=== PATIENT | female | born 1935 | race Caucasian/White ===

== ENCOUNTER 2016-10-28 15:46 | Inpatient (IN) ==
[2016-10-28 16:51] LABS: Hemoglobin 6.4 g/dL (11.5-15.4); Red Cell Distribution Width 20.7 % (11.5-14.5)
[2016-10-28 16:53] LABS: Hematocrit 23.6 % (35.3-44.9); Mean Corpuscular HGB Conc 27.1 g/dL (31.6-35.5); Mean Corpuscular Hemoglobin 17.1 pg (28.0-33.3); Mean Corpuscular Volume 63.1 fL (83.0-100.0); Mean Platelet Volume 10.3 fL (9.4-12.4); Platelet Count 339 K/mcL (140-400); Red Blood Count 3.74 M/mcL (3.82-4.97)
[2016-10-28 16:58] LABS: Prothrombin Time 22.5 Seconds (9.4-12.1)
[2016-10-28 17:00] LABS: Activated Partial Thrombo Time 33.3 Seconds (26.0-36.0)
[2016-10-28 17:03] LABS: Calcium 9.1 mg/dL (8.6-10.8); Potassium 3.9 mEq/L (3.5-4.5)
[2016-10-28 17:05] LABS: Albumin 3.3 g/dL (3.5-5.0); Albumin/Globulin Ratio 0.9 (1.1-2.2); Bilirubin,Direct 0.1 mg/dL (0.0-0.5); Bilirubin,Indirect 0.2 mg/dL (0.0-1.2); Bilirubin,Total 0.3 mg/dL (0.2-1.2); Globulin 3.7 g/dL (2.4-3.5)
[2016-10-28 17:12] LABS: Hypochromasia Present (Not Present)
[2016-10-28 17:13] LABS: Anisocytosis 2+ (Not Present)
[2016-10-28 17:16] LABS: Basophils # 0.2 K/mcL (0.0-0.2); Eosinophils # 0.2 K/mcL (0.0-0.6); Monocytes # 0.4 K/mcL (0.0-1.3); Neutrophils # 4.4 K/mcL (1.6-8.9); Platelet Estimate Normal (Normal); Reactive Lymphocytes Present (Not Present)
[2016-10-28 17:17] LABS: Large Platelets Present (Not Present)
--- NOTE | 2016-10-28 17:50 | Emergency Department Note ---
Disposition Clinical Impression: Gastrointestinal bleeding Disposition: Home, Self-Care Condition: Good Referrals: Rizwan Palma MD [Primary Care Provider] - Forms: ED Satisfaction Letter Recheck wound or abnormal lab - General Chief Complaint: ED Recheck/Abnormal Lab/Rx Stated Complaint: abnormal labs sent by pcp Time Seen by Provider: 10/28/16 16:21 Source: patient Limitations: no limitations Nursing Notes Reviewed: Yes Vital Signs Reviewed: Yes - History of Present Illness HPI Narrative: Patient comes in with complaint of several months of weakness. Patient also had some shortness of breath associated with this. There is a reported cough no fevers and chills. No report of dark tarry stools or gross blood in the stools. Blood work was performed by her primary care provider and she was found to have a hemoglobin 6.5. Patient's baseline appears to be around 10 but this was in 2014. Patient is on Xarelto for a history of pulmonary embolus. Patient denies any new medications denies vomiting. - Related Data Home Medications Medication Instructions Recorded Confirmed Donepezil [Aricept] 10 mg PO HS 10/28/16 10/28/16 Hydrochlorothiazide 12.5 mg PO DAILY 10/28/16 10/28/16 Insulin Glargine,Hum.rec.anlog 18 unit SQ QPM 10/28/16 10/28/16 [Lantus Solostar] Levothyroxine [Synthroid] 25 mcg PO Q72H MDD SEE COMMENTS! 10/28/16 10/28/16 Lisinopril [Zestril] 20 mg PO DAILY 10/28/16 10/28/16 Memantine HCl [Namenda Xr] 28 mg PO DAILY 10/28/16 10/28/16 Multivitamin [Multi-Day Vitamins] 1 each PO DAILY 10/28/16 10/28/16 Repaglinide [Prandin] 4 mg PO DAILY 10/28/16 10/28/16 Rivaroxaban [Xarelto] 20 mg PO QPM 10/28/16 10/28/16 Simvastatin [Zocor] 40 mg PO HS 10/28/16 10/28/16 SitaGLIPtin [Januvia] 100 mg PO DAILY 10/28/16 10/28/16 Allergies Allergy/AdvReac Type Severity Reaction Status Date / Time Penicillins Allergy See Verified 10/28/16 16:04 Comments All systems ED: reviewed and negative except as stated. 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 - Social History Smoking Status: Never smoker Smokeless Tobacco Status: No Alcohol use: Reports: none Drug use: Reports: none Physical Exam - General Limitations: no limitations General appearance: alert, in no apparent distress - Head Head exam: atraumatic, normocephalic, normal inspection - Eye Eye exam: Present: normal appearance, PERRL, EOMI - ENT ENT exam: normal exam, normal oropharynx, mucous membranes moist - Neck Neck exam: Present: normal inspection, full ROM, trachea midline - Chest Chest inspection: Present: normal inspection, symmetric chest wall rise - Respiratory Respiratory exam: Present: normal lung sounds bilaterally - Cardiovascular Cardiovascular exam: Present: regular rate, normal rhythm, normal heart sounds - Abdominal Exam Abdominal exam: Present: soft, Non-Tender. Absent: tenderness, distention, guarding, rebound, rigidity - Rectal Exam Cast Associate present during exam: Yes Rectal exam: Present: normal inspection, normal rectal tone, hemorrhoids - Extremities Exam Extremities exam: Present: normal inspection, full ROM. Absent: tenderness, pedal edema - Back Exam Back exam: Present: normal inspection, full ROM. Absent: tenderness - Neurological Exam Neurological exam: Present: alert, oriented X3 - Psychiatric Psychiatric exam: Present: normal affect, normal mood - Skin Skin exam: Present: warm, dry, intact, normal color Course Vital Signs Temperature 98.1 F 10/28/16 15:58 Pulse Rate 81 10/28/16 15:58 Respiratory Rate 16 10/28/16 15:58 Blood Pressure 141/61 10/28/16 15:58 O2 Sat by Pulse Oximetry 99 10/28/16 15:58 Temperature 98.1 F 10/28/16 15:58 Pulse Rate 65 10/28/16 18:25 Respiratory Rate 18 10/28/16 18:25 Blood Pressure 149/84 10/28/16 18:25 O2 Sat by Pulse Oximetry 98 10/28/16 18:25 Oxygen Delivery Oxygen Delivery Room Air Recheck wound or abnormal lab - Medical Records Medical records reviewed: Yes I reviewed the patient's medical records. - Lab Data Lab results reviewed: Yes I reviewed the patient's lab results. Result diagrams: 10/28/16 16:40 10/28/16 16:40 Lab Results 10/28/16 10/28/16 10/28/16 Range/Units 16:40 16:40 16:40 WBC 7.3 (4.3-11.1) K/mcL RBC 3.74 L (3.82-4.97) M/mcL Hgb 6.4 L (11.5-15.4) g/dL Hct 23.6 L (35.3-44.9) % MCV 63.1 L (83.0-100.0) fL MCH 17.1 L (28.0-33.3) pg MCHC 27.1 L (31.6-35.5) g/dL RDW 20.7 H (11.5-14.5) % Plt Count 339 (140-400) K/mcL MPV 10.3 (9.4-12.4) fL Seg Neutrophils % 58.0 % Band Neutrophils % 2.0 (0-4) % Lymphocytes % 28.0 % Monocytes % 6.0 % Eosinophils % 2.0 % Basophils % 2.0 % Myelocytes % 2.0 H (0) % Neutrophils # 4.4 (1.6-8.9) K/mcL Lymphocytes # 2.0 (0.6-4.6) K/mcL Monocytes # 0.4 (0.0-1.3) K/mcL Eosinophils # 0.2 (0.0-0.6) K/mcL Basophils # 0.2 (0.0-0.2) K/mcL Reactive Lymphocytes Present A (Not Present) Platelet Estimate Normal (Normal) Large Platelets Present A (Not Present) Hypochromasia Present A (Not Present) Anisocytosis 2+ A (Not Present) PT (9.4-12.1) Seconds INR APTT (26.0-36.0) Seconds Sodium 138 (136-145) mEq/L Potassium 3.9 (3.5-4.5) mEq/L Chloride 103 (98-109) mEq/L Carbon Dioxide 24 (19-29) mEq/L BUN 17 (7-20) mg/dL Creatinine 1.21 H (0.57-1.11) mg/dL Est GFR ( Amer) 52 L (> 60) Est GFR (Non-Af Amer) 43 L (> 60) BUN/Creatinine Ratio 14 (6-26) Glucose 159 H (70-99) mg/dL Calculated Osmolality 291 (280-300) Calcium 9.1 (8.6-10.8) mg/dL Total Bilirubin (0.2-1.2) mg/dL Direct Bilirubin (0.0-0.5) mg/dL Indirect Bilirubin (0.0-1.2) mg/dL AST (5-34) Units/L ALT (0-55) Units/L Alkaline Phosphatase (38-126) Units/L Serum Total Protein (6.0-8.3) g/dL Albumin (3.5-5.0) g/dL Globulin (2.4-3.5) g/dL Albumin/Globulin Ratio (1.1-2.2) Stool Occult Blood (Negative) Blood Type A POSITIVE Antibody Screen NEGATIVE Crossmatch See Detail 10/28/16 10/28/16 10/28/16 Range/Units 16:40 16:40 17:40 WBC (4.3-11.1) K/mcL RBC (3.82-4.97) M/mcL Hgb (11.5-15.4) g/dL Hct (35.3-44.9) % MCV (83.0-100.0) fL MCH (28.0-33.3) pg MCHC (31.6-35.5) g/dL RDW (11.5-14.5) % Plt Count (140-400) K/mcL MPV (9.4-12.4) fL Seg Neutrophils % % Band Neutrophils % (0-4) % Lymphocytes % % Monocytes % % Eosinophils % % Basophils % % Myelocytes % (0) % Neutrophils # (1.6-8.9) K/mcL Lymphocytes # (0.6-4.6) K/mcL Monocytes # (0.0-1.3) K/mcL Eosinophils # (0.0-0.6) K/mcL Basophils # (0.0-0.2) K/mcL Reactive Lymphocytes (Not Present) Platelet Estimate (Normal) Large Platelets (Not Present) Hypochromasia (Not Present) Anisocytosis (Not Present) PT 22.5 H (9.4-12.1) Seconds INR 2.0 APTT 33.3 (26.0-36.0) Seconds Sodium (136-145) mEq/L Potassium (3.5-4.5) mEq/L Chloride (98-109) mEq/L Carbon Dioxide (19-29) mEq/L BUN (7-20) mg/dL Creatinine (0.57-1.11) mg/dL Est GFR ( Amer) (> 60) Est GFR (Non-Af Amer) (> 60) BUN/Creatinine Ratio (6-26) Glucose (70-99) mg/dL Calculated Osmolality (280-300) Calcium (8.6-10.8) mg/dL Total Bilirubin 0.3 (0.2-1.2) mg/dL Direct Bilirubin 0.1 (0.0-0.5) mg/dL Indirect Bilirubin 0.2 (0.0-1.2) mg/dL AST 14 (5-34) Units/L ALT 9 (0-55) Units/L Alkaline Phosphatase 57 (38-126) Units/L Serum Total Protein 7.0 (6.0-8.3) g/dL Albumin 3.3 L (3.5-5.0) g/dL Globulin 3.7 H (2.4-3.5) g/dL Albumin/Globulin Ratio 0.9 L (1.1-2.2) Stool Occult Blood Positive A (Negative) Blood Type Antibody Screen Crossmatch - EKG Data EKG attestation: Yes I reviewed and interpreted this EKG. EKG shows normal: sinus rhythm Rate: normal Rhythm: NSR Critical Care Time Total Critical Care Time: 45 Attestation: Critical care performed: Time is exclusive of separately billable procedures. Time includes: direct patient care, patient reassessment, coordination of patient care, interpretation of data (laboratory data, radiology data, and respiratory data), review of patient's medical records, medical consultation and documentation of patient care. Procedures included in critical care time: Procedures excluded from critical care time:
[2016-10-28] MEDS ORDERED: 0.9 % Sodium Chloride 250 ML ONE ×2 (19:18→23:38)
--- NOTE | 2016-10-28 21:34 | Internal Med History&Physical ---
Date of Encounter: 10/28/16 Time of Encounter: 20:45 Internal Medicine - H&P: HPI Chief complaint: Low hemoglobin on routine laboratory testing Admitted From: Emergency Dept Plans for Post Hospital Care: Home History of present illness: Ms. 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 her baseline appears to be 10 g/dl as of 09/2015. She denies any changes in baseline status, she appears to agree to easy fatiguability over months associated with SOB. Se denies gross bleeding from any orifices ( hemoptysis, hematemesis, hematuria, melena). No other associated symptoms. Signifiicantly, no constitutional symptoms. The patient is a very poor historian due to Alzhemier's, her had left for hoe, and was not reachable by the phone number on her Facesheet. I am unable to confirm her code status. Source: Records Medical history: Reports: DVT, dementia, diabetes, hyperlipidemia, hypertension , pulmonary embolus Psychiatric history: Reports: no psych history ETHNOARCHAEOLOGY PROFESSOR history: Reports: no ETHNOARCHAEOLOGY PROFESSOR history Smoking Status: Never smoker Smokeless Tobacco Status: No Alcohol use: Reports: none Drug use: Reports: none Family history: Unable to provide ROS: A 10-point ROS was performed, positives and relevant negatve are detailed, system-symptoms not mentioned assumed negative unless otherwise stated. Vital Signs Temperature 98.1 F 10/28/16 15:58 Pulse Rate 81 10/28/16 15:58 Respiratory Rate 16 10/28/16 15:58 Blood Pressure 141/61 10/28/16 15:58 O2 Sat by Pulse Oximetry 99 10/28/16 15:58 Temperature 98.1 F 10/28/16 15:58 Pulse Rate 65 10/28/16 18:25 Respiratory Rate 18 10/28/16 18:25 Blood Pressure 149/84 10/28/16 18:25 O2 Sat by Pulse Oximetry 98 10/28/16 18:25 O/E: not in distress, elderly female. HEENT: Pale+++, anicteric, afebrile, acyanotic, no JVD Chest: CTAB Heart/CVS: RRR, HS1/2, loud pansystolic murmur grade III/ Abdomen: soft, non-tender, no masses. WEBMASTER: AAO x 3, no gross focal neurological deficits, very poor short-term and long-term memory (consistent wih history of Alzhemier' dementia). Skin: Pale, no active skin lesion. Extremities: no normal pedal pulses, no calf tenderness. Lab Results 10/28/16 10/28/16 10/28/16 Range/Units 16:40 16:40 16:40 WBC 7.3 (4.3-11.1) K/mcL RBC 3.74 L (3.82-4.97) M/mcL Hgb 6.4 L (11.5-15.4) g/dL Hct 23.6 L (35.3-44.9) % MCV 63.1 L (83.0-100.0) fL MCH 17.1 L (28.0-33.3) pg MCHC 27.1 L (31.6-35.5) g/dL RDW 20.7 H (11.5-14.5) % Plt Count 339 (140-400) K/mcL MPV 10.3 (9.4-12.4) fL Seg Neutrophils % 58.0 % Band Neutrophils % 2.0 (0-4) % Lymphocytes % 28.0 % Monocytes % 6.0 % Eosinophils % 2.0 % Basophils % 2.0 % Myelocytes % 2.0 H (0) % Neutrophils # 4.4 (1.6-8.9) K/mcL Lymphocytes # 2.0 (0.6-4.6) K/mcL Monocytes # 0.4 (0.0-1.3) K/mcL Eosinophils # 0.2 (0.0-0.6) K/mcL Basophils # 0.2 (0.0-0.2) K/mcL Reactive Lymphocytes Present A (Not Present) Platelet Estimate Normal (Normal) Large Platelets Present A (Not Present) Hypochromasia Present A (Not Present) Anisocytosis 2+ A (Not Present) PT (9.4-12.1) Seconds INR APTT (26.0-36.0) Seconds Sodium 138 (136-145) mEq/L Potassium 3.9 (3.5-4.5) mEq/L Chloride 103 (98-109) mEq/L Carbon Dioxide 24 (19-29) mEq/L BUN 17 (7-20) mg/dL Creatinine 1.21 H (0.57-1.11) mg/dL Est GFR ( Amer) 52 L (> 60) Est GFR (Non-Af Amer) 43 L (> 60) BUN/Creatinine Ratio 14 (6-26) Glucose 159 H (70-99) mg/dL Calculated Osmolality 291 (280-300) Calcium 9.1 (8.6-10.8) mg/dL Total Bilirubin (0.2-1.2) mg/dL Direct Bilirubin (0.0-0.5) mg/dL Indirect Bilirubin (0.0-1.2) mg/dL AST (5-34) Units/L ALT (0-55) Units/L Alkaline Phosphatase (38-126) Units/L Serum Total Protein (6.0-8.3) g/dL Albumin (3.5-5.0) g/dL Globulin (2.4-3.5) g/dL Albumin/Globulin Ratio (1.1-2.2) Stool Occult Blood (Negative) Blood Type A POSITIVE Antibody Screen NEGATIVE Crossmatch See Detail 10/28/16 10/28/16 10/28/16 Range/Units 16:40 16:40 17:40 WBC (4.3-11.1) K/mcL RBC (3.82-4.97) M/mcL Hgb (11.5-15.4) g/dL Hct (35.3-44.9) % MCV (83.0-100.0) fL MCH (28.0-33.3) pg MCHC (31.6-35.5) g/dL RDW (11.5-14.5) % Plt Count (140-400) K/mcL MPV (9.4-12.4) fL Seg Neutrophils % % Band Neutrophils % (0-4) % Lymphocytes % % Monocytes % % Eosinophils % % Basophils % % Myelocytes % (0) % Neutrophils # (1.6-8.9) K/mcL Lymphocytes # (0.6-4.6) K/mcL Monocytes # (0.0-1.3) K/mcL Eosinophils # (0.0-0.6) K/mcL Basophils # (0.0-0.2) K/mcL Reactive Lymphocytes (Not Present) Platelet Estimate (Normal) Large Platelets (Not Present) Hypochromasia (Not Present) Anisocytosis (Not Present) PT 22.5 H (9.4-12.1) Seconds INR 2.0 APTT 33.3 (26.0-36.0) Seconds Sodium (136-145) mEq/L Potassium (3.5-4.5) mEq/L Chloride (98-109) mEq/L Carbon Dioxide (19-29) mEq/L BUN (7-20) mg/dL Creatinine (0.57-1.11) mg/dL Est GFR ( Amer) (> 60) Est GFR (Non-Af Amer) (> 60) BUN/Creatinine Ratio (6-26) Glucose (70-99) mg/dL Calculated Osmolality (280-300) Calcium (8.6-10.8) mg/dL Total Bilirubin 0.3 (0.2-1.2) mg/dL Direct Bilirubin 0.1 (0.0-0.5) mg/dL Indirect Bilirubin 0.2 (0.0-1.2) mg/dL AST 14 (5-34) Units/L ALT 9 (0-55) Units/L Alkaline Phosphatase 57 (38-126) Units/L Serum Total Protein 7.0 (6.0-8.3) g/dL Albumin 3.3 L (3.5-5.0) g/dL Globulin 3.7 H (2.4-3.5) g/dL Albumin/Globulin Ratio 0.9 L (1.1-2.2) Stool Occult Blood Positive A (Negative) Blood Type Antibody Screen Crossmatch IMP Severe anemia due to blood loss, anemia appears chronic considering she is tolerating it quite well, and occult blood is reported as negative in the ED Iron deficiency due blood loss 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 Iron profile, including Ferritin 2D ECHO. Diabetic diet, Continue essential medications of chronic morbidities. I discussed my assessment with the patient, she verbalized understanding and is agreeable to admission. She is high risk due to severe anemia, and being on Xarelto. Past Med Surg Social Fam HX - Past Medical History Medical history: DVT, dementia, diabetes, hyperlipidemia, hypertension, pulmonary embolus Psychiatric history: no psych history - Social History Smoking Status: Never smoker Smokeless Tobacco Status: No Alcohol use: none Drug use: none Internal Medicine - H&P: Meds Donepezil [Aricept] 10 mg PO HS 10/28/16 [History] Hydrochlorothiazide 12.5 mg PO DAILY 10/28/16 [History] Insulin Glargine,Hum.rec.anlog [Lantus Solostar] 18 unit SQ QPM 10/28/16 [ History] Levothyroxine [Synthroid] 25 mcg PO Q72H MDD SEE COMMENTS! 10/28/16 [History] Lisinopril [Zestril] 20 mg PO DAILY 10/28/16 [History] Memantine HCl [Namenda Xr] 28 mg PO DAILY 10/28/16 [History] Multivitamin [Multi-Day Vitamins] 1 each PO DAILY 10/28/16 [History] Repaglinide [Prandin] 4 mg PO DAILY 10/28/16 [History] Rivaroxaban [Xarelto] 20 mg PO QPM 10/28/16 [History] Simvastatin [Zocor] 40 mg PO HS 10/28/16 [History] SitaGLIPtin [Januvia] 100 mg PO DAILY 10/28/16 [History] Allergies Penicillins Allergy (Verified 10/28/16 16:04) See Comments unsure All Systems PM: A 10-system review of systems was performed and is negative for pertinent findings except as documented above in the HPI. - Constitutional Vitals: Temp Pulse Resp BP Pulse Ox 97.9 F 75 17 142/61 97 10/28/16 21:13 10/28/16 21:13 10/28/16 21:13 10/28/16 21:13 10/28/16 21:13 Internal Med - H&P Results - Labs CBC & Chem 7: 10/28/16 16:40 10/28/16 16:40
[2016-10-28] MEDS ORDERED: Dextrose Gel 15 GM PO PRN ×2 (21:45)
[2016-10-28] MEDS ORDERED: *HR* Dextrose 50 % in Water (Syg) 50 ML SYRINGE IVP PRN (21:45)
[2016-10-28] MEDS ORDERED: D5% in Water 1,000 ML IV PRN (21:45)
[2016-10-28 22:38] LABS: % Iron Saturation 2 % (15-50); Iron 10 mcg/dL (50-170); Transferrin 349 mg/dL (180-382)
[2016-10-28 22:58] LABS: Ferritin 5 ng/ml (5-204)
[2016-10-29] MEDS ORDERED: Insulin LISPRO 300 UNITS/3 ML VIAL SQ SCH
[2016-10-29 06:08] LABS: Hematocrit 30.2 % (35.3-44.9); Hemoglobin 8.6 g/dL (11.5-15.4)
[2016-10-29] MEDS ORDERED: Levothyroxine 25 MCG TABLET PO SCH (06:30)
[2016-10-29] MEDS: Insulin LISPRO 300 UNITS/3 ML VIAL SQ SCH ×4 (07:40→21:56)
[2016-10-29] MEDS: Multivit/Ca/Min/Fe/FA 1 TAB TABLET PO SCH (07:41)
[2016-10-29] MEDS: Lisinopril 20 MG TABLET PO SCH (07:41)
[2016-10-29] MEDS: hydroCHLOROthiazide 25 MG TABLET PO SCH (07:41)
[2016-10-29] MEDS ORDERED: *HR* SitaGLIPtin 100 MG TABLET PO SCH (09:00)
--- NOTE | 2016-10-29 10:30 | Internal Med Progress Note ---
Date of Encounter: 10/29/16 Time of Encounter: 10:26 - Assessment and plan (1) Gastrointestinal bleeding Current Visit: Yes Status: Acute Assessment and plan: Patient with severe symptomatic anemia, occult blood was positive in stools. Initially hemoglobin was 6.4, she received 2 units of PRBC overnight. Hemoglobin has improved to 8.6. The patient is on chronic anticoagulation due to history of thrombo embolic events. At this point anticoagulation has been stopped, we will continue monitoring her hemoglobin. A consultation with our endoscopic team has been requested. I discussed the case with the surgeon superintendent transmission for further recommendations. Patient has a loud systolic murmur, a transthoracic echo has been requested. We will follow. Qualifiers: GI bleed type/associated pathology: unspecified gastrointestinal hemorrhage type Qualified Code(s): K92.2 - Gastrointestinal hemorrhage, unspecified (2) Acute post-hemorrhagic anemia Current Visit: Yes Status: Acute - Time Spent With Patient 25 - 35 minutes - Subjective Interval history: This is my first encounter with the patient. The patient was seen and examined in grounds. Her hospital was present during this encounter. She denies chest pain, abdominal pain, diarrhea, melena, hematemesis. The patient has been complaining of progressive fatigue in the last couple of weeks. - Constitutional Vitals: Temp Pulse Resp BP Pulse Ox 97.7 F 63 14 147/68 94 L 10/29/16 07:20 10/29/16 07:20 10/29/16 07:20 10/29/16 07:20 10/29/16 07:20 - Head Head exam: Present: atraumatic, normocephalic - Eye Eye exam: Present: PERRL, conjuntiva pink, sclera anicteric Pupils: Present: PERRL - Neck Neck exam general surgery: Present: supple, trachea midline. Absent: lymphadenopathy - Respiratory Respiratory exam: Present: CTAB. Absent: accessory muscle use, rales, rhonchi, wheezes - Cardiovascular Cardiovascular exam: Present: RRR, +S1, +S2, systolic murmur. Absent: diastolic murmur, gallop, rubs - GI/Abdominal GI/Abdominal exam: Present: normal bowel sounds, soft, no peritoneal signs. Absent: distended, tenderness - Extremities Exam Extremities exam: Present: warm, radial pulses palpable and symetrical. Absent : calf tenderness, cyanotic, pedal edema - Neurological Exam Neurological exam: Present: CN II-XII intact, oriented X3, no focal deficits. Absent: pronater drift, facial droop, speech deficit - Skin Skin exam: Present: dry, intact Internal Medicine: Result - Labs CBC & Chem 7: 10/29/16 05:22 10/28/16 16:40 Labs: Short CBC 10/29/16 Range/Units 05:22 Hgb 8.6 L D (11.5-15.4) g/dL Hct 30.2 L (35.3-44.9) % - ABG Interpretation ABG results: PT/INR, D-dimer PT 22.5 Seconds (9.4-12.1) H 10/28/16 16:40 Consult Discharge Plan - Plan Referrals: Rizwan Palma MD [Primary Care Provider] -
[2016-10-29] MEDS ORDERED: Polyethylene Glycol 3350 255 GM POWDER PO ONE (10:48)
--- NOTE | 2016-10-29 12:13 | General Surgery Consult Note ---
<Khalif Moon - Last Filed: 10/29/16 16:20> Date of Encounter: 10/29/16 Time of Encounter: 12:30 Assessment and Plan (1) Gastrointestinal bleeding Current Visit: Yes Status: Acute Plan for colonoscopy tomorrow. Miralax Bowel prep Clear liquid diet Monitor H/H, tranfuse as needed. Qualifiers: GI bleed type/associated pathology: unspecified gastrointestinal hemorrhage type Qualified Code(s): K92.2 - Gastrointestinal hemorrhage, unspecified (2) HTN (hypertension) Current Visit: Yes Status: Acute Managed by medicine service. Qualifiers: Hypertension type: essential hypertension Qualified Code(s): I10 - Essential (primary) hypertension (3) Diabetes mellitus Current Visit: Yes Status: Acute Managed by medicine service. Qualifiers: Diabetes mellitus type: type 2 Diabetes mellitus complication status: without complication Diabetes mellitus lobsterman insulin use: with lobsterman use Qualified Code(s): E11.9 - Type 2 diabetes mellitus without complications ; Z79.4 - penitentiary (current) use of insulin (4) History of pulmonary embolism Current Visit: Yes Status: Acute (5) Dementia Current Visit: Yes Status: Acute Qualifiers: Dementia type: Alzheimer's disease Alzheimer's disease onset: unspecified onset Dementia behavioral disturbance: without behavioral disturbance Qualified Code(s): G30.9 - Alzheimer's disease, unspecified; F02.80 - Dementia in other diseases classified elsewhere without behavioral disturbance (6) DVT prophylaxis Current Visit: Yes Status: Acute History of DVT, anticoagulation held for acute GI bleed. History of Present Illness Consult date: 10/29/16 Reason for consult: other (abnormal labs/anemia) Requesting physician: Jake Wilson History of present illness: Ms. Huerta is an 80 year old female with history of Alzheimer's disease that presented to the ED today for abnormal labs after seeing PCP. notes 6 months of increased fatigue and weakness. Patient was found to have Hgb of 6.4, was transfused 2 units pRBCs and states she is feeling better this AM. Hgb improved to 8.6>8.9 today. She denies any nausea, vomiting, chest pain, abdominal pain, diarrhea, or constipation. She does note increased shortness of breath with exertion. 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 Past Med Surg Social Fam HX - Past Medical History Source: obtained from family Medical history: DVT, dementia, diabetes, hyperlipidemia, hypertension, pulmonary embolus Psychiatric history: no psych history - Social History Smoking Status: Never smoker Smokeless Tobacco Status: No Alcohol use: none Drug use: none - Family History Mother Hx Family Endocrine Disorder: Yes (DM) Medications and Allergies Donepezil [Aricept] 10 mg PO HS 10/28/16 [History] Hydrochlorothiazide 12.5 mg PO DAILY 10/28/16 [History] Insulin Glargine,Hum.rec.anlog [Lantus Solostar] 18 unit SQ QPM 10/28/16 [ History] Levothyroxine [Synthroid] 25 mcg PO Q72H MDD SEE COMMENTS! 10/28/16 [History] Lisinopril [Zestril] 20 mg PO DAILY 10/28/16 [History] Memantine HCl [Namenda Xr] 28 mg PO DAILY 10/28/16 [History] Multivitamin [Multi-Day Vitamins] 1 each PO DAILY 10/28/16 [History] Repaglinide [Prandin] 4 mg PO DAILY 10/28/16 [History] Rivaroxaban [Xarelto] 20 mg PO QPM 10/28/16 [History] Simvastatin [Zocor] 40 mg PO HS 10/28/16 [History] SitaGLIPtin [Januvia] 100 mg PO DAILY 10/28/16 [History] Allergies Penicillins Allergy (Verified 10/28/16 16:04) See Comments unsure Review of Systems ROS unobtainable: due to mental status (ROS obtained from patient and ) All systems PM: A 10-system review of systems was performed and is negative for pertinent findings except as documented above in the HPI. - Constitutional fatigue, no chills, no fever(s) - EENT Nose, mouth and throat: no dizziness, no dysphagia - Cardiovascular dyspnea on exertion, no chest pain, no palpitations, no syncope - Respiratory dyspnea, dyspnea on exertion - Gastrointestinal no abdominal pain, no constipation, no diarrhea, no nausea, no vomiting - Genitourinary Genitourinary: no dysuria, no hematuria - Musculoskeletal no back pain - Integumentary no change in pigmentation, no changing lesions - Neurological confusion, memory loss - Endocrine fatigue - Hematologic/Lymphatic easy bruising (just noted bruising today) General Surgery Exam Initial Vital Signs Temp Pulse Resp BP Pulse Ox 98.1 F 81 16 141/61 99 10/28/16 15:58 10/28/16 15:58 10/28/16 15:58 10/28/16 15:58 10/28/16 15:58 - General physical appearance well developed, well nourished, no distress - Eyes normal ocular movement - ENT normal mucosa, atraumatic, normocephalic - Neck trachea midline - Respiratory normal respiratory effort, clear to auscultation - Cardiovascular Cardiovascular exam: Present: RRR, murmurs (systolic) - Abdomen Abdomen general surgery: Present: bowel sounds present, soft, non tender - Integumentary Integumentary general surgery: Present: warm and dry, no abnormal pigmentation - Neurologic Present: CN 2-12 grossly intact - Psychiatric Psychiatric general surgery: Present: appropriate, oriented to person, oriented to place, speech is normal Exam Initial Vital Signs Temp Pulse Resp BP Pulse Ox 98.1 F 81 16 141/61 99 10/28/16 15:58 10/28/16 15:58 10/28/16 15:58 10/28/16 15:58 10/28/16 15:58 Results - Labs 10/29/16 14:02 10/28/16 16:40 Abnormal lab results RBC 3.74 M/mcL (3.82-4.97) L 10/28/16 16:40 Hgb 8.6 g/dL (11.5-15.4) L D 10/29/16 05:22 Hct 30.2 % (35.3-44.9) L 10/29/16 05:22 MCV 63.1 fL (83.0-100.0) L 10/28/16 16:40 MCH 17.1 pg (28.0-33.3) L 10/28/16 16:40 MCHC 27.1 g/dL (31.6-35.5) L 10/28/16 16:40 RDW 20.7 % (11.5-14.5) H 10/28/16 16:40 Myelocytes % 2.0 % (0) H 10/28/16 16:40 Reactive Lymphocytes Present (Not Present) A 10/28/16 16:40 Large Platelets Present (Not Present) A 10/28/16 16:40 Hypochromasia Present (Not Present) A 10/28/16 16:40 Anisocytosis 2+ (Not Present) A 10/28/16 16:40 PT 22.5 Seconds (9.4-12.1) H 10/28/16 16:40 Creatinine 1.21 mg/dL (0.57-1.11) H 10/28/16 16:40 Est GFR ( Amer) 52 (> 60) L 10/28/16 16:40 Est GFR (Non-Af Amer) 43 (> 60) L 10/28/16 16:40 Glucose 159 mg/dL (70-99) H 10/28/16 16:40 POC Glucose 199 (58-89) H 10/29/16 07:19 Iron 10 mcg/dL (50-170) L 10/28/16 16:40 % Saturation 2 % (15-50) L 10/28/16 16:40 Albumin 3.3 g/dL (3.5-5.0) L 10/28/16 16:40 Globulin 3.7 g/dL (2.4-3.5) H 10/28/16 16:40 Albumin/Globulin Ratio 0.9 (1.1-2.2) L 10/28/16 16:40 Stool Occult Blood Positive (Negative) A 10/28/16 17:40 All other labs normal. Consult Discharge Plan - Plan Referrals: Rizwan Palma MD [Primary Care Provider] - <Ria Guy - Last Filed: 10/30/16 18:35> Assessment and Plan (1) Anemia Current Visit: Yes Status: Acute Patient is anemic with a hemoglobin of 6. Discussed with patient and her performing a colonoscopy with IV medication, risks and benefits discussed and they wish to proceed. She will be on clear liquids today and do a bowel prep and we will do her colonoscopy tomorrow. Qualifiers: Anemia type: other cause Other causes of anemia: other cause, not classified Qualified Code(s): D64.89 - Other specified anemias (2) Dementia Current Visit: Yes Status: Acute Qualifiers: Dementia type: Alzheimer's disease Alzheimer's disease onset: unspecified onset Dementia behavioral disturbance: without behavioral disturbance Qualified Code(s): G30.9 - Alzheimer's disease, unspecified; F02.80 - Dementia in other diseases classified elsewhere without behavioral disturbance (3) Diabetes mellitus Current Visit: Yes Status: Acute Qualifiers: Diabetes mellitus type: type 2 Diabetes mellitus complication status: without complication Diabetes mellitus assisted insulin use: with lobsterman use Qualified Code(s): E11.9 - Type 2 diabetes mellitus without complications ; Z79.4 - penitentiary (current) use of insulin History of Present Illness History of present illness: Patient is an 80-year-old female whose last colonoscopy was in 2004 and showed 2 hyperplastic polyps. Patient has Alzheimer's and most information is obtained from her . She states that approximately 6 months ago she is having increased fatigue. Labs were done by the PCP which showed a hemoglobin of 6.4. She was admitted to the hospital and transfused 2 units of blood. Since then hemoglobin has been stable. She denies any abdominal pain, nausea, or vomiting. She denies any melanoma or hematochezia as does the patient. Patient has a PE as it and is on xarelto Review of Systems All systems PM: reviewed and no additional remarkable complaints except as stated All systems PM: A 10-system review of systems was performed and is negative for pertinent findings except as documented above in the HPI. General Surgery Exam Initial Vital Signs Temp Pulse Resp BP Pulse Ox 98.1 F 81 16 141/61 99 10/28/16 15:58 10/28/16 15:58 10/28/16 15:58 10/28/16 15:58 10/28/16 15:58 - General physical appearance well nourished, no distress, other (pale) - Eyes PERRL, normal ocular movement - ENT normal mucosa, atraumatic, normocephalic - Respiratory normal respiratory effort, clear to auscultation - Cardiovascular Cardiovascular exam: Present: RRR - Abdomen Abdomen general surgery: Present: bowel sounds present, soft, non tender - Integumentary Integumentary general surgery: Present: warm and dry - Neurologic Present: CN 2-12 grossly intact - Musculoskeletal Present: normal gait, normal posture - Psychiatric Psychiatric general surgery: Present: oriented to person, speech is normal Exam Initial Vital Signs Temp Pulse Resp BP Pulse Ox 98.1 F 81 16 141/61 99 10/28/16 15:58 10/28/16 15:58 10/28/16 15:58 10/28/16 15:58 10/28/16 15:58 Results - Labs 10/30/16 04:14 10/30/16 04:14 Abnormal lab results Hgb 8.5 g/dL (11.5-15.4) L 10/30/16 04:14 Hct 29.1 % (35.3-44.9) L 10/30/16 04:14 MCV 66.7 fL (83.0-100.0) L 10/30/16 04:14 MCH 19.5 pg (28.0-33.3) L 10/30/16 04:14 MCHC 29.2 g/dL (31.6-35.5) L 10/30/16 04:14 RDW 23.9 % (11.5-14.5) H 10/30/16 04:14 Myelocytes % 2.0 % (0) H 10/28/16 16:40 Reactive Lymphocytes Present (Not Present) A 10/28/16 16:40 Large Platelets Present (Not Present) A 10/28/16 16:40 Immature Plt Fraction 8.2 % (1.1-6.1) H 10/30/16 04:14 Hypochromasia Present (Not Present) A 10/30/16 04:14 Anisocytosis 2+ (Not Present) A 10/30/16 04:14 Microcytosis Present (Not Present) A 10/30/16 04:14 PT 22.5 Seconds (9.4-12.1) H 10/28/16 16:40 Est GFR ( Amer) 59 (> 60) L 10/30/16 04:14 Est GFR (Non-Af Amer) 49 (> 60) L 10/30/16 04:14 Glucose 130 mg/dL (70-99) H 10/30/16 04:14 POC Glucose 135 (58-89) H 10/30/16 17:43 Iron 10 mcg/dL (50-170) L 10/28/16 16:40 % Saturation 2 % (15-50) L 10/28/16 16:40 Albumin 3.3 g/dL (3.5-5.0) L 10/28/16 16:40 Globulin 3.7 g/dL (2.4-3.5) H 10/28/16 16:40 Albumin/Globulin Ratio 0.9 (1.1-2.2) L 10/28/16 16:40 Stool Occult Blood Positive (Negative) A 10/28/16 17:40 Diabetes panel 10/30/16 Range/Units 04:14 Sodium 139 (136-145) mEq/L Potassium 3.8 (3.5-4.5) mEq/L Chloride 104 (98-109) mEq/L Carbon Dioxide 25 (19-29) mEq/L BUN 10 (7-20) mg/dL Creatinine 1.08 (0.57-1.11) mg/dL Glucose 130 H (70-99) mg/dL Calcium 9.2 (8.6-10.8) mg/dL Calcium panel 10/30/16 Range/Units 04:14 Calcium 9.2 (8.6-10.8) mg/dL Pituitary panel 10/30/16 Range/Units 04:14 Sodium 139 (136-145) mEq/L Potassium 3.8 (3.5-4.5) mEq/L Chloride 104 (98-109) mEq/L Carbon Dioxide 25 (19-29) mEq/L BUN 10 (7-20) mg/dL Creatinine 1.08 (0.57-1.11) mg/dL Glucose 130 H (70-99) mg/dL Calcium 9.2 (8.6-10.8) mg/dL Adrenal panel 10/30/16 Range/Units 04:14 Sodium 139 (136-145) mEq/L Potassium 3.8 (3.5-4.5) mEq/L Chloride 104 (98-109) mEq/L Carbon Dioxide 25 (19-29) mEq/L BUN 10 (7-20) mg/dL Creatinine 1.08 (0.57-1.11) mg/dL Glucose 130 H (70-99) mg/dL Calcium 9.2 (8.6-10.8) mg/dL All other labs normal. - Attending Attestation I examined this patient and my medical decision-making was reviewed with the [employer] ATTENDANT/PA/Advanced Practice Nurse/Resident Physician. I agree with the documented findings, disposition and treatment plan as described except to the extent set forth below.
[2016-10-29 14:28] LABS: Hematocrit 31.7 % (35.3-44.9); Hemoglobin 8.9 g/dL (11.5-15.4)
[2016-10-29] MEDS: Insulin DETEMIR 100 UNIT/ML X5UNITS SQ SCH (21:56)
[2016-10-29] MEDS ORDERED: *HR* LORazepam 2 MG/ML VIAL IVP ONE (23:24)
[2016-10-30 05:03] LABS: Calcium 9.2 mg/dL (8.6-10.8); Potassium 3.8 mEq/L (3.5-4.5)
[2016-10-30 05:34] LABS: Basophils % 0.3 %; Immature Platelets 8.2 % (1.1-6.1); Monocytes % 7.4 %
[2016-10-30 05:37] LABS: Eosinophils # 0.3 K/mcL (0.0-0.6); Eosinophils % 3.1 %; Hematocrit 29.1 % (35.3-44.9); Hemoglobin 8.5 g/dL (11.5-15.4); Immature Granulocytes % 0.4 % (0-4); Lymphocytes % 31.2 %; Mean Corpuscular HGB Conc 29.2 g/dL (31.6-35.5); Mean Corpuscular Hemoglobin 19.5 pg (28.0-33.3); Mean Corpuscular Volume 66.7 fL (83.0-100.0); Mean Platelet Volume 10.7 fL (9.4-12.4); Monocytes # 0.7 K/mcL (0.0-1.3); Platelet Count 318 K/mcL (140-400); Red Blood Count 4.36 M/mcL (3.82-4.97); Red Cell Distribution Width 23.9 % (11.5-14.5); Segmented Neutrophils % 57.6 %
[2016-10-30 05:53] LABS: Neutrophils # 5.5 K/mcL (1.6-8.9)
[2016-10-30 05:59] LABS: Anisocytosis 2+ (Not Present); Hypochromasia Present (Not Present); Microcytosis Present (Not Present); Platelet Estimate Normal (Normal)
[2016-10-30] MEDS: Insulin LISPRO 300 UNITS/3 ML VIAL SQ SCH ×4 (07:22→21:10)
[2016-10-30] MEDS: *HR* SitaGLIPtin 25 MG TABLET PO SCH (07:57)
[2016-10-30] MEDS ORDERED: D5% in 0.45% NACL 1,000 ML IVC SCH (11:30)
[2016-10-30] MEDS: hydroCHLOROthiazide 25 MG TABLET PO SCH (12:00)
[2016-10-30] MEDS: Lisinopril 20 MG TABLET PO SCH (12:01)
[2016-10-30] MEDS: Multivit/Ca/Min/Fe/FA 1 TAB TABLET PO SCH (12:01)
--- NOTE | 2016-10-30 13:04 | ECHO - Doppler Report ---
Echocardiogram Name: María Elena Huerta Date of Study: 10/30/2016 Date: 1935 Ht: 61.0 in Medical Record#: [id number] Age: 80 Wt: 218.0 lb Gender: Female BSA: 1.96 Order #: [id number] Location: [facility] Room #: 3A52 Reading Physician: Ortega Rodgers MD, [facility] [place] Set Up: Gladys Rodriguez RVT Ordering Physician: Thor Lagos MD Primary Physician: Rizwan Palma MD Indications: loud pansystolic murmur Impressions: Normal left ventricular size and systolic function, LVEF 60-65%. Mild concentric left ventricular hypertrophy. Mild left ventricular diastolic dysfunction. Normal right ventricular size and function. Mildly dilated left atrium. Trileaflet aortic valve. Leaflets are moderately thickened/calcified with reduced systolic excursion. Moderate-severe aortic stenosis. Peak velocity 3.77 m/sec, mean gradient 32 mmHg, aortic valve area 0.93 cm2. No evidence of pulmonary hypertension. Left Ventricular Wall Motion: Rest Echo Findings All wall segments showed normal motion. Findings: Study Quality * Suboptimal echo windows. ECG Findings * Normal sinus rhythm. Left Ventricle * Normal left ventricular size and systolic function, LVEF 60-65%. * Mild concentric left ventricular hypertrophy. * Mild left ventricular diastolic dysfunction. Right Ventricle * Normal right ventricular size and function. Left Atrium * Mildly dilated left atrium. Right Atrium * Normal right atrial size. Aorta * Normally sized aortic root. Pericardium * There is no pericardial effusion present. IVC * Normal IVC dimensions and inspiratory collapse. Aortic Valve * Trileaflet aortic valve. Leaflets are moderately thickened/calcified with reduced systolic excursion. * Moderate-severe aortic stenosis. Peak velocity 3.77 m/sec, mean gradient 32 mmHg, aortic valve area 0.93 cm2. * No aortic regurgitation. Mitral Valve * Mild mitral annular calcification * No mitral stenosis. * Trace mitral regurgitation. Tricuspid Valve * Tricuspid valve not well visualized. * No tricuspid stenosis. * Trace tricuspid regurgitation. * No evidence of pulmonary hypertension. Pulmonic Valve * Pulmonic valve not well visualized. * No pulmonic stenosis. * Mild pulmonic regurgitation. History Diabetes Measurements: BP: 144/ 66 2D Normal Values RVIDd: 3.40 cm IVSd: 1.20 cm 0.6 - 1.0 cm LVIDd: 5.10 cm 3.7 - 5.6 cm LVPWd: 1.20 cm 0.6 - 1.1 cm LVIDs: 3.20 cm 1.5 - 3.6 cm AO: 3.00 cm < 4.0 cm LVOT Diam: 2.00 cm LA volume: 66.3 Mitral Valve Peak E:.81 m/sec Peak A:.98 m/sec E/A Ratio:0.8 Aortic Valve Peak Michele:3.77 m/sec Peak Grad:57.00 mmHg Mean Grad:32.00 mmHg Valve Area:.93 cm2 Tricuspid Valve TV Regurg Peak Grad: 16.00mmHg TV Regurg Peak Michele: 2.00m/sec Updated by Ortega Rodgers MD, [facility] on 10/30/2016 12:56:40 PM electronically signed on 10/30/2016 12:57:36 PM with status of Final Wall Motion Sarmiento: 1=Normal, 2=Hypokinesis, 3=Akinesis, 4=Dyskinesis, 5=Aneurysmal, 6=Hyperkinetic, X=Not Visualized (Blank)=Missing
[2016-10-30] MEDS ORDERED: *HR* FentaNYL (PF) 100 MCG/2 ML VIAL ONE (15:16)
[2016-10-30] MEDS ORDERED: *HR* Midazolam HCl 5 MG/5 ML VIAL IVP ONE (15:16)
[2016-10-30] MEDS ORDERED: *HR* Promethazine 25 MG/ML VIAL ONE (15:17)
[2016-10-30] MEDS: *HR* FentaNYL (PF) 100 MCG/2 ML VIAL IVP PRN ×3 (15:44→16:36)
[2016-10-30] MEDS: *HR* Midazolam HCl 5 MG/5 ML VIAL IVP PRN ×3 (15:44→16:26)
[2016-10-30] MEDS ORDERED: Simethicone 40 MG/0.6 ML MLS IR ONE (15:47)
[2016-10-30] MEDS ORDERED: 0.9 % Sodium Chloride 1,000 ML IVC SCH (16:00)
--- NOTE | 2016-10-30 16:40 | Internal Med Progress Note ---
Date of Encounter: 10/30/16 Time of Encounter: 16:37 - Assessment and plan (1) Gastrointestinal bleeding Current Visit: Yes Status: Acute Assessment and plan: Patient with severe symptomatic anemia, occult blood was positive in stools. Initially hemoglobin was 6.4, she received 2 units of PRBC overnight. Hemoglobin has improved to 8.6. 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 At this point anticoagulation has been stopped, we will continue monitoring her hemoglobin. A consultation with our endoscopic team has been requested. She will go for endoscopic procedure today, was on colon prep overnight. Follow colonoscopy. Patient has a loud systolic murmur, a transthoracic echo has been requested, found to have mod-sev aortic stenosis. Qualifiers: GI bleed type/associated pathology: unspecified gastrointestinal hemorrhage type Qualified Code(s): K92.2 - Gastrointestinal hemorrhage, unspecified (2) Acute post-hemorrhagic anemia Current Visit: Yes Status: Acute - Time Spent With Patient 25 - 35 minutes - Subjective Interval history: The patient was seen and examined in grounds. Her was present during this encounter. The patient has been complaining of progressive fatigue in the last couple of weeks. - Constitutional Vitals: Temp Pulse Resp BP Pulse Ox 97.5 F L 68 16 180/74 96 10/30/16 15:31 10/30/16 16:33 10/30/16 16:33 10/30/16 16:33 10/30/16 16:33 - Head Head exam: Present: atraumatic, normocephalic - Eye Eye exam: Present: PERRL, conjuntiva pink, sclera anicteric Pupils: Present: PERRL - Neck Neck exam general surgery: Present: supple, trachea midline. Absent: lymphadenopathy - Respiratory Respiratory exam: Present: CTAB. Absent: accessory muscle use, rales, rhonchi, wheezes - Cardiovascular Cardiovascular exam: Present: RRR, +S1, +S2. Absent: diastolic murmur, gallop, rubs, systolic murmur - GI/Abdominal GI/Abdominal exam: Present: normal bowel sounds, soft, no peritoneal signs. Absent: distended, tenderness - Extremities Exam Extremities exam: Present: warm, radial pulses palpable and symetrical. Absent : calf tenderness, cyanotic, pedal edema - Neurological Exam Neurological exam: Present: CN II-XII intact, oriented X3, no focal deficits. Absent: pronater drift, facial droop, speech deficit - Skin Skin exam: Present: dry, intact Internal Medicine: Result - Labs CBC & Chem 7: 10/30/16 04:14 10/30/16 04:14 Labs: Short CBC 10/30/16 Range/Units 04:14 WBC 9.5 (4.3-11.1) K/mcL Hgb 8.5 L (11.5-15.4) g/dL Hct 29.1 L (35.3-44.9) % Plt Count 318 (140-400) K/mcL Neutrophils # 5.5 (1.6-8.9) K/mcL BMP 10/30/16 04:14 Sodium 139 Potassium 3.8 Chloride 104 Carbon Dioxide 25 BUN 10 Creatinine 1.08 Glucose 130 H Calcium 9.2 - ABG Interpretation ABG results: PT/INR, D-dimer PT 22.5 Seconds (9.4-12.1) H 10/28/16 16:40 - VTE Documentation of Mechanical Device: Graduated compression elastic hosiery Consult Discharge Plan - Plan Referrals: Rizwan Palma MD [Primary Care Provider] -
--- NOTE | 2016-10-30 18:42 | Event Note ---
Date of Encounter: 10/30/16 Time of Encounter: 16:30 patient has a large polyp/mass at likely the ascending colon/hepatic flexure, multiple other smaller polyps removed, diverticulosis of the colon ok for diet, hold xarelto for 48 hrs then can resume pt should follow up with me in the office in 1 week
[2016-10-30] MEDS: Insulin DETEMIR 100 UNIT/ML X5UNITS SQ SCH (21:10)
--- NOTE | 2016-10-30 22:39 | Electrocardiograph Report ---
[facility] Test Date: 2016-10-28 Pat Name: María Elena Huerta Department: 104 Room: 3A52 Gender: F Electronic Prep[employer] System Operator: [facility] : 1935 Requested By: Tomy Winston Order Number: [id number] Reading MD: Ortega Rodgers MD Measurements Intervals Seltzer Rate: 70 P: 42 WA: 143 QRS: 48 QRSD: 92 T: 52 QT: 407 QTc: 427 Interpretive Statements SINUS RHYTHM ARTIFACT PRESENT IN LEADS V3 AND V6 Electronically Signed On 10-30-16 22:38:15 EST by Ortega Rodgers MD
[2016-10-31 04:43] LABS: Hemoglobin 8.3 g/dL (11.5-15.4)
[2016-10-31 04:45] LABS: Basophils % 0.3 %; Eosinophils # 0.2 K/mcL (0.0-0.6); Eosinophils % 1.1 %; Immature Granulocytes % 0.9 % (0-4); Lymphocytes # 2.9 K/mcL (0.6-4.6); Lymphocytes % 18.4 %; Mean Corpuscular HGB Conc 28.6 g/dL (31.6-35.5); Mean Corpuscular Hemoglobin 19.4 pg (28.0-33.3); Mean Corpuscular Volume 67.9 fL (83.0-100.0); Mean Platelet Volume 10.7 fL (9.4-12.4); Monocytes # 0.8 K/mcL (0.0-1.3); Neutrophils # 11.8 K/mcL (1.6-8.9); Platelet Count 301 K/mcL (140-400); Red Blood Count 4.27 M/mcL (3.82-4.97); Red Cell Distribution Width 24.8 % (11.5-14.5); Segmented Neutrophils % 74.3 %
[2016-10-31 04:59] LABS: BUN/Creatinine Ratio 12 (6-26); Blood Urea Nitrogen 13 mg/dL (7-20); Calcium 8.8 mg/dL (8.6-10.8); Carbon Dioxide 22 mEq/L (19-29); Chloride 106 mEq/L (98-109); Glucose 205 mg/dL (70-99); Osmolality,Calculated 294 (280-300); Potassium 4.1 mEq/L (3.5-4.5); Sodium 139 mEq/L (136-145); eGFR For African Americans > 60 (> 60); eGFR For Non-African Americans 50 (> 60)
[2016-10-31 05:21] LABS: Basophils # 0.1 K/mcL (0.0-0.2)
[2016-10-31 05:23] LABS: Anisocytosis 2+ (Not Present); Hypochromasia Present (Not Present); Microcytosis Present (Not Present); Platelet Estimate Normal (Normal)
[2016-10-31] MEDS: Multivit/Ca/Min/Fe/FA 1 TAB TABLET PO SCH (09:22)
[2016-10-31] MEDS: Lisinopril 20 MG TABLET PO SCH (09:26)
[2016-10-31] MEDS: hydroCHLOROthiazide 25 MG TABLET PO SCH (09:26)
[2016-10-31] MEDS: *HR* SitaGLIPtin 25 MG TABLET PO SCH (09:26)
[2016-10-31] MEDS: Insulin LISPRO 300 UNITS/3 ML VIAL SQ SCH ×2 (09:27→12:34)
[2016-10-31 10:07] VITALS: BP 144/71
--- NOTE | 2016-10-31 14:09 | Discharge Summary ---
<Jose Peter - Last Filed: 10/31/16 14:04> Date of Encounter: 10/31/16 Time of Encounter: 14:05 - Discharge Diagnosis (1) Anemia Priority: Primary Status: Acute Qualifiers: Anemia type: other cause Other causes of anemia: other cause, not classified Qualified Code(s): D64.89 - Other specified anemias (2) Gastrointestinal bleeding Priority: Primary Status: Acute Qualifiers: GI bleed type/associated pathology: unspecified gastrointestinal hemorrhage type Qualified Code(s): K92.2 - Gastrointestinal hemorrhage, unspecified - Discharge Medications Prescriptions: Omeprazole [PriLOSEC] 40 mg PO DAILY #30 cap Home Medications: Donepezil [Aricept] 10 mg PO HS 10/28/16 [History] Hydrochlorothiazide 12.5 mg PO DAILY 10/28/16 [History] Insulin Glargine,Hum.rec.anlog [Lantus Solostar] 18 unit SQ QPM 10/28/16 [ History] Levothyroxine [Synthroid] 25 mcg PO Q72H MDD SEE COMMENTS! 10/28/16 [History] Lisinopril [Zestril] 20 mg PO DAILY 10/28/16 [History] Memantine HCl [Namenda Xr] 28 mg PO DAILY 10/28/16 [History] Multivitamin [Multi-Day Vitamins] 1 each PO DAILY 10/28/16 [History] Repaglinide [Prandin] 4 mg PO DAILY 10/28/16 [History] Rivaroxaban [Xarelto] 20 mg PO QPM 10/28/16 [History] Simvastatin [Zocor] 40 mg PO HS 10/28/16 [History] SitaGLIPtin [Januvia] 100 mg PO DAILY 10/28/16 [History] Omeprazole [PriLOSEC] 40 mg PO DAILY #30 cap 10/31/16 [Rx] Allergies/Adverse Reactions: Allergies Penicillins Allergy (Verified 10/28/16 16:04) See Comments unsure Procedures/tests Complete & Pending: Procedures Performed prior 72 hours Category Date Time Status EV echocardiogram Routine Y 10/30/16 22:05 Completed Date of admission: 10/28/16 19:56 Primary care physician: Rizwan Palma MD Consults: 10/29/16 09:09 Consult to Surgery [CONS] Routine Consulting Provider: [facility] Reason for Consult: gi bleeding on xarelto Call Completed: Yes Discharging clinician: Jose Peter Anticipated date of discharge: 10/31/16 - Patient Status Disposition: Home, Self-Care Condition: Good Functional capacity at discharge: independent ambulation Overall status at discharge: patient is back to baseline - Discharge Instructions Instructions: Omeprazole (By mouth), Anemia (GEN) Follow Up With: Rizwan Palma MD [Primary Care Provider] - 11/02/16 1:00 pm Additional Instructions: I recommend he follow up with her primary care physician the next 3-5 days. I recommend he follow up with Dr. Guy's office in the next 1 week as recommended. Do not take Xarelto until 11/01/2016. Take all other medications as prescribed. If you have reoccurrence of gastrointestinal bleeding or any other concerning medical concerns return to the emergency department for reevaluation. - Diet and Activity Activity: resume usual activities as tolerated Diet: advance to your usual diet Interval History: GI Bleed Hospital course: Ms. Huerta is a 80 year old female with a past medical history DVT, dementia, diabetes, hyperlipidemia, hypertension, pulmonary embolism was admitted on 10/28 with gastrointestinal bleeding. Her original hemoglobin was 6.4 with previous review of records demonstrating an average of 10. Original O Miles was positive for blood in stool. She received 2 units of PRBCs overnight, the resulted in improvement in her hemoglobin to 8.6. General surgery was consulted and the patient's plan for colonoscopy for evaluation, she underwent a MiraLAX bowel prep and clear liquid diet. During admission her anticoagulation had been stopped. Patient underwent endoscopy on 10/21/2016 with multiple polyps removed and sent to pathology. Mrs. Huerta remained stable overnight, recheck of her hemoglobin demonstrates 8.3. On 10/31/2016 Ms. Huerta has been seen and evaluated patient bedside and deemed stable for discharge home with close follow-up. It was advised that she holds her Xarelto for a total of 48 hours since her procedure on 10/30/2016. She was also advised to follow up on a aortic murmur was appreciated on examination and an echocardiogram was performed during inpatient stay. She and her were advised to contact [facility] for an outpatient follow-up. She and her agree with the plan. Mrs. Huerta was evaluated on 10/31/2016 and deemed stable for discharge home. - Time Spent with Patient Total time spent providing and/or coordinating discharge services: - Constitutional Vitals: Temp Pulse Resp BP Pulse Ox 97.6 F 86 14 144/71 95 10/31/16 10:06 10/31/16 10:06 10/31/16 10:06 10/31/16 10:06 10/31/16 10:06 General appearance: Present: cooperative, pleasant, no acute distress - Head Head exam: Present: atraumatic, normocephalic - Eye Eye exam: Present: PERRL, conjuntiva pink, sclera anicteric Pupils: Present: PERRL - Neck Neck exam general surgery: Present: supple, trachea midline. Absent: lymphadenopathy - Respiratory Respiratory exam: Present: CTAB. Absent: accessory muscle use, rales, rhonchi, wheezes - Cardiovascular Cardiovascular exam: Present: RRR, systolic murmur Additional comments: Loud aortic ejection murmur grade 3/6. - GI/Abdominal GI/Abdominal exam: Present: normal bowel sounds, soft, no peritoneal signs. Absent: distended, tenderness - Extremities Exam Extremities exam: Present: warm, radial pulses palpable and symetrical. Absent : calf tenderness, cyanotic, pedal edema - Neurological Exam Neurological exam: Present: alert, oriented X3, no focal deficits. Absent: pronater drift, facial droop, speech deficit - Psychiatric Psychiatric exam: Present: normal affect, normal mood - Skin Skin exam: Present: dry, intact - VTE Documentation of Mechanical Device: Graduated compression elastic hosiery <Jake Wilson - Last Filed: 10/31/16 16:46> - Discharge Diagnosis (1) Gastrointestinal bleeding Status: Acute Qualifiers: GI bleed type/associated pathology: unspecified gastrointestinal hemorrhage type Qualified Code(s): K92.2 - Gastrointestinal hemorrhage, unspecified (2) Acute post-hemorrhagic anemia Status: Acute Procedures/tests Complete & Pending: Procedures Performed prior 72 hours Category Date Time Status EV echocardiogram Routine Y 10/30/16 22:05 Completed Date of admission: 10/28/16 19:56 Primary care physician: Rizwan Palma MD Consults: 10/29/16 09:09 Consult to Surgery [CONS] Routine Consulting Provider: [facility] Reason for Consult: gi bleeding on xarelto Call Completed: Yes Hospital course: Ms. Huerta is a 80 year old female - Time Spent with Patient Total time spent providing and/or coordinating discharge services: - Constitutional Vitals: Temp Pulse Resp BP Pulse Ox 97.6 F 86 14 144/71 95 10/31/16 10:06 10/31/16 10:06 10/31/16 10:06 10/31/16 10:06 10/31/16 10:06 - Attending Attestation I agree with the physical examination findings, assessment and plan documented by the resident Dr. Lewis. I examined the patient independently. Hemoglobin is stable, moderate to severe aortic stenosis with echocardiogram. Will discharge patient home, patient will follow up with Dr. Guy for her biopsy results. A polyp was removed during colonoscopy done yesterday. Patient and her were explained about the plan, they expressed understanding. A follow-up with cardiology was strongly recommended in regards to her moderate to severe aortic stenosis.
== END 2016-10-31 16:16 | disposition home or self-care (01) | DRG 378 ==
LOC: EMEROO 15:46 → 3ANU 19:56
PROVIDERS: ADMIT Nurse Practitioner Family; ATTEND Internal Medicine

== ENCOUNTER 2017-04-13 16:20 | Inpatient (IN) ==
--- NOTE | 2017-04-13 17:02 | Emergency Department Note ---
Disposition Clinical Impression: NSTEMI (non-ST elevated myocardial infarction), Hypoxemia Disposition: Admitted As Inpatient Condition: Fair SOB HPI - General Chief Complaint: ED Shortness of Breath/Dyspnea Stated Complaint: FERCHO Time Seen by Provider: 04/13/17 16:27 Source: EMS Nursing Notes Reviewed: Yes Vital Signs Reviewed: Yes - History of Present Illness Presents with shortness of breath which she has had intermittently since October however about 3 hours ago she developed severe shortness of breath and has never had anything close to this. Her said she looked pale. The states she was clutching the chest the patient does have dementia and is not able to tell me if she has discomfort in the chest. Patient does have aortic stenosis and is in the process of being scheduled for surgery at [facility]. Did have GI bleeding in October but is not currently taking anticoagulation. Does have a history of pulmonary embolism but the anticoagulation was stopped when she had her GI bleed. No fever or blurred vision. Does have chronic rhinorrhea, no cough or sneezing. No blood in the urine or stool. No pain or numbness of the extremities. No skin rash or bruising of the skin. Social history: Stopped smoking 15 years ago, no alcohol, is here with her - Related Data Home Medications Medication Instructions Recorded Confirmed Donepezil [Aricept] 10 mg PO HS 10/28/16 04/13/17 Insulin Glargine,Hum.rec.anlog 20 unit SQ QPM 10/28/16 04/13/17 [Lantus Solostar] Levothyroxine [Synthroid] 25 mcg PO Q72H MDD SEE COMMENTS! 10/28/16 04/13/17 Lisinopril [Zestril] 20 mg PO DAILY 10/28/16 04/13/17 Memantine HCl [Namenda Xr] 28 mg PO DAILY 10/28/16 04/13/17 Multivitamin [Multi-Day Vitamins] 1 each PO DAILY 10/28/16 04/13/17 Repaglinide [Prandin] 4 mg PO BID 10/28/16 04/13/17 Simvastatin [Zocor] 40 mg PO HS 10/28/16 04/13/17 Furosemide [Lasix] 40 mg PO Q48H 04/13/17 04/13/17 Previous Rx's Medication Instructions Recorded Omeprazole [PriLOSEC] 40 mg PO DAILY #30 cap 10/31/16 Allergies Allergy/AdvReac Type Severity Reaction Status Date / Time Iodinated Contrast- Oral and Allergy See Verified 04/13/17 21:50 IV Dye Comments Penicillins Allergy See Verified 11/09/16 12:24 Comments Review of Systems: No fever or blurred vision. Does have chronic rhinorrhea, no cough or sneezing. No blood in the urine or stool. No pain or numbness of the extremities. No skin rash or bruising of the skin. 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 EYES: PERRL, no scleral icterus. NOSE: The nose is normal in appearance without rhinorrhea RESP: Normal chest excursion with respiration; breath sounds clear and equal bilaterally; no wheezes, rhonchi, or rales CARD: Regular rhythm, with a blowing 4/6 systolic murmur heard best at the left upper sternal border, no rub or gallop ABD: Non-distended; non-tender, soft,without rigidity, rebound or guarding SKIN: Normal for age and race; warm and dry; no apparent lesions EXTREMITIES: Pulses are 2 plus and equal times 4 extremities, muscle pain, mild lower extremity bilateral symmetric peripheral edema, no erythema or signs of infection. - General General appearance: alert, in no apparent distress Course Vital Signs Temperature 98.7 F 04/13/17 16:22 Pulse Rate 100 04/13/17 16:22 Respiratory Rate 18 04/13/17 16:22 Blood Pressure 140/81 04/13/17 16:22 O2 Sat by Pulse Oximetry 96 04/13/17 16:22 Temperature 98.7 F 04/13/17 16:22 Pulse Rate 99 04/13/17 22:36 Respiratory Rate 14 04/13/17 22:36 Blood Pressure 135/70 04/13/17 22:36 O2 Sat by Pulse Oximetry 95 04/13/17 22:36 Oxygen Delivery Oxygen Delivery Nasal Cannula Shortness of Breath/Dyspnea - [facility] Narrative Medical decision making narrative: Labs are pending including troponin and d-dimer, chest x-ray. I did review the EKG showing normal sinus rhythm with a rate of [address] change. 1702 Patient does have elevated troponin. D-dimer is elevated also at his CT is ordered. The patient does have dementia and is not able to answer question as to contrast allergy but the does not find any evidence of contrast allergy. He said she was at [facility] last month and had a contrast CT as well as a cardiac catheterization without problem. Radiology does have evidence of contrast allergy on the records and recommended Benadryl primary treatment and I do think this is reasonable and this has been done. The patient will have her CT scan done shortly. She does have some hypoxemia with a sat of 91% but is not in respiratory distress at this time. 2025 Patient did receive aspirin 325 mg by mouth, she has no chest discomfort at this time, CT scan is pending 2026 I did speak with the radiologist and the CT scan does show bilateral pulmonary emboli. Does have some evidence of RV strain. The patient is not hemodynamically unstable. Does have some mild hypoxemia which is improved with nasal cannula oxygen. Patient is started on IV heparin with the drip and a bolus. Will be admitted to the hospitalist. 2029 We did speak with the hospitalist who did come to the emergency department to see the patient and the patient will be admitted to the intensive care unit. No critical care time was spent with this patient [id number] - Medical Records Medical records reviewed: Yes I reviewed the patient's medical records. - Lab Data Lab results reviewed: Yes I reviewed the patient's lab results. Result diagrams: 04/13/17 17:16 04/13/17 17:16 Lab Results 04/13/17 04/13/17 04/13/17 Range/Units 17:16 17:16 17:16 WBC 6.3 (4.3-11.1) K/mcL RBC 4.51 (3.82-4.97) M/mcL Hgb 13.1 (11.5-15.4) g/dL Hct 40.0 (35.3-44.9) % MCV 88.7 (83.0-100.0) fL MCH 29.0 (28.0-33.3) pg MCHC 32.8 (31.6-35.5) g/dL RDW 16.0 H (11.5-14.5) % Plt Count 252 (140-400) K/mcL MPV 10.9 (9.4-12.4) fL Immature Gran % 0.5 (0-4) % Seg Neutrophils % 64.2 % Lymphocytes % 26.6 % Monocytes % 6.4 % Eosinophils % 1.8 % Basophils % 0.5 % Neutrophils # 4.0 (1.6-8.9) K/mcL Lymphocytes # 1.7 (0.6-4.6) K/mcL Monocytes # 0.4 (0.0-1.3) K/mcL Eosinophils # 0.1 (0.0-0.6) K/mcL Basophils # 0.0 (0.0-0.2) K/mcL PT (9.4-12.1) Seconds INR APTT (26.0-36.0) Seconds D-Dimer (0-500) ng/mLFEU Sodium 138 (136-145) mEq/L Potassium 4.2 (3.5-4.5) mEq/L Chloride 103 (98-109) mEq/L Carbon Dioxide 26 (19-29) mEq/L BUN 10 (7-20) mg/dL Creatinine 1.12 H (0.57-1.11) mg/dL Est GFR ( Amer) 56 L (> 60) Est GFR (Non-Af Amer) 47 L (> 60) BUN/Creatinine Ratio 9 (6-26) Glucose 203 H (70-99) mg/dL Calculated Osmolality 291 (280-300) Calcium 9.5 (8.6-10.8) mg/dL Troponin I 0.29 H* (0-0.03) ng/mL B-Natriuretic Peptide (0-100) pg/mL 04/13/17 04/13/17 04/13/17 Range/Units 17:16 17:16 21:54 WBC (4.3-11.1) K/mcL RBC (3.82-4.97) M/mcL Hgb (11.5-15.4) g/dL Hct (35.3-44.9) % MCV (83.0-100.0) fL MCH (28.0-33.3) pg MCHC (31.6-35.5) g/dL RDW (11.5-14.5) % Plt Count (140-400) K/mcL MPV (9.4-12.4) fL Immature Gran % (0-4) % Seg Neutrophils % % Lymphocytes % % Monocytes % % Eosinophils % % Basophils % % Neutrophils # (1.6-8.9) K/mcL Lymphocytes # (0.6-4.6) K/mcL Monocytes # (0.0-1.3) K/mcL Eosinophils # (0.0-0.6) K/mcL Basophils # (0.0-0.2) K/mcL PT 11.5 (9.4-12.1) Seconds INR 1.1 APTT 28.5 (26.0-36.0) Seconds D-Dimer 10899 H (0-500) ng/mLFEU Sodium (136-145) mEq/L Potassium (3.5-4.5) mEq/L Chloride (98-109) mEq/L Carbon Dioxide (19-29) mEq/L BUN (7-20) mg/dL Creatinine (0.57-1.11) mg/dL Est GFR ( Amer) (> 60) Est GFR (Non-Af Amer) (> 60) BUN/Creatinine Ratio (6-26) Glucose (70-99) mg/dL Calculated Osmolality (280-300) Calcium (8.6-10.8) mg/dL Troponin I (0-0.03) ng/mL B-Natriuretic Peptide 138 H (0-100) pg/mL - Radiology Data Radiology results reviewed: Yes I reviewed the patient's radiology results. Critical Care Time Critical Care Time: No
[2017-04-13 17:38] LABS: Basophils % 0.5 %; Eosinophils # 0.1 K/mcL (0.0-0.6); Eosinophils % 1.8 %; Hemoglobin 13.1 g/dL (11.5-15.4); Immature Granulocytes % 0.5 % (0-4); Lymphocytes # 1.7 K/mcL (0.6-4.6); Lymphocytes % 26.6 %; Mean Corpuscular HGB Conc 32.8 g/dL (31.6-35.5); Mean Corpuscular Volume 88.7 fL (83.0-100.0); Mean Platelet Volume 10.9 fL (9.4-12.4); Monocytes # 0.4 K/mcL (0.0-1.3); Monocytes % 6.4 %; Platelet Count 252 K/mcL (140-400); Red Blood Count 4.51 M/mcL (3.82-4.97); Segmented Neutrophils % 64.2 %
[2017-04-13 17:49] LABS: Calcium 9.5 mg/dL (8.6-10.8); Potassium 4.2 mEq/L (3.5-4.5)
[2017-04-13] MEDS ORDERED: Aspirin 81 MG TAB.CHEW PO STA (18:46)
[2017-04-13] MEDS ORDERED: 0.9 % Sodium Chloride 500 ML IVC ONE (18:50)
[2017-04-13] MEDS ORDERED: *HR* Heparin 5,000 UNIT/ML VIAL IVP PRN ×2 (21:37)
[2017-04-13] MEDS ORDERED: *HR* Heparin 5,000 UNIT/ML VIAL IVP ONE (21:37)
[2017-04-13] MEDS ORDERED: Heparin 25,000 UNIT/500 ML D5W 25,000 UNIT/500 ML MLS IVC SCH (21:45)
[2017-04-13 22:15] LABS: INR 1.1; Prothrombin Time 11.5 Seconds (9.4-12.1)
[2017-04-13 22:18] LABS: Activated Partial Thrombo Time 28.5 Seconds (26.0-36.0)
[2017-04-13] MEDS ORDERED: Naloxone 0.4 MG/ML INJ IVP PRN (23:24)
[2017-04-14] MEDS ORDERED: *HR* Dextrose 50 % in Water (Syg) 50 ML SYRINGE IVP PRN ×2 (00:03→17:53)
[2017-04-14] MEDS ORDERED: Dextrose Gel 15 GM PO PRN ×4 (00:03→17:53)
[2017-04-14] MEDS ORDERED: D5% in Water 1,000 ML IVC PRN ×2 (00:03→17:53)
--- NOTE | 2017-04-14 00:07 | Internal Med History&Physical ---
<AntoniaOrtega dia - Last Filed: 04/14/17 02:34> Date of Encounter: 04/14/17 Time of Encounter: 00:05 Assessment and Plan (1) Pulmonary embolism Current visit: Yes Status: Acute Submassive with hemodynamic stability and evidence of RV strain on CT scan. We will obtain echo for further evaluation of the right ventricle. No indications for thrombolysis at this time. Heparin drip has been initiated. Qualifiers: Pulmonary embolism type: other Chronicity: unspecified Acute cor pulmonale presence: without acute cor pulmonale Qualified Code(s): I26.99 - Other pulmonary embolism without acute cor pulmonale (2) History of GI bleed Current visit: Yes Status: Acute Patient had GI bleed on anticoagulation in October and has not been on anticoagulation since. No evidence of GI bleed at this time, hemoglobin stable. We will monitor closely as the patient is currently on a heparin drip. (3) Diabetes mellitus Current visit: No Status: Acute Patient takes Levemir at home. We will hold this as the patient is nothing by mouth and institute sliding scale insulin coverage. 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 Continue home medications. Qualifiers: Dementia type: Alzheimer's disease Alzheimer's disease onset: unspecified onset Dementia behavioral disturbance: without behavioral disturbance Qualified Code(s): G30.9 - Alzheimer's disease, unspecified; F02.80 - Dementia in other diseases classified elsewhere without behavioral disturbance (5) DVT prophylaxis Current visit: No Status: Acute Patient is on therapeutic heparin drip. Internal Medicine - H&P: HPI Chief complaint: Dyspnea Admitted From: Emergency Dept Plans for Post Hospital Care: Home History of present illness: Ms. Huerta is a 81 year old female with history of dementia, DVT/PE, GI bleed, aortic stenosis presents with shortness of breath. History is somewhat limited as the patient has advanced dementia and the patient's is no longer at the bedside. In discussion with the ER provider apparently the patient had sudden onset shortness of breath that came on today while she was walking to the kitchen. Per ER records the patient has had intermittent shortness of breath since October but nothing has been this severe. Patient also apparently had chest pain as well. Patient does have a history of DVT/PE and was on chronic anticoagulation but this was stopped in October due to acute GI bleed. When iron. The patient she is pleasantly confused and has no complaints at this time. Past Med Surg Social Fam HX - Past Medical History Medical history: dementia, diabetes, hypertension, pulmonary embolus, thyroid disease, valvular heart disease Psychiatric history: no psych history - Past Surgical History Surgical History: non-contributory (Patient is unable to describe her surgical history) - Social History Smoking Status: Former smoker Smokeless Tobacco Status: No Alcohol use: none Drug use: none - Family History Mother Hx Family Endocrine Disorder: Yes (DM) Internal Medicine - H&P: Meds Donepezil [Aricept] 10 mg PO HS 10/28/16 [History] Insulin Glargine,Hum.rec.anlog [Lantus Solostar] 20 unit SQ QPM 10/28/16 [ History] Levothyroxine [Synthroid] 25 mcg PO Q72H MDD SEE COMMENTS! 10/28/16 [History] Lisinopril [Zestril] 20 mg PO DAILY 10/28/16 [History] Memantine HCl [Namenda Xr] 28 mg PO DAILY 10/28/16 [History] Multivitamin [Multi-Day Vitamins] 1 each PO DAILY 10/28/16 [History] Repaglinide [Prandin] 4 mg PO BID 10/28/16 [History] Simvastatin [Zocor] 40 mg PO HS 10/28/16 [History] Omeprazole [PriLOSEC] 40 mg PO DAILY #30 cap 10/31/16 [Rx] Furosemide [Lasix] 40 mg PO Q48H 04/13/17 [History] Allergies Iodinated Contrast- Oral and IV Dye Allergy (Verified 04/13/17 21:50) See Comments PATIENT IS DEMENTED BUT HAS AN IVP DYE ALLERGY OF UNKNOWN SEVERITY. HAS HAD CONTRAST MULTIPLE TIMES WITH PRE-MED SINCE. Penicillins Allergy (Verified 11/09/16 12:24) See Comments unsure ROS unobtainable: due to mental status (Patient has advanced dementia and is unable to participate review of systems.) All Systems PM: A 10-system review of systems was performed and is negative for pertinent findings except as documented above in the HPI. - Constitutional Vitals: Temp Pulse Resp BP Pulse Ox 97.9 F 86 20 109/65 96 04/13/17 23:33 04/14/17 00:00 04/14/17 00:00 04/14/17 00:00 04/14/17 00:00 General appearance: Present: A&O X 1 (Person only), pleasant - Head Head exam: Present: atraumatic, normal inspection, normocephalic - Eye Eye exam: Present: EOMI, PERRL - ENT ENT exam: Present: mucous membranes moist - Respiratory Respiratory exam: Present: CTAB. Absent: rales, rhonchi, wheezes - Cardiovascular Cardiovascular exam: Present: RRR. Absent: gallop, rubs, systolic murmur - GI/Abdominal GI/Abdominal exam: Present: normal bowel sounds, soft. Absent: distended, tenderness - Extremities Exam Extremities exam: Present: warm. Absent: pedal edema, tenderness - Neurological Exam Neurological exam: Present: alert, altered, CN II-XII intact, no focal deficits - Psychiatric Psychiatric exam: Absent: agitated Internal Med - H&P Results - Labs CBC & Chem 7: 04/14/17 01:09 04/14/17 01:09 <Manuel Ibarra - Last Filed: 04/14/17 03:18> Date of Encounter: 04/14/17 Internal Medicine - H&P: HPI History of present illness: Past Med Surg Social Fam HX - Past Medical History Source: old records reviewed, nursing notes reviewed - Social History Current living situation: Home, With Family ROS unobtainable: due to mental status (patient confused and disoriented) - Constitutional Vitals: Temp Pulse Resp BP Pulse Ox 97.9 F 90 20 109/65 96 04/13/17 23:33 04/14/17 00:03 04/14/17 00:00 04/14/17 00:00 04/14/17 00:00 General appearance: Present: A&O X 1 Exam: confused - Head Head exam: Present: atraumatic, normal inspection - Eye Eye exam: Present: PERRL. Absent: scleral icterus Pupils: Present: normal accommodation - ENT ENT exam: Present: mucous membranes moist, normal exam - Neck Neck exam general surgery: Present: full ROM, supple. Absent: lymphadenopathy, tenderness - Respiratory Respiratory exam: Present: CTAB. Absent: chest wall tenderness, rales, wheezes - Cardiovascular Cardiovascular exam: Present: RRR, +S1, +S2. Absent: diastolic murmur, JVD, systolic murmur - GI/Abdominal GI/Abdominal exam: Present: soft. Absent: hepatomegaly, splenomegaly - Extremities Exam Extremities exam: Present: warm. Absent: calf tenderness, joint swelling - Back Exam Back exam: Absent: CVA tenderness (L), CVA tenderness (R) - Neurological Exam Neurological exam: Present: alert, altered, no focal deficits. Absent: oriented X3 - Psychiatric Psychiatric exam: Present: normal affect, normal mood - Skin Skin exam: Present: dry, warm. Absent: rash Internal Med - H&P Results - Labs CBC & Chem 7: 04/14/17 01:09 04/14/17 01:09 Labs: Short CBC 04/14/17 Range/Units 01:09 WBC 8.5 (4.3-11.1) K/mcL Hgb 12.4 (11.5-15.4) g/dL Hct 38.9 (35.3-44.9) % Plt Count 231 (140-400) K/mcL Neutrophils # 6.1 (1.6-8.9) K/mcL BMP 04/14/17 01:09 Sodium 140 Potassium 4.1 Chloride 107 Carbon Dioxide 25 BUN 12 Creatinine 1.05 Glucose 232 H Calcium 9.1 - EKG Data -: EKG Interpreted by Myself - EKG Data Prior EKG available for review: no EKG comments: 04/14/17 03:09 Sinus rhythm; no findings of RV strain on EKG - Diagnostic Studies Chest x-ray Status: image reviewed by me (negative) - Attending Attestation I discussed the patient [place], PMH, ROS, lab data, and exam findings with Dr. Macdonald. I then saw and examined patiently independently as well. Patient is unable to provide any history whatsoever due to her dementia. No family present. Information obtained from old records, ER notes, and my conversations with ER staff. Patient has history of DVT/PE in past, but her anticoagulation was stopped in October this year due to significant GI bleed. She now has a significant PE with clot burden causing RV strain (on CT scan). Additionally, she has troponin elevation. We will cycle her troponins, EKG's, and obtain an ECHO to further evaluate her RV strain. She will be kept in ICU for now for close monitoring hemodynamically and to closely monitor for acute blood loss. Other than my comments noted above and exam findings, I agree with Dr. Macdonald' s assessment and plan.
[2017-04-14] MEDS ORDERED: Insulin LISPRO 300 UNITS/3 ML VIAL SQ ONE (00:27)
[2017-04-14] MEDS: Insulin LISPRO 300 UNITS/3 ML VIAL SQ SCH ×4 (00:29→21:32)
[2017-04-14 01:23] LABS: Basophils % 0.2 %; Eosinophils # 0.1 K/mcL (0.0-0.6); Eosinophils % 0.9 %; Hematocrit 38.9 % (35.3-44.9); Hemoglobin 12.4 g/dL (11.5-15.4); Immature Granulocytes % 0.5 % (0-4); Lymphocytes # 1.8 K/mcL (0.6-4.6); Lymphocytes % 21.5 %; Mean Corpuscular HGB Conc 31.9 g/dL (31.6-35.5); Mean Corpuscular Hemoglobin 29.2 pg (28.0-33.3); Mean Corpuscular Volume 91.5 fL (83.0-100.0); Mean Platelet Volume 10.4 fL (9.4-12.4); Monocytes # 0.5 K/mcL (0.0-1.3); Monocytes % 5.3 %; Neutrophils # 6.1 K/mcL (1.6-8.9); Platelet Count 231 K/mcL (140-400); Red Blood Count 4.25 M/mcL (3.82-4.97); Red Cell Distribution Width 15.9 % (11.5-14.5); Segmented Neutrophils % 71.6 %
[2017-04-14 01:29] LABS: INR 1.2
[2017-04-14 01:40] LABS: BUN/Creatinine Ratio 11 (6-26); Blood Urea Nitrogen 12 mg/dL (7-20); Calcium 9.1 mg/dL (8.6-10.8); Carbon Dioxide 25 mEq/L (19-29); Chloride 107 mEq/L (98-109); Glucose 232 mg/dL (70-99); Magnesium 1.9 mg/dL (1.6-2.6); Osmolality,Calculated 297 (280-300); Potassium 4.1 mEq/L (3.5-4.5); Sodium 140 mEq/L (136-145); eGFR For African Americans > 60 (> 60); eGFR For Non-African Americans 50 (> 60)
[2017-04-14 05:37] LABS: Activated Partial Thrombo Time > 360.0 Seconds (26.0-36.0)
[2017-04-14 05:52] LABS: Heparin anti-factor XA UFH 1.54 IU/mL (0.30-0.70)
[2017-04-14] MEDS ORDERED: Pantoprazole 40 MG VIAL IVPB SCH (06:30)
[2017-04-14] MEDS ORDERED: Levothyroxine 25 MCG TABLET PO SCH (06:30)
--- NOTE | 2017-04-14 13:08 | Pulmonology Consult Note ---
<CherelleyuliDarling del cid M - Last Filed: 04/14/17 16:33> Date of Encounter: 04/14/17 Medications and Allergies Donepezil [Aricept] 10 mg PO HS 10/28/16 [History] Insulin Glargine,Hum.rec.anlog [Lantus Solostar] 20 unit SQ QPM 10/28/16 [ History] Levothyroxine [Synthroid] 25 mcg PO Q72H MDD SEE COMMENTS! 10/28/16 [History] Lisinopril [Zestril] 20 mg PO DAILY 10/28/16 [History] Memantine HCl [Namenda Xr] 28 mg PO DAILY 10/28/16 [History] Multivitamin [Multi-Day Vitamins] 1 each PO DAILY 10/28/16 [History] Repaglinide [Prandin] 4 mg PO BID 10/28/16 [History] Simvastatin [Zocor] 40 mg PO HS 10/28/16 [History] Omeprazole [PriLOSEC] 40 mg PO DAILY #30 cap 10/31/16 [Rx] Furosemide [Lasix] 40 mg PO Q48H 04/13/17 [History] Allergies Iodinated Contrast- Oral and IV Dye Allergy (Verified 04/13/17 21:50) See Comments PATIENT IS DEMENTED BUT HAS AN IVP DYE ALLERGY OF UNKNOWN SEVERITY. HAS HAD CONTRAST MULTIPLE TIMES WITH PRE-MED SINCE. Penicillins Allergy (Verified 11/09/16 12:24) See Comments unsure All Systems: A 10-system review of systems was performed and is negative for pertinent findings except as documented above in the HPI. Physical Examination Vital Signs: Vital Signs, Last 4 Hours Pulse Resp BP Pulse Ox 04/14/17 14:30 72 20 127/59 93 04/14/17 13:22 68 18 142/51 100 04/14/17 12:24 68 16 145/118 98 Results - Laboratory Findings CBC and BMP: 04/14/17 16:07 04/14/17 01:09 PT/INR, D-dimer PT 13.0 Seconds (9.4-12.1) H 04/14/17 01:09 D-Dimer 04277 ng/mLFEU (0-500) H 04/13/17 17:16 Abnormal lab findings: Abnormal lab results RDW 15.9 % (11.5-14.5) H 04/14/17 01:09 PT 13.0 Seconds (9.4-12.1) H 04/14/17 01:09 APTT 131.6 Seconds (26.0-36.0) H* D 04/14/17 12:54 D-Dimer 53800 ng/mLFEU (0-500) H 04/13/17 17:16 Heparin Anti-Xa, Unfract 0.94 IU/mL (0.30-0.70) H 04/14/17 12:54 Est GFR (Non-Af Amer) 50 (> 60) L 04/14/17 01:09 Glucose 232 mg/dL (70-99) H 04/14/17 01:09 POC Glucose 212 (58-89) H 04/13/17 23:38 Troponin I 1.49 ng/mL (0-0.03) H* 04/14/17 07:39 B-Natriuretic Peptide 138 pg/mL (0-100) H 04/13/17 17:16 - Clinical Findings Intake & Output: Intake & Output 04/14/17 04/14/17 04/14/17 07:59 15:59 23:59 Intake Total 150 / 150 Output Total 375 / 375 160 / 160 Balance -225 / -225 -160 / -160 Consult Discharge Plan - Plan Referrals: Rizwan Palma MD [Primary Care Provider] - - Attending Attestation I examined this patient and my medical decision-making was reviewed with the COMMUNITY SERVICE REPRESENTATIVE/PA/Advanced Practice Nurse/Resident Physician. I agree with the documented findings, disposition and treatment plan as described except to the extent set forth below. Patient seen and examined. Labs, radiology, chart personally reviewed. 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 Patient with submassive pulmonary embolism and there is evidence of cardiac enzymes leak and abnormalities and the echocardiogram. 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 I feel warfarin will not be a good choice for this patient mainly due to her mental status as well as difficult to dose. Continue anticoagulation. If remains stable then patient will be transferred out of ICU. GI: Nutrition per dietary and GI prophylaxis per routine Heme: DVT prophylaxis per routine. She is on anticoagulation and workup for hypercoagulable state, it is not clear to me why she has recurrent thromboembolic disease. Renal; urine out put and renal funtion reviewed Endorcine: blood glucose is monitored Lines: all lines checked and no evidence of infections Skin: skin care to prevent pressure ulcers per nursing routine care <Katina Licona - Last Filed: 04/14/17 17:15> Date of Encounter: 04/14/17 Time of Encounter: 13:08 Assessment and Plan (1) Pulmonary embolism Current Visit: Yes Status: Acute Submassive. Bilateral central, segmental, and subsegmental PEs. Patient does have a history of these. She has stopped anticoagulation in October due to a GI bleed. She has no signs of TB or bleeding at this time. Her hemoglobin has been stable. An echo today showed some mild pulmonary hypertension. Patient was placed on heparin drip initially and given a bolus. We have stopped this and transition the patient to our request. We chose Eliquis over Xaralto due to her increased creatinine. Echo today showed mild pulmonary hypertension. Plan: Advance diet as tolerated. Transition from IV heparin to [place] today. Closely monitor H&H and clinically for GI bleeding. GI prophylaxis with by mouth Protonix. Coagulation studies ordered. Transfer patient to [facility] today. Qualifiers: Pulmonary embolism type: other Chronicity: acute Acute cor pulmonale presence: without acute cor pulmonale Qualified Code(s): I26.99 - Other pulmonary embolism without acute cor pulmonale (2) History of GI bleed Current Visit: No Status: Inactive Was on anticoagulation previously however this was stopped in October due to GI bleed. We are monitoring the patient closely for decrease in her hemoglobin or any other signs suggestive of a GI bleed. Currently the risks of the PE outweigh the risks of a GI bleed. If we do notice that there is a bleeding we will stop anticoagulation. (3) Dementia Current Visit: Yes Status: Chronic Chronic. Qualifiers: Dementia type: Alzheimer's disease Alzheimer's disease onset: unspecified onset Dementia behavioral disturbance: without behavioral disturbance Qualified Code(s): G30.9 - Alzheimer's disease, unspecified; F02.80 - Dementia in other diseases classified elsewhere without behavioral disturbance (4) Diabetes mellitus Current Visit: Yes Status: Chronic Chronic. Managing on sliding scale insulin. She does take insulin at home. 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 We have stopped this and are transitioning to Eliquis. History of Present Illness Consult date: 04/14/17 Requesting physician: Ortega Macdonald Reason for consult: pulmonary embolism History of present illness: Patient respirations emersed department last night complaining of shortness of breath. She was found to have central segmental and subsegmental pulmonary embolisms. She has had a history of pulmonary embolisms however her anticoagulation was stopped in October due to a GI bleed. Patient is pleasantly demented and unable to give a decent history. This morning she has no complaints. She is not appear to be in any distress. Her lung sounds are clear and she is aware that she is in the hospital however is unaware of which hospital. Patient was initially placed on a heparin drip and given a bolus. We will transition the patient to request today. We will also order coagulation studies. Patient CTA showed an increased ratio of her ventricle the left ventricle. There concern for right ventricular strain so an echo was ordered. Patient's echo showed mild pulmonary hypertension. Patient has been acting appropriately throughout the day and has not been in any distress. We will transfer the patient to a telemetry bed. 16:11 Dr. Lenz accepted patient. She is aware of the transition to Eliquis and the patient's history of GI bleeding. I also made her aware of the troponin that is increased. Past Med Surg Social Fam HX - Past Medical History Medical history: dementia, diabetes, hypertension, pulmonary embolus, thyroid disease, valvular heart disease Psychiatric history: no psych history - Past Surgical History Surgical History: non-contributory (Patient is unable to describe her surgical history) - Social History Smoking Status: Former smoker Smokeless Tobacco Status: No Alcohol use: none Drug use: none - Family History Mother Hx Family Endocrine Disorder: Yes (DM) ROS unobtainable: due to mental status (Patient pleasantly demented. She is able to answer some questions such as she is not having any shortness of breath or chest pain at this time. However she states sometimes she does have shortness of breath. She denies any knowledge of any GI bleeding whether this is hematemesis hematochezia melena.) All Systems: A 10-system review of systems was performed and is negative for pertinent findings except as documented above in the HPI. Physical Examination Vital Signs: Vital Signs, Last 4 Hours Temp Pulse Resp BP Pulse Ox 04/14/17 12:24 68 16 145/118 98 04/14/17 11:38 97.6 F 04/14/17 11:21 84 16 122/60 99 04/14/17 10:30 68 22 80/48 100 04/14/17 09:23 84 20 119/52 97 General appearance: no acute distress Eyes: nonicteric ENT: oropharynx moist Effort: normal Inspection: normal Auscultation: bilateral: clear Cardiovascular: regular rate and rhythm, other (Systolic ejection murmur grade 4 consistent with aortic stenosis.) Gastrointestinal: normoactive bowel sounds, soft, non-tender, non-distended Integumentary: normal Extremities: no cyanosis, no edema, no clubbing, pink and warm, pulses normal Musculoskeletal: no deformities Gait: normal posture non-focal exam, other (Pleasantly demented.) mood appropriate, affect normal Results - Laboratory Findings CBC and BMP: 04/14/17 16:07 04/14/17 01:09 PT/INR, D-dimer PT 13.0 Seconds (9.4-12.1) H 04/14/17 01:09 D-Dimer 27583 ng/mLFEU (0-500) H 04/13/17 17:16 Abnormal lab findings: Abnormal lab results RDW 15.9 % (11.5-14.5) H 04/14/17 01:09 PT 13.0 Seconds (9.4-12.1) H 04/14/17 01:09 APTT > 360.0 Seconds (26.0-36.0) H* D 04/14/17 04:47 D-Dimer 95441 ng/mLFEU (0-500) H 04/13/17 17:16 Heparin Anti-Xa, Unfract 1.54 IU/mL (0.30-0.70) H* 04/14/17 04:47 Est GFR (Non-Af Amer) 50 (> 60) L 04/14/17 01:09 Glucose 232 mg/dL (70-99) H 04/14/17 01:09 POC Glucose 212 (58-89) H 04/13/17 23:38 Troponin I 1.49 ng/mL (0-0.03) H* 04/14/17 07:39 B-Natriuretic Peptide 138 pg/mL (0-100) H 04/13/17 17:16 - Diagnostic Findings Additional studies: Chest X-Ray 04/13/17 18:02 IMPRESSION: No acute process. D/ / Leno Lubin MD / Leno Lubin MD Interpreting Provider: Leno Lubin MD Chest CTA 04/13/17 18:34 IMPRESSION: Bilateral central, segmental, and subsegmental pulmonary emboli. Increased RV/LV ratio, 1.7 cm. This finding could related to right ventricular strain. Critical results were called by Dr. Radha Sr Cha, MD to Ortega Leroy on 04/13/2017 at 21:41. D/ / Radha Sr Cha, MD / Radha Sr Cha, MD Interpreting Provider: Radha Sr Cha, MD - Clinical Findings Intake & Output: Intake & Output 04/13/17 04/14/17 04/14/17 23:59 07:59 15:59 Intake Total 500 / 500 150 / 150 Output Total 375 / 375 160 / 160 Balance 500 / 500 -225 / -225 -160 / -160 Weight 90 kg
[2017-04-14 14:12] LABS: Activated Partial Thrombo Time 131.6 Seconds (26.0-36.0)
[2017-04-14 14:28] LABS: Heparin anti-factor XA UFH 0.94 IU/mL (0.30-0.70)
[2017-04-14 16:15] LABS: Hematocrit 39.6 % (35.3-44.9); Hemoglobin 12.4 g/dL (11.5-15.4)
--- NOTE | 2017-04-14 17:18 | Electrocardiograph Report ---
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
[2017-04-14] MEDS ORDERED: Naloxone 0.4 MG/ML INJ IVP PRN (17:53)
[2017-04-14] MEDS ORDERED: Insulin LISPRO 300 UNITS/3 ML VIAL SQ SCH (18:00)
[2017-04-14] MEDS: APIXABAN 5 MG TABLET PO SCH (20:51)
[2017-04-14] MEDS ORDERED: APIXABAN 5 MG TABLET PO SCH (21:00)
[2017-04-15 03:45] LABS: Hemoglobin 12.2 g/dL (11.5-15.4)
[2017-04-15] MEDS: Insulin LISPRO 300 UNITS/3 ML VIAL SQ SCH ×4 (08:18→21:15)
[2017-04-15] MEDS: APIXABAN 5 MG TABLET PO SCH ×2 (08:19→21:14)
--- NOTE | 2017-04-15 10:10 | Internal Med Progress Note ---
Date of Encounter: 04/15/17 Time of Encounter: 09:00 - Assessment and plan (1) Pulmonary embolism Current Visit: Yes Status: Acute Assessment and plan: Patient has been started on eliquis in the ICU yesterday. Risks, benefits and alternative options discussed with and the patient. They are agreeable to continuing eliquis. If the patient has another bleed on this medication, she may need plastic surgery referral for intravenous filter placement. We will evaluate her for continued hypoxia to determine if she requires supplemental oxygen at home. Patient is moderate risk due to new onset pulmonary embolism and being started on anticoagulant and history of GI bleed. She is also at risk of falls and needs physical therapy evaluation for possible placement short-term. Qualifiers: Pulmonary embolism type: other Chronicity: acute Acute cor pulmonale presence: without acute cor pulmonale Qualified Code(s): I26.99 - Other pulmonary embolism without acute cor pulmonale (2) Respiratory failure Current Visit: Yes Status: Acute Assessment and plan: Related to acute pulmonary embolism. We will evaluate her for persistent hypoxia which would require supplementation with home oxygen. Qualifiers: Chronicity: acute Respiratory failure complication: hypoxia Qualified Code(s): J96.01 - Acute respiratory failure with hypoxia (3) Dementia Current Visit: Yes Status: Chronic Assessment and plan: Chronic stable Qualifiers: Dementia type: Alzheimer's disease Alzheimer's disease onset: unspecified onset Dementia behavioral disturbance: without behavioral disturbance Qualified Code(s): G30.9 - Alzheimer's disease, unspecified; F02.80 - Dementia in other diseases classified elsewhere without behavioral disturbance (4) Diabetes mellitus Current Visit: Yes Status: Chronic Assessment and plan: Resume home dose of basal insulin. Continue sliding scale insulin. Hold metformin due to receiving intravenous contrast dye. Qualifiers: Diabetes mellitus type: type 2 Diabetes mellitus complication status: with kidney complications Diabetes mellitus complication detail: with chronic kidney disease Diabetes mellitus longterm insulin use: with long term care administrator use Chronic kidney disease stage: stage 3 (moderate) Qualified Code(s): E11.22 - Type 2 diabetes mellitus with diabetic chronic kidney disease; N18.3 - Chronic kidney disease, stage 3 (moderate); Z79.4 - termite control representative (current) use of insulin (5) HTN (hypertension) Current Visit: Yes Status: Chronic Assessment and plan: Stable and controlled. Continue current medications. Hold lisinopril due to receiving intravenous contrast dye. Qualifiers: Hypertension type: essential hypertension Qualified Code(s): I10 - Essential (primary) hypertension - Subjective Interval history: Patient is currently accompanied by her . Patient states that she does not have any chest pain and does not have dizziness when she is sitting in the bed. However, she has not performed any activity today. She denies any shortness of breath unless she performs any activity like sitting at the edge of bed. She denies any nausea or vomiting. states that the patient lives with him and he takes care of her. He states that he do not have home physical therapy and he states that the patient does not use oxygen at home. He states that she had bleeding in October after she had been on xarelto for many months. He also states that she is scheduled to undergo aortic valve replacement for aortic stenosis at [facility] but they are awaiting on a date. - Constitutional Vitals: Temp Pulse Resp BP Pulse Ox 98 F 63 16 145/74 95 04/15/17 07:00 04/15/17 07:00 04/15/17 07:00 04/15/17 07:00 04/15/17 07:00 General appearance: Present: A&O X 1 Exam: Gen.: Sitting in bed. No acute distress. Chest: Clear to auscultation bilaterally. No adventitious sounds present. CVS: First and second heart sounds present. No murmurs, rubs or gallops. Abdomen: Soft, nontender, obese. Bowel sounds present. Internal Medicine: Result - Labs CBC & Chem 7: 04/15/17 03:21 04/14/17 01:09 Labs: Short CBC 04/14/17 04/15/17 Range/Units 16:07 03:21 Hgb 12.4 12.2 (11.5-15.4) g/dL Hct 39.6 39.0 (35.3-44.9) % - ABG Interpretation ABG results: PT/INR, D-dimer PT 13.0 Seconds (9.4-12.1) H 04/14/17 01:09 D-Dimer 00964 ng/mLFEU (0-500) H 04/13/17 17:16 - Impressions Echocardiogram reveals preserved ejection fraction of 55-60% with normal left and regular chamber size, wall thickness and function. Mild left frontal and diastolic dysfunction seen. Atypical septal motion is present. Right ventricle reveals normal function. Moderately calcified aortic valve leaflets with moderate aortic stenosis. Mild pulmonary hypertension present. - VTE Reasons for not Prescribing Prophylaxis: Not indicated-Anticoagulated or INR therapeutic Consult Discharge Plan - Plan Referrals: Rizwan Palma MD [Primary Care Provider] -
[2017-04-15 16:32] LABS: Hemoglobin 11.3 g/dL (11.5-15.4)
[2017-04-15] MEDS: Insulin DETEMIR 100 UNIT/ML X5UNITS SQ SCH (21:14)
[2017-04-16 06:29] LABS: Hematocrit 35.3 % (35.3-44.9)
[2017-04-16] MEDS: Insulin LISPRO 300 UNITS/3 ML VIAL SQ SCH ×4 (10:30→20:43)
[2017-04-16] MEDS: APIXABAN 5 MG TABLET PO SCH ×2 (10:30→20:43)
--- NOTE | 2017-04-16 11:52 | Internal Med Progress Note ---
Date of Encounter: 04/16/17 Time of Encounter: 11:15 - Assessment and plan (1) Pulmonary embolism Current Visit: Yes Status: Acute Assessment and plan: Continue eliquis for now. Dose to be 10 mg twice a day for one week and 5 mg twice a day thereafter. Patient had drop in hemoglobin from 13-11 from admission to today. Continue to keep the patient in the hospital as she is at moderate risk due to risk of anemia and GI bleed. Continue anticoagulation. Check fecal blood test. Repeat hemoglobin tonight. Check blood levels tomorrow. Qualifiers: Pulmonary embolism type: other Chronicity: acute Acute cor pulmonale presence: without acute cor pulmonale Qualified Code(s): I26.99 - Other pulmonary embolism without acute cor pulmonale (2) Respiratory failure Current Visit: Yes Status: Resolved Assessment and plan: Patient is currently on room air and saturating well. Resolved. Qualifiers: Chronicity: acute Respiratory failure complication: hypoxia Qualified Code(s): J96.01 - Acute respiratory failure with hypoxia (3) Dementia Current Visit: Yes Status: Chronic Assessment and plan: Chronic stable Qualifiers: Dementia type: Alzheimer's disease Alzheimer's disease onset: unspecified onset Dementia behavioral disturbance: without behavioral disturbance Qualified Code(s): G30.9 - Alzheimer's disease, unspecified; F02.80 - Dementia in other diseases classified elsewhere without behavioral disturbance (4) Diabetes mellitus Current Visit: Yes Status: Chronic Assessment and plan: Continue home dose of basal insulin. Continue sliding scale insulin. Resume metformin today. Qualifiers: Diabetes mellitus type: type 2 Diabetes mellitus complication status: with kidney complications Diabetes mellitus complication detail: with chronic kidney disease Diabetes mellitus [facility] insulin use: with [facility] use Chronic kidney disease stage: stage 3 (moderate) Qualified Code(s): E11.22 - Type 2 diabetes mellitus with diabetic chronic kidney disease; N18.3 - Chronic kidney disease, stage 3 (moderate); Z79.4 - senior care (current) use of insulin (5) HTN (hypertension) Current Visit: Yes Status: Chronic Assessment and plan: Controlled blood pressure. Continue to hold lisinopril for now. Qualifiers: Hypertension type: essential hypertension Qualified Code(s): I10 - Essential (primary) hypertension (6) Anemia Current Visit: Yes Status: Acute Assessment and plan: Hemoglobin down from 13 on admission to 11 today. Suspected GI bleed due to anticoagulation. Check fecal blood test. Monitor hemoglobin and hematocrit. If the patient does have further drop in hemoglobin, we will discontinue anticoagulation and consult plastic surgery for possible placement of IVC filter for her recurrent PE. Qualifiers: Anemia type: other cause Other causes of anemia: other cause, not classified Qualified Code(s): D64.89 - Other specified anemias - Subjective Interval history: Patient states that she is doing well. She states that she had a bowel movement but did not notice any blood in the stools. She denies feeling lightheaded or having any palpitations. She states that she is urinating without any pain or difficulty. - Constitutional Vitals: Temp Pulse Resp BP Pulse Ox 97.8 F 63 18 116/62 97 04/16/17 07:00 04/16/17 07:00 04/16/17 07:00 04/16/17 07:00 04/16/17 07:00 General appearance: Present: A&O X 1 Exam: Gen.: Sitting in a chair. No acute distress. Chest: Clear to auscultation bilaterally. No adventitious sounds present. CVS: First and second heart sounds present. Ejection systolic murmur in the aortic area. Abdomen: Soft, nontender, obese. Bowel sounds present. No hepatosplenomegaly. Skin: No decubitus ulcers appreciated. Internal Medicine: Result - Labs CBC & Chem 7: 04/16/17 06:08 04/14/17 01:09 Labs: Short CBC 04/15/17 04/16/17 Range/Units 16:16 06:08 Hgb 11.3 L 11.0 L (11.5-15.4) g/dL Hct 35.0 L 35.3 (35.3-44.9) % - ABG Interpretation ABG results: PT/INR, D-dimer PT 13.0 Seconds (9.4-12.1) H 04/14/17 01:09 D-Dimer 95867 ng/mLFEU (0-500) H 04/13/17 17:16 - VTE Reasons for not Prescribing Prophylaxis: Not indicated-Anticoagulated or INR therapeutic Consult Discharge Plan - Plan Referrals: Rizwan Palma MD [Primary Care Provider] -
[2017-04-16 16:06] LABS: Hematocrit 36.8 % (35.3-44.9); Hemoglobin 11.5 g/dL (11.5-15.4)
[2017-04-16] MEDS ORDERED: *HR* Metformin 500 MG TABLET PO SCH (17:00)
[2017-04-16] MEDS: *HR* Repaglinide 1 MG TABLET PO SCH (20:43)
[2017-04-16] MEDS: Insulin DETEMIR 100 UNIT/ML X5UNITS SQ SCH (20:44)
[2017-04-17 04:34] LABS: Basophils % 0.5 %; Eosinophils # 0.1 K/mcL (0.0-0.6); Hematocrit 33.8 % (35.3-44.9); Hemoglobin 10.6 g/dL (11.5-15.4); Immature Granulocytes % 0.3 % (0-4); Lymphocytes # 2.1 K/mcL (0.6-4.6); Lymphocytes % 32.3 %; Mean Corpuscular HGB Conc 31.4 g/dL (31.6-35.5); Mean Corpuscular Volume 92.3 fL (83.0-100.0); Mean Platelet Volume 10.8 fL (9.4-12.4); Monocytes # 0.4 K/mcL (0.0-1.3); Monocytes % 6.9 %; Neutrophils # 3.7 K/mcL (1.6-8.9); Platelet Count 229 K/mcL (140-400); Red Blood Count 3.66 M/mcL (3.82-4.97); Red Cell Distribution Width 15.1 % (11.5-14.5)
[2017-04-17] MEDS ORDERED: Levothyroxine 25 MCG TABLET PO SCH (06:30)
[2017-04-17] MEDS: Insulin LISPRO 300 UNITS/3 ML VIAL SQ SCH ×4 (08:16→21:47)
[2017-04-17] MEDS: APIXABAN 5 MG TABLET PO SCH ×2 (08:23→21:47)
[2017-04-17] MEDS: *HR* Repaglinide 1 MG TABLET PO SCH ×2 (08:23→16:42)
--- NOTE | 2017-04-17 09:05 | Discharge Summary ---
Date of Encounter: 04/17/17 Time of Encounter: 08:00 - Discharge Diagnosis (1) Pulmonary embolism Priority: Primary Status: Acute Qualifiers: Pulmonary embolism type: other Chronicity: acute Acute cor pulmonale presence: without acute cor pulmonale Qualified Code(s): I26.99 - Other pulmonary embolism without acute cor pulmonale (2) Respiratory failure Priority: Secondary Status: Resolved Qualifiers: Chronicity: acute Respiratory failure complication: hypoxia Qualified Code(s): J96.01 - Acute respiratory failure with hypoxia (3) Dementia Priority: Secondary Status: Chronic Qualifiers: Dementia type: Alzheimer's disease Alzheimer's disease onset: unspecified onset Dementia behavioral disturbance: without behavioral disturbance Qualified Code(s): G30.9 - Alzheimer's disease, unspecified; F02.80 - Dementia in other diseases classified elsewhere without behavioral disturbance (4) Diabetes mellitus Priority: Secondary Status: Chronic Qualifiers: Diabetes mellitus type: type 2 Diabetes mellitus complication status: with kidney complications Diabetes mellitus complication detail: with chronic kidney disease Diabetes mellitus residential insulin use: with termite control representative use Chronic kidney disease stage: stage 3 (moderate) Qualified Code(s): E11.22 - Type 2 diabetes mellitus with diabetic chronic kidney disease; N18.3 - Chronic kidney disease, stage 3 (moderate); Z79.4 - termite control representative (current) use of insulin (5) HTN (hypertension) Priority: Secondary Status: Chronic Qualifiers: Hypertension type: essential hypertension Qualified Code(s): I10 - Essential (primary) hypertension (6) Anemia Priority: Secondary Status: Chronic Qualifiers: Anemia type: other cause Other causes of anemia: other cause, not classified Qualified Code(s): D64.89 - Other specified anemias - Discharge Medications Prescriptions: Apixaban [Eliquis] 10 mg PO BID #60 tab Home Medications: Donepezil [Aricept] 10 mg PO HS 10/28/16 [History] Insulin Glargine,Hum.rec.anlog [Lantus Solostar] 20 unit SQ QPM 10/28/16 [ History] Levothyroxine [Synthroid] 25 mcg PO Q72H MDD SEE COMMENTS! 10/28/16 [History] Lisinopril [Zestril] 20 mg PO DAILY 10/28/16 [History] Memantine HCl [Namenda Xr] 28 mg PO DAILY 10/28/16 [History] Multivitamin [Multi-Day Vitamins] 1 each PO DAILY 10/28/16 [History] Repaglinide [Prandin] 4 mg PO BID 10/28/16 [History] Simvastatin [Zocor] 40 mg PO HS 10/28/16 [History] Omeprazole [PriLOSEC] 40 mg PO DAILY #30 cap 10/31/16 [Rx] Furosemide [Lasix] 40 mg PO Q48H 04/13/17 [History] Apixaban [Eliquis] 10 mg PO BID #60 tab 04/17/17 [Rx] Allergies/Adverse Reactions: Allergies Iodinated Contrast- Oral and IV Dye Allergy (Verified 04/13/17 21:50) See Comments PATIENT IS DEMENTED BUT HAS AN IVP DYE ALLERGY OF UNKNOWN SEVERITY. HAS HAD CONTRAST MULTIPLE TIMES WITH PRE-MED SINCE. Penicillins Allergy (Verified 11/09/16 12:24) See Comments unsure Procedures/tests Complete & Pending: Procedures Performed prior 72 hours Category Date Time Status EV echocardiogram Routine Y 04/14/17 09:00 Completed Date of admission: 04/13/17 22:48 Primary care physician: Rizwan Palma MD Consults: 04/15/17 10:28 Consult to Physical Therapy [CONS] Routine Comment: Evaluate, develop and implement POC Reason for Consult: possible need for rehab 04/15/17 10:29 Consult to Occupational Therapy [CONS] Routine Comment: Evaluate, develop and implement POC Reason for Consult: possible need for rehab Discharging clinician: Wade Hoffmann Anticipated date of discharge: 04/17/17 - Patient Status Disposition: Home Health Service Condition: Fair Functional capacity at discharge: uses cane/walker Overall status at discharge: patient is progressing back to baseline - Discharge Instructions Follow Up With: Rizwan Palma MD [Primary Care Provider] - (1 week) - Diet and Activity Activity: as per physical therapy, increase activity as tolerated Diet: diabetic diet, low fat, low cholesterol Hospital course: Ms. Huerta is a 81 year old female with history of dementia, pulmonary embolism who was on Coumadin for a long time and was also on xarelto for a long time who experienced GI bleed in October 2016 and hence, all antegrade lesion was discontinued. She presents to the emergency room due to shortness of breath. In the emergency room, she had a CT enterography performed which showed submassive pulmonary embolus with hemodynamic stability and evidence of right ventricle strain on CT scan. The patient was started on heparin drip and admitted to the ICU. In the ICU, the patient was started on eliquis and taken off the heparin drip. During stay in the hospital, her hemoglobin fluctuated. However, her feet like a blood test was negative. Her vitals remained stable during the hospital stay. Her troponins were elevated but her echocardiogram revealed a preserved ejection fraction with uninvolved motion abnormalities. The elevated troponin was felt likely due to right ventricle are strain due to her pulmonary embolus. The patient will be discharged home today with home health to the care of her . - Time Spent with Patient Total time spent providing and/or coordinating discharge services: Greater than 30 minutes (35) - Constitutional Vitals: Temp Pulse Resp BP Pulse Ox 97.5 F L 68 18 139/63 94 04/17/17 07:52 04/17/17 07:52 04/17/17 07:52 04/17/17 07:52 04/17/17 07:52 General appearance: Present: A&O X 1 Exam: Gen.: Lying in bed. No acute distress. Chest: Clear to auscultation bilaterally. No adventitious sounds present. CVS: First and second heart sounds present. Ejection systolic murmur present - VTE Reasons for not Prescribing Prophylaxis: Not indicated-Anticoagulated or INR therapeutic
--- NOTE | 2017-04-17 09:10 | Physician Discharge Referral ---
Home Health/Hosp Referral Info Transfer to: Home Health Attending Provider: Dr. Wade Hoffmann Provider in Charge Post Discharge: PCP - Diagnosis (1) Pulmonary embolism Priority: Primary Status: Acute (2) Respiratory failure Priority: Secondary Status: Resolved (3) Dementia Priority: Secondary Status: Chronic (4) Diabetes mellitus Priority: Secondary Status: Chronic (5) HTN (hypertension) Priority: Secondary Status: Chronic (6) Anemia Priority: Secondary Status: Chronic - Respiratory Orders Smoking Cessation: Smoking cessation has been advised. For more information, call the [place] Tobacco Quit Line at 7-925-QGKP-NOW. - Diet/Nutrition Diet/Nutrition Orders: Cardiac, No Concentrated Sweets - Activity Activity Orders: Up ad osman, Ambulate, Chair - Services Needed Following services are medically necessary services: Home Health Aide, Physical Therapy, Occupational Therapy - Transfer Medications Prescriptions: Apixaban [Eliquis] 10 mg PO BID #60 tab Home Medications: Donepezil [Aricept] 10 mg PO HS 10/28/16 [History] Insulin Glargine,Hum.rec.anlog [Lantus Solostar] 20 unit SQ QPM 10/28/16 [ History] Levothyroxine [Synthroid] 25 mcg PO Q72H MDD SEE COMMENTS! 10/28/16 [History] Lisinopril [Zestril] 20 mg PO DAILY 10/28/16 [History] Memantine HCl [Namenda Xr] 28 mg PO DAILY 10/28/16 [History] Multivitamin [Multi-Day Vitamins] 1 each PO DAILY 10/28/16 [History] Repaglinide [Prandin] 4 mg PO BID 10/28/16 [History] Simvastatin [Zocor] 40 mg PO HS 10/28/16 [History] Omeprazole [PriLOSEC] 40 mg PO DAILY #30 cap 10/31/16 [Rx] Furosemide [Lasix] 40 mg PO Q48H 04/13/17 [History] Apixaban [Eliquis] 10 mg PO BID #60 tab 04/17/17 [Rx] Allergies/Adverse Reactions: Allergies Iodinated Contrast- Oral and IV Dye Allergy (Verified 04/13/17 21:50) See Comments PATIENT IS DEMENTED BUT HAS AN IVP DYE ALLERGY OF UNKNOWN SEVERITY. HAS HAD CONTRAST MULTIPLE TIMES WITH PRE-MED SINCE. Penicillins Allergy (Verified 11/09/16 12:24) See Comments unsure Certification: Further, I certify that my clinical findings support that this patient is homebound (i.e. absences from home require considerable and taxing effort and are for medical reasons or [employer] or infrequently or short duration when for other reasons) because: Homebound Reason: Patient requires assistance of a person or device to safely leave home, Leaving home requires considerable and taxing effort due to condition Attestation: My signature below is to certify that this patient is under my care and that I, or nurse practitioner, or a physician's assistant professor of physics working with me, has a face-to -face encounter with this patient.
[2017-04-17] MEDS: Insulin DETEMIR 100 UNIT/ML X5UNITS SQ SCH (21:47)
[2017-04-18 08:02] VITALS: BP 134/56
[2017-04-18] MEDS: Insulin LISPRO 300 UNITS/3 ML VIAL SQ SCH (08:23)
[2017-04-18] MEDS: APIXABAN 5 MG TABLET PO SCH (08:31)
[2017-04-18] MEDS: *HR* Repaglinide 1 MG TABLET PO SCH (08:31)
[2017-04-18 10:03] LABS: Potassium 4.2 mEq/L (3.5-4.5)
[2017-04-18 10:04] LABS: Calcium 9.4 mg/dL (8.6-10.8); Magnesium 1.8 mg/dL (1.6-2.6); Phosphorous 3.3 mg/dL (2.3-4.7)
--- NOTE | 2017-04-18 10:27 | Internal Med Progress Note ---
Date of Encounter: 04/18/17 Time of Encounter: 10:28 - Subjective Interval history: Patient seen and examined with family present at bedside. Resting in chair and reports of feeling significantly better compared to previous day. Patient was discharged to home yesterday however her discharged was held due to acute onset chest pain. TNI have been trending down from her previous levels and no acute EKG changes were reported. At this time she is clinically stable and hemodynamically stable for discharge. She will be discharged to home today with home health service with follow up with PCP. Patient and family demonstrate understanding of diagnosis and agree with the discharge care and plan. - Discharge Diagnosis (1) Pulmonary embolism Priority: Primary Status: Acute Qualifiers: Pulmonary embolism type: other Chronicity: acute Acute cor pulmonale presence: without acute cor pulmonale Qualified Code(s): I26.99 - Other pulmonary embolism without acute cor pulmonale (2) Respiratory failure Priority: Secondary Status: Resolved Qualifiers: Chronicity: acute Respiratory failure complication: hypoxia Qualified Code(s): J96.01 - Acute respiratory failure with hypoxia (3) Dementia Priority: Secondary Status: Chronic Qualifiers: Dementia type: Alzheimer's disease Alzheimer's disease onset: unspecified onset Dementia behavioral disturbance: without behavioral disturbance Qualified Code(s): G30.9 - Alzheimer's disease, unspecified; F02.80 - Dementia in other diseases classified elsewhere without behavioral disturbance (4) Diabetes mellitus Priority: Secondary Status: Chronic Qualifiers: Diabetes mellitus type: type 2 Diabetes mellitus complication status: with kidney complications Diabetes mellitus complication detail: with chronic kidney disease Diabetes mellitus 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 insulin use: with care home use Chronic kidney disease stage: stage 3 (moderate) Qualified Code(s): E11.22 - Type 2 diabetes mellitus with diabetic chronic kidney disease; N18.3 - Chronic kidney disease, stage 3 (moderate); Z79.4 - assisted (current) use of insulin (5) HTN (hypertension) Priority: Secondary Status: Chronic Qualifiers: Hypertension type: essential hypertension Qualified Code(s): I10 - Essential (primary) hypertension (6) Anemia Priority: Secondary Status: Chronic Qualifiers: Anemia type: other cause Other causes of anemia: other cause, not classified Qualified Code(s): D64.89 - Other specified anemias - Constitutional Vitals: Temp Pulse Resp BP Pulse Ox 97.7 F 60 18 134/56 96 04/18/17 07:51 04/18/17 07:51 04/18/17 07:51 04/18/17 07:51 04/18/17 09:00 General appearance: Present: no acute distress (mental status at baseline ), answers questions appropriately - Head Head exam: Present: atraumatic, normocephalic - Eye Eye exam: Present: conjuntiva pink, sclera anicteric - Respiratory Respiratory exam: Present: CTAB. Absent: accessory muscle use, rales, rhonchi, wheezes - Cardiovascular Cardiovascular exam: Present: RRR, +S1, +S2, systolic murmur - GI/Abdominal GI/Abdominal exam: Present: normal bowel sounds, soft, no peritoneal signs. Absent: distended, tenderness - Extremities Exam Extremities exam: Present: warm, radial pulses palpable and symetrical. Absent : calf tenderness - Neurological Exam Neurological exam: Present: alert - Psychiatric Psychiatric exam: Present: normal affect, normal mood Internal Medicine: Result - Labs CBC & Chem 7: 04/17/17 04:18 04/18/17 09:04 Labs: BMP 04/18/17 09:04 Sodium 139 Potassium 4.2 Chloride 106 Carbon Dioxide 27 BUN 20 Creatinine 1.07 Glucose 167 H Calcium 9.4 Cardiac Enzymes 04/17/17 04/18/17 Range/Units 16:16 09:04 Troponin I 0.24 H* 0.24 H* (0-0.03) ng/mL - ABG Interpretation ABG results: PT/INR, D-dimer PT 13.0 Seconds (9.4-12.1) H 04/14/17 01:09 D-Dimer 89020 ng/mLFEU (0-500) H 04/13/17 17:16 - Impressions Impressions Chest X-Ray 04/17/17 16:06 IMPRESSION: Stable portable study. D/ / Radha Sr Cha, MD / Radha Sr Cha, MD Interpreting Provider: Radha Sr Cha, MD - VTE Reasons for not Prescribing Prophylaxis: Not indicated-Anticoagulated or INR therapeutic Consult Discharge Plan - Plan Instructions: Myocardial Infarction (DC), Pulmonary Embolism (DC) Additional Instructions: pcp requested Referrals: Rizwan Palma MD [Primary Care Provider] - (1 week) Prescriptions: Apixaban [Eliquis] 10 mg PO BID #60 tab
[2017-04-18 10:34] LABS: Basophils % 0.3 %; Eosinophils # 0.1 K/mcL (0.0-0.6); Eosinophils % 1.6 %; Hematocrit 38.6 % (35.3-44.9); Hemoglobin 12.4 g/dL (11.5-15.4); Immature Granulocytes % 0.3 % (0-4); Lymphocytes # 1.6 K/mcL (0.6-4.6); Lymphocytes % 23.9 %; Mean Corpuscular HGB Conc 32.1 g/dL (31.6-35.5); Mean Corpuscular Hemoglobin 29.1 pg (28.0-33.3); Mean Corpuscular Volume 90.6 fL (83.0-100.0); Mean Platelet Volume 11.1 fL (9.4-12.4); Monocytes # 0.4 K/mcL (0.0-1.3); Monocytes % 5.7 %; Neutrophils # 4.7 K/mcL (1.6-8.9); Platelet Count 283 K/mcL (140-400); Red Blood Count 4.26 M/mcL (3.82-4.97); Segmented Neutrophils % 68.2 %
[2017-04-19 20:15] LABS: FACV Specimen WHOLE BLOOD
[2017-04-20 07:44] LABS: Fac V Leiden R506Q Mut Result NEGATIVE
== END 2017-04-18 12:45 | disposition home health service (06) | DRG 175 ==
LOC: EMEROO 16:20 → ICNU 22:48 → 2NENU 04-14 17:54
PROVIDERS: ADMIT Pediatrics; ATTEND Internal Medicine

== ENCOUNTER 2017-09-01 18:35 | Inpatient (IN) ==
[2017-09-01] MEDS ORDERED: *HR* Dextrose 50 % in Water (Syg) 50 ML SYRINGE IVP ONE (21:27)
[2017-09-01] MEDS ORDERED: D5% in 0.45% NACL 1,000 ML IVC SCH ×2 (21:30→22:22)
[2017-09-01] MEDS ORDERED: Naloxone 0.4 MG/ML INJ IVP PRN (22:31)
[2017-09-01] MEDS ORDERED: Acetaminophen 325 MG TABLET PO PRN (22:34)
[2017-09-01] MEDS ORDERED: Ipratropium/Albuterol Neb 3 ML IH PRN (22:34)
--- NOTE | 2017-09-01 22:49 | Internal Med History&Physical ---
Date of Encounter: 09/01/17 Time of Encounter: 22:38 Assessment and Plan (1) Hypoglycemia due to insulin Current visit: Yes Status: Acute check regular CBG On D5 gtt and adjust accordingly Given D50 on arrival hold insulin pharmacy, diabetic education (2) Troponin level elevated Current visit: Yes Status: Acute no active CP, EKG wnl trend trop doubt acs (3) Diabetes mellitus Current visit: No Status: Chronic hold insulin for now due to insulin overdose Qualifiers: Diabetes mellitus type: type 2 Diabetes mellitus complication status: with kidney complications Diabetes mellitus complication detail: with chronic kidney disease Diabetes 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 insulin use: with 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 Chronic kidney disease stage: stage 3 (moderate) Qualified Code(s): E11.22 - Type 2 diabetes mellitus with diabetic chronic kidney disease; N18.3 - Chronic kidney disease, stage 3 (moderate); Z79.4 - intermediate teacher (current) use of insulin (4) Dementia Current visit: No Status: Chronic moderate-severe Qualifiers: Dementia type: Alzheimer's disease Alzheimer's disease onset: unspecified onset Dementia behavioral disturbance: without behavioral disturbance Qualified Code(s): G30.9 - Alzheimer's disease, unspecified; F02.80 - Dementia in other diseases classified elsewhere without behavioral disturbance Internal Medicine - H&P: HPI Chief complaint: Hypoglycemia History of present illness: Ms. Huerta is a 81 year old female with moderate/severe dementia who presents from home 2/2 insulin induced Hypoglycemia. She recently completed mitral valve at [facility] approx 07/24/17 who was later transitioned to [facility] before being sent home 2 days ago with insulin 70/30. Her prescribed regimen was 20 U in the a.m, 15 U in p.m. She was given insulin in the morning and was subsequently noted to be slightly off (mentation decreased) with CBG recheck in the 30s. Peanut butter sandwich was given and persistent low CBG in 20s. EMS sent her to [facility] who requested for transfer to [facility] for endocrine care of this medically complex patient and problems. EKG personally reviewed with rate 67, NSR Past Med Surg Social Fam HX - Past Medical History Medical history: dementia, diabetes, hypertension, pulmonary embolus, thyroid disease, valvular heart disease Psychiatric history: no psych history - Past Surgical History Surgical History: non-contributory (Patient is unable to describe her surgical history) - Social History Smoking Status: Former smoker Smokeless Tobacco Status: No Alcohol use: none Drug use: none - Family History Mother Hx Family Endocrine Disorder: Yes (DM) Internal Medicine - H&P: Meds Donepezil [Aricept] 10 mg PO HS 10/28/16 [History] Levothyroxine [Synthroid] 25 mcg PO Q72H MDD SEE COMMENTS! 10/28/16 [History] Lisinopril [Zestril] 20 mg PO DAILY 10/28/16 [History] Memantine HCl [Namenda Xr] 28 mg PO DAILY 10/28/16 [History] Multivitamin [Multi-Day Vitamins] 1 tab PO DAILY 10/28/16 [History] Repaglinide [Prandin] 4 mg PO BID 10/28/16 [History] Simvastatin [Zocor] 20 mg PO HS 10/28/16 [History] Omeprazole [PriLOSEC] 40 mg PO DAILY #30 cap 10/31/16 [Rx] Furosemide [Lasix] 20 mg PO DAILY 04/13/17 [History] Acetaminophen [Tylenol Arthritis] 650 mg PO Q6H PRN 09/01/17 [History] Apixaban [Eliquis] 5 mg PO BID 09/01/17 [History] Cholecalciferol (D-3) [Vitamin D] 1,000 unit PO DAILY 09/01/17 [History] Docusate [Colace] 100 mg PO BID 09/01/17 [History] Ferrous Sulfate [Iron] 325 mg PO DAILY 09/01/17 [History] Insulin NPH Hum/Reg Insulin Hm [Novolin 70-30 100 Unit/ml Vial] 20 unit SQ DAILY 09/01/17 [History] Ipratropium/Albuterol Neb [Duoneb] 3 ml IH Q6HR 09/01/17 [History] LORazepam [Ativan] 1.5 mg PO DAILY 09/01/17 [History] Magnesium Oxide [Magnesium] 800 mg PO BID 09/01/17 [History] Melatonin 5 mg PO HS 09/01/17 [History] Metoprolol [Lopressor] 25 mg PO BID 09/01/17 [History] Nystatin POWDER [Nystop] 1 appl TP BID 09/01/17 [History] Polyethylene Glycol 3350 [MiraLAX] 17 gm PO DAILY PRN 09/01/17 [History] Potassium Chloride [Klor-Con 10] 10 meq PO DAILY 09/01/17 [History] Trazodone HCl 50 mg PO HS 09/01/17 [History] hydrALAZINE [HydrALAZINE] 25 mg PO TID 09/01/17 [History] 3 Allergy/AdvReac Type Severity Reaction Status Date / Time Iodinated Contrast- Oral and Allergy See Verified 04/13/17 21:50 IV Dye Comments Penicillins Allergy See Verified 11/09/16 12:24 Comments All Systems PM: A 10-system review of systems was performed and is negative for pertinent findings except as documented above in the HPI. Review of systems: ROS 14 point review of systems reviewed as best as possible given presentation. Pertinent positive or negative as per HPI or otherwise reviewed as negative - Constitutional Vitals: Temp Pulse Resp BP Pulse Ox 98.1 F 70 20 125/54 94 09/01/17 20:57 09/01/17 20:57 09/01/17 20:57 09/01/17 20:57 09/01/17 20:57 Exam: General - Decreased cognition Psych - Appropriate affect/speech. No agitation Eyes - EULOGIO. Eye lids intact. No scleral icterus Heart - Sinus. RRR. S1 and S2 present. No elevated JVD appreciated. Lung - Adequate air entry b/l, No crackles/wheezes appreciated GI - Soft, non-tender. No hepatosplenomegaly/ascites. BS+ - No CVA/suprapubic tenderness or palpable bladder distension Skin - Intact. No rash/petechiae/ecchymosis. Warm extremities. +1 b/l LE edema
[2017-09-02] MEDS: D5% in 0.45% NACL 1,000 ML IVC SCH ×2 (00:35→07:55)
[2017-09-02] MEDS ORDERED: *HR* Dextrose 50 % in Water (Syg) 50 ML SYRINGE IVP PRN ×2 (01:00→17:14)
[2017-09-02 04:55] LABS: BUN/Creatinine Ratio 15 (6-26); Blood Urea Nitrogen 15 mg/dL (7-20); Calcium 8.6 mg/dL (8.6-10.8); Carbon Dioxide 25 mEq/L (19-29); Chloride 107 mEq/L (98-109); Glucose 80 mg/dL (70-99); Magnesium 1.7 mg/dL (1.6-2.6); Osmolality,Calculated 292 (280-300); Potassium 3.7 mEq/L (3.5-4.5); Sodium 141 mEq/L (136-145); eGFR For African Americans > 60 (> 60); eGFR For Non-African Americans 54 (> 60)
[2017-09-02 04:59] LABS: Basophils # 0.1 K/mcL (0.0-0.2); Basophils % 0.7 %; Eosinophils # 0.2 K/mcL (0.0-0.6); Eosinophils % 1.9 %; Hematocrit 27.7 % (35.3-44.9); Hemoglobin 8.1 g/dL (11.5-15.4); Immature Granulocytes % 0.3 % (0-4); Lymphocytes # 2.3 K/mcL (0.6-4.6); Lymphocytes % 26.3 %; Mean Corpuscular HGB Conc 29.2 g/dL (31.6-35.5); Mean Corpuscular Hemoglobin 23.5 pg (28.0-33.3); Mean Corpuscular Volume 80.3 fL (83.0-100.0); Mean Platelet Volume 10.2 fL (9.4-12.4); Monocytes # 0.6 K/mcL (0.0-1.3); Monocytes % 7.3 %; Neutrophils # 5.6 K/mcL (1.6-8.9); Nucleated Red Blood Cells 0.2 /100 WBC (0); Platelet Count 424 K/mcL (140-400); Red Blood Count 3.45 M/mcL (3.82-4.97); Red Cell Distribution Width 16.6 % (11.5-14.5); Segmented Neutrophils % 63.5 %
[2017-09-02] MEDS ORDERED: Levothyroxine 25 MCG TABLET PO SCH (06:30)
[2017-09-02] MEDS: Magnesium Oxide 400 MG TABLET PO SCH ×2 (07:54→22:31)
[2017-09-02] MEDS: Lisinopril 20 MG TABLET PO SCH (07:54)
[2017-09-02] MEDS: Cholecalciferol (D-3) 1,000 UNIT TABLET PO SCH (07:55)
[2017-09-02] MEDS: hydrALAZINE 25 MG TABLET PO SCH ×3 (07:55→22:32)
[2017-09-02] MEDS: APIXABAN 5 MG TABLET PO SCH ×2 (07:55→22:31)
[2017-09-02] MEDS: Furosemide 20 MG TABLET PO SCH (07:55)
--- NOTE | 2017-09-02 11:08 | Internal Med Progress Note ---
Date of Encounter: 09/02/17 Time of Encounter: 11:06 - Assessment and plan (1) HTN (hypertension) Current Visit: No Status: Chronic Assessment and plan: Well-controlled with continue home medication Qualifiers: Hypertension type: essential hypertension Qualified Code(s): I10 - Essential (primary) hypertension (2) Diabetes mellitus Current Visit: No Status: Chronic Assessment and plan: Chronic will continue sliding scale. She was admitted due to hypoglycemia. 2 recent history of silent Qualifiers: Diabetes mellitus type: type 2 Diabetes mellitus complication status: with kidney complications Diabetes mellitus complication detail: with chronic kidney disease Diabetes mellitus jail insulin use: with jail use Chronic kidney disease stage: stage 3 (moderate) Qualified Code(s): E11.22 - Type 2 diabetes mellitus with diabetic chronic kidney disease; N18.3 - Chronic kidney disease, stage 3 (moderate); Z79.4 - rat exterminator (current) use of insulin (3) Dementia Current Visit: No Status: Chronic Assessment and plan: Chronic dementia Qualifiers: Dementia type: Alzheimer's disease Alzheimer's disease onset: unspecified onset Dementia behavioral disturbance: without behavioral disturbance Qualified Code(s): G30.9 - Alzheimer's disease, unspecified; F02.80 - Dementia in other diseases classified elsewhere without behavioral disturbance (4) Anemia Current Visit: No Status: Chronic Assessment and plan: will transfuse 2 units of blood Qualifiers: Anemia type: other cause Other causes of anemia: other cause, not classified Qualified Code(s): D64.89 - Other specified anemias (5) NSTEMI (non-ST elevated myocardial infarction) Current Visit: No Status: Acute Assessment and plan: cardiology is being consulted patient denies chest pain medical treatment recent echo normal lv function (6) Hypoglycemia due to insulin Current Visit: Yes Status: Acute Assessment and plan: due to insulin - Subjective Interval history: Patient with history of diabetes, dementia, hypertension, admitted due to an episode of hypoglycemia which is now resolved patient is awake and alert no chest pain troponin was mildly elevated 0.1 now down to 0.09. Denies any chest pain . - Constitutional Vitals: Temp Pulse Resp BP Pulse Ox 97.9 F 73 15 119/55 97 09/02/17 07:33 09/02/17 07:33 09/02/17 07:33 09/02/17 07:33 09/02/17 07:33 - Eye Eye exam: Present: PERRL, conjuntiva pink, sclera anicteric Pupils: Present: PERRL - Neck Neck exam general surgery: Present: supple, trachea midline. Absent: lymphadenopathy - Respiratory Respiratory exam: Present: CTAB. Absent: accessory muscle use, rales, rhonchi, wheezes - Cardiovascular Cardiovascular exam: Present: RRR, +S1, +S2. Absent: diastolic murmur, gallop, rubs, systolic murmur - GI/Abdominal GI/Abdominal exam: Present: normal bowel sounds, soft, no peritoneal signs. Absent: distended, tenderness Internal Medicine: Result - Labs CBC & Chem 7: 09/02/17 04:23 09/02/17 04:23 Labs: Short CBC 09/02/17 Range/Units 04:23 WBC 8.8 (4.3-11.1) K/mcL Hgb 8.1 L (11.5-15.4) g/dL Hct 27.7 L (35.3-44.9) % Plt Count 424 H (140-400) K/mcL Neutrophils # 5.6 (1.6-8.9) K/mcL BMP 09/02/17 04:23 Sodium 141 Potassium 3.7 Chloride 107 Carbon Dioxide 25 BUN 15 Creatinine 0.99 Glucose 80 Calcium 8.6 Cardiac Enzymes 09/01/17 09/02/17 09/02/17 Range/Units 22:54 04:23 10:31 Troponin I 0.10 H* 0.08 H* 0.09 H* (0-0.03) ng/mL Consult Discharge Plan - Plan Referrals: Rizwan Palma MD [Primary Care Provider] -
[2017-09-02] MEDS: Memantine Hcl [Namenda Xr] 28 MG PO SCH (11:22)
[2017-09-02] MEDS: Nystatin POWDER 30 GM BOTTLE TP SCH ×2 (13:59→22:39)
[2017-09-02] MEDS ORDERED: *HR* Morphine 2 MG/ML SYRINGE IVP ONE (15:42)
--- NOTE | 2017-09-02 15:45 | Event Note ---
Date of Encounter: 09/02/17 Time of Encounter: 15:43 Patient complains of chest pain accross the chest ekg no ischemic c hanges will give 2 mg morphine cardiology consulted earlier about positive troponin but i forgot to place the consult order will place the order now patient is stable
[2017-09-02] MEDS ORDERED: 0.9 % Sodium Chloride 500 ML ONE (16:19)
[2017-09-02] MEDS ORDERED: Dextrose Gel 15 GM PO PRN ×2 (17:14)
[2017-09-02] MEDS ORDERED: D5% in Water 1,000 ML IVC PRN (17:14)
[2017-09-02] MEDS ORDERED: Insulin LISPRO 300 UNITS/3 ML VIAL SQ SCH (21:00)
[2017-09-02] MEDS ORDERED: 0.9 % Sodium Chloride 250 ML ONE (22:29)
[2017-09-02] MEDS: Melatonin 3 MG TABLET PO SCH (22:32)
[2017-09-03] MEDS: D5% in 0.45% NACL 1,000 ML IVC SCH (06:41)
[2017-09-03] MEDS: hydrALAZINE 25 MG TABLET PO SCH ×3 (08:40→22:10)
[2017-09-03] MEDS: Magnesium Oxide 400 MG TABLET PO SCH ×2 (08:40→22:11)
[2017-09-03] MEDS: APIXABAN 5 MG TABLET PO SCH ×2 (08:41→22:10)
[2017-09-03] MEDS: Lisinopril 20 MG TABLET PO SCH (08:41)
[2017-09-03] MEDS: Nystatin POWDER 30 GM BOTTLE TP SCH ×2 (08:41→22:16)
[2017-09-03] MEDS: Furosemide 20 MG TABLET PO SCH (08:41)
[2017-09-03] MEDS: Cholecalciferol (D-3) 1,000 UNIT TABLET PO SCH (08:41)
[2017-09-03] MEDS: Memantine Hcl [Namenda Xr] 28 MG PO SCH (08:41)
[2017-09-03 09:25] LABS: Basophils # 0.1 K/mcL (0.0-0.2); Basophils % 0.8 %; Eosinophils # 0.2 K/mcL (0.0-0.6); Eosinophils % 3.2 %; Hematocrit 36.6 % (35.3-44.9); Immature Granulocytes % 0.4 % (0-4); Lymphocytes # 1.6 K/mcL (0.6-4.6); Lymphocytes % 22.5 %; Mean Corpuscular HGB Conc 30.1 g/dL (31.6-35.5); Mean Corpuscular Hemoglobin 24.4 pg (28.0-33.3); Mean Corpuscular Volume 81.2 fL (83.0-100.0); Mean Platelet Volume 10.1 fL (9.4-12.4); Monocytes # 0.6 K/mcL (0.0-1.3); Monocytes % 8.4 %; Neutrophils # 4.7 K/mcL (1.6-8.9); Platelet Count 406 K/mcL (140-400); Red Blood Count 4.51 M/mcL (3.82-4.97); Red Cell Distribution Width 15.8 % (11.5-14.5); Segmented Neutrophils % 64.7 %
[2017-09-03 09:39] LABS: Calcium 8.8 mg/dL (8.6-10.8); Potassium 4.3 mEq/L (3.5-4.5)
[2017-09-03] MEDS: Insulin LISPRO 300 UNITS/3 ML VIAL SQ SCH ×2 (10:15→11:58)
--- NOTE | 2017-09-03 13:16 | Cardiology Consult Note ---
Date of Encounter: 09/03/17 Time of Encounter: 10:30 Assessment and Plan (1) Troponin level elevated Current Visit: Yes Status: Acute Pt has minimal elevation of troponin. Currently asymptomatic. Recent cardiac catheterization at [facility] March 2017 demonstrated minimal nonobstructive plaque disease. Do not think she has an ACS. Suspect demand ischemia in setting of anemia and profound hypoglycemia. Continue supportive care. Will check echocardiogram to reevaluate AVR, EF. (2) Hx of aortic valve stenosis Current Visit: No Status: Chronic (3) S/P aortic valve replacement with bioprosthetic valve Current Visit: No Status: Chronic Normal function, normal EF on most recent echocardiogram at [facility]. (4) HTN (hypertension) Current Visit: No Status: Chronic Qualifiers: Hypertension type: essential hypertension Qualified Code(s): I10 - Essential (primary) hypertension (5) Dementia Current Visit: No Status: Chronic Qualifiers: Dementia type: Alzheimer's disease Alzheimer's disease onset: unspecified onset Dementia behavioral disturbance: without behavioral disturbance Qualified Code(s): G30.9 - Alzheimer's disease, unspecified; F02.80 - Dementia in other diseases classified elsewhere without behavioral disturbance (6) Anemia Current Visit: Yes Status: Acute Has history of GI bleed in past. Further evaluation per primary team. Qualifiers: Anemia type: other cause Other causes of anemia: other cause, not classified Qualified Code(s): D64.89 - Other specified anemias Discussion w patient/family: The assessment and plan as outlined above was discussed with the patient and/or family members who expressed understanding and agreement. All questions were answered. Thank you for involving us in the care of your patient. Please call with any questions. History of Present Illness Consult date: 09/03/17 Chief complaint: chest pain History of present illness: Ms. Huerta is a 81 year old female with hx of s/p prosthetic AVR Jul 2017, HTN, DM, hyperlipidemia, dementia presented to ED for hypoglycemia. We are consulted due to concerns regarding chest discomfort. Pt is very poor historian, supplies most of history. Currently pt denies CP, SOB. Per , contacted EMS due to Glc in 20s. Pt taken to [facility] then transferred here for further evaluation. Troponin noted to be slightly elevated, adynamic at 0.1, 0.08, 0.09. Pt's denies pt having CP, SOB at rest. No lightheadedness, dizziness, syncope. On arrival here, also noted to be anemic with Hb 8.0. Transfused 2U PRBCs. Had successful prosthetic AVR for symptomatic in Jul 2017 at [facility] as well as ELA ligation. Prior to surgery, had LHC in March 2017 at [facility]. Cardiac catheterization demonstrated minimal nonobstructive plaque disease. Pt was seen for routine postop f/u at [facility] last week and was told doing well per . Was started on gentle diuresis with Lasix and potassium for residual L sided pleural effusion and b/l LE edema per records. Per [facility], also recommended to not restart Eliquis due to HAS-BLED score of 4. Has history of significant GI bleed in Oct 2016. Pt had submassive PEs in April 2017 and Eliquis started at that time. Echocardiogram 07/27/17 at [facility] demonstrated normal EF 60-65% with normally functioning biprosthetic AVR. Normal RV size/function. Moderate LAE. Mild pulm HTN- PASP 42mmHg. Past Med Surg Social Fam HX - Past Medical History Source: patient, old records reviewed Medical history: dementia, diabetes, hypertension, pulmonary embolus, thyroid disease, valvular heart disease Psychiatric history: no psych history - Past Surgical History Surgical History: heart valve replacement (prosthetic AVR), orthopedic, other ( back), other (ELA ligation) - Social History Smoking Status: Former smoker Smokeless Tobacco Status: No Alcohol use: none Drug use: none Current living situation: Home, With Family - Family History Mother Hx Family Endocrine Disorder: Yes (DM) Medications and Allergies Donepezil [Aricept] 10 mg PO HS 10/28/16 [History] Levothyroxine [Synthroid] 25 mcg PO Q72H MDD SEE COMMENTS! 10/28/16 [History] Lisinopril [Zestril] 20 mg PO DAILY 10/28/16 [History] Memantine HCl [Namenda Xr] 28 mg PO DAILY 10/28/16 [History] Multivitamin [Multi-Day Vitamins] 1 tab PO DAILY 10/28/16 [History] Repaglinide [Prandin] 4 mg PO BID 10/28/16 [History] Simvastatin [Zocor] 20 mg PO HS 10/28/16 [History] Omeprazole [PriLOSEC] 40 mg PO DAILY #30 cap 10/31/16 [Rx] Furosemide [Lasix] 20 mg PO DAILY 04/13/17 [History] Acetaminophen [Tylenol Arthritis] 650 mg PO Q6H PRN 09/01/17 [History] Apixaban [Eliquis] 5 mg PO BID 09/01/17 [History] Cholecalciferol (D-3) [Vitamin D] 1,000 unit PO DAILY 09/01/17 [History] Docusate [Colace] 100 mg PO BID 09/01/17 [History] Ferrous Sulfate [Iron] 325 mg PO DAILY 09/01/17 [History] Insulin NPH Hum/Reg Insulin Hm [Novolin 70-30 100 Unit/ml Vial] 20 unit SQ DAILY 09/01/17 [History] Ipratropium/Albuterol Neb [Duoneb] 3 ml IH Q6HR 09/01/17 [History] LORazepam [Ativan] 1.5 mg PO DAILY 09/01/17 [History] Magnesium Oxide [Magnesium] 800 mg PO BID 09/01/17 [History] Melatonin 5 mg PO HS 09/01/17 [History] Metoprolol [Lopressor] 25 mg PO BID 09/01/17 [History] Nystatin POWDER [Nystop] 1 appl TP BID 09/01/17 [History] Polyethylene Glycol 3350 [MiraLAX] 17 gm PO DAILY PRN 09/01/17 [History] Potassium Chloride [Klor-Con 10] 10 meq PO DAILY 09/01/17 [History] Trazodone HCl 50 mg PO HS 09/01/17 [History] hydrALAZINE [HydrALAZINE] 25 mg PO TID 09/01/17 [History] 3 Allergy/AdvReac Type Severity Reaction Status Date / Time Iodinated Contrast- Oral and Allergy See Verified 04/13/17 21:50 IV Dye Comments Penicillins Allergy See Verified 11/09/16 12:24 Comments ROS unobtainable: due to mental status (dementia) All Systems Review: A 10-system review of systems was performed and is negative for pertinent findings except as documented above in the HPI. Physical Examination Vital Signs, Last 4 Hours Temp Pulse Resp BP Pulse Ox 09/03/17 11:52 98.4 F 64 14 139/55 93 General: Conversant, No Apparent Distress HEENT: Atraumatic, Normocephaly, Mucus Membranes Moist Neck: No JVD, Normal carotid pulses Cardiac: Reg Rate and Rhythm, Normal S1 and S2, Other (grade 1/6 systolic murmur LSB) Lungs: Normal Breath Sounds, No Wheeze, Rales, Rhonchi Neuro: Alert and responsive, No focal deficits noted Abdomen: Soft, Non-Tender Skin: No rashes noted on visualized skin Musculoskeletal: No Chest Wall Tenderness Extremities: No Clubbing, No Cyanosis, No Edema, Normal Pulses Results 09/03/17 09:04 09/03/17 09:04 Lab Results 09/03/17 09/03/17 09:04 09:04 WBC 7.3 Hgb 11.0 L D Hct 36.6 Plt Count 406 H Sodium 138 Potassium 4.3 Chloride 104 Carbon Dioxide 28 BUN 12 Creatinine 1.08 Glucose 194 H Calcium 8.8 Consult Discharge Plan - Plan Referrals: Rizwan Palma MD [Primary Care Provider] -
--- NOTE | 2017-09-03 14:52 | Internal Med Progress Note ---
Date of Encounter: 09/03/17 Time of Encounter: 11:50 - Assessment and plan (1) Hypoglycemia due to insulin Current Visit: Yes Status: Acute Assessment and plan: Hypoglycemia has resolved. We will continue to monitor patient in the hospital overnight. We will place her on insulin 70/30 at 10 units twice daily and monitor her insulin levels closely to see if this dosage would be appropriate for her at discharge. Her Prandin has been stopped by her primary care provider. Moderate risk for complications. (2) Dementia Current Visit: Yes Status: Chronic Assessment and plan: Continue Aricept. Qualifiers: Dementia type: Alzheimer's disease Alzheimer's disease onset: unspecified onset Dementia behavioral disturbance: without behavioral disturbance Qualified Code(s): G30.9 - Alzheimer's disease, unspecified; F02.80 - Dementia in other diseases classified elsewhere without behavioral disturbance (3) HTN (hypertension) Current Visit: Yes Status: Chronic Assessment and plan: Blood pressure was elevated earlier this morning but has since improved. Continue metoprolol. Qualifiers: Hypertension type: essential hypertension Qualified Code(s): I10 - Essential (primary) hypertension (4) NSTEMI (non-ST elevated myocardial infarction) Current Visit: No Status: Ruled-out Assessment and plan: Patient has chronic troponin elevation. Adynamic. Most likely from demand ischemia. No further workup planned per cardiology recommendations. 2-D echocardiogram ordered. Will follow results. (5) S/P aortic valve replacement with bioprosthetic valve Current Visit: No Status: Chronic (6) Troponin level elevated Current Visit: Yes Status: Acute - Subjective Interval history: Patient is lying in bed. Feels better. Denies any chest pain at this time. Denies any shortness of breath. Patient's is present at bedside and has provided most of the history due to patient's underlying dementia. Patient' s insulin regimen had recently been changed from Lantus 20 units daily to insulin 70/30 20 units twice a day. Patient also just been discharged from skilled rehabilitation. She is able to ambulate with the help of her and walker as needed without any issues. - Constitutional Vitals: Temp Pulse Resp BP Pulse Ox 98.4 F 64 14 139/55 93 09/03/17 11:52 09/03/17 11:52 09/03/17 11:52 09/03/17 11:52 09/03/17 11:52 General appearance: Present: cooperative, A&O X 1, answers questions appropriately (patient does have dementia and memory issues. She does answer some questions appropriately.) - Neck Neck exam general surgery: Present: supple, trachea midline. Absent: lymphadenopathy - Respiratory Respiratory exam: Present: CTAB. Absent: accessory muscle use, rales, rhonchi, wheezes - Cardiovascular Cardiovascular exam: Present: RRR, +S1, +S2. Absent: diastolic murmur, gallop, rubs, systolic murmur - GI/Abdominal GI/Abdominal exam: Present: normal bowel sounds, soft, no peritoneal signs. Absent: distended, tenderness - Extremities Exam Extremities exam: Present: warm, radial pulses palpable and symmetrical. Absent : calf tenderness, cyanotic, pedal edema - Neurological Exam Neurological exam: Present: alert, no focal deficits. Absent: facial droop, speech deficit - Skin Skin exam: Present: dry, intact Internal Medicine: Result - Labs CBC & Chem 7: 09/03/17 09:04 09/03/17 09:04 Labs: Short CBC 09/03/17 Range/Units 09:04 WBC 7.3 (4.3-11.1) K/mcL Hgb 11.0 L D (11.5-15.4) g/dL Hct 36.6 (35.3-44.9) % Plt Count 406 H (140-400) K/mcL Neutrophils # 4.7 (1.6-8.9) K/mcL BMP 09/03/17 09:04 Sodium 138 Potassium 4.3 Chloride 104 Carbon Dioxide 28 BUN 12 Creatinine 1.08 Glucose 194 H Calcium 8.8 Consult Discharge Plan - Plan Referrals: Rizwan Palma MD [Primary Care Provider] -
[2017-09-03] MEDS ORDERED: Insulin NPH/REG 70/30 100 UNIT/ML (x5UNIT) SQ SCH (16:30)
[2017-09-03] MEDS: Melatonin 3 MG TABLET PO SCH (22:12)
[2017-09-04 08:16] LABS: Hemoglobin A1C 5.5 %
[2017-09-04] MEDS ORDERED: Memantine Hcl [Namenda Xr] 28 MG PO SCH (09:00)
[2017-09-04] MEDS: APIXABAN 5 MG TABLET PO SCH (09:05)
[2017-09-04] MEDS: hydrALAZINE 25 MG TABLET PO SCH (09:05)
[2017-09-04] MEDS: Magnesium Oxide 400 MG TABLET PO SCH (09:05)
[2017-09-04] MEDS: Cholecalciferol (D-3) 1,000 UNIT TABLET PO SCH (09:06)
[2017-09-04] MEDS: Furosemide 20 MG TABLET PO SCH (09:06)
[2017-09-04] MEDS: Lisinopril 20 MG TABLET PO SCH (09:06)
[2017-09-04] MEDS: Nystatin POWDER 30 GM BOTTLE TP SCH (09:31)
--- NOTE | 2017-09-04 10:39 | Discharge Summary ---
Date of Encounter: 09/04/17 Time of Encounter: 10:37 - Discharge Diagnosis (1) Hypoglycemia due to insulin Priority: Primary Status: Acute (2) Dementia Priority: Secondary Status: Chronic Qualifiers: Dementia type: Alzheimer's disease Alzheimer's disease onset: unspecified onset Dementia behavioral disturbance: without behavioral disturbance Qualified Code(s): G30.9 - Alzheimer's disease, unspecified; F02.80 - Dementia in other diseases classified elsewhere without behavioral disturbance (3) HTN (hypertension) Priority: Secondary Status: Chronic Qualifiers: Hypertension type: essential hypertension Qualified Code(s): I10 - Essential (primary) hypertension (4) NSTEMI (non-ST elevated myocardial infarction) Priority: Secondary Status: Ruled-out (5) S/P aortic valve replacement with bioprosthetic valve Priority: Secondary Status: Chronic (6) Troponin level elevated Priority: Secondary Status: Chronic (7) Protein-calorie malnutrition, moderate Priority: Secondary Status: Chronic (8) Decubitus ulcer of coccyx, stage 2 Priority: Secondary Status: Chronic (9) Anemia Priority: Secondary Status: Chronic Qualifiers: Anemia type: other cause Other causes of anemia: other cause, not classified Qualified Code(s): D64.89 - Other specified anemias - Discharge Medications Prescriptions: Glucagon,Human Recombinant [Glucagon Emergency Kit] 1 mg IM AD #1 kit Home Medications: Donepezil [Aricept] 10 mg PO HS 10/28/16 [History] Levothyroxine [Synthroid] 25 mcg PO Q72H MDD SEE COMMENTS! 10/28/16 [History] Lisinopril [Zestril] 20 mg PO DAILY 10/28/16 [History] Memantine HCl [Namenda Xr] 28 mg PO DAILY 10/28/16 [History] Multivitamin [Multi-Day Vitamins] 1 tab PO DAILY 10/28/16 [History] Simvastatin [Zocor] 20 mg PO HS 10/28/16 [History] Omeprazole [PriLOSEC] 40 mg PO DAILY #30 cap 10/31/16 [Rx] Furosemide [Lasix] 20 mg PO DAILY 04/13/17 [History] Acetaminophen [Tylenol Arthritis] 650 mg PO Q6H PRN 09/01/17 [History] Cholecalciferol (D-3) [Vitamin D] 1,000 unit PO DAILY 09/01/17 [History] Docusate [Colace] 100 mg PO BID 09/01/17 [History] Ferrous Sulfate [Iron] 325 mg PO DAILY 09/01/17 [History] Ipratropium/Albuterol Neb [Duoneb] 3 ml IH Q6HR 09/01/17 [History] LORazepam [Ativan] 1.5 mg PO DAILY 09/01/17 [History] Magnesium Oxide [Magnesium] 800 mg PO BID 09/01/17 [History] Melatonin 5 mg PO HS 09/01/17 [History] Metoprolol [Lopressor] 25 mg PO BID 09/01/17 [History] Nystatin POWDER [Nystop] 1 appl TP BID 09/01/17 [History] Polyethylene Glycol 3350 [MiraLAX] 17 gm PO DAILY PRN 09/01/17 [History] Potassium Chloride [Klor-Con 10] 10 meq PO DAILY 09/01/17 [History] Trazodone HCl 50 mg PO HS 09/01/17 [History] hydrALAZINE [HydrALAZINE] 25 mg PO TID 09/01/17 [History] Glucagon,Human Recombinant [Glucagon Emergency Kit] 1 mg IM AD #1 kit 09/04/17 [ Rx] Insulin NPH Hum/Reg Insulin Hm [Novolin 70-30 100 Unit/ml Vial] 10 unit SQ BID # 0 09/04/17 [Rx] Allergies/Adverse Reactions: 3 Allergy/AdvReac Type Severity Reaction Status Date / Time Iodinated Contrast- Oral and Allergy See Verified 04/13/17 21:50 IV Dye Comments Penicillins Allergy See Verified 11/09/16 12:24 Comments Procedures/tests Complete & Pending: Procedures Performed prior 72 hours Category Date Time Status EV echocardiogram Routine Y 09/04/17 14:58 Completed Date of admission: 09/01/17 22:31 Primary care physician: Rizwan Palma MD Consults: 09/01/17 22:37 Consult for Pharmacy Education [CONS] Routine Reason for Consult: insulin education Call Completed: No Consult to Commercial Pest Control Representative [CONS] Routine Comment: Reason for Consult: insulin education 09/02/17 15:29 Consult to Cardiology [CONS] Routine Comment: Consulting Provider: Cardiology Rayna Reason for Consult: nstemi Time Notified: 15:30 Call Completed: No Discharging clinician: Christiana Hudson Anticipated date of discharge: 09/04/17 - Patient Status Disposition: Home, Self-Care Condition: Good Functional capacity at discharge: independent ambulation Overall status at discharge: patient is progressing back to baseline - Discharge Instructions Instructions: Diabetes Mellitus Type 2 in Adults (DC), Chronic Hypertension (DC ) Follow Up With: Rizwan Palma MD [Primary Care Provider] - 09/06/17 3:00 pm (in 2 days as scheduled) Additional Instructions: Please make sure to check blood sugar before giving insulin. Please eat three meals a day to compensate for insulin received. Ask homehealth nurse to educate you more about diabetes. - Diet and Activity Activity: as per physical therapy Diet: diabetic diet, low fat, low cholesterol, low salt diet Hospital course: Ms. Huerta is a 81 year old female patient with a history of dementia, diabetes , hypertension, pulmonary embolism and valvular heart disease who presented to the ER with complaints of low blood sugars. She had recently been changed from Lantus to insulin 70/30 by her aviation safety officer to control her blood sugars. Her found that her blood sugars were in the 30s when her mentation was decreased in the morning. So EMS was called. The Blood sugars remain low when EMS arrived at home patient's house. She was then brought into the hospital and monitor closely. She received dextrose infusions with improvement in her blood sugars. She also had mild elevation in troponins and so cardiology was consulted. They evaluated the patient and recommended doing a 2-D echocardiogram. 2-D echocardiogram done here showed patient has EF of 60-65% with mild left frontal her diastolic dysfunction. No further workup was recommended by cardiology. Patient also has a history of PE and was previously on Eliquis but this had been recently held as patient was undergoing outpatient procedures and she also has anemia. Her hemoglobin was 8.1 on presentation here. She did receive 2 units packed red blood cells. She had no active bleeding. Her blood hemoglobin level is 11 at this time. Given her advanced age and low hemoglobin level, I recommend holding Eliquis till she sees her primary care provider in 2 days when this can be addressed. I will provide her with a prescription to get her CBC checked in the meantime. Cardiology did recommend considering IVC filter which would be an option in this patient due to prior history of deep vein thrombosis and pulmonary embolism if she is not a candidate for continued Eliquis therapy. At this time, she is doing much better. We have given her a trial dose of 10 units insulin 70/30 twice daily here since yesterday with good results. Her blood sugars have been maintaining in the 130s which is appropriate in this elderly patient. As such I would recommend continuing this dose for now. She has a follow-up scheduled with her PCP later this week when this can be further addressed. Patient's has been explained about this and understands the plan and will follow up. Patient will also be provided with a glucagon injection for emergencies. - Time Spent with Patient Total time spent providing and/or coordinating discharge services: Less than 30 minutes (27 min) - Constitutional Vitals: Temp Pulse Resp BP Pulse Ox 97.7 F 67 16 158/61 96 09/04/17 07:27 09/04/17 07:27 09/04/17 07:27 09/04/17 07:27 09/04/17 07:27 General appearance: Present: cooperative, A&O X 1, answers questions appropriately (patient does have dementia and memory issues. She does answer some questions appropriately.) - Neck Neck exam general surgery: Present: supple, trachea midline. Absent: lymphadenopathy - Respiratory Respiratory exam: Present: CTAB. Absent: accessory muscle use, rales, rhonchi, wheezes - Cardiovascular Cardiovascular exam: Present: RRR, +S1, +S2. Absent: diastolic murmur, gallop, rubs, systolic murmur - GI/Abdominal GI/Abdominal exam: Present: normal bowel sounds, soft, no peritoneal signs. Absent: distended, tenderness - Extremities Exam Extremities exam: Present: warm, radial pulses palpable and symmetrical. Absent : calf tenderness, cyanotic, pedal edema - Neurological Exam Neurological exam: Present: alert, oriented X3, no focal deficits. Absent: facial droop, speech deficit - Skin Skin exam: Present: dry, intact Additional comments: coccygeal ulcer stage 2 present covered with foam.
[2017-09-04 11:17] VITALS: BP 146/72
--- NOTE | 2017-09-04 11:57 | Physician Discharge Referral ---
Home Health/Hosp Referral Info Transfer to: Home Health Provider in Charge Post Discharge: PCP - Diagnosis (1) Hypoglycemia due to insulin Priority: Primary Status: Acute (2) Dementia Priority: Secondary Status: Chronic (3) HTN (hypertension) Priority: Secondary Status: Chronic (4) NSTEMI (non-ST elevated myocardial infarction) Priority: Secondary Status: Ruled-out (5) S/P aortic valve replacement with bioprosthetic valve Priority: Secondary Status: Chronic (6) Troponin level elevated Priority: Secondary Status: Chronic (7) Protein-calorie malnutrition, moderate Priority: Secondary Status: Chronic (8) Decubitus ulcer of coccyx, stage 2 Priority: Secondary Status: Chronic (9) Anemia Priority: Secondary Status: Chronic - Respiratory Orders Smoking Cessation: Smoking cessation has been advised. For more information, call the [employer] Tobacco Quit Line at 3-075-LDDT-NOW. - Diet/Nutrition Diet/Nutrition Orders: No Added Salt (MARY), Cardiac, No Concentrated Sweets ( diabetic) - Activity Activity Orders: Walker - Services Needed Following services are medically necessary services: Nursing, Home Health Aide, Physical Therapy Home Care Orders: CBC in 2-3 days - Transfer Medications Home Medications: Donepezil [Aricept] 10 mg PO HS 10/28/16 [History] Levothyroxine [Synthroid] 25 mcg PO Q72H MDD SEE COMMENTS! 10/28/16 [History] Lisinopril [Zestril] 20 mg PO DAILY 10/28/16 [History] Memantine HCl [Namenda Xr] 28 mg PO DAILY 10/28/16 [History] Multivitamin [Multi-Day Vitamins] 1 tab PO DAILY 10/28/16 [History] Simvastatin [Zocor] 20 mg PO HS 10/28/16 [History] Omeprazole [PriLOSEC] 40 mg PO DAILY #30 cap 10/31/16 [Rx] Furosemide [Lasix] 20 mg PO DAILY 04/13/17 [History] Acetaminophen [Tylenol Arthritis] 650 mg PO Q6H PRN 09/01/17 [History] Cholecalciferol (D-3) [Vitamin D] 1,000 unit PO DAILY 09/01/17 [History] Docusate [Colace] 100 mg PO BID 09/01/17 [History] Ferrous Sulfate [Iron] 325 mg PO DAILY 09/01/17 [History] Ipratropium/Albuterol Neb [Duoneb] 3 ml IH Q6HR 09/01/17 [History] LORazepam [Ativan] 1.5 mg PO DAILY 09/01/17 [History] Magnesium Oxide [Magnesium] 800 mg PO BID 09/01/17 [History] Melatonin 5 mg PO HS 09/01/17 [History] Metoprolol [Lopressor] 25 mg PO BID 09/01/17 [History] Nystatin POWDER [Nystop] 1 appl TP BID 09/01/17 [History] Polyethylene Glycol 3350 [MiraLAX] 17 gm PO DAILY PRN 09/01/17 [History] Potassium Chloride [Klor-Con 10] 10 meq PO DAILY 09/01/17 [History] Trazodone HCl 50 mg PO HS 09/01/17 [History] hydrALAZINE [HydrALAZINE] 25 mg PO TID 09/01/17 [History] Insulin NPH Hum/Reg Insulin Hm [Novolin 70-30 100 Unit/ml Vial] 10 unit SQ BID # 0 09/04/17 [Rx] Allergies/Adverse Reactions: 3 Allergy/AdvReac Type Severity Reaction Status Date / Time Iodinated Contrast- Oral and Allergy See Verified 04/13/17 21:50 IV Dye Comments Penicillins Allergy See Verified 11/09/16 12:24 Comments Certification: Further, I certify that my clinical findings support that this patient is homebound (i.e. absences from home require considerable and taxing effort and are for medical reasons or yazidism services or infrequently or short duration when for other reasons) because: Homebound Reason: Patient requires assistance of a person or device to safely leave home Attestation: My signature below is to certify that this patient is under my care and that I, or nurse practitioner, or a physician's senior sales assistant working with me, has a face-to -face encounter with this patient.
--- NOTE | 2017-09-04 13:10 | Cardiology Progress Note ---
Date of Encounter: 09/04/17 Time of Encounter: 13:08 Assessment and Plan (1) Troponin level elevated Current Visit: Yes Status: Chronic Pt has minimal elevation of troponin. Currently asymptomatic. Recent cardiac catheterization at [facility] March 2017 demonstrated minimal nonobstructive plaque disease. Do not think she has an ACS. Suspect demand ischemia in setting of anemia and profound hypoglycemia. TTE completed to assess AVR. EF preserved. AVR not well visualized. No aortic stenosis seen. No further testing indicated. Cardiology signing off. Call with questions. (2) S/P aortic valve replacement with bioprosthetic valve Current Visit: No Status: Chronic S/p AVR with tissue valve and ELA stapling earlier this year at [facility]. Normal function, normal EF on TTE completed here. (3) History of pulmonary embolism Current Visit: No Status: Acute Patient noted to have h/o PE diagnosed in April of this year and was on eliquis. Reports h/o pulmonary embolism x2. [facility] records reviewed and eliquis stopped due to has bleed score of 4. I discussed with hospitalist . Due to persistent anemia eliquis not restarted, Can consider IVC filter. Patient and will discuss with PCP. Discussion w patient/family: The assessment and plan as outlined above was discussed with the patient and/or family members who expressed understanding and agreement. All questions were answered. Thank you for involving us in the care of your patient. Please call with any questions. Subjective Principal diagnosis: chest pain Interval history: Denies recurrent chest pain or SOB. No events overnight. Objective Vital Signs, Last 4 Hours Temp Pulse Resp BP Pulse Ox 09/04/17 11:14 97.9 F 67 16 146/72 94 General: Conversant, No Apparent Distress HEENT: Atraumatic, Normocephaly, Mucus Membranes Moist Neck: No JVD, Normal carotid pulses Cardiac: Reg Rate and Rhythm, Normal S1 and S2, No Murmur, Other (Midsternal incision is well approximated.) Lungs: Normal Breath Sounds, No Wheeze, Rales, Rhonchi Neuro: Alert and responsive, No focal deficits noted Abdomen: Soft, Non-Tender Skin: No rashes noted on visualized skin Musculoskeletal: No Chest Wall Tenderness Extremities: No Clubbing, No Cyanosis, No Edema, Normal Pulses Results 09/03/17 09:04 09/03/17 09:04 - Imaging and Cardiology Echo: report reviewed - EKG Interpretation EKG results cardiology: personally reviewed Consult Discharge Plan - Plan Instructions: Diabetes Mellitus Type 2 in Adults (DC), Chronic Hypertension (DC ) Additional Instructions: Please make sure to check blood sugar before giving insulin. Please eat three meals a day to compensate for insulin received. Ask homehealth nurse to educate you more about diabetes. Referrals: Rizwan Palma MD [Primary Care Provider] - 09/06/17 3:00 pm (in 2 days as scheduled) Prescriptions: Glucagon,Human Recombinant [Glucagon Emergency Kit] 1 mg IM AD #1 kit
--- NOTE | 2017-09-05 22:44 | Electrocardiograph Report ---
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
== END 2017-09-04 14:00 | disposition home or self-care (01) | DRG 644 ==
LOC: 2NENU
PROVIDERS: ADMIT Internal Medicine; ATTEND Internal Medicine

== ENCOUNTER 2018-05-12 11:17 | Inpatient (IN) ==
[2018-05-12 11:59] LABS: Basophils % 0.1 %
[2018-05-12 12:00] LABS: Eosinophils # 0.1 K/mcL (0.0-0.6); Eosinophils % 1.4 %; Hematocrit 16.3 % (35.3-44.9); Immature Granulocytes % 0.2 % (0-4); Lymphocytes # 2.4 K/mcL (0.6-4.6); Lymphocytes % 28.3 %; Mean Corpuscular HGB Conc 30.7 g/dL (31.6-35.5); Mean Corpuscular Hemoglobin 24.8 pg (28.0-33.3); Mean Corpuscular Volume 80.7 fL (83.0-100.0); Mean Platelet Volume 11.5 fL (9.4-12.4); Monocytes # 0.5 K/mcL (0.0-1.3); Neutrophils # 5.4 K/mcL (1.6-8.9); Platelet Count 211 K/mcL (140-400); Red Blood Count 2.02 M/mcL (3.82-4.97); Red Cell Distribution Width 15.6 % (11.5-14.5)
--- NOTE | 2018-05-12 12:04 | Emergency Department Note ---
Disposition Clinical Impression: Dyspnea Qualifiers: Dyspnea type: unspecified Qualified Code(s): R06.00 - Dyspnea, unspecified Anemia Qualifiers: Anemia type: unspecified type Qualified Code(s): D64.9 - Anemia, unspecified Disposition: Admitted As Inpatient Condition: Good Referrals: Rizwan Palma MD [Primary Care Provider] - Forms: ED Satisfaction Letter General Adult HPI - General Chief complaint: ED Chest Pain Stated complaint: FERCHO, chest pain Time Seen by Provider: 05/12/18 11:18 Source: patient, family Limitations: no limitations Nursing Notes Reviewed: Yes Vital Signs Reviewed: Yes - History of Present Illness HPI Narrative: Patient presents today for evaluation of chest pain shortness of breath. Symptoms started this morning when she woke up. Has a history of of being on Eliquis she is unsure which reason however she does have a history of previous PEs. She has reported aortic stenosis. The patient's lungs are clear to auscultation. Not tachycardic and not hypoxic. The patient does appear pale. Generalized weakness. Does have a history of GI bleeding. Has not noted any changes in stool. No bright red blood or dark black stool. Has required multiple transfusions in the past. This is nothing with the last 3 months. Patient shortness breath is worse with exertion as well as lying down. Also describes chest pain center for chest. Described as heaviness. Pain Scale: 0 - Related Data Home Medications Medication Instructions Recorded Confirmed Donepezil [Aricept] 10 mg PO HS 10/28/16 09/01/17 Levothyroxine [Synthroid] 25 mcg PO Q72H MDD SEE COMMENTS! 10/28/16 09/01/17 Lisinopril [Zestril] 20 mg PO DAILY 10/28/16 09/01/17 Memantine HCl [Namenda Xr] 28 mg PO DAILY 10/28/16 09/01/17 Multivitamin [Multi-Day Vitamins] 1 tab PO DAILY 10/28/16 09/01/17 Simvastatin [Zocor] 20 mg PO HS 10/28/16 09/01/17 Furosemide [Lasix] 20 mg PO DAILY 04/13/17 09/01/17 Acetaminophen [Tylenol Arthritis] 650 mg PO Q6H PRN 09/01/17 09/01/17 Cholecalciferol (D-3) [Vitamin D] 1,000 unit PO DAILY 09/01/17 09/01/17 Docusate [Colace] 100 mg PO BID 09/01/17 09/01/17 Ferrous Sulfate [Iron] 325 mg PO DAILY 09/01/17 09/01/17 Ipratropium/Albuterol Neb [Duoneb] 3 ml IH Q6HR 09/01/17 09/01/17 LORazepam [Ativan] 1.5 mg PO DAILY 09/01/17 09/01/17 Magnesium Oxide [Magnesium] 800 mg PO BID 09/01/17 09/01/17 Melatonin 5 mg PO HS 09/01/17 09/01/17 Metoprolol [Lopressor] 25 mg PO BID 09/01/17 09/01/17 Nystatin POWDER [Nystop] 1 appl TP BID 09/01/17 09/01/17 Polyethylene Glycol 3350 [MiraLAX] 17 gm PO DAILY PRN 09/01/17 09/01/17 Potassium Chloride [Klor-Con 10] 10 meq PO DAILY 09/01/17 09/01/17 Trazodone HCl 50 mg PO HS 09/01/17 09/01/17 hydrALAZINE [HydrALAZINE] 25 mg PO TID 09/01/17 09/01/17 Previous Rx's Medication Instructions Recorded Omeprazole [PriLOSEC] 40 mg PO DAILY #30 cap 10/31/16 Glucagon,Human Recombinant 1 mg IM AD #1 kit 09/04/17 [Glucagon Emergency Kit] Insulin NPH Hum/Reg Insulin Hm 10 unit SQ BID #0 09/04/17 [Novolin 70-30 100 Unit/ml Vial] Acetaminophen [Tylenol] 500 mg PO Q6HR PRN #30 tablet 10/15/17 Lidocaine Patch [Lidoderm 5% patch] 1 each TP DAILY PRN #10 adh..patch 10/15/17 Chlorhexidine Rinse 15 ml MM BID #240 mouthwash 12/29/17 Clindamycin HCl [Cleocin HCl] 300 mg PO TID #30 cap 12/29/17 Allergies Allergy/AdvReac Type Severity Reaction Status Date / Time Iodinated Contrast- Oral and Allergy See Verified 12/29/17 18:30 IV Dye Comments Penicillins Allergy See Verified 12/29/17 18:30 Comments Review of Systems: As Per HPI Constitutional: Reports: weakness. Denies: fever, chills Cardiovascular: Reports: chest pain, dyspnea on exertion, orthopnea. Denies: palpitations Respiratory: Reports: dyspnea. Denies: cough, wheezes Gastrointestinal: Denies: abdominal pain, nausea, vomiting Genitourinary: Denies: urgency, dysuria Integumentary: Reports: other (Pale) Neurological: Reports: weakness (Generalized). 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 Head: Normocephalic Atraumatic Eyes: PERRL, EOMI ENT: Airway patent, no stridor Neck: supple, no meningismus Chest: Lungs clear to auscultation bilateral Cardiac: Regular rhythm with significant 4+ murmur at the aortic post. Abdomen: soft, nontender, nondistended; no guarding, rebound, or tenderness to percussion Musculoskeletal: Calves symmetric, nontender Skin: No rash, normal skin tone Neuro: Alert and Oriented to person, place, and time; No focal deficit - General Limitations: no limitations General appearance: alert, in no apparent distress Course - Reevaluation(s) Reevaluation #1: Patient is anemic which is likely explaining her chest pain, shortness of breath , generalized weakness. Patient has been ordered blood. Concern for possible underlying CHF as her BNP is slightly elevated. No previous diagnosis of this. Stool guaiac was performed and sent down for official testing but clinically positive as it is blood tinged dark stool. - Consultations Consultation #1: Discussed with hospitalist, Ab Whelan. Patient accepted for admission. Vital Signs Temperature 98.1 F 05/12/18 11:19 Pulse Rate 56 05/12/18 11:19 Respiratory Rate 24 05/12/18 11:19 Blood Pressure 118/74 05/12/18 11:19 O2 Sat by Pulse Oximetry 99 05/12/18 11:19 Temperature 98.1 F 05/12/18 11:19 Pulse Rate 51 05/12/18 12:08 Respiratory Rate 18 05/12/18 12:08 Blood Pressure 106/42 05/12/18 12:08 O2 Sat by Pulse Oximetry 99 05/12/18 12:08 Oxygen Delivery Oxygen Delivery Room Air Medical Decision Making - Medical Records Medical records reviewed: Yes I reviewed the patient's medical records. - Lab Data Lab results reviewed: Yes I reviewed the patient's lab results. Result diagrams: 05/12/18 11:38 05/12/18 11:38 Lab Results 05/12/18 05/12/18 05/12/18 Range/Units 11:38 11:38 11:38 WBC 8.4 (4.3-11.1) K/mcL RBC 2.02 L (3.82-4.97) M/mcL Hgb 5.0 L* (11.5-15.4) g/dL Hct 16.3 L (35.3-44.9) % MCV 80.7 L (83.0-100.0) fL MCH 24.8 L (28.0-33.3) pg MCHC 30.7 L (31.6-35.5) g/dL RDW 15.6 H (11.5-14.5) % Plt Count 211 (140-400) K/mcL MPV 11.5 (9.4-12.4) fL Immature Gran % 0.2 (0-4) % Seg Neutrophils % 64.0 % Lymphocytes % 28.3 % Monocytes % 6.0 % Eosinophils % 1.4 % Basophils % 0.1 % Neutrophils # 5.4 (1.6-8.9) K/mcL Lymphocytes # 2.4 (0.6-4.6) K/mcL Monocytes # 0.5 (0.0-1.3) K/mcL Eosinophils # 0.1 (0.0-0.6) K/mcL Basophils # 0.0 (0.0-0.2) K/mcL Sodium 141 (136-145) mEq/L Potassium 4.1 (3.5-5.1) mEq/L Chloride 108 H (98-107) mEq/L Carbon Dioxide 25 (23-29) mEq/L BUN 35 H (8-23) mg/dL Creatinine 1.40 H (0.60-1.20) mg/dL Est GFR ( Amer) 44 L (> 60) Est GFR (Non-Af Amer) 36 L (> 60) BUN/Creatinine Ratio 25 (6-26) Glucose 80 (70-105) mg/dL Calculated Osmolality 299 (280-300) Calcium 8.9 (8.6-10.3) mg/dL Troponin I 0.03 (< 0.04) ng/mL B-Natriuretic Peptide 683 H (Less than 100) pg/mL Blood Type Antibody Screen Crossmatch 05/12/18 Range/Units 11:40 WBC (4.3-11.1) K/mcL RBC (3.82-4.97) M/mcL Hgb (11.5-15.4) g/dL Hct (35.3-44.9) % MCV (83.0-100.0) fL MCH (28.0-33.3) pg MCHC (31.6-35.5) g/dL RDW (11.5-14.5) % Plt Count (140-400) K/mcL MPV (9.4-12.4) fL Immature Gran % (0-4) % Seg Neutrophils % % Lymphocytes % % Monocytes % % Eosinophils % % Basophils % % Neutrophils # (1.6-8.9) K/mcL Lymphocytes # (0.6-4.6) K/mcL Monocytes # (0.0-1.3) K/mcL Eosinophils # (0.0-0.6) K/mcL Basophils # (0.0-0.2) K/mcL Sodium (136-145) mEq/L Potassium (3.5-5.1) mEq/L Chloride (98-107) mEq/L Carbon Dioxide (23-29) mEq/L BUN (8-23) mg/dL Creatinine (0.60-1.20) mg/dL Est GFR ( Amer) (> 60) Est GFR (Non-Af Amer) (> 60) BUN/Creatinine Ratio (6-26) Glucose (70-105) mg/dL Calculated Osmolality (280-300) Calcium (8.6-10.3) mg/dL Troponin I (< 0.04) ng/mL B-Natriuretic Peptide (Less than 100) pg/mL Blood Type A POSITIVE Antibody Screen NEGATIVE Crossmatch See Detail - Radiology Data Radiology results reviewed: Yes I reviewed the patient's radiology results. - EKG Data EKG #1 EKG attestation: Yes I reviewed and interpreted this EKG. EKG results narrative: EKG shows sinus bradycardia with nonspecific ST and T wave abdomen is. Ventricular rate of 56. KS 159. QRS 101. QTC 440. Patient has no significant ST elevations or depressions. Patient is nonspecific T-wave changes that are diagnostic significantly changed from 09/02/70
[2018-05-12 12:18] LABS: Calcium 8.9 mg/dL (8.6-10.3); Potassium 4.1 mEq/L (3.5-5.1)
[2018-05-12 12:20] LABS: Troponin I 0.03 ng/mL (< 0.04)
[2018-05-12] MEDS ORDERED: 0.9 % Sodium Chloride 1,000 ML ONE (13:28)
[2018-05-12] MEDS ORDERED: Furosemide 20 MG/2 ML VIAL IVP ONE ×2 (13:59→18:00)
[2018-05-12] MEDS ORDERED: Pantoprazole 80 MG in 0.9 % Sodium Chloride 50 ML IVPB STA (14:03)
[2018-05-12] MEDS ORDERED: Albuterol 2.5 MG/3 ML NEBULIZER IH PRN (14:19)
[2018-05-12] MEDS ORDERED: D5% in Water 1,000 ML IVC PRN (14:21)
[2018-05-12] MEDS ORDERED: *HR* Dextrose 50 % in Water (Syg) 50 ML SYRINGE IVP PRN (14:21)
[2018-05-12] MEDS ORDERED: Dextrose Gel 15 GM/37.5 ML TUBE PO PRN ×2 (14:21)
[2018-05-12] MEDS ORDERED: Pantoprazole 40 MG VIAL IVP STA ×2 (14:23→14:24)
--- NOTE | 2018-05-12 14:50 | Internal Med History&Physical ---
Date of Encounter: 05/12/18 Time of Encounter: 14:47 Internal Medicine - H&P: HPI Chief complaint: "Tired and short of breath" Admitted From: Emergency Dept Plans for Post Hospital Care: Home History of present illness: Ms. Huerta is a 82 year old female who presented to ED with worsening fatigue and dyspnea. Patient is accompanied by her , who also helps provide history. states that she looked pale and tired today, so he brought her in to the ED because she has a history of GI bleeds. Last GI bleed was after heart valve replacement surgery in July 2017. She takes eliquis at home, but both patient and are unclear if it is for pulmonary embolism, artificial heart valve, or both. She had EGD during last hospitalization for GI bleed. She denies any hemoptysis, coffee ground emesis, hematochezia, or melena. She denies abdominal pain, nausea, and vomiting. She also denies fever , chills, changes in bladder, and changes in bowels. She has mild chest pain that she describes as "tightness." At this time, patient has no other complaints. states that patient is DNR-CCA-DNI, and patient agrees with this. In the ED, hemoccult was positive. Labwork was significant for hemoglobin 5.0, creatinine 1.40, and pBNP of 683. She has been on room air since arrival with no respiratory distress noted. Initial troponin was WNL. EKG showed sinus bradycardia with some T wave changes, but no ST elevation. CXR showed small left pleural effusion, but otherwise clear lungs. At the time of my examination , nursing staff was starting first unit of PRBC. I spoke with surgeon mission planner for active GI bleed, Dr. Gyu; she agrees to evaluate patient today. Past Med Surg Social Fam HX - Past Medical History Attestation: Yes The following information was validated with the patient. Source: patient, obtained from family Medical history: CHF, COPD, dementia, diabetes, GI bleed, hypertension, pulmonary embolus, valvular heart disease (Aortic Valve Replacement) Psychiatric history: no psych history - Past Surgical History Surgical History: heart valve replacement (prosthetic AVR), orthopedic, other ( back), other (ELA ligation) Additional surgical history: Aortic valve replacement - Social History Smoking Status: Never smoker Smokeless Tobacco Status: No Alcohol use: none Drug use: none - Family History Mother Hx Family Endocrine Disorder: Yes (DM) - Additional Family History Additional family history: Family history verified with patient. Internal Medicine - H&P: Meds Donepezil [Aricept] 10 mg PO HS 10/28/16 [History] Lisinopril [Zestril] 20 mg PO DAILY 10/28/16 [History] Memantine HCl [Namenda Xr] 28 mg PO DAILY 10/28/16 [History] Multivitamin [Multi-Day Vitamins] 1 tab PO DAILY 10/28/16 [History] Simvastatin [Zocor] 20 mg PO HS 10/28/16 [History] Furosemide [Lasix] 40 mg PO DAILY 04/13/17 [History] Cholecalciferol (D-3) [Vitamin D] 1,000 unit PO DAILY 09/01/17 [History] Magnesium Oxide [Magnesium] 800 mg PO BID 09/01/17 [History] Metoprolol [Lopressor] 25 mg PO BID 09/01/17 [History] Trazodone HCl 50 mg PO HS 09/01/17 [History] hydrALAZINE [HydrALAZINE] 25 mg PO TID 09/01/17 [History] Apixaban [Eliquis] 5 mg PO BID 05/12/18 [History] Fluticasone/Salmeterol [Advair 250-50 Diskus] 1 puff IH BID 05/12/18 [History] Insulin NPH Hum/Reg Insulin Hm [Novolin 70-30 100 Unit/ml Vial] 11 - 16 unit SQ BID 05/12/18 [History] 3 Allergy/AdvReac Type Severity Reaction Status Date / Time Iodinated Contrast- Oral and Allergy See Verified 12/29/17 18:30 IV Dye Comments Penicillins Allergy See Verified 12/29/17 18:30 Comments All Systems PM: A 10-system review of systems was performed and is negative for pertinent findings except as documented above in the HPI. - Constitutional Vitals: Temp Pulse Resp BP Pulse Ox 97.7 F 50 18 104/83 99 05/12/18 14:01 05/12/18 14:01 05/12/18 14:01 05/12/18 14:01 05/12/18 14:01 General appearance: Present: cooperative, mild distress (Somnolent), A&O X 3, pleasant, answers questions appropriately - Head Head exam: Present: atraumatic, normocephalic - Eye Eye exam: Present: EOMI, PERRL. Absent: conjunctival injection, nystagmus, scleral icterus - ENT ENT exam: Present: mucous membranes moist, normal external ear exam, normal oropharynx - Neck Neck exam general surgery: Present: supple, trachea midline. Absent: lymphadenopathy, tenderness, thyromegaly - Respiratory Respiratory exam: Present: CTAB. Absent: accessory muscle use, rales, rhonchi, wheezes Additional comments: Normal WOB - Cardiovascular Cardiovascular exam: Present: RRR, +S1, +S2. Absent: diastolic murmur, gallop, rubs, systolic murmur Additional comments: No BLE edema - GI/Abdominal GI/Abdominal exam: Present: normal bowel sounds, soft. Absent: distended, hepatomegaly, mass, splenomegaly, tenderness - Neurological Exam Neurological exam: Present: alert, CN II-XII intact, oriented X3, no focal deficits, strengths equal and symetr throughout. Absent: motor sensory deficit , facial droop, speech deficit - Psychiatric Psychiatric exam: Present: normal affect, normal mood. Absent: agitated, anxious, depressed - Skin Skin exam: Present: dry, intact, pallor, warm. Absent: cyanosis, erythema, rash Internal Med - H&P Results - Labs CBC & Chem 7: 05/12/18 11:38 05/12/18 11:38 - VTE Reasons for not Prescribing Prophylaxis: Medical contraindication (Acute GI Bleed, Anemia) Documentation of Mechanical Device: Intermittent pneumatic compression device - Assessment and plan (1) Acute GI bleeding Current Visit: Yes Status: Acute Assessment and plan: Admit inpatient with telemetry. Currently transfusing 2 units PRBC. Will give lasix 20 mg IV once after first bag transfused due to history of CHF. GI consulted; appreciate input. They will evaluate patient today. Check H/H after transfusion complete, and check CBC in AM. Start protonix 40 mg IV BID. NPO. Hold home eliquis. Will obtain STAT CT abdomen/pelvis. Will await further recommendations from GI. (2) Symptomatic anemia Current Visit: Yes Status: Acute Assessment and plan: Likely secondary to acute GI bleed. Hemoglobin = 5.0 on admission. Management as per above. (3) CLEMENT (acute kidney injury) Current Visit: Yes Status: Acute Assessment and plan: Creatinine = 1.4 on admission. Will defer IVF at this time because she has history of CHF and is currently receiving 2 units PRBC. Recheck BMP in AM. (4) Chronic diastolic CHF (congestive heart failure) Current Visit: Yes Status: Chronic Assessment and plan: pBNP = 683 on admission. Currently receiving 2 units PRBC, with lasix in between. Will have to be judicious with blood and fluids to prevent overload. Does not appear fluid overloaded at this time. Respiratory status stable on room air, despite subjective dyspnea. Restart home medications once stable from GI perspective and taking PO. (5) History of pulmonary embolism Current Visit: Yes Status: Chronic Assessment and plan: Patient not sure if she is taking eliquis for this. Holding anticoagulation at this time due to acute GI bleed. (6) Dementia Current Visit: Yes Status: Chronic Assessment and plan: Restart home medications once stable from GI perspective and taking PO. Qualifiers: Dementia type: unspecified type Dementia behavioral disturbance: without behavioral disturbance Qualified Code(s): F03.90 - Unspecified dementia without behavioral disturbance (7) Diabetes mellitus Current Visit: Yes Status: Chronic Assessment and plan: NPO at this time. Start accuchecks and low dose SSI Q6H. Restart home insulin regimen once stable from GI perspective and taking PO. Qualifiers: Diabetes mellitus type: type 2 Diabetes mellitus intermediate accountant insulin use: with intermediate accountant use Diabetes mellitus complication status: without complication Qualified Code(s): E11.9 - Type 2 diabetes mellitus without complications; Z79.4 - residential (current) use of insulin (8) HTN (hypertension) Current Visit: Yes Status: Chronic Assessment and plan: Restart home medications once stable from GI perspective and taking PO. Start hydralazine 5 mg IV PRN systolic BP > 180 and/or Diastolic BP > 110. Qualifiers: Hypertension type: essential hypertension Qualified Code(s): I10 - Essential (primary) hypertension (9) S/P aortic valve replacement with bioprosthetic valve Current Visit: Yes Status: Chronic Assessment and plan: Holding anticoagulation as per above. (10) DVT prophylaxis Current Visit: Yes Status: Acute Assessment and plan: Start SCDs. Defer anticoagulation at this time due to acute GI bleed. - Time Spent With Patient Total time spent is greater than 50% in coordination of care (as documented) at patient's floor/unit and/or counseling patient: less than 15 minutes
--- NOTE | 2018-05-12 16:47 | General Surgery Consult Note ---
<Tere Cruz E - Last Filed: 05/12/18 16:43> Date of Encounter: 05/12/18 Time of Encounter: 16:43 Assessment and Plan (1) Anemia Current Visit: Yes Status: Chronic History of GI polyp Patient and have denied follow-up colonoscopy and other surgeries due to 's belief "every time she comes out from anesthesia her dementia gets worse" Surgery recommends consult to palliative care Hold eliquis, possibly indefinitely Continue transfusions as per primary IV fluids as per primary We currently do not recommend any intervention Qualifiers: Anemia type: unspecified type Qualified Code(s): D64.9 - Anemia, unspecified History of Present Illness Consult date: 05/12/18 Requesting physician: Anish Finn History of present illness: Patient became short of breath and very weak this morning. She has had diarrhea the last 3 weeks but no bloody or dark stools. Denies abdominal pain, n/v, loss of appetite, weight loss. She had a colonoscopy within the last 6 months and needed a follow up colonoscopy to check one area that "had a large polyp" but her and her refused this as they felt they would not do anything if it was colon cancer and they believe the risks of being put under to be to great due to her dementia. She is currently on eliquis. Past Med Surg Social Fam HX - Past Medical History Medical history: CHF, COPD, dementia, diabetes, GI bleed, hypertension, pulmonary embolus, valvular heart disease Psychiatric history: no psych history - Past Surgical History Surgical History: heart valve replacement, orthopedic, other, other Additional surgical history: Aortic valve replacement - Social History Smoking Status: Never smoker Smokeless Tobacco Status: No Alcohol use: none Drug use: none - Family History Mother Hx Family Endocrine Disorder: Yes (DM) Medications and Allergies Donepezil [Aricept] 10 mg PO HS 10/28/16 [History] Lisinopril [Zestril] 20 mg PO DAILY 10/28/16 [History] Memantine HCl [Namenda Xr] 28 mg PO DAILY 10/28/16 [History] Multivitamin [Multi-Day Vitamins] 1 tab PO DAILY 10/28/16 [History] Simvastatin [Zocor] 20 mg PO HS 10/28/16 [History] Furosemide [Lasix] 40 mg PO DAILY 04/13/17 [History] Cholecalciferol (D-3) [Vitamin D] 1,000 unit PO DAILY 09/01/17 [History] Magnesium Oxide [Magnesium] 800 mg PO BID 09/01/17 [History] Metoprolol [Lopressor] 25 mg PO BID 09/01/17 [History] Trazodone HCl 50 mg PO HS 09/01/17 [History] hydrALAZINE [HydrALAZINE] 25 mg PO TID 09/01/17 [History] Apixaban [Eliquis] 5 mg PO BID 05/12/18 [History] Fluticasone/Salmeterol [Advair 250-50 Diskus] 1 puff IH BID 05/12/18 [History] Insulin NPH Hum/Reg Insulin Hm [Novolin 70-30 100 Unit/ml Vial] 11 - 16 unit SQ BID 05/12/18 [History] 3 Allergy/AdvReac Type Severity Reaction Status Date / Time Iodinated Contrast- Oral and Allergy See Verified 12/29/17 18:30 IV Dye Comments Penicillins Allergy See Verified 12/29/17 18:30 Comments Review of Systems All systems PM: The remainder of the systems were reviewed and are negative - Constitutional as per HPI - Cardiovascular no chest pain, no irregular heart rhythm, no radiating jaw, neck or arm pain - Respiratory dyspnea, no cough, no chest congestion - Gastrointestinal as per HPI General Surgery Exam Initial Vital Signs Temp Pulse Resp BP Pulse Ox 98.1 F 56 24 118/74 99 05/12/18 11:19 05/12/18 11:19 05/12/18 11:19 05/12/18 11:19 05/12/18 11:19 - General physical appearance well developed, well nourished, moderate distress - Respiratory normal expansion, normal respiratory effort, clear to auscultation - Cardiovascular Cardiovascular exam: Present: RRR, murmurs (3+ murmur aortic post) - Abdomen Abdomen general surgery: Present: bowel sounds present, soft, non tender - Musculoskeletal Present: normal posture - Psychiatric Psychiatric general surgery: Present: oriented to person, oriented to place, oriented to time, other ( in room states that she has demenita) Exam Initial Vital Signs Temp Pulse Resp BP Pulse Ox 98.1 F 56 24 118/74 99 05/12/18 11:19 05/12/18 11:19 05/12/18 11:19 05/12/18 11:19 05/12/18 11:19 Results - Labs 05/12/18 11:38 05/12/18 11:38 Abnormal lab results RBC 2.02 M/mcL (3.82-4.97) L 05/12/18 11:38 Hgb 5.0 g/dL (11.5-15.4) L* 05/12/18 11:38 Hct 16.3 % (35.3-44.9) L 05/12/18 11:38 MCV 80.7 fL (83.0-100.0) L 05/12/18 11:38 MCH 24.8 pg (28.0-33.3) L 05/12/18 11:38 MCHC 30.7 g/dL (31.6-35.5) L 05/12/18 11:38 RDW 15.6 % (11.5-14.5) H 05/12/18 11:38 Chloride 108 mEq/L (98-107) H 05/12/18 11:38 BUN 35 mg/dL (8-23) H 05/12/18 11:38 Creatinine 1.40 mg/dL (0.60-1.20) H 05/12/18 11:38 Est GFR ( Amer) 44 (> 60) L 05/12/18 11:38 Est GFR (Non-Af Amer) 36 (> 60) L 05/12/18 11:38 B-Natriuretic Peptide 683 pg/mL (Less than 100) H 05/12/18 11:38 Stool Occult Bld Scrn Positive (Negative) A 05/12/18 13:46 All other labs normal. Consult Discharge Plan - Plan Referrals: Rizwan Palma MD [Primary Care Provider] - <Ria Guy - Last Filed: 05/13/18 18:51> Date of Encounter: 05/12/18 Assessment and Plan (1) Positive fecal occult blood test Current Visit: Yes Status: Acute (2) Anemia Current Visit: Yes Status: Chronic patients is not present at visit, he has already left my recommendation given patients mental and physical status is to stop the eliquis, perhaps indefinetly I do not recommend endoscopy, patients has declined colonoscopy on two previous occasions. transfuse for symptoms and comfort recommend consult to palliative care Qualifiers: Anemia type: unspecified type Qualified Code(s): D64.9 - Anemia, unspecified History of Present Illness History of present illness: Patient is known to me. She has seen me twice in the past for colonoscopy and her has decided not to proceed. Patient is unable due to mental status to give me any clear details regarding history. She does say she has no abdominal pain or nausea. It is reported from hospitalist she looked pale to her and he brought her in due to history of GIB. Hb was found to be 5.0 and she was hemoccult positive. Patient is on eliquis but is not sure why. Past Med Surg Social Fam HX - Past Medical History Source: old records reviewed Review of Systems All systems PM: reviewed and no additional remarkable complaints except as stated All systems PM: The remainder of the systems were reviewed and are negative General Surgery Exam Initial Vital Signs Temp Pulse Resp BP Pulse Ox 98.1 F 56 24 118/74 99 05/12/18 11:19 05/12/18 11:19 05/12/18 11:19 05/12/18 11:19 05/12/18 11:19 - General physical appearance well developed, well nourished, no distress, no pain - Eyes PERRL, normal ocular movement - ENT normal mucosa, normocephalic - Neck trachea midline - Respiratory normal expansion, normal respiratory effort - Cardiovascular Cardiovascular exam: Present: RRR - Abdomen Abdomen general surgery: Present: bowel sounds present, soft, non tender. Absent: distended, guarding, rebound - Integumentary Integumentary general surgery: Present: warm and dry, other (pale). Absent: diaphoresis - Neurologic Present: CN 2-12 grossly intact - Musculoskeletal Present: normal posture - Psychiatric Psychiatric general surgery: Present: oriented to person, speech is normal. Absent: oriented to place, oriented to time Exam Initial Vital Signs Temp Pulse Resp BP Pulse Ox 98.1 F 56 24 118/74 99 18 11:19 05/12/18 11:19 05/12/18 11:19 05/12/18 11:19 05/12/18 11:19 Results - Labs 05/13/18 12:59 05/13/18 01:37 Abnormal lab results RBC 2.74 M/mcL (3.82-4.97) L 05/13/18 01:37 Hgb 8.3 g/dL (11.5-15.4) L 05/13/18 12:59 Hct 25.8 % (35.3-44.9) L 05/13/18 12:59 MCV 82.1 fL (83.0-100.0) L 05/13/18 01:37 MCH 26.3 pg (28.0-33.3) L 05/13/18 01:37 RDW 15.2 % (11.5-14.5) H 05/13/18 01:37 Chloride 108 mEq/L (98-107) H 05/13/18 01:37 BUN 33 mg/dL (8-23) H 05/13/18 01:37 Creatinine 1.28 mg/dL (0.60-1.20) H 05/13/18 01:37 Est GFR ( Amer) 48 (> 60) L 05/13/18 01:37 Est GFR (Non-Af Amer) 40 (> 60) L 05/13/18 01:37 POC Glucose 105 mg/dL (70-99) H 05/13/18 06:06 AST 12 Units/L (13-39) L 05/13/18 01:37 B-Natriuretic Peptide 683 pg/mL (Less than 100) H 05/12/18 11:38 Serum Total Protein 5.3 g/dL (6.4-8.9) L 05/13/18 01:37 Albumin 3.1 g/dL (3.5-5.7) L 05/13/18 01:37 Globulin 2.2 g/dL (2.4-3.5) L 05/13/18 01:37 Stool Occult Bld Scrn Positive (Negative) A 05/12/18 13:46 Diabetes panel 05/13/18 Range/Units 01:37 Sodium 142 (136-145) mEq/L Potassium 3.9 (3.5-5.1) mEq/L Chloride 108 H (98-107) mEq/L Carbon Dioxide 27 (23-29) mEq/L BUN 33 H (8-23) mg/dL Creatinine 1.28 H (0.60-1.20) mg/dL Glucose 82 (70-105) mg/dL Calcium 8.6 (8.6-10.3) mg/dL AST 12 L (13-39) Units/L ALT 8 (7-52) Units/L Alkaline Phosphatase 39 (34-104) Units/L Albumin 3.1 L (3.5-5.7) g/dL Calcium panel 05/13/18 Range/Units 01:37 Calcium 8.6 (8.6-10.3) mg/dL Albumin 3.1 L (3.5-5.7) g/dL Pituitary panel 05/13/18 Range/Units 01:37 Sodium 142 (136-145) mEq/L Potassium 3.9 (3.5-5.1) mEq/L Chloride 108 H (98-107) mEq/L Carbon Dioxide 27 (23-29) mEq/L BUN 33 H (8-23) mg/dL Creatinine 1.28 H (0.60-1.20) mg/dL Glucose 82 (70-105) mg/dL Calcium 8.6 (8.6-10.3) mg/dL Adrenal panel 05/13/18 Range/Units 01:37 Sodium 142 (136-145) mEq/L Potassium 3.9 (3.5-5.1) mEq/L Chloride 108 H (98-107) mEq/L Carbon Dioxide 27 (23-29) mEq/L BUN 33 H (8-23) mg/dL Creatinine 1.28 H (0.60-1.20) mg/dL Glucose 82 (70-105) mg/dL Calcium 8.6 (8.6-10.3) mg/dL Total Bilirubin 0.5 (0.3-1.0) mg/dL AST 12 L (13-39) Units/L ALT 8 (7-52) Units/L Alkaline Phosphatase 39 (34-104) Units/L Albumin 3.1 L (3.5-5.7) g/dL All other labs normal. - Attending Attestation I examined this patient and my medical decision-making was reviewed with the Resident Physician. I agree with the documented findings, disposition and treatment plan as described except to the extent set forth below.
[2018-05-12] MEDS: Insulin LISPRO 300 UNITS/3 ML VIAL SQ SCH (17:29)
[2018-05-12] MEDS ORDERED: 0.9 % Sodium Chloride 500 ML ONE (18:28)
[2018-05-12 18:54] LABS: Hematocrit 20.6 % (35.3-44.9)
[2018-05-12 18:55] LABS: Hemoglobin 6.6 g/dL (11.5-15.4)
[2018-05-13 02:35] LABS: Basophils % 0.3 %; Eosinophils # 0.1 K/mcL (0.0-0.6); Eosinophils % 1.7 %; Hematocrit 22.5 % (35.3-44.9); Hemoglobin 7.2 g/dL (11.5-15.4); Immature Granulocytes % 0.3 % (0-4); Lymphocytes # 2.2 K/mcL (0.6-4.6); Lymphocytes % 31.5 %; Mean Corpuscular Hemoglobin 26.3 pg (28.0-33.3); Mean Corpuscular Volume 82.1 fL (83.0-100.0); Mean Platelet Volume 12.2 fL (9.4-12.4); Monocytes # 0.6 K/mcL (0.0-1.3); Monocytes % 7.8 %; Neutrophils # 4.1 K/mcL (1.6-8.9); Platelet Count 187 K/mcL (140-400); Red Blood Count 2.74 M/mcL (3.82-4.97); Red Cell Distribution Width 15.2 % (11.5-14.5); Segmented Neutrophils % 58.4 %
[2018-05-13 02:38] LABS: Albumin 3.1 g/dL (3.5-5.7); Albumin/Globulin Ratio 1.4 (1.1-2.2); Bilirubin,Total 0.5 mg/dL (0.3-1.0); Calcium 8.6 mg/dL (8.6-10.3); Globulin 2.2 g/dL (2.4-3.5); Potassium 3.9 mEq/L (3.5-5.1); Total Protein 5.3 g/dL (6.4-8.9)
[2018-05-13] MEDS: Insulin LISPRO 300 UNITS/3 ML VIAL SQ SCH ×6 (02:57→21:54)
[2018-05-13] MEDS ORDERED: Pantoprazole 40 MG VIAL IVP SCH ×2 (03:00)
[2018-05-13] MEDS: Pantoprazole 40 MG VIAL IVP SCH ×2 (06:12→17:33)
--- NOTE | 2018-05-13 09:35 | General Surgery Progress Note ---
<Tere Cruz E - Last Filed: 05/13/18 09:32> Date of Encounter: 05/13/18 Time of Encounter: 09:32 - Assessment and Plan (1) Anemia Current Visit: Yes Status: Chronic History of GI polyp Patient and have denied follow-p colonoscopy and other surgeries due to 's belief that "every time she comes out from anesthesia her dementia is worse". Today he states that if they were to find colon cancer with colonoscopy they would not seek treatment for it. Surgery recommends consult to palliative care hold eliquis, possibly indefinitely continue care as per primary we currently do not recommend any intervention Qualifiers: Anemia type: unspecified type Qualified Code(s): D64.9 - Anemia, unspecified Subjective Patient reports: feels better, other (PAtinet states she is feelign fine and thought she felt fine yesterday. states she has not had any dark of blood tinged bowel movements today. ) Objective Vital Signs - Last 8 Hours Temp Pulse Resp BP Pulse Ox 05/13/18 06:41 98.1 F 77 18 118/47 97 05/13/18 04:27 98.5 F 56 18 145/48 97 Intake and Output 05/12/18 05/13/18 05/13/18 23:59 07:59 15:59 Intake Total 700 / 700 Output Total 400 / 400 Balance 300 / 300 Intake: Blood Product 700 / 700 Rbcs Leuko Poor As-1 Unit 350 / 350 [id number] Rbcs Leuko Poor As-1 Unit 350 / 350 [id number] Output: Urine 400 / 400 Other: Stool Size Large Stool Consistency loose soft Stool Color Brown Dark Red Blood Blood Tinged # Voids 1 1 # Bowel Movements 1 Blood Glucose* 77 105 - General physical appearance well developed, well nourished, no distress - Respiratory normal expansion, normal respiratory effort, clear to auscultation - Cardiovascular Cardiovascular exam: Present: RRR, murmurs (3+ murmur aortic post) - Abdomen Abdomen: Present: bowel sounds present, soft, non tender - Musculoskeletal normal posture - Psychiatric oriented to person, other (Patient is not oriented to place or day/time of day. She is aggitated with for not allowing her to take out her saline lock. ) - Labs 05/13/18 01:37 05/13/18 01:37 Diabetes panel 05/13/18 Range/Units 01:37 Sodium 142 (136-145) mEq/L Potassium 3.9 (3.5-5.1) mEq/L Chloride 108 H (98-107) mEq/L Carbon Dioxide 27 (23-29) mEq/L BUN 33 H (8-23) mg/dL Creatinine 1.28 H (0.60-1.20) mg/dL Glucose 82 (70-105) mg/dL Calcium 8.6 (8.6-10.3) mg/dL AST 12 L (13-39) Units/L ALT 8 (7-52) Units/L Alkaline Phosphatase 39 (34-104) Units/L Albumin 3.1 L (3.5-5.7) g/dL Calcium panel 05/13/18 Range/Units 01:37 Calcium 8.6 (8.6-10.3) mg/dL Albumin 3.1 L (3.5-5.7) g/dL Pituitary panel 05/13/18 Range/Units 01:37 Sodium 142 (136-145) mEq/L Potassium 3.9 (3.5-5.1) mEq/L Chloride 108 H (98-107) mEq/L Carbon Dioxide 27 (23-29) mEq/L BUN 33 H (8-23) mg/dL Creatinine 1.28 H (0.60-1.20) mg/dL Glucose 82 (70-105) mg/dL Calcium 8.6 (8.6-10.3) mg/dL Adrenal panel 05/13/18 Range/Units 01:37 Sodium 142 (136-145) mEq/L Potassium 3.9 (3.5-5.1) mEq/L Chloride 108 H (98-107) mEq/L Carbon Dioxide 27 (23-29) mEq/L BUN 33 H (8-23) mg/dL Creatinine 1.28 H (0.60-1.20) mg/dL Glucose 82 (70-105) mg/dL Calcium 8.6 (8.6-10.3) mg/dL Total Bilirubin 0.5 (0.3-1.0) mg/dL AST 12 L (13-39) Units/L ALT 8 (7-52) Units/L Alkaline Phosphatase 39 (34-104) Units/L Albumin 3.1 L (3.5-5.7) g/dL - VTE Reasons for not Prescribing Prophylaxis: Medical contraindication (Acute GI Bleed, Anemia) Documentation of Mechanical Device: Intermittent pneumatic compression device Consult Discharge Plan - Plan Referrals: Rizwan Palma MD [Primary Care Provider] - <MalenaRia De La Rosa - Last Filed: 05/13/18 18:05> Date of Encounter: 05/13/18 Objective Vital Signs - Last 8 Hours Temp Pulse Resp BP Pulse Ox 05/13/18 15:50 79 126/47 05/13/18 11:46 98.1 F 67 16 125/47 98 Intake and Output 05/13/18 05/13/18 05/13/18 07:59 15:59 23:59 Intake Total 0 / 0 Balance 0 / 0 Intake: Oral 0 / 0 Other: Meal Breakfast Dinner Percent of Meal Consumed 0% 5% Stool Size Large Small Small Stool Consistency loose loose loose soft Stool Characteristics Tarry Tarry Stool Color Brown Dark Red Blood Dark Red Blood Dark Red Blood Blood Tinged # Voids 1 # Bowel Movements 1 1 1 Blood Glucose* 105 289 - Labs 05/13/18 12:59 05/13/18 01:37 Diabetes panel 05/13/18 Range/Units 01:37 Sodium 142 (136-145) mEq/L Potassium 3.9 (3.5-5.1) mEq/L Chloride 108 H (98-107) mEq/L Carbon Dioxide 27 (23-29) mEq/L BUN 33 H (8-23) mg/dL Creatinine 1.28 H (0.60-1.20) mg/dL Glucose 82 (70-105) mg/dL Calcium 8.6 (8.6-10.3) mg/dL AST 12 L (13-39) Units/L ALT 8 (7-52) Units/L Alkaline Phosphatase 39 (34-104) Units/L Albumin 3.1 L (3.5-5.7) g/dL Calcium panel 05/13/18 Range/Units 01:37 Calcium 8.6 (8.6-10.3) mg/dL Albumin 3.1 L (3.5-5.7) g/dL Pituitary panel 05/13/18 Range/Units 01:37 Sodium 142 (136-145) mEq/L Potassium 3.9 (3.5-5.1) mEq/L Chloride 108 H (98-107) mEq/L Carbon Dioxide 27 (23-29) mEq/L BUN 33 H (8-23) mg/dL Creatinine 1.28 H (0.60-1.20) mg/dL Glucose 82 (70-105) mg/dL Calcium 8.6 (8.6-10.3) mg/dL Adrenal panel 05/13/18 Range/Units 01:37 Sodium 142 (136-145) mEq/L Potassium 3.9 (3.5-5.1) mEq/L Chloride 108 H (98-107) mEq/L Carbon Dioxide 27 (23-29) mEq/L BUN 33 H (8-23) mg/dL Creatinine 1.28 H (0.60-1.20) mg/dL Glucose 82 (70-105) mg/dL Calcium 8.6 (8.6-10.3) mg/dL Total Bilirubin 0.5 (0.3-1.0) mg/dL AST 12 L (13-39) Units/L ALT 8 (7-52) Units/L Alkaline Phosphatase 39 (34-104) Units/L Albumin 3.1 L (3.5-5.7) g/dL - Attending Attestation I examined this patient and my medical decision-making was reviewed with the Resident Physician. I agree with the documented findings, disposition and treatment plan as described except to the extent set forth below. everytime I have gone to see patient the is not present
--- NOTE | 2018-05-13 12:11 | Internal Med Progress Note ---
Hospitalist Progress Note - Encounter Date of Encounter: 05/13/18 Time of Encounter: 12:08 - Subjective Interval History: Patient had no acute events overnight. She states that she feels "much better. " She denies fever, chills, chest pain, SOB, nausea, vomiting, hemoptysis, hematochezia, melena, or abdominal pain. She has no complaints at this time. - Exam Vitals: Temp Pulse Resp BP Pulse Ox 98.1 F 67 16 125/47 98 05/13/18 11:46 05/13/18 11:46 05/13/18 11:46 05/13/18 11:46 05/13/18 11:46 Exam: Gen - Awake, alert, no acute distress HEENT - NCAT, PERRLA, EOMI, hearing grossly intact, oropharynx benign CV - RRR, normal S1 and S2, mild systolic murmur, no R/G, no BLE edema Resp - Normal WOB, CTAB, no W/R/R GI - Soft, NT/ND, no masses, normal bowel sounds, no HSP Skin - Warm, dry, no rashes/lesions/ulcers Psych - Normal mood and affect, no depression or anxiety - Assessment and Plan (1) Acute GI bleeding Current Visit: Yes Status: Acute Assessment and Plan: Admit inpatient with telemetry. Currently transfusing 2 units PRBC. Will give lasix 20 mg IV once after first bag transfused due to history of CHF. GI consulted; appreciate input. They will evaluate patient today. Check H/H after transfusion complete, and check CBC in AM. Start protonix 40 mg IV BID. NPO. Hold home eliquis. Will obtain STAT CT abdomen/pelvis. Will await further recommendations from GI. 05/13 - Patient less pale and now more awake. States she is feeling much better. Hemoglobin up to 7.2 this AM. Surgery consulted; appreciate input. No intervention recommended at this time. Continue IV PPI. Trial of clear liquid diet today. Continue to hold home eliquis; discussed with patient and the risks and benefits of holding this indefinitely. Recheck H/H this afternoon and CBC in AM. (2) Symptomatic anemia Current Visit: Yes Status: Acute Assessment and Plan: Likely secondary to acute GI bleed. Hemoglobin = 5.0 on admission. Management as per above. 05/13 - Improved. Hemoglobin = 7.2 this AM. Recheck H/H this afternoon and CBC in AM. Transfuse for hemoglobin < 7.0. (3) CLEMENT (acute kidney injury) Current Visit: Yes Status: Acute Assessment and Plan: Creatinine = 1.4 on admission. Will defer IVF at this time because she has history of CHF and is currently receiving 2 units PRBC. Recheck BMP in AM. 05/13 - Improving. Creatinine = 1.28 this AM. Will defer IVF due to history of CHF. Holding home nephrotoxic medications. Recheck BMP in AM. (4) Chronic diastolic CHF (congestive heart failure) Current Visit: Yes Status: Chronic Assessment and Plan: pBNP = 683 on admission. Currently receiving 2 units PRBC, with lasix in between. Will have to be judicious with blood and fluids to prevent overload. Does not appear fluid overloaded at this time. Respiratory status stable on room air, despite subjective dyspnea. Restart home medications once stable from GI perspective and taking PO. 05/13 - Does not appear fluid overloaded today. Dyspnea resolved. Continue home medications. (5) History of pulmonary embolism Current Visit: Yes Status: Chronic Assessment and Plan: Patient not sure if she is taking eliquis for this. Holding anticoagulation at this time due to acute GI bleed; will likely hold it indefinitely at discharge. (6) Dementia Current Visit: Yes Status: Chronic Assessment and Plan: Continue home medications. (7) Diabetes mellitus Current Visit: Yes Status: Chronic Assessment and Plan: Continue accuchecks and low dose SSI Q6H. Restart home insulin regimen once taking good PO. (8) HTN (hypertension) Current Visit: Yes Status: Chronic Assessment and Plan: Continue home medications. Continue PRN IV hydralazine. (9) S/P aortic valve replacement with bioprosthetic valve Current Visit: Yes Status: Chronic Assessment and Plan: Holding anticoagulation as per above. (10) DVT prophylaxis Current Visit: Yes Status: Acute Assessment and Plan: Continue SCDs. Defer anticoagulation at this time due to acute GI bleed. - Time Spent with Patient Total time spent is greater than 50% in coordination of care (as documented) at patient's floor/unit and/or counseling patient: less than 15 minutes Plan of Care Discussed with: patient (Family, Nurse) Internal Medicine: Result - Labs CBC & Chem 7: 05/13/18 01:37 05/13/18 01:37 Labs: Short CBC 05/12/18 05/13/18 Range/Units 18:39 01:37 WBC 7.0 (4.3-11.1) K/mcL Hgb 6.6 L D 7.2 L (11.5-15.4) g/dL Hct 20.6 L 22.5 L (35.3-44.9) % Plt Count 187 (140-400) K/mcL Neutrophils # 4.1 (1.6-8.9) K/mcL BMP 05/13/18 01:37 Sodium 142 Potassium 3.9 Chloride 108 H Carbon Dioxide 27 BUN 33 H Creatinine 1.28 H Glucose 82 Calcium 8.6 Cardiac Enzymes 05/12/18 05/13/18 Range/Units 18:39 01:37 Troponin I < 0.03 0.03 (< 0.04) ng/mL Liver Function 05/13/18 Range/Units 01:37 Total Bilirubin 0.5 (0.3-1.0) mg/dL AST 12 L (13-39) Units/L ALT 8 (7-52) Units/L Alkaline Phosphatase 39 (34-104) Units/L Albumin 3.1 L (3.5-5.7) g/dL - VTE Reasons for not Prescribing Prophylaxis: Medical contraindication (Acute GI Bleed, Anemia) Documentation of Mechanical Device: Intermittent pneumatic compression device Consult Discharge Plan - Plan Referrals: Rizwan Palma MD [Primary Care Provider] - (6) Dementia Qualifiers: Dementia type: unspecified type Dementia behavioral disturbance: without behavioral disturbance Qualified Code(s): F03.90 - Unspecified dementia without behavioral disturbance (7) Diabetes mellitus Qualifiers: Diabetes mellitus type: type 2 Diabetes mellitus lobsterman insulin use: with lobsterman use Diabetes mellitus complication status: without complication Qualified Code(s): E11.9 - Type 2 diabetes mellitus without complications; Z79.4 - [facility] (current) use of insulin (8) HTN (hypertension) Qualifiers: Hypertension type: essential hypertension Qualified Code(s): I10 - Essential (primary) hypertension
[2018-05-13 13:14] LABS: Hematocrit 25.8 % (35.3-44.9); Hemoglobin 8.3 g/dL (11.5-15.4)
[2018-05-13] MEDS: Magnesium Oxide 400 MG TABLET PO SCH ×2 (13:15→21:54)
[2018-05-13] MEDS: Multivit/Ca/Min/Fe/FA 1 TAB TABLET PO SCH (13:15)
[2018-05-13] MEDS: Cholecalciferol (D-3) 1,000 UNIT TABLET PO SCH (13:16)
[2018-05-13] MEDS: Sucralfate 1 GM TABLET PO SCH ×2 (17:33→21:53)
[2018-05-13] MEDS: Budesonide/Formoterol 80/4.5 MDI IH SCH (20:11)
[2018-05-13] MEDS: traZODone 50 MG TABLET PO SCH (21:53)
[2018-05-14 04:22] LABS: Basophils % 0.4 %; Eosinophils # 0.2 K/mcL (0.0-0.6); Eosinophils % 2.8 %; Hematocrit 19.3 % (35.3-44.9); Hemoglobin 6.2 g/dL (11.5-15.4); Immature Granulocytes % 0.3 % (0-4); Lymphocytes # 2.6 K/mcL (0.6-4.6); Lymphocytes % 34.7 %; Mean Corpuscular HGB Conc 32.1 g/dL (31.6-35.5); Mean Corpuscular Volume 83.9 fL (83.0-100.0); Mean Platelet Volume 11.3 fL (9.4-12.4); Monocytes # 0.6 K/mcL (0.0-1.3); Monocytes % 7.5 %; Neutrophils # 4.1 K/mcL (1.6-8.9); Platelet Count 177 K/mcL (140-400); Red Cell Distribution Width 15.6 % (11.5-14.5); Segmented Neutrophils % 54.3 %
[2018-05-14 04:42] LABS: Calcium 8.3 mg/dL (8.6-10.3); Potassium 4.1 mEq/L (3.5-5.1)
[2018-05-14] MEDS: Pantoprazole 40 MG VIAL IVP SCH ×2 (06:07→21:19)
[2018-05-14] MEDS: Budesonide/Formoterol 80/4.5 MDI IH SCH ×2 (08:00→19:55)
[2018-05-14] MEDS: Sucralfate 1 GM TABLET PO SCH ×4 (08:59→21:19)
[2018-05-14] MEDS: Magnesium Oxide 400 MG TABLET PO SCH ×2 (08:59→21:19)
[2018-05-14] MEDS: Multivit/Ca/Min/Fe/FA 1 TAB TABLET PO SCH (08:59)
[2018-05-14] MEDS: Cholecalciferol (D-3) 1,000 UNIT TABLET PO SCH (09:00)
[2018-05-14] MEDS: Insulin LISPRO 300 UNITS/3 ML VIAL SQ SCH ×4 (09:00→21:20)
[2018-05-14] MEDS ORDERED: 0.9 % Sodium Chloride 250 ML ONE ×2 (09:32→12:47)
--- NOTE | 2018-05-14 11:19 | Palliative - Consult Note ---
Date of Encounter: 05/14/18 Time of Encounter: 11:00 - Assessment and Plan (1) Dyspnea Current Visit: Yes Status: Acute Assessment and plan: Her shortness of breath that she had prior to admission has improved with blood transfusion. Will monitor. If bleeding continues and transfusions are eventually discontinued, will add comfort medications as needed. Qualifiers: Dyspnea type: unspecified Qualified Code(s): R06.00 - Dyspnea, unspecified (2) Anxiety about health Current Visit: Yes Status: Acute Assessment and plan: Provided emotional support for pt and will monitor anxiety. At this point, conversation seems to alleviate most of her distress r/t anxiety. (3) Advance care planning Current Visit: Yes Status: Acute Assessment and plan: Long discussion with pt at bedside later when he returned. Patient sleeping during my second visit. Discussed goals of care aware that she continues to bleed and had passed large amount clots this am. stated that patient was diagnosed with dementia 8-10 years ago. She was distraught with the diagnosis and would become very upset over the years as this progressed. She would state that she would not want to be "out of her mind " and laying in a bed, and not able to care for herself. Her mental status further declined after her heart surgery in 2017. states they had to stop traveling and doing things outside of the home as her behavior became so unpredictable. She has made very well known that if she has a medical event, that she does not want any type of invasive measure, and would want to pass naturally. Confirmed with that he discussed with surgery possible options - he is aware that if she continues to bleed, she will eventually pass away from this event. He states that surgery did discuss the risks/benefits of scope, but pt still did not desire this and he is abiding by her wishes. They have 3 children (One in [place], one in [place], and one is [place]) and states that they have been informed and understand their mothers wishes as well. Discussed at length code status as she was DNR/DNI - discussed levels of care, and the fact that at current DNR/DNI - she may still receive some forms of resuscitation, more specifically, if becomes hypotensive from volume loss, may require ICU transfer and vasopressor agents. did transition code status to DNRCC. At this time, he would like for supportive transfusions to continue for a short period of time, however, he understands that she cannot have transfusions indefinitely, and these will have to be stopped at some point. If this would happen, we would discuss transition to hospice care. D/W Dr. Finn. Will continue to follow closely. (4) Gastrointestinal bleeding Current Visit: No Status: Acute Qualifiers: GI bleed type/associated pathology: unspecified gastrointestinal hemorrhage type Qualified Code(s): K92.2 - Gastrointestinal hemorrhage, unspecified (5) Dementia Current Visit: Yes Status: Chronic Qualifiers: Dementia type: unspecified type Dementia behavioral disturbance: without behavioral disturbance Qualified Code(s): F03.90 - Unspecified dementia without behavioral disturbance Palliative-CN HPI - Data of Consult Consult date: 05/14/18 Requesting Physician: Cj Hare MD Primary Care Provider: Rizwan Palma MD - Consult Narrative History of present illness: Ms. Huerta is a 82 year old female who presented to the hospital after her noticed she was having increasing weakness and diarrhea at home. She was found to have hemoblobin of 5.0. She was admitted and given blood - hemoccult positive and surgical consultation was obtained. Patient's was refusing for any further testing/endoscopies. According to chart review, pt has history of DVT/PE was on Coumadin when she came in for GI bleed in 2017. All anticoagulants were stopped at that time, and she did present a few months later with massive PE. She was started on Eloquis at that time. Patient is continuing to have bloody stools, and had large one this am with clots. Hgb has decreased from 8.3 after initial transfusion back to 6.2 today and she is currently receiving more packed red cells at this time. Upon my initial visit, pt is alone - has went to lunch. She is alert and oriented to name and place. Poor historian and cannot answer many questions about her medical or social history. Can follow simple one step commands. Denies any pain/nausea/dyspnea/anxiety - only complaint is feeling "cold". CC: Cj Hare MD Past Med Surg Social Fam HX - Past Medical History Medical history: CHF, COPD, dementia, diabetes, GI bleed, hypertension, pulmonary embolus, valvular heart disease Psychiatric history: no psych history - Past Surgical History Surgical History: heart valve replacement, orthopedic, other, other Additional surgical history: Aortic valve replacement - Social History Smoking Status: Never smoker Smokeless Tobacco Status: No Alcohol use: none Drug use: none - Family History Mother Hx Family Endocrine Disorder: Yes (DM) Medications and Allergies Donepezil [Aricept] 10 mg PO HS 10/28/16 [History] Lisinopril [Zestril] 20 mg PO DAILY 10/28/16 [History] Memantine HCl [Namenda Xr] 28 mg PO DAILY 10/28/16 [History] Multivitamin [Multi-Day Vitamins] 1 tab PO DAILY 10/28/16 [History] Simvastatin [Zocor] 20 mg PO HS 10/28/16 [History] Furosemide [Lasix] 40 mg PO DAILY 04/13/17 [History] Cholecalciferol (D-3) [Vitamin D] 1,000 unit PO DAILY 09/01/17 [History] Magnesium Oxide [Magnesium] 800 mg PO BID 09/01/17 [History] Metoprolol [Lopressor] 25 mg PO BID 09/01/17 [History] Trazodone HCl 50 mg PO HS 09/01/17 [History] hydrALAZINE [HydrALAZINE] 25 mg PO TID 09/01/17 [History] Apixaban [Eliquis] 5 mg PO BID 05/12/18 [History] Fluticasone/Salmeterol [Advair 250-50 Diskus] 1 puff IH BID 05/12/18 [History] Insulin NPH Hum/Reg Insulin Hm [Novolin 70-30 100 Unit/ml Vial] 11 - 16 unit SQ BID 05/12/18 [History] 3 Allergy/AdvReac Type Severity Reaction Status Date / Time Iodinated Contrast- Oral and Allergy See Verified 12/29/17 18:30 IV Dye Comments Penicillins Allergy See Verified 12/29/17 18:30 Comments ROS unobtainable: due to mental status Palliative Care-Exam - Constitutional Vitals: Temp Pulse Resp BP Pulse Ox 98.6 F 91 28 131/72 96 05/14/18 10:16 05/14/18 10:12 05/14/18 08:19 05/14/18 10:16 05/14/18 08:19 General appearance: Present: no acute distress - Head Head Exam: Present: normal inspection, normocephalic - Respiratory Respiratory exam: Present: decreased breath sounds, CTAB - Cardiovascular Cardiovascular exam: Present: +S1, +S2, systolic murmur - GI/Abdominal Exam GI/Abdominal exam: Present: normal bowel sounds, soft - Extremities Exam Extremities exam: Present: normal capillary refill, normal inspection - Neurological Exam Neurological exam: Present: alert, strengths equal and symetr throughout Additional comments: Oriented to name and place. Poor historian. Follows simple commands. - Skin Skin exam: Present: dry, pallor, warm Internal Medicine - CN: Reslt - Labs CBC & Chem 7: 05/14/18 03:59 05/14/18 03:59 Labs: Short CBC 05/13/18 05/14/18 Range/Units 12:59 03:59 WBC 7.6 (4.3-11.1) K/mcL Hgb 8.3 L 6.2 L D (11.5-15.4) g/dL Hct 25.8 L 19.3 L (35.3-44.9) % Plt Count 177 (140-400) K/mcL Neutrophils # 4.1 (1.6-8.9) K/mcL BMP 05/14/18 03:59 Sodium 141 Potassium 4.1 Chloride 109 H Carbon Dioxide 26 BUN 29 H Creatinine 1.14 Glucose 97 Calcium 8.3 L Consult Discharge Plan - Plan Referrals: Rizwan Palma MD [Primary Care Provider] - Palliative Quality Palliative Quality: Screen for Code Status: Yes, Screen for Goals of Care: Yes, Screen for Pain: Yes, If Pain Regimen Started, Initiate Bowel Regimen: NA, Screen for Nausea/Vomitting: Yes
--- NOTE | 2018-05-14 12:41 | Electrocardiograph Report ---
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
[2018-05-14] MEDS ORDERED: Furosemide 20 MG/2 ML VIAL IVP ONE (14:00)
--- NOTE | 2018-05-14 17:25 | Internal Med Progress Note ---
Hospitalist Progress Note - Encounter Date of Encounter: 05/14/18 Time of Encounter: 17:23 - Subjective Interval History: Patient had no acute events overnight. She states that she feels "ok" today. Nursing staff reports BRBPR with several clots this AM. She denies fever, chills, chest pain, SOB, nausea, vomiting, hemoptysis, melena, or abdominal pain. She has no complaints at this time. - Exam Vitals: Temp Pulse Resp BP Pulse Ox 98.7 F 87 16 130/56 93 05/14/18 16:22 05/14/18 16:22 05/14/18 16:22 05/14/18 16:22 05/14/18 16:22 Exam: Gen - Awake, alert, no acute distress HEENT - NCAT, PERRLA, EOMI, hearing grossly intact, oropharynx benign CV - RRR, normal S1 and S2, mild systolic murmur, no R/G, no BLE edema Resp - Normal WOB, CTAB, no W/R/R GI - Soft, NT/ND, no masses, normal bowel sounds, no HSP Skin - Warm, dry, no rashes/lesions/ulcers Psych - Normal mood and affect, no depression or anxiety - Assessment and Plan (1) Acute GI bleeding Current Visit: Yes Status: Acute Assessment and Plan: Admit inpatient with telemetry. Currently transfusing 2 units PRBC. Will give lasix 20 mg IV once after first bag transfused due to history of CHF. GI consulted; appreciate input. They will evaluate patient today. Check H/H after transfusion complete, and check CBC in AM. Start protonix 40 mg IV BID. NPO. Hold home eliquis. Will obtain STAT CT abdomen/pelvis. Will await further recommendations from GI. 05/13 - Patient less pale and now more awake. States she is feeling much better. Hemoglobin up to 7.2 this AM. Surgery consulted; appreciate input. No intervention recommended at this time. Continue IV PPI. Trial of clear liquid diet today. Continue to hold home eliquis; discussed with patient and the risks and benefits of holding this indefinitely. Recheck H/H this afternoon and CBC in AM. 05/14 - Nursing staff reports BRBPR and several clots this AM. Hemoglobin down to 6.2 this AM. She is still without complaints. Surgery has signed off, as patient and family do not want invasive procedures such as endoscopy. Palliative care consulted; appreciate input. They had long discussion with patient and . I personally spoke with palliative care SUSTAINABILITY EXECUTIVE DIRECTOR, and she told me family has elected to go full comfort care. Code status has been changed to reflect this. They are agreeable to continue transfusions for comfort, but do not want pressors or transfer to ICU. Continue to hold home eliquis indefinitely. Continue IV PPI BID. Ordered 2 units PRBC; will give lasix 20 mg IV once in between. Recheck H/H after transfusions completed. Will give diet as patient requests this and she is now comfort care. Recheck CBC in AM. (2) Symptomatic anemia Current Visit: Yes Status: Acute Assessment and Plan: Likely secondary to acute GI bleed. Hemoglobin = 5.0 on admission. Management as per above. 05/13 - Improved. Hemoglobin = 7.2 this AM. Recheck H/H this afternoon and CBC in AM. Transfuse for hemoglobin < 7.0. 05/14 - Worsened. Hemoglobin = 6.2 this AM. Give 2 units PRBC; recheck H/H after. Repeat CBC in AM. (3) CLEMENT (acute kidney injury) Current Visit: Yes Status: Resolved Assessment and Plan: Creatinine = 1.4 on admission. Will defer IVF at this time because she has history of CHF and is currently receiving 2 units PRBC. Recheck BMP in AM. 05/13 - Improving. Creatinine = 1.28 this AM. Will defer IVF due to history of CHF. Holding home nephrotoxic medications. Recheck BMP in AM. 05/14 - Resolved. Avoid nephrotoxins. Repeat BMP in AM. (4) Chronic diastolic CHF (congestive heart failure) Current Visit: Yes Status: Chronic Assessment and Plan: pBNP = 683 on admission. Currently receiving 2 units PRBC, with lasix in between. Will have to be judicious with blood and fluids to prevent overload. Does not appear fluid overloaded at this time. Respiratory status stable on room air, despite subjective dyspnea. Restart home medications once stable from GI perspective and taking PO. 05/13 - Does not appear fluid overloaded today. Dyspnea resolved. Continue home medications. 05/14 - Continues to look euvolemic. Will give lasix in between blood transfusions. No dyspnea today. Continue home medications. (5) History of pulmonary embolism Current Visit: Yes Status: Chronic Assessment and Plan: Patient not sure if she is taking eliquis for this. Holding anticoagulation at this time due to acute GI bleed; will likely hold it indefinitely at discharge. (6) Dementia Current Visit: Yes Status: Chronic Assessment and Plan: Continue home medications. (7) Diabetes mellitus Current Visit: Yes Status: Chronic Assessment and Plan: Continue accuchecks and low dose SSI Q6H. Restart home insulin regimen once taking good PO. (8) HTN (hypertension) Current Visit: Yes Status: Chronic Assessment and Plan: Continue home medications. Continue PRN IV hydralazine. (9) S/P aortic valve replacement with bioprosthetic valve Current Visit: Yes Status: Chronic Assessment and Plan: Holding anticoagulation as per above. (10) DVT prophylaxis Current Visit: Yes Status: Acute Assessment and Plan: Continue SCDs. Defer anticoagulation at this time due to acute GI bleed. - Time Spent with Patient Total time spent is greater than 50% in coordination of care (as documented) at patient's floor/unit and/or counseling patient: less than 15 minutes Plan of Care Discussed with: patient (Family, Nurse, Pharmacist, Routing Equipment Tender- Palliative Care) Internal Medicine: Result - Labs CBC & Chem 7: 05/14/18 03:59 05/14/18 03:59 Labs: Short CBC 05/14/18 Range/Units 03:59 WBC 7.6 (4.3-11.1) K/mcL Hgb 6.2 L D (11.5-15.4) g/dL Hct 19.3 L (35.3-44.9) % Plt Count 177 (140-400) K/mcL Neutrophils # 4.1 (1.6-8.9) K/mcL BMP 05/14/18 03:59 Sodium 141 Potassium 4.1 Chloride 109 H Carbon Dioxide 26 BUN 29 H Creatinine 1.14 Glucose 97 Calcium 8.3 L - VTE Reasons for not Prescribing Prophylaxis: Medical contraindication (Acute GI Bleed, Anemia) Documentation of Mechanical Device: Intermittent pneumatic compression device Consult Discharge Plan - Plan Referrals: Rizwan Palma MD [Primary Care Provider] - 05/21/18 10:00 am (6) Dementia Qualifiers: Dementia type: unspecified type Dementia behavioral disturbance: without behavioral disturbance Qualified Code(s): F03.90 - Unspecified dementia without behavioral disturbance (7) Diabetes mellitus Qualifiers: Diabetes mellitus type: type 2 Diabetes mellitus terminal operations supervisor insulin use: with terminal operations supervisor use Diabetes mellitus complication status: without complication Qualified Code(s): E11.9 - Type 2 diabetes mellitus without complications; Z79.4 - exterminator (current) use of insulin (8) HTN (hypertension) Qualifiers: Hypertension type: essential hypertension Qualified Code(s): I10 - Essential (primary) hypertension
[2018-05-14 18:39] LABS: Hematocrit 25.9 % (35.3-44.9)
[2018-05-14 18:40] LABS: Hemoglobin 8.4 g/dL (11.5-15.4)
[2018-05-14] MEDS: traZODone 50 MG TABLET PO SCH (21:19)
[2018-05-15 00:50] LABS: Basophils % 0.3 %; Eosinophils # 0.1 K/mcL (0.0-0.6); Eosinophils % 1.6 %; Immature Granulocytes % 0.2 % (0-4); Lymphocytes # 2.7 K/mcL (0.6-4.6); Lymphocytes % 29.6 %; Mean Corpuscular HGB Conc 33.3 g/dL (31.6-35.5); Mean Corpuscular Volume 83.9 fL (83.0-100.0); Mean Platelet Volume 11.7 fL (9.4-12.4); Monocytes # 0.8 K/mcL (0.0-1.3); Monocytes % 9.2 %; Neutrophils # 5.3 K/mcL (1.6-8.9); Platelet Count 178 K/mcL (140-400); Red Blood Count 2.86 M/mcL (3.82-4.97); Red Cell Distribution Width 15.3 % (11.5-14.5); Segmented Neutrophils % 59.1 %
[2018-05-15 01:16] LABS: Calcium 8.2 mg/dL (8.6-10.3); Potassium 3.9 mEq/L (3.5-5.1)
[2018-05-15] MEDS: Budesonide/Formoterol 80/4.5 MDI IH SCH ×2 (07:45→19:52)
[2018-05-15 08:06] LABS: Hematocrit 25.5 % (35.3-44.9); Hemoglobin 8.3 g/dL (11.5-15.4)
[2018-05-15] MEDS: Pantoprazole 40 MG VIAL IVP SCH ×2 (08:52→17:02)
[2018-05-15] MEDS: Magnesium Oxide 400 MG TABLET PO SCH ×2 (08:52→20:46)
[2018-05-15] MEDS: Cholecalciferol (D-3) 1,000 UNIT TABLET PO SCH (08:52)
[2018-05-15] MEDS: Insulin LISPRO 300 UNITS/3 ML VIAL SQ SCH ×4 (08:52→20:58)
[2018-05-15] MEDS: Sucralfate 1 GM TABLET PO SCH ×4 (08:52→20:46)
[2018-05-15] MEDS: Multivit/Ca/Min/Fe/FA 1 TAB TABLET PO SCH (08:52)
--- NOTE | 2018-05-15 08:55 | Internal Med Progress Note ---
<Mellissa Bustillos - Last Filed: 05/15/18 12:56> Hospitalist Progress Note - Encounter Date of Encounter: 05/15/18 Time of Encounter: 08:52 - Subjective Interval History: Pt examined in bed this morning. She states that she feels stronger since receiving the blood transfusions yesterday. She was able to sleep well last night and is in no pain this morning. She states that her breathing has improved since being in the hospital and is better today than yesterday. She denies any chest pain, shortness of breath, abdominal pain or hemoptysis. Her is at bedside and provided a detailed history. She has no acute changes or complaints and is resting in bed comfortably. - Exam Vitals: Temp Pulse Resp BP Pulse Ox 98.3 F 89 18 132/59 98 05/15/18 07:18 05/15/18 07:18 05/15/18 07:45 05/15/18 07:18 05/15/18 07:45 Exam: Gen - Awake, alert, no acute distress CV - RRR, normal S1 and S2 Resp - CTAB, no wheezing, rales or ronchi GI - Soft, NT/ND, no masses Skin - Warm, dry, no lesions Psych - Normal mood and affect, no depression or anxiety Ext - no LE edema, no calf tenderness - Assessment and Plan (1) Acute GI bleeding Current Visit: Yes Status: Acute Assessment and Plan: - Pt Hgb up to 8.3 this morning after transfusion, clinically pt is improved - Pt and have discussed and would like to proceed with the scope, Dr. Whelan speaking with Dr. Guy - has 1 small liquid bloody BM over last 12 hours - pt has reviewed risk/benefit of endoscopy with GI/Surg and determined to not undergo the procedure - pallative to speak with patient regarding plans for discharge (2) Symptomatic anemia Current Visit: Yes Status: Acute Assessment and Plan: - likely secondary to acute GI bleed - Hgb 5.0 on admission, 8.3 this morning after receiving a total of 4 units of PRBC over the past 3 days (3) CLEMENT (acute kidney injury) Current Visit: Yes Status: Resolved Assessment and Plan: - holding nephrotoxic home medications - resolved, still avoiding nephrotoxic meds - this morning BUN: 31; Cr: 1.43 (4) Diabetes mellitus Current Visit: Yes Status: Chronic Assessment and Plan: Continue accuchecks and low dose SSI Q6H. - pt eating again, consider restarting home insulin regimen (5) Chronic diastolic CHF (congestive heart failure) Current Visit: Yes Status: Chronic Assessment and Plan: - pt continues to look euvolemic - was given lasix in between blood transfusions - No dyspnea today; continue home medications - Summary of Assessment and Plan Summary of Assessment and Plan: Pt Hgb stabilized at 8.3 this morning after transfusion. She is feeling better and experienced no acute changes. Her LE doppler was negative for DVT and pt is declining to undergo endoscopy since surgical intervention is not wanted if something was to be found. Pallative will be consulted for planning of care and discharge plans. - Time Spent with Patient Total time spent is greater than 50% in coordination of care (as documented) at patient's floor/unit and/or counseling patient: Internal Medicine: Result - Labs CBC & Chem 7: 05/15/18 07:50 05/15/18 00:05 Labs: Short CBC 05/14/18 05/15/18 05/15/18 Range/Units 18:18 00:05 07:50 WBC 9.0 (4.3-11.1) K/mcL Hgb 8.4 L D 8.0 L 8.3 L (11.5-15.4) g/dL Hct 25.9 L 24.0 L 25.5 L (35.3-44.9) % Plt Count 178 (140-400) K/mcL Neutrophils # 5.3 (1.6-8.9) K/mcL BMP 05/15/18 00:05 Sodium 138 Potassium 3.9 Chloride 105 Carbon Dioxide 27 BUN 31 H Creatinine 1.43 H Glucose 151 H Calcium 8.2 L - VTE Reasons for not Prescribing Prophylaxis: Medical contraindication (Acute GI Bleed, Anemia) Documentation of Mechanical Device: Intermittent pneumatic compression device Consult Discharge Plan - Plan Referrals: Rizwan Palma MD [Primary Care Provider] - 05/21/18 10:00 am <Ab Whelan - Last Filed: 05/15/18 16:47> Hospitalist Progress Note - Encounter Date of Encounter: 05/15/18 - Exam Vitals: Temp Pulse Resp BP Pulse Ox 98.4 F 67 17 105/59 95 05/15/18 12:04 05/15/18 12:04 05/15/18 12:04 05/15/18 12:04 05/15/18 12:04 - Assessment and Plan (1) Melena Current Visit: Yes Status: Acute Assessment and Plan: Appears to have stopped at this time Monitor in hospital tonight. Recheck tomorrow. (2) Anemia Current Visit: Yes Status: Acute Assessment and Plan: Recheck H/H and transfuse again if needed. (3) HTN (hypertension) Current Visit: Yes Status: Chronic Assessment and Plan: Controlled at this time. (4) Diabetes mellitus Current Visit: Yes Status: Chronic (5) DVT prophylaxis Current Visit: Yes Status: Acute (6) History of pulmonary embolism Current Visit: Yes Status: Chronic Assessment and Plan: Holding anticoagulation at this time. (7) Dementia Current Visit: Yes Status: Chronic Assessment and Plan: Chronic issue (8) S/P aortic valve replacement with bioprosthetic valve Current Visit: Yes Status: Chronic (9) Symptomatic anemia Current Visit: Yes Status: Acute (10) Acute GI bleeding Current Visit: Yes Status: Acute (11) Chronic diastolic CHF (congestive heart failure) Current Visit: Yes Status: Chronic (12) CLEMENT (acute kidney injury) Current Visit: Yes Status: Resolved - Time Spent with Patient Total time spent is greater than 50% in coordination of care (as documented) at patient's floor/unit and/or counseling patient: Internal Medicine: Result - Labs CBC & Chem 7: 05/15/18 07:50 05/15/18 00:05 Labs: Short CBC 05/14/18 05/15/18 05/15/18 Range/Units 18:18 00:05 07:50 WBC 9.0 (4.3-11.1) K/mcL Hgb 8.4 L D 8.0 L 8.3 L (11.5-15.4) g/dL Hct 25.9 L 24.0 L 25.5 L (35.3-44.9) % Plt Count 178 (140-400) K/mcL Neutrophils # 5.3 (1.6-8.9) K/mcL BMP 05/15/18 00:05 Sodium 138 Potassium 3.9 Chloride 105 Carbon Dioxide 27 BUN 31 H Creatinine 1.43 H Glucose 151 H Calcium 8.2 L - Attending Attestation The history, physical exam, and medical decision making was performed by the medical student either while I was physically present and actively involved or I personally re-performed the exam and medical decision making. I have verified the accuracy of the medical student's documentation with regards to the history, physical exam findings, and medical decision making on 05/15/18. Ms Huerta is currently admitted for acute GI and anemia. She remains moderate to high risk due to potential for worsening clinical status. Ms Huerta denies pain at this time. She has had no further bleeding today. No fever or chills. No abdominal pain. No cough. She has received 2 units of blood yesterday. Exam Alert Comfortable Mucus membranes dry Not tachycardic No wheeze abd soft and nontender Pulses intact I/P 1. Melena - no scope at this time. Appears to have stopped. 2. Anemia Recheck tomorrow. Appreciate surgery input. Will continue supportive care. ? d/c tomorrow if stable Further diagnoses and plan as above. <Mellissa Bustillos - Last Filed: 05/15/18 12:56> (4) Diabetes mellitus Qualifiers: Diabetes mellitus type: type 2 Diabetes mellitus watermelon inspector insulin use: with senior care use Diabetes mellitus complication status: without complication Qualified Code(s): E11.9 - Type 2 diabetes mellitus without complications; Z79.4 - retirement (current) use of insulin <Ab Whelan - Last Filed: 05/15/18 16:47> (2) Anemia Qualifiers: Anemia type: other cause Other causes of anemia: acute posthemorrhagic Qualified Code(s): D62 - Acute posthemorrhagic anemia (3) HTN (hypertension) Qualifiers: Hypertension type: essential hypertension Qualified Code(s): I10 - Essential (primary) hypertension (4) Diabetes mellitus Qualifiers: Diabetes mellitus type: type 2 Diabetes mellitus watermelon inspector insulin use: with senior care use Diabetes mellitus complication status: without complication Qualified Code(s): E11.9 - Type 2 diabetes mellitus without complications; Z79.4 - petroleum terminal plant operator (current) use of insulin (7) Dementia Qualifiers: Dementia type: unspecified type Dementia behavioral disturbance: without behavioral disturbance Qualified Code(s): F03.90 - Unspecified dementia without behavioral disturbance
--- NOTE | 2018-05-15 09:17 | Event Note ---
Date of Encounter: 05/15/18 Time of Encounter: 09:10 Spoke with pt and this am, she has changed her mind and would like to proceed with scope. They have discussed with hospitalist who will be getting in touch with Dr. Guy. Appears by documentation that she only had 1 small liquid bloody BM over last 12 hours. Hgb stable after transfusion this am. Discussed code status - as yesterday they desired transition to DNRCC - now that wants to proceed with scope and decisions based from results of that, will change back to DNR/DNI. Patient states she feels as if she is not ready to give up and would like to see cause of bleed. Will continue to follow clinical course and assist as needed. She has no pain/nausea/anxiety/dyspnea. Feeling well this am.
--- NOTE | 2018-05-15 11:21 | Event Note ---
Date of Encounter: 05/15/18 Time of Encounter: 11:04 Surgery called back for possibility of EGD vs colonoscopy. at bedside and denies any complaints of abdominal pain, melena, hematochezia, or hematemesis. Chart review notes that pt's stated patient had passed clots, but today he and patient state she only had a "positive smear here;" however charting notes dark stools. Pt states at home her BMs are soft and brown. She again reiterated that she is opposed to any surgical intervention if an unplanned outcome occurred or if there were findings that would warrant surgical intervention. Her is at bedside and states support of this decision as he is "just trying to do what she would want." There is no obvious bleeding noted. She denies abdominal pain. Her hgb has stabilized. Her VSS. I again reviewed the risks and benefits of endoscopy and the indications accordingly. I also reviewed with and Mrs Huerta that if no surgical intervention was desired then the benefit of endoscopy does not outweigh the risks, and if they decided not to pursue the endoscopy this was an acceptable and supported decision. They elected to not undergo endoscopy. I certainly feel this is acceptable and in the best interest given that benefit does not outweigh the risk. I reviewed with Dr. Whelan and Dr. Guy. Surgery will sign off at this time. D/c planning and med rec per primary team. Agree with palliative care.
[2018-05-15] MEDS: traZODone 50 MG TABLET PO SCH (20:45)
[2018-05-16 04:08] LABS: Hematocrit 23.1 % (35.3-44.9); Hemoglobin 7.5 g/dL (11.5-15.4); Mean Corpuscular HGB Conc 32.5 g/dL (31.6-35.5); Mean Corpuscular Hemoglobin 27.8 pg (28.0-33.3); Mean Corpuscular Volume 85.6 fL (83.0-100.0); Mean Platelet Volume 11.6 fL (9.4-12.4); Platelet Count 180 K/mcL (140-400); Red Cell Distribution Width 15.3 % (11.5-14.5)
[2018-05-16 04:28] LABS: Calcium 8.4 mg/dL (8.6-10.3); Magnesium 2.5 mg/dL (1.6-2.6); Potassium 4.4 mEq/L (3.5-5.1)
[2018-05-16] MEDS: Pantoprazole 40 MG VIAL IVP SCH ×2 (06:04→17:44)
[2018-05-16] MEDS: Sucralfate 1 GM TABLET PO SCH ×4 (06:04→21:57)
[2018-05-16] MEDS ORDERED: 0.9 % Sodium Chloride 250 ML ONE (09:50)
[2018-05-16] MEDS: Magnesium Oxide 400 MG TABLET PO SCH ×2 (09:55→21:57)
[2018-05-16] MEDS: Multivit/Ca/Min/Fe/FA 1 TAB TABLET PO SCH (09:55)
[2018-05-16] MEDS: Insulin LISPRO 300 UNITS/3 ML VIAL SQ SCH ×4 (09:58→21:57)
[2018-05-16] MEDS: Cholecalciferol (D-3) 1,000 UNIT TABLET PO SCH (09:58)
[2018-05-16] MEDS: Budesonide/Formoterol 80/4.5 MDI IH SCH ×2 (11:10→20:25)
--- NOTE | 2018-05-16 11:49 | Internal Med Progress Note ---
<BustillosMellissa Yin Rj - Last Filed: 05/16/18 11:44> Hospitalist Progress Note - Encounter Date of Encounter: 05/16/18 Time of Encounter: 11:44 - Subjective Interval History: Pt examined in bed this morning, her and 2 sons were in the room with her. She states that she is in no pain. 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 She denies any chest pain, shortness of breath, abdominal pain or hemoptysis. She says she does not want surgery for her bleeding unless it is absolutely necessary and she is adamant that she does not want to . She has no complaints and is currently resting in bed comfortably. - Exam Vitals: Temp Pulse Resp BP Pulse Ox 97.7 F 77 16 113/52 95 05/16/18 07:37 05/16/18 07:37 05/16/18 11:13 05/16/18 07:37 05/16/18 11:13 Exam: Gen - Awake, alert, no acute distress CV - RRR, normal S1 and S2 Resp - CTAB, no wheezing, rales or ronchi GI - Soft, NT/ND, no masses Skin - Warm, dry, no lesions Psych - normal mood, slight confusion and recall deficiency Ext - no LE edema, no calf tenderness - Assessment and Plan (1) Melena Current Visit: Yes Status: Acute Assessment and Plan: - dark red blood noted in stool this morning - Hgb down to 7.5 from 8.3 yesterday - 1 unit of PRBC ordered for transfusion - NM bleeding scan ordered to determine source of GI bleed (2) Acute GI bleeding Current Visit: Yes Status: Acute Assessment and Plan: - Hgb dropped to 7.5 this morning, 1 unit PRBC ordered for transfusion - bleeding scan to be completed today - patient and family decided that if source of bleed not located on NM bleeding scan that she will undergo colonoscopy in order to determine the bleeding source and fix with surgery if necessary - surgery may need to be consulted after the bleeding scan results come back (3) Symptomatic anemia Current Visit: Yes Status: Acute Assessment and Plan: - Hgb down this morning to 7.5, 1 unit of PRBC ordered for transfusion - bleeding scan to be completed (4) Diabetes mellitus Current Visit: Yes Status: Chronic Assessment and Plan: Continue accuchecks and low dose SSI Q6H. (5) Chronic diastolic CHF (congestive heart failure) Current Visit: Yes Status: Chronic Assessment and Plan: - pt continues to look euvolemic - No dyspnea today; continue home medications (6) CLEMENT (acute kidney injury) Current Visit: Yes Status: Resolved - Summary of Assessment and Plan Summary of Assessment and Plan: Pt to be given 1 unit of PRBC this morning and then taken for a nuclear medicine bleeding scan to determine the source of the GI bleed. If located radiology may be able to embolize bleed. If not able to be seen on scan, may need to do colonoscopy and surgery to stop bleeding. Patient and family have determined that if surgery is necessary to stop the bleeding then patient agrees to have it done. She is adamant that she does not want to because of this bleeding. - Time Spent with Patient Total time spent is greater than 50% in coordination of care (as documented) at patient's floor/unit and/or counseling patient: Internal Medicine: Result - Labs CBC & Chem 7: 05/16/18 03:56 05/16/18 03:56 Labs: Short CBC 05/16/18 Range/Units 03:56 WBC 8.4 (4.3-11.1) K/mcL Hgb 7.5 L (11.5-15.4) g/dL Hct 23.1 L (35.3-44.9) % Plt Count 180 (140-400) K/mcL BMP 05/16/18 03:56 Sodium 137 Potassium 4.4 Chloride 104 Carbon Dioxide 29 BUN 21 Creatinine 1.12 Glucose 151 H Calcium 8.4 L - VTE Reasons for not Prescribing Prophylaxis: Medical contraindication (Acute GI Bleed, Anemia) Documentation of Mechanical Device: Intermittent pneumatic compression device Consult Discharge Plan - Plan Referrals: Rizwan Palma MD [Primary Care Provider] - 05/21/18 10:00 am <Ab Whelan - Last Filed: 05/16/18 17:19> Hospitalist Progress Note - Encounter Date of Encounter: 05/16/18 - Exam Vitals: Temp Pulse Resp BP Pulse Ox 97.6 F 64 16 132/38 98 05/16/18 15:45 05/16/18 15:45 05/16/18 15:45 05/16/18 15:45 05/16/18 15:45 - Assessment and Plan (1) Melena Current Visit: Yes Status: Acute (2) Anemia Current Visit: Yes Status: Acute (3) HTN (hypertension) Current Visit: Yes Status: Chronic (4) Diabetes mellitus Current Visit: Yes Status: Chronic (5) DVT prophylaxis Current Visit: Yes Status: Acute (6) History of pulmonary embolism Current Visit: Yes Status: Chronic (7) Dementia Current Visit: Yes Status: Chronic (8) S/P aortic valve replacement with bioprosthetic valve Current Visit: Yes Status: Chronic (9) Symptomatic anemia Current Visit: Yes Status: Acute (10) Acute GI bleeding Current Visit: Yes Status: Acute (11) Chronic diastolic CHF (congestive heart failure) Current Visit: Yes Status: Chronic (12) CLEMENT (acute kidney injury) Current Visit: Yes Status: Resolved - Time Spent with Patient Total time spent is greater than 50% in coordination of care (as documented) at patient's floor/unit and/or counseling patient: Internal Medicine: Result - Labs CBC & Chem 7: 05/16/18 03:56 05/16/18 03:56 Labs: Short CBC 05/16/18 Range/Units 03:56 WBC 8.4 (4.3-11.1) K/mcL Hgb 7.5 L (11.5-15.4) g/dL Hct 23.1 L (35.3-44.9) % Plt Count 180 (140-400) K/mcL BMP 05/16/18 03:56 Sodium 137 Potassium 4.4 Chloride 104 Carbon Dioxide 29 BUN 21 Creatinine 1.12 Glucose 151 H Calcium 8.4 L - Impressions Impressions GI Bleed Scan Nuclear Medicine 05/16/18 12:45 IMPRESSION: No evidence of active GI bleeding during acquisition. RECOMMENDATIONS: If the patient shows hemodynamic signs of an active bleed in the next 20 hours, additional images can be acquired. D/ / 05/16/2018 14:22:26 Andres Owens MD / [facility] Interpreting Provider: Andres Owens MD - Attending Attestation The history, physical exam, and medical decision making was performed by the medical student either while I was physically present and actively involved or I personally re-performed the exam and medical decision making. I have verified the accuracy of the medical student's documentation with regards to the history, physical exam findings, and medical decision making on 05/16/18. Ms Huerta is currently admitted for acute lower GI bleed. She remains moderate to high risk due to potential for worsening clinical status. Ms Huerta had another bloody BM this AM. H/H down again. She now is agreeable to surgery if needed because she doesn't want to . No fever or chills. No cough. Exam alert Comfortable. Very poor short term memory. Mucus membranes dry Heart distant Lungs clear Abd soft and nontender No rash. I/P 1. Lower GI bleed - bleeding scan today. She now agrees to surgery if needed. 2. Anemia - transfuse today. Further diagnoses and plan as above. <Mellissa Bustillos - Last Filed: 05/16/18 11:44> (4) Diabetes mellitus Qualifiers: Diabetes mellitus type: type 2 Diabetes mellitus pet walker insulin use: with pet walker use Diabetes mellitus complication status: without complication Qualified Code(s): E11.9 - Type 2 diabetes mellitus without complications; Z79.4 - halfway (current) use of insulin <Ab Whelan - Last Filed: 05/16/18 17:19> (2) Anemia Qualifiers: Anemia type: other cause Other causes of anemia: acute posthemorrhagic Qualified Code(s): D62 - Acute posthemorrhagic anemia (3) HTN (hypertension) Qualifiers: Hypertension type: essential hypertension Qualified Code(s): I10 - Essential (primary) hypertension (4) Diabetes mellitus Qualifiers: Diabetes mellitus type: type 2 Diabetes mellitus pet walker insulin use: with detention use Diabetes mellitus complication status: without complication Qualified Code(s): E11.9 - Type 2 diabetes mellitus without complications; Z79.4 - counter supervisor (current) use of insulin (7) Dementia Qualifiers: Dementia type: Alzheimer's disease Alzheimer's disease onset: late-onset Dementia behavioral disturbance: without behavioral disturbance Qualified Code( s): G30.1 - Alzheimer's disease with late onset; F02.80 - Dementia in other diseases classified elsewhere without behavioral disturbance
--- NOTE | 2018-05-16 13:29 | Palliative - Consult Note ---
Date of Encounter: 05/16/18 - Assessment and Plan (1) Dyspnea Current Visit: Yes Status: Acute Qualifiers: Dyspnea type: unspecified Qualified Code(s): R06.00 - Dyspnea, unspecified (2) Anxiety about health Current Visit: Yes Status: Acute (3) Advance care planning Current Visit: Yes Status: Acute (4) Gastrointestinal bleeding Current Visit: No Status: Acute Qualifiers: GI bleed type/associated pathology: unspecified gastrointestinal hemorrhage type Qualified Code(s): K92.2 - Gastrointestinal hemorrhage, unspecified (5) Dementia Current Visit: Yes Status: Chronic Qualifiers: Dementia type: unspecified type Dementia behavioral disturbance: without behavioral disturbance Qualified Code(s): F03.90 - Unspecified dementia without behavioral disturbance Palliative-CN HPI - Data of Consult Requesting Physician: Ab Whelan DO Primary Care Provider: Rizwan Palma MD - Consult Narrative History of present illness: Ms. Huerta is a 82 year old female CC: Ab Whelan DO Past Med Surg Social Fam HX - Past Medical History Medical history: CHF, COPD, dementia, diabetes, GI bleed, hypertension, pulmonary embolus, valvular heart disease Psychiatric history: no psych history - Past Surgical History Surgical History: heart valve replacement, orthopedic, other, other Additional surgical history: Aortic valve replacement - Social History Smoking Status: Never smoker Smokeless Tobacco Status: No Alcohol use: none Drug use: none - Family History Mother Hx Family Endocrine Disorder: Yes (DM) Medications and Allergies Donepezil [Aricept] 10 mg PO HS 10/28/16 [History] Lisinopril [Zestril] 20 mg PO DAILY 10/28/16 [History] Memantine HCl [Namenda Xr] 28 mg PO DAILY 10/28/16 [History] Multivitamin [Multi-Day Vitamins] 1 tab PO DAILY 10/28/16 [History] Simvastatin [Zocor] 20 mg PO HS 10/28/16 [History] Furosemide [Lasix] 40 mg PO DAILY 04/13/17 [History] Cholecalciferol (D-3) [Vitamin D] 1,000 unit PO DAILY 09/01/17 [History] Magnesium Oxide [Magnesium] 800 mg PO BID 09/01/17 [History] Metoprolol [Lopressor] 25 mg PO BID 09/01/17 [History] Trazodone HCl 50 mg PO HS 09/01/17 [History] hydrALAZINE [HydrALAZINE] 25 mg PO TID 09/01/17 [History] Apixaban [Eliquis] 5 mg PO BID 05/12/18 [History] Fluticasone/Salmeterol [Advair 250-50 Diskus] 1 puff IH BID 05/12/18 [History] Insulin NPH Hum/Reg Insulin Hm [Novolin 70-30 100 Unit/ml Vial] 11 - 16 unit SQ BID 05/12/18 [History] 3 Allergy/AdvReac Type Severity Reaction Status Date / Time Iodinated Contrast- Oral and Allergy See Verified 12/29/17 18:30 IV Dye Comments Penicillins Allergy See Verified 12/29/17 18:30 Comments Palliative Care-Exam - Constitutional Vitals: Temp Pulse Resp BP Pulse Ox 98 F 78 15 104/42 96 05/16/18 11:31 05/16/18 11:31 05/16/18 11:31 05/16/18 11:31 05/16/18 11:31 General appearance: Present: no acute distress Internal Medicine - CN: Reslt - Labs CBC & Chem 7: 05/16/18 03:56 05/16/18 03:56 Labs: Short CBC 05/16/18 Range/Units 03:56 WBC 8.4 (4.3-11.1) K/mcL Hgb 7.5 L (11.5-15.4) g/dL Hct 23.1 L (35.3-44.9) % Plt Count 180 (140-400) K/mcL BMP 05/16/18 03:56 Sodium 137 Potassium 4.4 Chloride 104 Carbon Dioxide 29 BUN 21 Creatinine 1.12 Glucose 151 H Calcium 8.4 L Consult Discharge Plan - Plan Referrals: Rizwan Palma MD [Primary Care Provider] - 05/21/18 10:00 am Palliative Quality Palliative Quality: Screen for Code Status: Yes, Screen for Goals of Care: Yes, Screen for Pain: Yes, If Pain Regimen Started, Initiate Bowel Regimen: NA, Screen for Nausea/Vomitting: Yes Code Status: 05/14/18 12:23 DNR [Resuscitation Status: Active] [RES] Routine Comment: Resuscitation Status: DNR-Comfort Care 05/15/18 09:13 DNR [Resuscitation Status: Active] [RES] Routine Comment: Resuscitation Status: [id number]
[2018-05-16] MEDS ORDERED: Furosemide 20 MG/2 ML VIAL IVP ONE (17:00)
[2018-05-16] MEDS: traZODone 50 MG TABLET PO SCH (21:57)
[2018-05-17 04:51] LABS: Hematocrit 26.9 % (35.3-44.9); Hemoglobin 8.7 g/dL (11.5-15.4); Mean Corpuscular HGB Conc 32.3 g/dL (31.6-35.5); Mean Corpuscular Hemoglobin 27.4 pg (28.0-33.3); Mean Corpuscular Volume 84.9 fL (83.0-100.0); Mean Platelet Volume 11.6 fL (9.4-12.4); Platelet Count 185 K/mcL (140-400); Red Blood Count 3.17 M/mcL (3.82-4.97); Red Cell Distribution Width 14.9 % (11.5-14.5)
[2018-05-17 05:05] LABS: Calcium 8.5 mg/dL (8.6-10.3); Magnesium 2.2 mg/dL (1.6-2.6); Potassium 3.8 mEq/L (3.5-5.1)
[2018-05-17] MEDS: Pantoprazole 40 MG VIAL IVP SCH ×2 (06:58→16:42)
[2018-05-17] MEDS: Budesonide/Formoterol 80/4.5 MDI IH SCH ×2 (07:51→20:17)
[2018-05-17] MEDS: Sucralfate 1 GM TABLET PO SCH ×4 (08:34→20:46)
[2018-05-17] MEDS: Cholecalciferol (D-3) 1,000 UNIT TABLET PO SCH (08:34)
[2018-05-17] MEDS: Magnesium Oxide 400 MG TABLET PO SCH ×2 (08:34→20:46)
[2018-05-17] MEDS: Multivit/Ca/Min/Fe/FA 1 TAB TABLET PO SCH (08:34)
[2018-05-17] MEDS: Insulin LISPRO 300 UNITS/3 ML VIAL SQ SCH ×4 (08:36→20:47)
--- NOTE | 2018-05-17 09:18 | Event Note ---
Date of Encounter: 05/17/18 Time of Encounter: 09:10 Patient awake and alert, up to bathroom. Bleeding scan yesterday negative. Hgb stable at 8.7. Appears that bowel movements are now brown in color. Spoke with , he states she is expected to discharge tomorrow. Discussed if they would need DNR state form for discharge, he states they have one with their advanced directives, and declined need to fill another our. Denies any needs on discharge. Palliative not currently managing any symptoms and will sign off. Thank you for the consult. Please call if needed.
--- NOTE | 2018-05-17 09:37 | Internal Med Progress Note ---
<Mellissa Bustillos Rj - Last Filed: 05/17/18 15:06> Hospitalist Progress Note - Encounter Date of Encounter: 05/17/18 Time of Encounter: 09:33 - Subjective Interval History: Pt examined in bed this morning, her and 2 sons were in the room with her. She states that she is in no pain. reports that she is the best he has seen her yet. She had a bowel movement last night that showed no blood. She denies any chest pain, shortness of breath, abdominal pain or hemoptysis. She is in a very good mood this morning and says she is ready to go home as soon as we tell her she can. She has no complaints and is currently resting in bed comfortably. - Exam Vitals: Temp Pulse Resp BP Pulse Ox 98.8 F 74 16 122/56 96 05/17/18 07:00 05/17/18 07:00 05/17/18 07:51 05/17/18 07:00 05/17/18 07:51 Exam: Gen - AAOx3, no acute distress CV - RRR, normal S1 and S2 Resp - CTAB, no wheezing/rales/ronchi GI - Soft, NT/ND, no masses Skin - Warm, dry, no lesions Ext - no LE edema, no calf tenderness - Assessment and Plan (1) Acute GI bleeding Current Visit: Yes Status: Acute Assessment and Plan: - Hgb up to 8.7 this morning and pt has a non-bloody BM last night - 1 unit of PRBC transfused yesterday - bleeding scan performed and found no acute/active bleeding in abdomen - pt stable currently - monitor h/h overnight and d/c tomorrow if stable (2) Melena Current Visit: Yes Status: Acute Assessment and Plan: - patient had a non bloody BM last night - H/H stable this morning - bleeding scan found no active abdominal bleeds (3) Symptomatic anemia Current Visit: Yes Status: Acute Assessment and Plan: - Hgb up to 8.7 after receiving 1 unit of PRBC yesterday - pt asymptomatic currently - monitor H/H (4) Diabetes mellitus Current Visit: Yes Status: Chronic Assessment and Plan: - Continue accuchecks and low dose SSI Q6H. (5) Chronic diastolic CHF (congestive heart failure) Current Visit: Yes Status: Chronic Assessment and Plan: - pt appear euvolemic - No dyspnea today; continue home medications (6) CLEMENT (acute kidney injury) Current Visit: Yes Status: Resolved - Summary of Assessment and Plan Summary of Assessment and Plan: Bleeding scan completed yesterday and no active bleeding site was identified. Pt had a non-bloody BM last night. Her Hbg is up to 8.7 this morning after receiving 1 unit of PRBC yesterday. Will continue to monitor patient H/H and d/ c when stable. - Time Spent with Patient Total time spent is greater than 50% in coordination of care (as documented) at patient's floor/unit and/or counseling patient: Internal Medicine: Result - Labs CBC & Chem 7: 05/17/18 03:41 05/17/18 03:41 Labs: Short CBC 05/17/18 Range/Units 03:41 WBC 7.8 (4.3-11.1) K/mcL Hgb 8.7 L (11.5-15.4) g/dL Hct 26.9 L (35.3-44.9) % Plt Count 185 (140-400) K/mcL BMP 05/17/18 03:41 Sodium 138 Potassium 3.8 Chloride 104 Carbon Dioxide 28 BUN 12 Creatinine 1.23 H Glucose 134 H Calcium 8.5 L - Impressions Impressions GI Bleed Scan Nuclear Medicine 05/16/18 12:45 IMPRESSION: No evidence of active GI bleeding during acquisition. RECOMMENDATIONS: If the patient shows hemodynamic signs of an active bleed in the next 20 hours, additional images can be acquired. D/ / 05/16/2018 14:22:26 Andres Owens MD / [facility] Interpreting Provider: Andres Owens MD - VTE Reasons for not Prescribing Prophylaxis: Medical contraindication (Acute GI Bleed, Anemia) Documentation of Mechanical Device: Intermittent pneumatic compression device Consult Discharge Plan - Plan Referrals: Rizwan Palma MD [Primary Care Provider] - 05/21/18 10:00 am <Ab Whelan - Last Filed: 05/17/18 18:39> Hospitalist Progress Note - Encounter Date of Encounter: 05/17/18 - Exam Vitals: Temp Pulse Resp BP Pulse Ox 99.9 F H 82 16 126/74 91 05/17/18 16:18 05/17/18 16:18 05/17/18 07:51 05/17/18 16:18 05/17/18 16:18 - Assessment and Plan (1) Melena Current Visit: Yes Status: Acute (2) Anemia Current Visit: Yes Status: Acute (3) HTN (hypertension) Current Visit: Yes Status: Chronic (4) Diabetes mellitus Current Visit: Yes Status: Chronic (5) DVT prophylaxis Current Visit: Yes Status: Acute (6) History of pulmonary embolism Current Visit: Yes Status: Chronic (7) Dementia Current Visit: Yes Status: Chronic (8) S/P aortic valve replacement with bioprosthetic valve Current Visit: Yes Status: Chronic (9) Symptomatic anemia Current Visit: Yes Status: Acute (10) Acute GI bleeding Current Visit: Yes Status: Acute (11) Chronic diastolic CHF (congestive heart failure) Current Visit: Yes Status: Chronic (12) CLEMENT (acute kidney injury) Current Visit: Yes Status: Resolved - Time Spent with Patient Total time spent is greater than 50% in coordination of care (as documented) at patient's floor/unit and/or counseling patient: Internal Medicine: Result - Labs CBC & Chem 7: 05/17/18 03:41 05/17/18 03:41 Labs: Short CBC 05/17/18 Range/Units 03:41 WBC 7.8 (4.3-11.1) K/mcL Hgb 8.7 L (11.5-15.4) g/dL Hct 26.9 L (35.3-44.9) % Plt Count 185 (140-400) K/mcL BMP 05/17/18 03:41 Sodium 138 Potassium 3.8 Chloride 104 Carbon Dioxide 28 BUN 12 Creatinine 1.23 H Glucose 134 H Calcium 8.5 L - Attending Attestation The history, physical exam, and medical decision making was performed by the medical student either while I was physically present and actively involved or I personally re-performed the exam and medical decision making. I have verified the accuracy of the medical student's documentation with regards to the history, physical exam findings, and medical decision making on 05/17/18. Ms Huerta is currently admitted for acute GI bleed and anemia. She remains moderate to high risk due to potential for worsening clinical status. Ms Huerta is feeling OK. H/H improved and stable this AM. No further bleeding noted. No CP or SOB. No fever or chills. Exam alert Comfortable Mucus membranes dry Heart distant and not tachy No wheeze Abd soft and nontender Poor short term memory No rash. I/P 1. GI bleed - most likely diverticular 2. Anemia recheck labs Further diagnoses and plan as above If remains stable anticipate d/c tomorrow. <Mellissa Bustillos L - Last Filed: 05/17/18 15:06> (4) Diabetes mellitus Qualifiers: Diabetes mellitus type: type 2 Diabetes mellitus custodial insulin use: with custodial use Diabetes mellitus complication status: without complication Qualified Code(s): E11.9 - Type 2 diabetes mellitus without complications; Z79.4 - prison (current) use of insulin <Ab Whelan A - Last Filed: 05/17/18 18:39> (2) Anemia Qualifiers: Anemia type: other cause Other causes of anemia: acute posthemorrhagic Qualified Code(s): D62 - Acute posthemorrhagic anemia (3) HTN (hypertension) Qualifiers: Hypertension type: essential hypertension Qualified Code(s): I10 - Essential (primary) hypertension (4) Diabetes mellitus Qualifiers: Diabetes mellitus type: type 2 Diabetes mellitus termite control representative insulin use: with termite control representative use Diabetes mellitus complication status: without complication Qualified Code(s): E11.9 - Type 2 diabetes mellitus without complications; Z79.4 - prison (current) use of insulin (7) Dementia Qualifiers: Dementia type: Alzheimer's disease Alzheimer's disease onset: late-onset Dementia behavioral disturbance: without behavioral disturbance Qualified Code( s): G30.1 - Alzheimer's disease with late onset; F02.80 - Dementia in other diseases classified elsewhere without behavioral disturbance
[2018-05-17] MEDS ORDERED: Furosemide 20 MG/2 ML VIAL IVP ONE (17:00)
[2018-05-17 20:35] LABS: Hematocrit 30.4 % (35.3-44.9); Hemoglobin 9.7 g/dL (11.5-15.4)
[2018-05-17] MEDS: traZODone 50 MG TABLET PO SCH (20:46)
[2018-05-18] MEDS: Budesonide/Formoterol 80/4.5 MDI IH SCH (08:05)
[2018-05-18 08:07] VITALS: BP 121/57
--- NOTE | 2018-05-18 08:19 | Discharge Summary ---
<Mellissa Bustillos Rj - Last Filed: 05/18/18 08:43> Orders not resulted at time of discharge: Pending orders 05/18/18 08:01 Hemoglobin and Hematocrit [HEME] Timed Date of Encounter: 05/18/18 Time of Encounter: 08:18 - Discharge Diagnosis (1) Acute GI bleeding Priority: Primary Status: Acute (2) Melena Status: Acute (3) Symptomatic anemia Status: Acute (4) Diabetes mellitus Status: Chronic Qualifiers: Diabetes mellitus type: type 2 Diabetes mellitus moth exterminator insulin use: with moth exterminator use Diabetes mellitus complication status: without complication Qualified Code(s): E11.9 - Type 2 diabetes mellitus without complications; Z79.4 - exterminator (current) use of insulin (5) Chronic diastolic CHF (congestive heart failure) Status: Chronic (6) CLEMENT (acute kidney injury) Status: Resolved Hospital course: Mrs. Huerta is a 82 year old female who was admitted to the hospital for evaluation of chest pain, worsening fatigue and shortness of breath. Patient was accompanied by her , who also helps provide history. Patient has a past medical history that includes CHF, CCOPD, dementia, diabetes, GI bleeds, HTN, pulmonary embolus, and valvular heart disease with a aortic valve replacement. states that patient is DNR-CCA-DNI, and patient agrees with this. Her stated that she looked pale and tired and could not walk far without stopping to catch her breath, so he brought her in to the ED because she has a history of GI bleeds. Last GI bleed was after heart valve replacement surgery in July 2017. She takes eliquis at home, but both patient and are unclear if it is for pulmonary embolism, artificial heart valve, or both. She had EGD during last hospitalization for GI bleed. She had mild chest pain that she describes as "tightness." In the ED, hemoccult was positive. Labwork was significant for hemoglobin 5.0, creatinine 1.40, and pBNP of 683. EKG showed sinus bradycardia with some T wave changes, but no ST elevation. CXR showed small left pleural effusion, but otherwise clear lungs. Transfusion was began with 2 units of PRBC and GI and Surgery was consulted for an active GI bleed. Lasix was given inbetween the transfusions due to history of CHF. CTA of abdomen and pelvis was completed and was negative for any acute changes. Surgery recommended a colonoscopy to find source of acute GI bleed, patient and initially refused this because they say every time she goes under anesthesia her dementia worsens and if they were to find something with scope they would not want surgery. Patient continued to have melena and her H/H dropped again overnight. She was transfused again with 2 units of PRBCs, home eliquis was held, and palliative was consulted. Patients shortness of breath and fluid overload improved with transfusion and Lasix. Palliative talked with patient and family and they agreed that if surgery was necessary then the patient agreed to it because she was not ready to pass away. Pt had another episode of bleeding per rectum and her hgb dropped again so she was given 1 unit of PRBC and sent for a nuclear medicine bleeding scan. The bleeding scan was negative and patient h/h stabilized. Patient was monitored for further bleeding which seems to have resolved. Patient to be discharged to home under the care of her and family. - Time Spent with Patient Total time spent providing and/or coordinating discharge services: - Discharge Medications Prescriptions: Omeprazole [PriLOSEC] 40 mg PO DAILY #30 cap Sucralfate [Carafate] 1 gm PO QIDAC #120 tablet Home Medications: Donepezil [Aricept] 10 mg PO HS 10/28/16 [History] Lisinopril [Zestril] 20 mg PO DAILY 10/28/16 [History] Memantine HCl [Namenda Xr] 28 mg PO DAILY 10/28/16 [History] Multivitamin [Multi-Day Vitamins] 1 tab PO DAILY 10/28/16 [History] Simvastatin [Zocor] 20 mg PO HS 10/28/16 [History] Furosemide [Lasix] 40 mg PO DAILY 04/13/17 [History] Cholecalciferol (D-3) [Vitamin D] 1,000 unit PO DAILY 09/01/17 [History] Magnesium Oxide [Magnesium] 800 mg PO BID 09/01/17 [History] Metoprolol [Lopressor] 25 mg PO BID 09/01/17 [History] Trazodone HCl 50 mg PO HS 09/01/17 [History] hydrALAZINE [HydrALAZINE] 25 mg PO TID 09/01/17 [History] Fluticasone/Salmeterol [Advair 250-50 Diskus] 1 puff IH BID 05/12/18 [History] Insulin NPH Hum/Reg Insulin Hm [Novolin 70-30 100 Unit/ml Vial] 11 - 16 unit SQ BID 05/12/18 [History] Omeprazole [PriLOSEC] 40 mg PO DAILY #30 cap 05/18/18 [Rx] Sucralfate [Carafate] 1 gm PO QIDAC #120 tablet 05/18/18 [Rx] Allergies/Adverse Reactions: 3 Allergy/AdvReac Type Severity Reaction Status Date / Time Iodinated Contrast- Oral and Allergy See Verified 12/29/17 18:30 IV Dye Comments Penicillins Allergy See Verified 12/29/17 18:30 Comments Date of admission: 05/12/18 16:11 Primary care physician: Rizwan Palma MD Consults: 05/12/18 17:21 Consult to Palliative Care [CONS] Routine Comment: Consulting Provider: [facility] Reason for Consult: GI Bleed/Anemia, Dementia Call Completed: No - Constitutional Vitals: Temp Pulse Resp BP Pulse Ox 97.9 F 61 16 121/57 94 05/18/18 08:00 05/18/18 08:00 05/18/18 08:00 05/18/18 08:00 05/18/18 08:00 General appearance: Present: cooperative, A&O X 3, pleasant, answers questions appropriately - Patient Status Disposition: Home, Self-Care Condition: Good - Discharge Instructions Instructions: Sucralfate (By mouth), Omeprazole (By mouth), Gastrointestinal Bleeding (DC) Follow Up With: Rizwan Palma MD [Primary Care Provider] - 05/21/18 10:00 am Additional Instructions: As tolerated. Up with assist. Keep eye out for black or bright red bowel movements. Hold Eliquis until seen by PCP. We electronically sent your [facility] to [facility]'s. - VTE Reasons for not Prescribing Prophylaxis: Medical contraindication (Acute GI Bleed, Anemia) Documentation of Mechanical Device: Intermittent pneumatic compression device <Ab Whelan - Last Filed: 05/18/18 16:39> - NOTES TO OUTPATIENT PROVIDER Notes to Outpatient Provider: Pt admitted with acute LGI bleed. Transfused. Bleeding stopped spontaneously. No intervention done. Date of Encounter: 05/18/18 - Discharge Diagnosis (1) Melena Priority: Primary Status: Acute (2) Diverticular hemorrhage Priority: Secondary Status: Suspected (3) Anemia Priority: Secondary Status: Acute Qualifiers: Anemia type: other cause Other causes of anemia: acute posthemorrhagic Qualified Code(s): D62 - Acute posthemorrhagic anemia (4) HTN (hypertension) Priority: Secondary Status: Chronic Qualifiers: Hypertension type: essential hypertension Qualified Code(s): I10 - Essential (primary) hypertension (5) Diabetes mellitus Priority: Secondary Status: Chronic Qualifiers: Diabetes mellitus type: type 2 Diabetes mellitus nursing home insulin use: with nursing home use Diabetes mellitus complication status: without complication Qualified Code(s): E11.9 - Type 2 diabetes mellitus without complications; Z79.4 - exterminator (current) use of insulin (6) History of pulmonary embolism Status: Chronic (7) Dementia Priority: Secondary Status: Chronic Qualifiers: Dementia type: Alzheimer's disease Alzheimer's disease onset: late-onset Dementia behavioral disturbance: without behavioral disturbance Qualified Code (s): G30.1 - Alzheimer's disease with late onset; F02.80 - Dementia in other diseases classified elsewhere without behavioral disturbance (8) S/P aortic valve replacement with bioprosthetic valve Priority: Secondary Status: Chronic (9) Chronic diastolic CHF (congestive heart failure) Priority: Secondary Status: Chronic Hospital course: Ms. Huerta is a 82 year old female Discharge discussed with: patient, family - Time Spent with Patient Total time spent providing and/or coordinating discharge services: 39min Date of admission: 05/12/18 16:11 Primary care physician: Rizwan Palma MD Consults: 05/12/18 17:21 Consult to Palliative Care [CONS] Routine Comment: Consulting Provider: [facility] Reason for Consult: GI Bleed/Anemia, Dementia Call Completed: No Discharging clinician: Ab Whelan Anticipated date of discharge: 05/18/18 - Constitutional Vitals: Temp Pulse Resp BP Pulse Ox 97.9 F 61 18 121/57 94 05/18/18 08:00 05/18/18 08:00 05/18/18 08:05 05/18/18 08:00 05/18/18 08:05 - Patient Status Functional capacity at discharge: independent ambulation Overall status at discharge: patient is progressing back to baseline - Diet and Activity Activity: increase activity as tolerated Diet: advance to your usual diet - Attending Attestation The history, physical exam, and medical decision making was performed by the medical student either while I was physically present and actively involved or I personally re-performed the exam and medical decision making. I have verified the accuracy of the medical student's documentation with regards to the history, physical exam findings, and medical decision making on . Ms Huerta has been admitted for acute LGI bleed presumed to be diverticular. She has been transfused and her H/H is now stable. Bleeding appears to have stopped and stool is brown. She is afebrile and ready for discharge home. Exam Alert Comfortable Mucus membranes dry Heart not tachy No wheeze abd soft No rash No edema Very poor short term memory. Plan D/C home. Follow up with PCP as scheduled. Hold anticoagulant till see PCP.
[2018-05-18 08:20] LABS: Hematocrit 28.7 % (35.3-44.9); Hemoglobin 8.9 g/dL (11.5-15.4)
[2018-05-18] MEDS: Cholecalciferol (D-3) 1,000 UNIT TABLET PO SCH (09:04)
[2018-05-18] MEDS: Sucralfate 1 GM TABLET PO SCH (09:04)
[2018-05-18] MEDS: Magnesium Oxide 400 MG TABLET PO SCH (09:04)
[2018-05-18] MEDS: Insulin LISPRO 300 UNITS/3 ML VIAL SQ SCH (09:05)
[2018-05-18] MEDS: Multivit/Ca/Min/Fe/FA 1 TAB TABLET PO SCH (09:05)
[2018-05-18] MEDS: Pantoprazole 40 MG VIAL IVP SCH (09:06)
== END 2018-05-18 11:31 | disposition home or self-care (01) | DRG 378 ==
LOC: 2NENU 11:17 → EMEROO 11:17 → 2NENU 15:24 → SUATTDRO 16:11
PROVIDERS: ADMIT Family Medicine; ATTEND Internal Medicine

== ENCOUNTER 2018-05-19 17:50 | Inpatient (IN) ==
[2018-05-19] MEDS ORDERED: 0.9 % Sodium Chloride 1,000 ML IVC ONE (18:16)
--- NOTE | 2018-05-19 18:47 | Emergency Department Note ---
Disposition Clinical Impression: Weakness Disposition: Still a Patient Condition: Fair Referrals: Rizwan Palma MD [Primary Care Provider] - Time of Disposition: 18:53 General Adult HPI - General Chief complaint: ED Weakness Stated complaint: "pale,cough,back pain" Time Seen by Provider: 05/19/18 17:59 Source: patient, family Limitations: no limitations, altered mental status Nursing Notes Reviewed: Yes Vital Signs Reviewed: Yes - History of Present Illness HPI Narrative: Patient presents emergency room after being discharged yesterday. Since going home she is been very weak and cannot take care of herself. Patient has baseline dementia. She was seen and evaluated here for severe anemia. Since going home patient has had trouble or decline in her health according to family are concerned about her back in the emergency room for evaluation. Onset (ago): day(s) Radiation: non-radiation Pain Scale: 0 Consistency: Worsening Improves with: rest Worsens with: nothing Associated symptoms: Reports: weakness Treatments Prior to Arrival: none - Related Data Home Medications Medication Instructions Recorded Confirmed Donepezil [Aricept] 10 mg PO HS 10/28/16 05/12/18 Lisinopril [Zestril] 20 mg PO DAILY 10/28/16 05/12/18 Memantine HCl [Namenda Xr] 28 mg PO DAILY 10/28/16 05/12/18 Multivitamin [Multi-Day Vitamins] 1 tab PO DAILY 10/28/16 05/12/18 Simvastatin [Zocor] 20 mg PO HS 10/28/16 05/12/18 Furosemide [Lasix] 40 mg PO DAILY 04/13/17 05/12/18 Cholecalciferol (D-3) [Vitamin D] 1,000 unit PO DAILY 09/01/17 05/12/18 Magnesium Oxide [Magnesium] 800 mg PO BID 09/01/17 05/12/18 Metoprolol [Lopressor] 25 mg PO BID 09/01/17 05/12/18 Trazodone HCl 50 mg PO HS 09/01/17 05/12/18 hydrALAZINE [HydrALAZINE] 25 mg PO TID 09/01/17 05/12/18 Fluticasone/Salmeterol [Advair 1 puff IH BID 05/12/18 05/12/18 250-50 Diskus] Insulin NPH Hum/Reg Insulin Hm 11 - 16 unit SQ BID 05/12/18 05/12/18 [Novolin 70-30 100 Unit/ml Vial] Previous Rx's Medication Instructions Recorded Omeprazole [PriLOSEC] 40 mg PO DAILY #30 cap 05/18/18 Sucralfate [Carafate] 1 gm PO QIDAC #120 tablet 05/18/18 Allergies Allergy/AdvReac Type Severity Reaction Status Date / Time Iodinated Contrast- Oral and Allergy See Verified 12/29/17 18:30 IV Dye Comments Penicillins Allergy See Verified 12/29/17 18:30 Comments All systems ED: reviewed and negative except as stated. Review of Systems: As Per HPI Limitations: ROS unobtainable due to patients medical condition Constitutional: Reports: weakness. Denies: fever, chills Cardiovascular: Denies: chest pain, palpitations, dyspnea on exertion, orthopnea Respiratory: Denies: cough, dyspnea, wheezes Gastrointestinal: Denies: nausea, vomiting, diarrhea Genitourinary: Denies: urgency, dysuria, frequency Musculoskeletal: Denies: neck pain Integumentary: Denies: rash Neurological: Denies: headache, weakness Endocrine: Reports: fatigue Past Medical History - Past Medical History Attestation: Yes The following information was validated with the patient. Source: old records reviewed, obtained from family Medical history: Reports: CHF, COPD, dementia, diabetes, GI bleed, hypertension , pulmonary embolus, valvular heart disease Surgical history: Reports: heart valve replacement, orthopedic, other, other Psychiatric history: Reports: no psych history SPECIAL EDUCATION SECRETARY history: Reports: no SPECIAL EDUCATION SECRETARY history - Social History Smoking Status: Never smoker Smokeless Tobacco Status: No Alcohol use: Reports: none Drug use: Reports: none Physical Exam - General Limitations: altered mental status General appearance: lethargic - Head Head exam: atraumatic, normocephalic, normal inspection - Eye Eye exam: Present: normal appearance, PERRL, EOMI, other - ENT ENT exam: normal exam, normal oropharynx, mucous membranes moist - Neck Neck exam: Present: normal inspection, full ROM, trachea midline. Absent: tenderness - Chest Chest inspection: Present: normal inspection, symmetric chest wall rise. Absent : tenderness - Respiratory Respiratory exam: Present: normal lung sounds bilaterally - Cardiovascular Cardiovascular exam: Present: regular rate, normal rhythm, normal heart sounds - Abdominal Exam Abdominal exam: Present: soft, Non-Tender. Absent: tenderness, distention, guarding, rebound, rigidity - Extremities Exam Extremities exam: Present: normal inspection, full ROM. Absent: tenderness, pedal edema - Back Exam Back exam: Present: normal inspection, full ROM, tenderness - Neurological Exam Neurological exam: Present: alert, CN II-XII intact - Skin Skin exam: Present: warm, dry, intact, pallor Course Course Narrative: Patient seen and examined the time of arrival. See history of present illness. Patient is a pleasantly demented 82-year-old female presents with pale appearing skin generalized malaise. Patient was just discharged from the hospital yesterday after being evaluated for anemia and GI bleed of unknown origin. Patient has hypotension on arrival but she is not bradycardic. Single liter of fluid was ordered. Patient is alert and answers questions appropriately at the bedside. Pupils are round reactive oropharynx is patent conjunctiva is pale. Oral mucosa shows pale pallor to the sub-lingual area of the tongue. She has no stridor no trismus heart is regular abdomen is soft. Patient is still following commands appropriately and moves all 4 extremities without any difficulty this time. Patient will have screening evaluation a CBC chemistry type and screen troponin EKG and chest x-ray ordered at this time. Patient will most every required admission. She did have a tagged red blood cell test completed last time during the hospital stay was negative for bleed. They held off on colonoscopy and EGD secondary to the patient's comorbid medical issues as well as being on Eliquis. She will be signed out to the overnight physician Dr. Martinez for continuation of care most likely admission. No other acute issues at this time. Vital Signs Temperature 98.6 F 05/19/18 17:52 Pulse Rate 58 05/19/18 17:52 Respiratory Rate 18 05/19/18 17:52 Blood Pressure 84/52 05/19/18 17:52 O2 Sat by Pulse Oximetry 94 05/19/18 17:52 Temperature 98.6 F 05/19/18 18:15 Pulse Rate 57 05/19/18 18:20 Respiratory Rate 15 05/19/18 18:20 Blood Pressure 96/42 05/19/18 18:20 O2 Sat by Pulse Oximetry 96 05/19/18 18:20 Oxygen Delivery Oxygen Delivery Room Air Medical Decision Making - MDM Narrative Medical decision making narrative: Weakness, - Medical Records Medical records reviewed: Yes I reviewed the patient's medical records. - Lab Data Lab results reviewed: Yes I reviewed the patient's lab results. - Radiology Data Radiology results reviewed: Yes I reviewed the patient's radiology results. - EKG Data EKG #1 EKG attestation: Yes I reviewed and interpreted this EKG. EKG results narrative: EKG shows sinus rhythm. No acute signs of ST segment elevation or abnormality. Intervals show heart rate of 56. CA interval 170. QRS duration of 103. QT duration of 448. QTC of 433. Compared to EKG of 05/02/18 that shows no acute changes or abnormality.
[2018-05-19 18:51] LABS: Basophils % 0.2 %; Eosinophils # 0.2 K/mcL (0.0-0.6); Eosinophils % 1.7 %; Hematocrit 30.5 % (35.3-44.9); Hemoglobin 9.6 g/dL (11.5-15.4); Immature Granulocytes % 0.4 % (0-4); Lymphocytes # 1.3 K/mcL (0.6-4.6); Lymphocytes % 11.6 %; Mean Corpuscular HGB Conc 31.5 g/dL (31.6-35.5); Mean Corpuscular Hemoglobin 27.5 pg (28.0-33.3); Mean Corpuscular Volume 87.4 fL (83.0-100.0); Mean Platelet Volume 11.2 fL (9.4-12.4); Monocytes # 0.7 K/mcL (0.0-1.3); Monocytes % 5.8 %; Platelet Count 226 K/mcL (140-400); Red Blood Count 3.49 M/mcL (3.82-4.97); Red Cell Distribution Width 14.9 % (11.5-14.5); Segmented Neutrophils % 80.3 %
[2018-05-19 18:57] LABS: INR 1.2
[2018-05-19 18:59] LABS: Activated Partial Thrombo Time 24.1 Seconds (26.0-36.0)
[2018-05-19 19:08] LABS: Troponin I 0.03 ng/mL (< 0.04)
[2018-05-19 19:09] LABS: Albumin 3.3 g/dL (3.5-5.7); Albumin/Globulin Ratio 1.4 (1.1-2.2); Bilirubin,Total 0.4 mg/dL (0.3-1.0); Globulin 2.4 g/dL (2.4-3.5); Potassium 3.9 mEq/L (3.5-5.1); Total Protein 5.7 g/dL (6.4-8.9)
--- NOTE | 2018-05-19 19:14 | Emergency Department Note ---
Disposition Clinical Impression: Weakness, Positive fecal occult blood test, Acute kidney injury Disposition: Admitted As Inpatient Condition: Fair Time of Disposition: 04:28 General Adult HPI - General Chief complaint: ED Weakness Stated complaint: "pale,cough,back pain" Time Seen by Provider: 05/19/18 17:59 Source: patient, family Limitations: altered mental status Nursing Notes Reviewed: Yes Vital Signs Reviewed: Yes - History of Present Illness HPI Narrative: 82yo female presents from home with bedside for evaluation of genearalized weakness, pale complexion, and interscapular back pain. Patient is ambulatory without assistance at baseline (a shuffling gait) however has been too weak to stand. Her complexion is more pale than at discharge 2days ago for lower GI bleed. Her interscapular pain is mild and she has difficulty describing it, onset 3 days ago. There is associated mild dry cough. Patient has had two bowel movements since discharge; she is not able to describe them and her family did not see them. She does have baseline dementia making her a poor historian however her and son at bedside are providing history. She was discharged from this facility 2 days ago for lower GI bleed with bright red blood and clots in her stool. Initially admitted with hemoglobin around 5. Received 5u PRBC in total. The medical team advised her family to come in from around the country to say their goodbyes. She was discharged home with suspicion of diverticulosis. Per the , surgery offered to perform a colonoscopy which was initially refused by the family. When family eventually agreed to colonoscopy, the medical team thought the risks to be too high and deferred the procedure. As such, she has not had a colonoscopy. Family is now agreeable to doing, "whatever is necessary to keep her alive." She is DNR-CCA- DNI however they are agreeable to signing a temporary change in code status should surgery be required. PMH: Patient was on Eliquis 5mg PO BID; last dose 7 days ago. 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 Remote back surgery. ROS: Pos: as above. Dry cough. Neg: fever, chills, nausea, vomiting, chest pain, palpitations, abdominal pain Unknown: melena, hematochezia Pain Scale: 0 Improves with: rest Worsens with: nothing Associated symptoms: Reports: weakness Treatments Prior to Arrival: none - Related Data Home Medications Medication Instructions Recorded Confirmed Donepezil [Aricept] 10 mg PO HS 10/28/16 05/12/18 Lisinopril [Zestril] 20 mg PO DAILY 10/28/16 05/12/18 Memantine HCl [Namenda Xr] 28 mg PO DAILY 10/28/16 05/12/18 Multivitamin [Multi-Day Vitamins] 1 tab PO DAILY 10/28/16 05/12/18 Simvastatin [Zocor] 20 mg PO HS 10/28/16 05/12/18 Furosemide [Lasix] 40 mg PO DAILY 04/13/17 05/12/18 Cholecalciferol (D-3) [Vitamin D] 1,000 unit PO DAILY 09/01/17 05/12/18 Magnesium Oxide [Magnesium] 800 mg PO BID 09/01/17 05/12/18 Metoprolol [Lopressor] 25 mg PO BID 09/01/17 05/12/18 Trazodone HCl 50 mg PO HS 09/01/17 05/12/18 hydrALAZINE [HydrALAZINE] 25 mg PO TID 09/01/17 05/12/18 Fluticasone/Salmeterol [Advair 1 puff IH BID 05/12/18 05/12/18 250-50 Diskus] Insulin NPH Hum/Reg Insulin Hm 11 - 16 unit SQ BID 05/12/18 05/12/18 [Novolin 70-30 100 Unit/ml Vial] Previous Rx's Medication Instructions Recorded Omeprazole [PriLOSEC] 40 mg PO DAILY #30 cap 05/18/18 Sucralfate [Carafate] 1 gm PO QIDAC #120 tablet 05/18/18 Allergies Allergy/AdvReac Type Severity Reaction Status Date / Time Iodinated Contrast- Oral and Allergy See Verified 12/29/17 18:30 IV Dye Comments Penicillins Allergy See Verified 12/29/17 18:30 Comments All systems ED: reviewed and negative except as stated. Review of Systems: As Per HPI Constitutional: Reports: weakness. Denies: fever, chills Cardiovascular: Denies: chest pain, palpitations, dyspnea on exertion, orthopnea Respiratory: Denies: cough, dyspnea, wheezes Gastrointestinal: Denies: nausea, vomiting, diarrhea Genitourinary: Denies: urgency, dysuria, frequency Musculoskeletal: Denies: neck pain Integumentary: Denies: rash Neurological: Denies: headache, weakness Endocrine: Reports: fatigue Past Medical History - Past Medical History Medical history: Reports: CHF, COPD, dementia, diabetes, GI bleed, hypertension , pulmonary embolus, valvular heart disease Surgical history: Reports: heart valve replacement, orthopedic, other, other Psychiatric history: Reports: no psych history DYE RANGE FEEDER history: Reports: no DYE RANGE FEEDER history - Social History Smoking Status: Never smoker Smokeless Tobacco Status: No Alcohol use: Reports: none Drug use: Reports: none Physical Exam Vital Signs Reviewed General: Patient is alert, oriented, and in no acute distress. She appears age- appropriate and pale. Head: atraumatic, normocephalic Eye: normal appearance, PERRL, EOMI, no scleral icterus, no conjunctival injection. Pale conjunctiva. ENT: mucous membranes moist, normal external ear exam Neck: normal inspection, trachea midline, full ROM Chest: normal inspection, symmetric chest rise Respiratory: Good respiratory effort. Bilateral breath sounds are clear without wheezing, crackles, or rhonchi. Cardiovascular: Regular rate and rhythm. No clicks, rubs, gallops, or murmors. Normal heart sounds. Bilateral posterior tibial pulses 2/4 equal. Respiratory edema bilaterally. Abdomen: Bowel sounds present normoactive x-4 quadrants. Abdomen is soft, nondistended, and nontender. No guarding or rebound. No organomegaly noted. Rectal exam: Boiler Reliner present. Appropriate rectal tone. Brown stool on glove fingertip. FOBT submitted. Musculoskeletal: Spontaneously moving all extremities. Skin: warm, dry, intact. Neuro: Alert and oriented x4. Sensation light touch intact. Psych: Patient's affect is appropriate for situation. - General Limitations: altered mental status General appearance: lethargic Course Course Narrative: Patient is clinically pale. Serum hematology shows hemoglobin improved from discharge. Serum chemistry concerning for acute kidney injury. Likely secondary to dehydration as patient's oral mucosa is dry. IV fluids provided. Suspect this will also potentially slightly dilute her hemoglobin. FOBT positive. We will recommend admission for weakness as patient currently cannot ambulate or stand independently. She does live at home alone with her . 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 I discussed the patient with the admitting hospitalist, Dr. Capellan, who agrees to accept the patient for acute kidney injury and weakness. Chest X-Ray 05/19/18 18:16 IMPRESSION: No acute process. D/ / Parvez Pandey MD / Parvez Pandey MD Interpreting Provider: Parvez Pandey MD Vital Signs Temperature 98.6 F 05/19/18 17:52 Pulse Rate 58 05/19/18 17:52 Respiratory Rate 18 05/19/18 17:52 Blood Pressure 84/52 05/19/18 17:52 O2 Sat by Pulse Oximetry 94 05/19/18 17:52 Temperature 97.8 F 05/20/18 00:02 Pulse Rate 54 05/20/18 00:02 Respiratory Rate 15 05/20/18 00:02 Blood Pressure 106/56 05/20/18 00:02 O2 Sat by Pulse Oximetry 96 05/20/18 00:02 Oxygen Delivery Oxygen Delivery Room Air Medical Decision Making - Lab Data Result diagrams: 05/19/18 18:32 05/19/18 18:32 Lab Results 05/19/18 05/19/18 05/19/18 Range/Units 18:32 18:32 18:32 WBC 11.2 H (4.3-11.1) K/mcL RBC 3.49 L (3.82-4.97) M/mcL Hgb 9.6 L (11.5-15.4) g/dL Hct 30.5 L (35.3-44.9) % MCV 87.4 (83.0-100.0) fL MCH 27.5 L (28.0-33.3) pg MCHC 31.5 L (31.6-35.5) g/dL RDW 14.9 H (11.5-14.5) % Plt Count 226 (140-400) K/mcL MPV 11.2 (9.4-12.4) fL Immature Gran % 0.4 (0-4) % Seg Neutrophils % 80.3 % Lymphocytes % 11.6 % Monocytes % 5.8 % Eosinophils % 1.7 % Basophils % 0.2 % Neutrophils # 9.0 H (1.6-8.9) K/mcL Lymphocytes # 1.3 (0.6-4.6) K/mcL Monocytes # 0.7 (0.0-1.3) K/mcL Eosinophils # 0.2 (0.0-0.6) K/mcL Basophils # 0.0 (0.0-0.2) K/mcL PT (9.4-12.1) Seconds INR APTT (26.0-36.0) Seconds Sodium 137 (136-145) mEq/L Potassium 3.9 (3.5-5.1) mEq/L Chloride 102 (98-107) mEq/L Carbon Dioxide 27 (23-29) mEq/L BUN 22 (8-23) mg/dL Creatinine 1.92 H (0.60-1.20) mg/dL Est GFR ( Amer) 30 L (> 60) Est GFR (Non-Af Amer) 25 L (> 60) BUN/Creatinine Ratio 11 (6-26) Glucose 151 H (70-105) mg/dL Calculated Osmolality 290 (280-300) Lactic Acid 0.8 (0.5-2.2) mmol/L Calcium 9.0 (8.6-10.3) mg/dL Total Bilirubin 0.4 (0.3-1.0) mg/dL AST 17 (13-39) Units/L ALT 7 (7-52) Units/L Alkaline Phosphatase 50 (34-104) Units/L Troponin I 0.03 (< 0.04) ng/mL Serum Total Protein 5.7 L (6.4-8.9) g/dL Albumin 3.3 L (3.5-5.7) g/dL Globulin 2.4 (2.4-3.5) g/dL Albumin/Globulin Ratio 1.4 (1.1-2.2) Urine Color (Yellow) Urine Clarity (Clear) Urine pH (5.0-8.0) pH Units Ur Specific [place] (1.010-1.025) Urine Protein (Neg-Trace) mg/dL Urine Glucose (UA) (Normal) mg/dL Urine Ketones (Negative) mg/dL Urine Blood (Negative) Urine Nitrite (Negative) Urine Bilirubin (Negative) Urine Urobilinogen (Normal) mg/dL Ur Leukocyte Esterase (Negative) Ur Culture Indicated? (NO) Stool Occult Bld Scrn (Negative) Specimen Rejected Blood Type Antibody Screen 05/19/18 05/19/18 05/19/18 Range/Units 18:32 18:32 19:11 WBC (4.3-11.1) K/mcL RBC (3.82-4.97) M/mcL Hgb (11.5-15.4) g/dL Hct (35.3-44.9) % MCV (83.0-100.0) fL MCH (28.0-33.3) pg MCHC (31.6-35.5) g/dL RDW (11.5-14.5) % Plt Count (140-400) K/mcL MPV (9.4-12.4) fL Immature Gran % (0-4) % Seg Neutrophils % % Lymphocytes % % Monocytes % % Eosinophils % % Basophils % % Neutrophils # (1.6-8.9) K/mcL Lymphocytes # (0.6-4.6) K/mcL Monocytes # (0.0-1.3) K/mcL Eosinophils # (0.0-0.6) K/mcL Basophils # (0.0-0.2) K/mcL PT 14.0 H (9.4-12.1) Seconds INR 1.2 APTT 24.1 L (26.0-36.0) Seconds Sodium (136-145) mEq/L Potassium (3.5-5.1) mEq/L Chloride (98-107) mEq/L Carbon Dioxide (23-29) mEq/L BUN (8-23) mg/dL Creatinine (0.60-1.20) mg/dL Est GFR ( Amer) (> 60) Est GFR (Non-Af Amer) (> 60) BUN/Creatinine Ratio (6-26) Glucose (70-105) mg/dL Calculated Osmolality (280-300) Lactic Acid (0.5-2.2) mmol/L Calcium (8.6-10.3) mg/dL Total Bilirubin (0.3-1.0) mg/dL AST (13-39) Units/L ALT (7-52) Units/L Alkaline Phosphatase (34-104) Units/L Troponin I (< 0.04) ng/mL Serum Total Protein (6.4-8.9) g/dL Albumin (3.5-5.7) g/dL Globulin (2.4-3.5) g/dL Albumin/Globulin Ratio (1.1-2.2) Urine Color (Yellow) Urine Clarity (Clear) Urine pH (5.0-8.0) pH Units Ur Specific [place] (1.010-1.025) Urine Protein (Neg-Trace) mg/dL Urine Glucose (UA) (Normal) mg/dL Urine Ketones (Negative) mg/dL Urine Blood (Negative) Urine Nitrite (Negative) Urine Bilirubin (Negative) Urine Urobilinogen (Normal) mg/dL Ur Leukocyte Esterase (Negative) Ur Culture Indicated? (NO) Stool Occult Bld Scrn (Negative) Specimen Rejected Labelling Blood Type A POSITIVE Antibody Screen NEGATIVE 05/19/18 05/19/18 Range/Units 20:15 20:20 WBC (4.3-11.1) K/mcL RBC (3.82-4.97) M/mcL Hgb (11.5-15.4) g/dL Hct (35.3-44.9) % MCV (83.0-100.0) fL MCH (28.0-33.3) pg MCHC (31.6-35.5) g/dL RDW (11.5-14.5) % Plt Count (140-400) K/mcL MPV (9.4-12.4) fL Immature Gran % (0-4) % Seg Neutrophils % % Lymphocytes % % Monocytes % % Eosinophils % % Basophils % % Neutrophils # (1.6-8.9) K/mcL Lymphocytes # (0.6-4.6) K/mcL Monocytes # (0.0-1.3) K/mcL Eosinophils # (0.0-0.6) K/mcL Basophils # (0.0-0.2) K/mcL PT (9.4-12.1) Seconds INR APTT (26.0-36.0) Seconds Sodium (136-145) mEq/L Potassium (3.5-5.1) mEq/L Chloride (98-107) mEq/L Carbon Dioxide (23-29) mEq/L BUN (8-23) mg/dL Creatinine (0.60-1.20) mg/dL Est GFR ( Amer) (> 60) Est GFR (Non-Af Amer) (> 60) BUN/Creatinine Ratio (6-26) Glucose (70-105) mg/dL Calculated Osmolality (280-300) Lactic Acid (0.5-2.2) mmol/L Calcium (8.6-10.3) mg/dL Total Bilirubin (0.3-1.0) mg/dL AST (13-39) Units/L ALT (7-52) Units/L Alkaline Phosphatase (34-104) Units/L Troponin I (< 0.04) ng/mL Serum Total Protein (6.4-8.9) g/dL Albumin (3.5-5.7) g/dL Globulin (2.4-3.5) g/dL Albumin/Globulin Ratio (1.1-2.2) Urine Color Yellow (Yellow) Urine Clarity Clear (Clear) Urine pH 6.0 (5.0-8.0) pH Units Ur Specific [place] 1.010 (1.010-1.025) Urine Protein Negative (Neg-Trace) mg/dL Urine Glucose (UA) Normal (Normal) mg/dL Urine Ketones Negative (Negative) mg/dL Urine Blood Negative (Negative) Urine Nitrite Negative (Negative) Urine Bilirubin Negative (Negative) Urine Urobilinogen Normal (Normal) mg/dL Ur Leukocyte Esterase Negative (Negative) Ur Culture Indicated? NO (NO) Stool Occult Bld Scrn Positive A (Negative) Specimen Rejected Blood Type Antibody Screen
--- NOTE | 2018-05-19 20:14 | Emergency Department Note ---
Disposition Clinical Impression: Weakness, Positive fecal occult blood test, Acute kidney injury Disposition: Admitted As Inpatient Condition: Fair Referrals: Rizwan Palma MD [Primary Care Provider] - Forms: ED Satisfaction Letter General Adult HPI - General Chief complaint: ED Weakness Stated complaint: "pale,cough,back pain" Time Seen by Provider: 05/19/18 17:59 Source: patient, family Limitations: altered mental status Nursing Notes Reviewed: Yes Vital Signs Reviewed: Yes - History of Present Illness Pain Scale: 0 Improves with: rest Worsens with: nothing Associated symptoms: Reports: weakness Treatments Prior to Arrival: none - Related Data Home Medications Medication Instructions Recorded Confirmed Donepezil [Aricept] 10 mg PO HS 10/28/16 05/12/18 Lisinopril [Zestril] 20 mg PO DAILY 10/28/16 05/12/18 Memantine HCl [Namenda Xr] 28 mg PO DAILY 10/28/16 05/12/18 Multivitamin [Multi-Day Vitamins] 1 tab PO DAILY 10/28/16 05/12/18 Simvastatin [Zocor] 20 mg PO HS 10/28/16 05/12/18 Furosemide [Lasix] 40 mg PO DAILY 04/13/17 05/12/18 Cholecalciferol (D-3) [Vitamin D] 1,000 unit PO DAILY 09/01/17 05/12/18 Magnesium Oxide [Magnesium] 800 mg PO BID 09/01/17 05/12/18 Metoprolol [Lopressor] 25 mg PO BID 09/01/17 05/12/18 Trazodone HCl 50 mg PO HS 09/01/17 05/12/18 hydrALAZINE [HydrALAZINE] 25 mg PO TID 09/01/17 05/12/18 Fluticasone/Salmeterol [Advair 1 puff IH BID 05/12/18 05/12/18 250-50 Diskus] Insulin NPH Hum/Reg Insulin Hm 11 - 16 unit SQ BID 05/12/18 05/12/18 [Novolin 70-30 100 Unit/ml Vial] Previous Rx's Medication Instructions Recorded Omeprazole [PriLOSEC] 40 mg PO DAILY #30 cap 05/18/18 Sucralfate [Carafate] 1 gm PO QIDAC #120 tablet 05/18/18 Allergies Allergy/AdvReac Type Severity Reaction Status Date / Time Iodinated Contrast- Oral and Allergy See Verified 12/29/17 18:30 IV Dye Comments Penicillins Allergy See Verified 12/29/17 18:30 Comments Constitutional: Reports: weakness. Denies: fever, chills Cardiovascular: Denies: chest pain, palpitations, dyspnea on exertion, orthopnea Respiratory: Denies: cough, dyspnea, wheezes Gastrointestinal: Denies: nausea, vomiting, diarrhea Genitourinary: Denies: urgency, dysuria, frequency Musculoskeletal: Denies: neck pain Integumentary: Denies: rash Neurological: Denies: headache, weakness Endocrine: Reports: fatigue Past Medical History - Past Medical History Medical history: Reports: CHF, COPD, dementia, diabetes, GI bleed, hypertension , pulmonary embolus, valvular heart disease Surgical history: Reports: heart valve replacement, orthopedic, other, other Psychiatric history: Reports: no psych history QUICK SERVICE TECHNICIAN 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: 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: no QUICK SERVICE TECHNICIAN history - Social History Smoking Status: Never smoker Smokeless Tobacco Status: No Alcohol use: Reports: none Drug use: Reports: none Physical Exam - General Limitations: altered mental status General appearance: lethargic Course Vital Signs Temperature 98.6 F 05/19/18 17:52 Pulse Rate 58 05/19/18 17:52 Respiratory Rate 18 05/19/18 17:52 Blood Pressure 84/52 05/19/18 17:52 O2 Sat by Pulse Oximetry 94 05/19/18 17:52 Temperature 98.6 F 05/19/18 18:15 Pulse Rate 55 05/19/18 22:19 Respiratory Rate 18 05/19/18 22:19 Blood Pressure 94/49 05/19/18 22:19 O2 Sat by Pulse Oximetry 97 05/19/18 22:19 Oxygen Delivery Oxygen Delivery Room Air Medical Decision Making - Medical Records Medical records reviewed: Yes I reviewed the patient's medical records. - Lab Data Lab results reviewed: Yes I reviewed the patient's lab results. Result diagrams: 05/19/18 18:32 05/19/18 18:32 Lab Results 05/19/18 05/19/18 05/19/18 Range/Units 18:32 18:32 18:32 WBC 11.2 H (4.3-11.1) K/mcL RBC 3.49 L (3.82-4.97) M/mcL Hgb 9.6 L (11.5-15.4) g/dL Hct 30.5 L (35.3-44.9) % MCV 87.4 (83.0-100.0) fL MCH 27.5 L (28.0-33.3) pg MCHC 31.5 L (31.6-35.5) g/dL RDW 14.9 H (11.5-14.5) % Plt Count 226 (140-400) K/mcL MPV 11.2 (9.4-12.4) fL Immature Gran % 0.4 (0-4) % Seg Neutrophils % 80.3 % Lymphocytes % 11.6 % Monocytes % 5.8 % Eosinophils % 1.7 % Basophils % 0.2 % Neutrophils # 9.0 H (1.6-8.9) K/mcL Lymphocytes # 1.3 (0.6-4.6) K/mcL Monocytes # 0.7 (0.0-1.3) K/mcL Eosinophils # 0.2 (0.0-0.6) K/mcL Basophils # 0.0 (0.0-0.2) K/mcL PT (9.4-12.1) Seconds INR APTT (26.0-36.0) Seconds Sodium 137 (136-145) mEq/L Potassium 3.9 (3.5-5.1) mEq/L Chloride 102 (98-107) mEq/L Carbon Dioxide 27 (23-29) mEq/L BUN 22 (8-23) mg/dL Creatinine 1.92 H (0.60-1.20) mg/dL Est GFR ( Amer) 30 L (> 60) Est GFR (Non-Af Amer) 25 L (> 60) BUN/Creatinine Ratio 11 (6-26) Glucose 151 H (70-105) mg/dL Calculated Osmolality 290 (280-300) Lactic Acid 0.8 (0.5-2.2) mmol/L Calcium 9.0 (8.6-10.3) mg/dL Total Bilirubin 0.4 (0.3-1.0) mg/dL AST 17 (13-39) Units/L ALT 7 (7-52) Units/L Alkaline Phosphatase 50 (34-104) Units/L Troponin I 0.03 (< 0.04) ng/mL Serum Total Protein 5.7 L (6.4-8.9) g/dL Albumin 3.3 L (3.5-5.7) g/dL Globulin 2.4 (2.4-3.5) g/dL Albumin/Globulin Ratio 1.4 (1.1-2.2) Urine Color (Yellow) Urine Clarity (Clear) Urine pH (5.0-8.0) pH Units Ur Specific [place] (1.010-1.025) Urine Protein (Neg-Trace) mg/dL Urine Glucose (UA) (Normal) mg/dL Urine Ketones (Negative) mg/dL Urine Blood (Negative) Urine Nitrite (Negative) Urine Bilirubin (Negative) Urine Urobilinogen (Normal) mg/dL Ur Leukocyte Esterase (Negative) Ur Culture Indicated? (NO) Stool Occult Bld Scrn (Negative) Specimen Rejected Blood Type Antibody Screen 05/19/18 05/19/18 05/19/18 Range/Units 18:32 18:32 19:11 WBC (4.3-11.1) K/mcL RBC (3.82-4.97) M/mcL Hgb (11.5-15.4) g/dL Hct (35.3-44.9) % MCV (83.0-100.0) fL MCH (28.0-33.3) pg MCHC (31.6-35.5) g/dL RDW (11.5-14.5) % Plt Count (140-400) K/mcL MPV (9.4-12.4) fL Immature Gran % (0-4) % Seg Neutrophils % % Lymphocytes % % Monocytes % % Eosinophils % % Basophils % % Neutrophils # (1.6-8.9) K/mcL Lymphocytes # (0.6-4.6) K/mcL Monocytes # (0.0-1.3) K/mcL Eosinophils # (0.0-0.6) K/mcL Basophils # (0.0-0.2) K/mcL PT 14.0 H (9.4-12.1) Seconds INR 1.2 APTT 24.1 L (26.0-36.0) Seconds Sodium (136-145) mEq/L Potassium (3.5-5.1) mEq/L Chloride (98-107) mEq/L Carbon Dioxide (23-29) mEq/L BUN (8-23) mg/dL Creatinine (0.60-1.20) mg/dL Est GFR ( Amer) (> 60) Est GFR (Non-Af Amer) (> 60) BUN/Creatinine Ratio (6-26) Glucose (70-105) mg/dL Calculated Osmolality (280-300) Lactic Acid (0.5-2.2) mmol/L Calcium (8.6-10.3) mg/dL Total Bilirubin (0.3-1.0) mg/dL AST (13-39) Units/L ALT (7-52) Units/L Alkaline Phosphatase (34-104) Units/L Troponin I (< 0.04) ng/mL Serum Total Protein (6.4-8.9) g/dL Albumin (3.5-5.7) g/dL Globulin (2.4-3.5) g/dL Albumin/Globulin Ratio (1.1-2.2) Urine Color (Yellow) Urine Clarity (Clear) Urine pH (5.0-8.0) pH Units Ur Specific [place] (1.010-1.025) Urine Protein (Neg-Trace) mg/dL Urine Glucose (UA) (Normal) mg/dL Urine Ketones (Negative) mg/dL Urine Blood (Negative) Urine Nitrite (Negative) Urine Bilirubin (Negative) Urine Urobilinogen (Normal) mg/dL Ur Leukocyte Esterase (Negative) Ur Culture Indicated? (NO) Stool Occult Bld Scrn (Negative) Specimen Rejected Labelling Blood Type A POSITIVE Antibody Screen NEGATIVE 05/19/18 05/19/18 Range/Units 20:15 20:20 WBC (4.3-11.1) K/mcL RBC (3.82-4.97) M/mcL Hgb (11.5-15.4) g/dL Hct (35.3-44.9) % MCV (83.0-100.0) fL MCH (28.0-33.3) pg MCHC (31.6-35.5) g/dL RDW (11.5-14.5) % Plt Count (140-400) K/mcL MPV (9.4-12.4) fL Immature Gran % (0-4) % Seg Neutrophils % % Lymphocytes % % Monocytes % % Eosinophils % % Basophils % % Neutrophils # (1.6-8.9) K/mcL Lymphocytes # (0.6-4.6) K/mcL Monocytes # (0.0-1.3) K/mcL Eosinophils # (0.0-0.6) K/mcL Basophils # (0.0-0.2) K/mcL PT (9.4-12.1) Seconds INR APTT (26.0-36.0) Seconds Sodium (136-145) mEq/L Potassium (3.5-5.1) mEq/L Chloride (98-107) mEq/L Carbon Dioxide (23-29) mEq/L BUN (8-23) mg/dL Creatinine (0.60-1.20) mg/dL Est GFR ( Amer) (> 60) Est GFR (Non-Af Amer) (> 60) BUN/Creatinine Ratio (6-26) Glucose (70-105) mg/dL Calculated Osmolality (280-300) Lactic Acid (0.5-2.2) mmol/L Calcium (8.6-10.3) mg/dL Total Bilirubin (0.3-1.0) mg/dL AST (13-39) Units/L ALT (7-52) Units/L Alkaline Phosphatase (34-104) Units/L Troponin I (< 0.04) ng/mL Serum Total Protein (6.4-8.9) g/dL Albumin (3.5-5.7) g/dL Globulin (2.4-3.5) g/dL Albumin/Globulin Ratio (1.1-2.2) Urine Color Yellow (Yellow) Urine Clarity Clear (Clear) Urine pH 6.0 (5.0-8.0) pH Units Ur Specific [place] 1.010 (1.010-1.025) Urine Protein Negative (Neg-Trace) mg/dL Urine Glucose (UA) Normal (Normal) mg/dL Urine Ketones Negative (Negative) mg/dL Urine Blood Negative (Negative) Urine Nitrite Negative (Negative) Urine Bilirubin Negative (Negative) Urine Urobilinogen Normal (Normal) mg/dL Ur Leukocyte Esterase Negative (Negative) Ur Culture Indicated? NO (NO) Stool Occult Bld Scrn Positive A (Negative) Specimen Rejected Blood Type Antibody Screen - Radiology Data Radiology results reviewed: Yes I reviewed the patient's radiology results. Chest X-Ray 05/19/18 18:16 IMPRESSION: No acute process. D/ / Parvez Pandey MD / Parvez Pandey MD Interpreting Provider: Parvez Pandey MD Attestation Statement - Attestation Attestation: I, Martínez Martinez MD, personally evaluated this patient and discussed their management with the resident physician. I reviewed the resident's note and agree with the documented findings, medical decision making, and plan of care. This patient was signed out at shift change from Dr. Bright. Please refer to his note for complete details of the history and physical examination. Patient is an 82-year-old female who was admitted here about a week ago with anemia. She received blood transfusion and was discharged yesterday around noon. Her last hemoglobin was 8.9. She returns today with family complaining that she is not eating or drinking. She complains of generalized weakness states that she just feels cold. Also blood pressure has been running low. On examination patient is a well-developed elderly female in no acute distress. She is alert and oriented. No cyanosis or diaphoresis. Breath sounds are clear and equal bilaterally. Heart regular with a mild bradycardia. Abdomen is soft and nontender with normal bowel sounds. Labs reviewed. No acute changes on EKG. Chest x-ray negative. Stool positive for occult blood. The hospitalist, Dr. Capellan, was consulted and accepted admission of the patient.
[2018-05-19 20:40] LABS: Bilirubin,Urine Negative (Negative); Blood,Urine Negative (Negative); Clarity,Urine Clear (Clear); Color,Urine Yellow (Yellow); Glucose,Urine (UA) Normal (Normal); Ketones,Urine Negative (Negative); Leukocyte Esterase,Urine Negative (Negative); Nitrite,Urine Negative (Negative); Protein,Urine Negative (Neg-Trace); Urobilinogen,Urine Normal (Normal)
[2018-05-20] MEDS ORDERED: Naloxone 0.4 MG/ML INJ IVP PRN (01:51)
[2018-05-20] MEDS ORDERED: D5% in Water 1,000 ML IVC PRN (02:36)
[2018-05-20] MEDS ORDERED: *HR* Dextrose 50 % in Water (Syg) 50 ML SYRINGE IVP PRN (02:36)
[2018-05-20] MEDS ORDERED: Dextrose Gel 15 GM/37.5 ML TUBE PO PRN ×2 (02:36)
--- NOTE | 2018-05-20 02:56 | Internal Med History&Physical ---
Date of Encounter: 05/23/18 Time of Encounter: 02:44 Internal Medicine - H&P: HPI Chief complaint: Fatigue/Weakness History of present illness: Ms. Huerta is a 82 year old female with a past medical history of CHF, COPD, dementia, diabetes, hypertension, history of PE, valvular heart disease and GI bleed who was recently discharged on 05/18 for GI bleed. Patient returns today after family reported that she has been very weak and unable to care for herself since going home. Due to the family's concern the patient was brought back into the emergency room for evaluation. Of note, she was made DNRDNI at previous admission with palliative consult. Given the patient's baseline dementia, much of the history was obtained from previous medical records and staff. Per the patient, she currently denies any symptoms of pain, fever, chills, nausea, vomiting, abdominal pain. She states that she is "fit as a fatal". Patient did test positive for Hemoccult. Upon arrival hemoglobin was found to be 9.6. During recent hospitalization, hemoglobin dropped to as low as 5. Patient underwent a nuclear medicine bleeding scan which was negative. Patient was found to be mildly hypotensive in the ED with a blood pressure of 84 /52 and was given 1 L of IV fluids with slight improvement in her blood pressure. Chest x-ray was performed which showed no evidence of any pulmonary disease and has been saturating well on room air. Past Med Surg Social Fam HX - Past Medical History Medical history: CHF, COPD, dementia, diabetes, GI bleed, hypertension, pulmonary embolus, valvular heart disease Psychiatric history: no psych history - Past Surgical History Surgical History: heart valve replacement, orthopedic, other, other Additional surgical history: Aortic valve replacement - Social History Smoking Status: Never smoker Smokeless Tobacco Status: No Alcohol use: none Drug use: none Current living situation: With Family - Family History Mother Hx Family Endocrine Disorder: Yes (DM) Internal Medicine - H&P: Meds Donepezil [Aricept] 10 mg PO HS 10/28/16 [History] Lisinopril [Zestril] 20 mg PO DAILY 10/28/16 [History] Memantine HCl [Namenda Xr] 28 mg PO DAILY 10/28/16 [History] Multivitamin [Multi-Day Vitamins] 1 tab PO DAILY 10/28/16 [History] Simvastatin [Zocor] 20 mg PO HS 10/28/16 [History] Furosemide [Lasix] 40 mg PO DAILY 04/13/17 [History] Cholecalciferol (D-3) [Vitamin D] 1,000 unit PO DAILY 09/01/17 [History] Magnesium Oxide [Magnesium] 800 mg PO BID 09/01/17 [History] Metoprolol [Lopressor] 25 mg PO BID 09/01/17 [History] hydrALAZINE [HydrALAZINE] 25 mg PO TID 09/01/17 [History] Fluticasone/Salmeterol [Advair 250-50 Diskus] 1 puff IH BID 05/12/18 [History] Insulin NPH Hum/Reg Insulin Hm [Novolin 70-30 100 Unit/ml Vial] 16 unit SQ QAM 05/12/18 [History] Omeprazole [PriLOSEC] 40 mg PO DAILY #30 cap 05/18/18 [Rx] Sucralfate [Carafate] 1 gm PO QIDAC #120 tablet 05/18/18 [Rx] Insulin NPH Hum/Reg Insulin Hm [Novolin 70-30 100 Unit/ml Vial] 11 unit SQ QPM 05/21/18 [History] 3 Allergy/AdvReac Type Severity Reaction Status Date / Time Iodinated Contrast- Oral and Allergy See Verified 05/21/18 10:15 IV Dye Comments Penicillins Allergy See Verified 05/21/18 10:15 Comments All Systems PM: A 10-system review of systems was performed and is negative for pertinent findings except as documented above in the HPI. - Constitutional Constitutional: no chills, no fever(s), no night sweats - Constitutional Exam: General: Alert and oriented Skin:Normal color, no rash, no lesions. HEENT:EOM, pupils equal, round and reactive. Cardiovascular:Normal S1 & S2, no rubs, murmurs or gallops. No JVD. Pulse regular. Lungs:Normal breath sounds, no wheezes or crackles. Abdomen:Soft, non-tender, no rigidity. Extremities:No deformity, no edema or tenderness, no joint swelling or clubbing. Neurological:Normal cognition and motor skills. Pulses:Carotid and radial pulses normal +2. Rest of the physical exam is non contributory Internal Med - H&P Results - Labs CBC & Chem 7: 05/23/18 06:21 08/22/18 06:21 - Assessment and plan (1) Weakness generalized Current Visit: Yes Status: Acute Assessment and plan: Likely secondary to symptomatic anemia and dehydration. It is unclear if patient at baseline as no family members were present at the time of my assessment to verify her current mentation. No evidence of underlying infection at this time given absent fever and white count and unremarkable CXR. EKG and troponin unremarkable. Continue with fluids and monitor for evdence of bleed. (2) Acute GI bleeding Current Visit: No Status: Acute Assessment and plan: Stool Positive for occult blood in the setting of recent Hx of GI bleed, possibly diverticular hemorrhage. Keep patient NPO; Protonic 40 IVP daily; Type and screen. Serial H/H; Consider GI Consult for further evaluation. (3) Acute kidney injury Current Visit: Yes Status: Acute Assessment and plan: Mild CLEMENT likey prerenal secondary to anemia; Will give fluids and trend Creatinine in AM. (4) Dementia Current Visit: No Status: Chronic Assessment and plan: Patient A/Ox 1-2. Will need verification of Patients home meds and consider resuming Qualifiers: Dementia type: Alzheimer's disease Alzheimer's disease onset: late-onset Dementia behavioral disturbance: without behavioral disturbance Qualified Code (s): G30.1 - Alzheimer's disease with late onset; F02.80 - Dementia in other diseases classified elsewhere without behavioral disturbance (5) HTN (hypertension) Current Visit: No Status: Chronic Assessment and plan: BP stable. Will hold Antihypertensives for now; Monitor Vitals. Qualifiers: Hypertension type: essential hypertension Qualified Code(s): I10 - Essential (primary) hypertension (6) Diabetes mellitus Current Visit: No Status: Chronic Assessment and plan: Blood glucose checks and Sliding scale insulin. Qualifiers: Diabetes mellitus type: type 2 Diabetes mellitus longterm insulin use: with longterm use Diabetes mellitus complication status: without complication Qualified Code(s): E11.9 - Type 2 diabetes mellitus without complications; Z79.4 - [facility] (current) use of insulin (7) Chronic diastolic CHF (congestive heart failure) Current Visit: No Status: Chronic Assessment and plan: Hold Lasix given CLEMENT and anemia. - Time Spent With Patient Total time spent is greater than 50% in coordination of care (as documented) at patient's floor/unit and/or counseling patient: - Constitutional Vitals: Temp Pulse Resp BP Pulse Ox 97.8 F 54 15 106/56 96 05/20/18 00:02 05/20/18 00:02 05/20/18 00:02 05/20/18 00:02 05/20/18 00:02 Exam: General: Alert and oriented x 2; not in acute distress Skin:Normal color, no rash, no lesions. HEENT:EOM, pupils equal, round and reactive. Cardiovascular:Normal S1 & S2, no rubs, 3/6 systolic murmur best appreciated in the right second intercostal space. No JVD. Pulse regular. Lungs:Normal breath sounds, no wheezes or crackles. Abdomen:Soft, non-tender, nondistended, no rigidity, positive bowel sounds. Extremities:No deformity, no edema or tenderness, no joint swelling or clubbing , warm to palpation. Neurological: Alert oriented 2, patient able to move all 4 extremities and follow commands.. Pulses:Carotid and radial pulses normal +2; DP pulses palpable bilaterally Rest of the physical exam is non contributory
[2018-05-20] MEDS: D5% in 0.45% NACL 1,000 ML IVC SCH ×2 (03:09→13:00)
[2018-05-20 07:28] LABS: Hematocrit 27.7 % (35.3-44.9); Hemoglobin 8.8 g/dL (11.5-15.4); Immature Platelets 6.4 % (1.1-6.1); Mean Corpuscular HGB Conc 31.8 g/dL (31.6-35.5); Mean Corpuscular Hemoglobin 27.7 pg (28.0-33.3); Mean Corpuscular Volume 87.1 fL (83.0-100.0); Mean Platelet Volume 11.3 fL (9.4-12.4); Red Blood Count 3.18 M/mcL (3.82-4.97)
[2018-05-20] MEDS: Insulin LISPRO 300 UNITS/3 ML VIAL SQ SCH ×4 (07:35→23:34)
[2018-05-20 07:47] LABS: Albumin/Globulin Ratio 1.4 (1.1-2.2); Bilirubin,Total 0.4 mg/dL (0.3-1.0); Calcium 8.4 mg/dL (8.6-10.3); Globulin 2.2 g/dL (2.4-3.5); Potassium 3.4 mEq/L (3.5-5.1); Total Protein 5.2 g/dL (6.4-8.9)
--- NOTE | 2018-05-20 09:35 | Event Note ---
Date of Encounter: 05/20/18 Time of Encounter: 09:35 Seen and evaluated with spouse at bedside patient with advanced dementia, recently discharged, readmitted for complains of weakness BEing managed for CLEMENT, she was hypotensive in the ER as well Hb is stable at this time K is low this a.m, replaced Continue current management PTOT eval for weakness
[2018-05-20] MEDS ORDERED: Acetaminophen 325 MG TABLET PO PRN (14:07)
[2018-05-21] MEDS: Insulin LISPRO 300 UNITS/3 ML VIAL SQ SCH ×3 (05:57→18:39)
[2018-05-21] MEDS ORDERED: Acetaminophen 325 MG TABLET PO PRN (10:32)
--- NOTE | 2018-05-21 10:46 | Internal Med Progress Note ---
Hospitalist Progress Note - Encounter Date of Encounter: 05/21/18 Time of Encounter: 10:45 - Subjective Interval History: No acute events. Patient complains of back pain that is usually alleviated by lidocaine patch and Tylenol. Weakness is at baseline. - Exam Vitals: Temp Pulse Resp BP Pulse Ox 97.9 F 60 18 123/74 95 05/21/18 06:24 05/21/18 06:24 05/21/18 06:24 05/21/18 06:24 05/21/18 06:24 Exam: General: AAO x2 Skin: Normal color, no rash, no lesions. Cardiovascular:Normal S1 & S2, no rubs, 3/6 systolic murmur best appreciated in the right second intercostal space. No JVD. Pulse regular. Lungs:Normal breath sounds, no wheezes or crackles. Abdomen:Soft, non-tender, nondistended, no rigidity, positive bowel sounds. Extremities:No deformity, no edema or tenderness, no joint swelling or clubbing , warm to palpation. Neurological: Alert oriented 2, patient able to move all 4 extremities and follow commands. - Assessment and Plan (1) Weakness generalized Current Visit: Yes Status: Acute Assessment and Plan: Likely secondary to symptomatic anemia and dehydration. No evidence of underlying infection at this time given absent fever and white count and unremarkable CXR. EKG and troponin unremarkable. - GI consulted - PT/OT (2) Acute GI bleeding Current Visit: No Status: Acute Assessment and Plan: Stool Positive for occult blood in the setting of recent Hx of GI bleed, possibly diverticular hemorrhage. She was admitted on 05/12/18-05/16/18 for symptomatic anemia and GI bleed. She was on Eliquis prior to 05/12/18. She had a bleeding scan during that time which was negative. FOBT + here Hemodynamically stable. Protonix 40 IVP BID GI consulted for evaluation. (3) HTN (hypertension) Current Visit: No Status: Chronic Assessment and Plan: BP stable. Will hold Antihypertensives for now; Monitor Vitals. (4) Diabetes mellitus Current Visit: No Status: Chronic Assessment and Plan: Blood glucose checks and Sliding scale insulin. Make NPO at midnight for GI evaluation. (5) Dementia Current Visit: No Status: Chronic Assessment and Plan: Patient A/O x1 Resume Namenda (6) Chronic diastolic CHF (congestive heart failure) Current Visit: No Status: Chronic Assessment and Plan: Lasix was held on admission due to CLEMENT. Renal function improved and should now resume home Lasix (7) Acute kidney injury Current Visit: Yes Status: Acute - Time Spent with Patient Total time spent is greater than 50% in coordination of care (as documented) at patient's floor/unit and/or counseling patient: Internal Medicine: Result - Labs CBC & Chem 7: 05/21/18 10:12 05/21/18 10:12 - ABG Interpretation ABG results: PT/INR, D-dimer PT 14.0 Seconds (9.4-12.1) H 05/19/18 18:32 Consult Discharge Plan - Plan Referrals: Rizwan Palma MD [Primary Care Provider] - (3) HTN (hypertension) Qualifiers: Hypertension type: essential hypertension Qualified Code(s): I10 - Essential (primary) hypertension (4) Diabetes mellitus Qualifiers: Diabetes mellitus type: type 2 Diabetes mellitus field captain insulin use: with field captain use Diabetes mellitus complication status: without complication Qualified Code(s): E11.9 - Type 2 diabetes mellitus without complications; Z79.4 - alf (current) use of insulin (5) Dementia Qualifiers: Dementia type: Alzheimer's disease Alzheimer's disease onset: late-onset Dementia behavioral disturbance: without behavioral disturbance Qualified Code( s): G30.1 - Alzheimer's disease with late onset; F02.80 - Dementia in other diseases classified elsewhere without behavioral disturbance
[2018-05-21 11:38] LABS: Basophils % 0.2 %; Eosinophils # 0.2 K/mcL (0.0-0.6); Eosinophils % 2.4 %; Hematocrit 28.7 % (35.3-44.9); Hemoglobin 8.8 g/dL (11.5-15.4); Immature Granulocytes % 0.3 % (0-4); Lymphocytes # 1.9 K/mcL (0.6-4.6); Lymphocytes % 22.2 %; Mean Corpuscular HGB Conc 30.7 g/dL (31.6-35.5); Mean Platelet Volume 11.5 fL (9.4-12.4); Monocytes # 0.5 K/mcL (0.0-1.3); Monocytes % 6.2 %; Platelet Count 209 K/mcL (140-400); Red Blood Count 3.26 M/mcL (3.82-4.97); Red Cell Distribution Width 14.7 % (11.5-14.5); Segmented Neutrophils % 68.7 %
[2018-05-21 12:05] LABS: BUN/Creatinine Ratio 13 (6-26); Blood Urea Nitrogen 13 mg/dL (8-23); Calcium 8.5 mg/dL (8.6-10.3); Carbon Dioxide 27 mEq/L (23-29); Chloride 107 mEq/L (98-107); Glucose 120 mg/dL (70-105); Osmolality,Calculated 291 (280-300); Potassium 3.9 mEq/L (3.5-5.1); Sodium 140 mEq/L (136-145); eGFR For Non-African Americans 51 (> 60)
[2018-05-21] MEDS: Sucralfate 1 GM TABLET PO SCH ×3 (13:20→21:22)
--- NOTE | 2018-05-21 15:20 | Electrocardiograph Report ---
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
[2018-05-21] MEDS: Pantoprazole 40 MG VIAL IVP SCH (19:00)
[2018-05-21] MEDS: Budesonide/Formoterol 80/4.5 MDI IH SCH (19:40)
[2018-05-22] MEDS: Insulin LISPRO 300 UNITS/3 ML VIAL SQ SCH ×4 (00:19→17:29)
[2018-05-22 05:40] LABS: Basophils % 0.3 %; Eosinophils # 0.2 K/mcL (0.0-0.6); Eosinophils % 3.3 %; Hematocrit 28.5 % (35.3-44.9); Hemoglobin 8.7 g/dL (11.5-15.4); Immature Granulocytes % 0.5 % (0-4); Lymphocytes # 1.8 K/mcL (0.6-4.6); Mean Corpuscular HGB Conc 30.5 g/dL (31.6-35.5); Mean Corpuscular Hemoglobin 26.6 pg (28.0-33.3); Mean Corpuscular Volume 87.2 fL (83.0-100.0); Mean Platelet Volume 10.6 fL (9.4-12.4); Monocytes # 0.6 K/mcL (0.0-1.3); Monocytes % 8.7 %; Neutrophils # 3.7 K/mcL (1.6-8.9); Platelet Count 224 K/mcL (140-400); Red Blood Count 3.27 M/mcL (3.82-4.97); Red Cell Distribution Width 14.6 % (11.5-14.5); Segmented Neutrophils % 58.2 %
[2018-05-22] MEDS: Pantoprazole 40 MG VIAL IVP SCH ×2 (06:08→17:32)
[2018-05-22 06:10] LABS: Calcium 8.5 mg/dL (8.6-10.3); Potassium 3.7 mEq/L (3.5-5.1)
[2018-05-22] MEDS: Budesonide/Formoterol 80/4.5 MDI IH SCH ×2 (07:38→20:16)
[2018-05-22] MEDS: Sucralfate 1 GM TABLET PO SCH ×4 (08:25→22:10)
[2018-05-22] MEDS: Furosemide 40 MG TABLET PO SCH (08:25)
--- NOTE | 2018-05-22 11:00 | Gastroenterology Consult Note ---
<Cailin Duron - Last Filed: 05/22/18 10:55> Date of Encounter: 05/22/18 Time of Encounter: 09:35 - Assessment and plan (1) Gastrointestinal bleeding Status: Acute Assessment and plan: Pt was advised she needs EGD, to rule out esophagitis, gastritis, duodenitis, PUD, mW tear or avm. She has dementia will discuss with POA/next of kin. Qualifiers: GI bleed type/associated pathology: unspecified gastrointestinal hemorrhage type Qualified Code(s): K92.2 - Gastrointestinal hemorrhage, unspecified (2) Dementia Status: Chronic Qualifiers: Dementia type: Alzheimer's disease Alzheimer's disease onset: late-onset Dementia behavioral disturbance: without behavioral disturbance Qualified Code (s): G30.1 - Alzheimer's disease with late onset; F02.80 - Dementia in other diseases classified elsewhere without behavioral disturbance (3) Anemia Status: Acute Qualifiers: Anemia type: other cause Other causes of anemia: acute posthemorrhagic Qualified Code(s): D62 - Acute posthemorrhagic anemia - Time Spent With Patient Total time spent is greater than 50% in coordination of care (as documented) at patient's floor/unit and/or counseling patient: GI History of Present Illness - Data of Consult Patient: new to practice Consult date: 05/22/18 Requesting Physician: Heriberto Ugarte MD - Consult Narrative Reason for consult: anemia History of present illness: MMs. Huerta is a 82 year old female with a past medical history of CHF, COPD, dementia, diabetes, hypertension, history of PE, valvular heart disease and GI bleed who was recently discharged on 05/18 for GI bleed. Patient returns today after family reported that she has been very weak and unable to care for herself since going home. Due to the family's concern the patient was brought back into the emergency room for evaluation. Of note, she was made DNRDNI at previous admission with palliative consult. During recent hospitalization, hemoglobin dropped to as low as 5. Patient underwent a nuclear medicine bleeding scan which was negative. Patient was found to be mildly hypotensive in the ED with a blood pressure of 84/52 and was given 1 L of IV fluids with slight improvement in her blood pressure. Chest x-ray was performed which showed no evidence of any pulmonary disease and has been saturating well on room air. She is confused this morning and is saying her is sending someone to come get her. When asked about EGD tomorrow she states "oh I won't be here then". She denies any pain, nausea, vomiting, diarrhea, bloody or tarry stools. colon 10/18 external and internal hemorrhoids, diverticulosis, 15 mm tubular adenoma polyp in the hepatic flexure, four 2-3 mm polyps Past Med Surg Social Fam HX - Past Medical History Medical history: CHF, COPD, dementia, diabetes, GI bleed, hypertension, pulmonary embolus, valvular heart disease Psychiatric history: no psych history - Past Surgical History Surgical History: heart valve replacement, orthopedic, other, other Additional surgical history: Aortic valve replacement - Social History Smoking Status: Never smoker Smokeless Tobacco Status: No Alcohol use: none Drug use: none - Family History Mother Hx Family Endocrine Disorder: Yes (DM) Review of Systems: GI: as per [place] GENERAL: denies fever, or chills EYES: denies yellow discoloration ENT: denies pain with swallowing or difficulty swallowing CARDIO: denies chest pain, palpitations RESP: Shortness of breath with exertion : denies change in color of urine NEURO: increased weakness per family's reports HEME: Denies any bruising MS: denies joint pain, joint swelling or back pain. DERM: denies rash or itching PSYCH: Denies history of anxiety or depression - Constitutional Vitals: Temp Pulse Resp BP Pulse Ox 97.8 F 63 16 147/74 95 05/22/18 07:17 05/22/18 07:17 05/22/18 07:40 05/22/18 07:05/22/18 07:40 Exam: CONSTITUTIONAL:~alert, confused, no acute distress.~HEAD:~normocephalic.~EYES:~ no jaundice.~NECK:~no obvious swelling.~HEART:~regular rate and rhythm, no murmurs.~LUNGS:~bilateral fair air entry.~ABDOMEN:~non distended, soft, non tender, no masses palpable, no organomegaly.~RECTAL EXAM:~Deferred.~EXTREMITIES: ~no clubbing, cyanosis, trace BLE edema.~SKIN:~pallor noted, no stigmata of chronic liver disease.~NEUROLOGIC:~no obvious focal defect.~~~~ Results - Labs CBC & Chem 7: 05/22/18 05:21 05/22/18 05:21 Labs: Last Result Calcium 8.5 mg/dL (8.6-10.3) L 05/22/18 05:21 Troponin I 0.03 ng/mL (< 0.04) 05/19/18 18:32 Entire Visit Hgb 8.7 g/dL (11.5-15.4) L 05/22/18 05:21 Hct 28.5 % (35.3-44.9) L 05/22/18 05:21 PT 14.0 Seconds (9.4-12.1) H 05/19/18 18:32 Total Bilirubin 0.4 mg/dL (0.3-1.0) 05/20/18 06:51 AST 11 Units/L (13-39) L 05/20/18 06:51 ALT 7 Units/L (7-52) 05/20/18 06:51 - ABG ABG results: PT/INR, D-dimer PT 14.0 Seconds (9.4-12.1) H 05/19/18 18:32 Consult Discharge Plan - Plan Referrals: Brandon Wilkins [Partnered Physician] - 05/28/18 1:45 pm <Jose Sheehan - Last Filed: 06/19/18 14:51> Date of Encounter: 05/22/18 - Time Spent With Patient Total time spent is greater than 50% in coordination of care (as documented) at patient's floor/unit and/or counseling patient: GI History of Present Illness - Data of Consult Requesting Physician: Heriberto Ugarte MD - Consult Narrative History of present illness: Ms. Huerta is a 82 year old female - Constitutional Vitals: Temp Pulse Resp BP Pulse Ox 97.7 F 60 16 143/57 98 05/24/18 14:19 05/24/18 14:19 05/24/18 14:19 05/24/18 14:19 05/24/18 14:19 Results - Labs CBC & Chem 7: 05/24/18 04:51 05/24/18 04:51 Labs: Last Result Calcium 8.7 mg/dL (8.6-10.3) 05/24/18 04:51 Troponin I 0.03 ng/mL (< 0.04) 05/19/18 18:32 Entire Visit Hgb 8.5 g/dL (11.5-15.4) L 05/24/18 04:51 Hct 27.8 % (35.3-44.9) L 05/24/18 04:51 PT 14.0 Seconds (9.4-12.1) H 05/19/18 18:32 Total Bilirubin 0.4 mg/dL (0.3-1.0) 05/20/18 06:51 AST 11 Units/L (13-39) L 05/20/18 06:51 ALT 7 Units/L (7-52) 05/20/18 06:51 - ABG ABG results: PT/INR, D-dimer PT 14.0 Seconds (9.4-12.1) H 05/19/18 18:32 - Attending Attestation 82 year old female with dementia and purported GI bleed. Recommend EGD will discuss with POA I have personally performed a face to face evaluation on this patient. I have reviewed and agree with the care plan. History and Exam by me shows:
--- NOTE | 2018-05-22 19:52 | Internal Med Progress Note ---
Hospitalist Progress Note - Encounter Date of Encounter: 05/22/18 Time of Encounter: 19:50 - Subjective Interval History: Patient seen and evaluated at bedside. Very pleasant, admits doing well, denies chest pain, nausea, vomiting or abdominal pain. Had a large non-bloody BM. Denies dizziness. - Exam Vitals: Temp Pulse Resp BP Pulse Ox 98.4 F 82 14 124/65 97 05/22/18 18:36 05/22/18 18:36 05/22/18 18:36 05/22/18 18:36 05/22/18 18:36 Exam: General: Alert and oriented to person not time or place Skin: Normal color, no rash, no lesions. HEENT: EOM, pupils equal, round and reactive. Cardiovascular: Normal S1 & S2, no rubs, murmurs or gallops. No JVD. Pulse regular. Lungs: Normal breath sounds, no wheezes or crackles. Abdomen:Soft, non-tender, no rigidity. Extremities:No deformity, no edema or tenderness, no joint swelling or clubbing. Neurological: CN II-XII intact - Assessment and Plan (1) Acute GI bleeding Current Visit: No Status: Acute Assessment and Plan: Patient admitted for general weakness and a recent Hx of GI bleed. In this admission positive FOBT Plan: - Continue Pantoprazole 40mg/IV BID - Sulcrafate 1gm PO QIDAC - GI consulted: patiend scheduled for EGD in the morning - Clear liquid and NPO at midnight (2) HTN (hypertension) Current Visit: No Status: Chronic Assessment and Plan: Well controlled Plan: - No medication adjustment needed (3) Diabetes mellitus Current Visit: No Status: Chronic Assessment and Plan: Plan: - Accuchecks Q6HRs - Continue Lisprol sliding scale Q6HR - No long acting insulin as patient NPO (4) Dementia Current Visit: No Status: Chronic Assessment and Plan: ON Namenda and Donepezil Plan: - Continue home medication (5) Chronic diastolic CHF (congestive heart failure) Current Visit: No Status: Chronic Assessment and Plan: Patient laying supine with no respiratory distress. Plan: - Continue lasix 40mg/PO daily DVT Prophylaxis: NO chemical DVT prophylaxis due to GI bleed - No mechanical DVT prophylaxis as patient as a history of DVT - Time Spent with Patient Total time spent is greater than 50% in coordination of care (as documented) at patient's floor/unit and/or counseling patient: Greater than 35 minutes Plan of Care Discussed with: family Internal Medicine: Result - Labs CBC & Chem 7: 05/22/18 05:21 05/22/18 05:21 Labs: Short CBC 05/22/18 Range/Units 05:21 WBC 6.3 (4.3-11.1) K/mcL Hgb 8.7 L (11.5-15.4) g/dL Hct 28.5 L (35.3-44.9) % Plt Count 224 (140-400) K/mcL Neutrophils # 3.7 (1.6-8.9) K/mcL BMP 05/22/18 05:21 Sodium 141 Potassium 3.7 Chloride 107 Carbon Dioxide 28 BUN 16 Creatinine 1.07 Glucose 159 H Calcium 8.5 L - ABG Interpretation ABG results: PT/INR, D-dimer PT 14.0 Seconds (9.4-12.1) H 05/19/18 18:32 Consult Discharge Plan - Plan Referrals: Rizwan Palma MD [Primary Care Provider] - (2) HTN (hypertension) Qualifiers: Hypertension type: essential hypertension Qualified Code(s): I10 - Essential (primary) hypertension (3) Diabetes mellitus Qualifiers: Diabetes mellitus type: type 2 Diabetes mellitus fdc insulin use: with buttermaker continuous churn use Diabetes mellitus complication status: without complication Qualified Code(s): E11.9 - Type 2 diabetes mellitus without complications; Z79.4 - senior living (current) use of insulin (4) Dementia Qualifiers: Dementia type: Alzheimer's disease Alzheimer's disease onset: late-onset Dementia behavioral disturbance: without behavioral disturbance Qualified Code( s): G30.1 - Alzheimer's disease with late onset; F02.80 - Dementia in other diseases classified elsewhere without behavioral disturbance
--- NOTE | 2018-05-22 21:00 | Anesthesia Evaluation PreOp ---
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 ARTIST History: Other (Dementia) Other Medical History: Diabetes Type II, GERD (Hx GIB/recently discharged re: GIB on 05/18) Anesthesia History: No Prior Anesthetic Complications, Past Anesthesia (Aortic Valve replacement) Alcohol Use: none Drug use: none Medications and Allergies Donepezil [Aricept] 10 mg PO HS 10/28/16 [History] Lisinopril [Zestril] 20 mg PO DAILY 10/28/16 [History] Memantine HCl [Namenda Xr] 28 mg PO DAILY 10/28/16 [History] Multivitamin [Multi-Day Vitamins] 1 tab PO DAILY 10/28/16 [History] Simvastatin [Zocor] 20 mg PO HS 10/28/16 [History] Furosemide [Lasix] 40 mg PO DAILY 04/13/17 [History] Cholecalciferol (D-3) [Vitamin D] 1,000 unit PO DAILY 09/01/17 [History] Magnesium Oxide [Magnesium] 800 mg PO BID 09/01/17 [History] Metoprolol [Lopressor] 25 mg PO BID 09/01/17 [History] hydrALAZINE [HydrALAZINE] 25 mg PO TID 09/01/17 [History] Fluticasone/Salmeterol [Advair 250-50 Diskus] 1 puff IH BID 05/12/18 [History] Insulin NPH Hum/Reg Insulin Hm [Novolin 70-30 100 Unit/ml Vial] 16 unit SQ QAM 05/12/18 [History] Omeprazole [PriLOSEC] 40 mg PO DAILY #30 cap 05/18/18 [Rx] Sucralfate [Carafate] 1 gm PO QIDAC #120 tablet 05/18/18 [Rx] Insulin NPH Hum/Reg Insulin Hm [Novolin 70-30 100 Unit/ml Vial] 11 unit SQ QPM 05/21/18 [History] 3 Allergy/AdvReac Type Severity Reaction Status Date / Time Iodinated Contrast- Oral and Allergy See Verified 05/21/18 10:15 IV Dye Comments Penicillins Allergy See Verified 05/21/18 10:15 Comments - Meds/Allergy Pre-op Review Medications Reviewed: Yes Allergies Reviewed: Yes Beta Blockers on Current Med List: No Anesthesia Results - Labs 05/22/18 05:21 05/22/18 05:21 Laboratory Tests 05/12/18 05/19/18 05/19/18 11:38 18:32 20:15 PT 14.0 H INR 1.2 APTT 24.1 L Est GFR (Non-Af Amer) Glucose B-Natriuretic Peptide 683 H Stool Occult Bld Scrn Positive A 05/22/18 05:21 PT INR APTT Est GFR (Non-Af Amer) 49 L Glucose 159 H B-Natriuretic Peptide Stool Occult Bld Scrn Laboratory Results Impressions Chest X-Ray 05/19/18 18:16 IMPRESSION: No acute process. D/ / Parvez Pandey MD / Parvez Pandey MD Interpreting Provider: Parvez Pandey MD - Imaging EKG: report reviewed (56bpm - Sinus rhythm Borderline right axis deviation Electronically Signed On 05-21-2018 15:18:32 EDT by Armando Veloz) Additional studies: ECHO 09/04/2017 EV/EV echocardiogram Impressions: LVEF 60-65%. Normal LV chamber size and function. Mild concentric left ventricular hypertrophy. Mild left ventricular diastolic dysfunction. Normal right ventricular structure and function. Bioprosthetic aortic valve not well visualized. No aortic regurgitation. No aortic stenosis. Mean gradient 6 mmHg. No evidence of pulmonary hypertension. Left Ventricular Wall Motion: Rest Echo Findings All wall segments showed normal motion. Anesthesia Exam Vital Signs Temp Pulse Resp BP Pulse Ox 05/22/18 20:16 15 96 05/22/18 18:36 98.4 F 82 14 124/65 97 05/22/18 07:40 16 95 05/22/18 07:17 97.8 F 63 15 147/74 98 05/22/18 04:18 97.5 F L 63 18 148/75 93 05/21/18 21:31 97 Intake and Output 05/22/18 05/22/18 05/22/18 07:59 15:59 23:59 Intake Total 0 / 0 480 / 480 240 / 240 Output Total 200 / 200 100 / 100 300 / 300 Balance -200 / -200 380 / 380 -60 / -60 Intake: Oral 0 / 0 480 / 480 240 / 240 Output: Urine 200 / 200 100 / 100 300 / 300 Other: Meal Lunch Dinner Percent of Meal Consumed 100% 100% Stool Size Moderate Stool Consistency loose Stool Color Brown Weight 88.4 kg Blood Glucose* 158 205 160 Patient Weight 05/22/18 23:59 Weight 88.4 kg Height: 5'3" Weight: 194# BMI = 34.5 NPO (# of Hours): MNoc - HEENT Pupil (Motor): Pupils equal, EOMI Mallampati: II Teeth: Normal Oral Opening: Greater than 3 - FREELANCE MAKEUP ARTIST LOC: Oriented FREELANCE MAKEUP ARTIST Motor: Normal RUE, Normal LUE, Normal RLE, Normal LLE, Normal Face FREELANCE MAKEUP ARTIST Sensory: Normal: RUE, LUE, RLE, LLE, Face - Cardiac Rhythm: Regular Murmur: Systolic JVD: No - Pulmonary Breath Sounds: bilateral Clear Respiratory Effort: Symmetrical Anesthesia Assess/Plan ASA Score: 3 (HTN, Chol, DM, recurrent GIB, COPD) Modified Danish Scale for Level of Consciousness: Cooperative, oriented, and tranquil Anesthetic Plan: MAC Monitoring Plan: Standard Monitors Recovery Plan: Other
[2018-05-23] MEDS: Insulin LISPRO 300 UNITS/3 ML VIAL SQ SCH ×4 (02:04→22:01)
[2018-05-23] MEDS: Pantoprazole 40 MG VIAL IVP SCH ×2 (05:41→18:12)
[2018-05-23 06:44] LABS: Basophils % 0.5 %; Eosinophils # 0.2 K/mcL (0.0-0.6); Eosinophils % 4.2 %; Hematocrit 28.4 % (35.3-44.9); Hemoglobin 8.7 g/dL (11.5-15.4); Immature Granulocytes % 0.4 % (0-4); Lymphocytes # 1.9 K/mcL (0.6-4.6); Mean Corpuscular HGB Conc 30.6 g/dL (31.6-35.5); Mean Corpuscular Hemoglobin 26.5 pg (28.0-33.3); Mean Corpuscular Volume 86.6 fL (83.0-100.0); Monocytes # 0.5 K/mcL (0.0-1.3); Monocytes % 8.4 %; Neutrophils # 2.8 K/mcL (1.6-8.9); Platelet Count 227 K/mcL (140-400); Red Blood Count 3.28 M/mcL (3.82-4.97); Red Cell Distribution Width 14.7 % (11.5-14.5); Segmented Neutrophils % 51.5 %
[2018-05-23] MEDS: Sucralfate 1 GM TABLET PO SCH ×4 (06:47→22:01)
[2018-05-23 07:09] LABS: BUN/Creatinine Ratio 14 (6-26); Blood Urea Nitrogen 14 mg/dL (8-23); Calcium 8.6 mg/dL (8.6-10.3); Carbon Dioxide 27 mEq/L (23-29); Chloride 106 mEq/L (98-107); Glucose 162 mg/dL (70-105); Osmolality,Calculated 296 (280-300); Potassium 3.7 mEq/L (3.5-5.1); Sodium 141 mEq/L (136-145); eGFR For Non-African Americans 52 (> 60)
[2018-05-23] MEDS: Budesonide/Formoterol 80/4.5 MDI IH SCH ×2 (07:31→20:03)
[2018-05-23] MEDS: Furosemide 40 MG TABLET PO SCH (10:17)
[2018-05-23] MEDS ORDERED: *HR* Propofol 200 MG/20 ML VIAL IVP ONE (11:54)
[2018-05-23] MEDS ORDERED: Lidocaine -MPF 2% 2 ML VIAL ONE (12:06)
[2018-05-23] MEDS ORDERED: SODIUM CHLORIDE/NAHCO3/KCL/PEG 4,000 ML SOLN.RECON PO ONE (17:00)
--- NOTE | 2018-05-23 17:23 | Internal Med Progress Note ---
Hospitalist Progress Note - Encounter Date of Encounter: 05/23/18 Time of Encounter: 17:21 - Subjective Interval History: Patient evaluated at bedside, in non-distress. Denies chest pain, nausea or vomiting. Patient taking bowel prep. - Exam Vitals: Temp Pulse Resp BP Pulse Ox 97.4 F L 50 16 122/48 97 05/23/18 15:30 05/23/18 15:30 05/23/18 15:30 05/23/18 15:30 05/23/18 15:30 Exam: General: Alert and oriented to person not time or place Skin: Normal color, no rash, no lesions. HEENT: EOM, pupils equal, round and reactive. Cardiovascular: Normal S1 & S2, no rubs, murmurs or gallops. No JVD. Pulse regular. Lungs: Normal breath sounds, no wheezes or crackles. Abdomen:Soft, non-tender, no rigidity. Extremities:No deformity, no edema or tenderness, no joint swelling or clubbing. Neurological: CN II-XII intact - Assessment and Plan (1) GI (gastrointestinal bleed) Current Visit: Yes Status: Acute Assessment and Plan: No active signs of GI. Positive FOBT on admission. Patient is status post EGD: Gastritis, with no active signs of bleeding. Plan: - Continue pantoprazole 40 mg twice a day and sucralfate 1 g daily - Scheduled for colonoscopy tomorrow morning - Nothing by mouth midnight - D51/2NS @30mls/hr for maintenance fluids. (2) HTN (hypertension) Current Visit: No Status: Chronic Assessment and Plan: Blood pressure control. Plan: - We will continue Lasix 40 mg by mouth daily (3) Diabetes mellitus Current Visit: No Status: Chronic Assessment and Plan: Well-controlled. Patient nothing by mouth Plan: - Continue sliding scale (4) Dementia Current Visit: No Status: Chronic Assessment and Plan: Plan: - Continue home medication (5) Anemia Current Visit: No Status: Acute Assessment and Plan: Iron deficiency due to blood loss Plan: - H&H stable - Will continue monitoring (6) Chronic diastolic CHF (congestive heart failure) Current Visit: No Status: Chronic Assessment and Plan: Not on acute exacerbation Plan: - Continue Lasix 40 mg by mouth daily (7) History of pulmonary embolism Current Visit: No Status: Chronic Assessment and Plan: Not anticoagulated due to GI bleed DVT Prophylaxis: No chemical DVT prophylaxis due to GI bleed. No mechanical DVT prophylaxis due to history of DVT - Time Spent with Patient Total time spent is greater than 50% in coordination of care (as documented) at patient's floor/unit and/or counseling patient: Greater than 35 minutes Plan of Care Discussed with: family Internal Medicine: Result - Labs CBC & Chem 7: 05/23/18 06:21 05/23/18 06:21 Labs: Short CBC 05/23/18 Range/Units 06:21 WBC 5.5 (4.3-11.1) K/mcL Hgb 8.7 L (11.5-15.4) g/dL Hct 28.4 L (35.3-44.9) % Plt Count 227 (140-400) K/mcL Neutrophils # 2.8 (1.6-8.9) K/mcL BMP 05/23/18 06:21 Sodium 141 Potassium 3.7 Chloride 106 Carbon Dioxide 27 BUN 14 Creatinine 1.01 Glucose 162 H Calcium 8.6 - ABG Interpretation ABG results: PT/INR, D-dimer PT 14.0 Seconds (9.4-12.1) H 05/19/18 18:32 - VTE Documentation of Mechanical Device: Intermittent pneumatic compression device Consult Discharge Plan - Plan Referrals: Rizwan Palma MD [Primary Care Provider] - (1) GI (gastrointestinal bleed) Qualifiers: GI bleed type/associated pathology: unspecified gastrointestinal hemorrhage type Qualified Code(s): K92.2 - Gastrointestinal hemorrhage, unspecified (2) HTN (hypertension) Qualifiers: Hypertension type: essential hypertension Qualified Code(s): I10 - Essential (primary) hypertension (3) Diabetes mellitus Qualifiers: Diabetes mellitus type: type 2 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: with 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 Diabetes mellitus complication status: without complication Qualified Code(s): E11.9 - Type 2 diabetes mellitus without complications; Z79.4 - half-way (current) use of insulin (4) Dementia Qualifiers: Dementia type: Alzheimer's disease Alzheimer's disease onset: late-onset Dementia behavioral disturbance: without behavioral disturbance Qualified Code( s): G30.1 - Alzheimer's disease with late onset; F02.80 - Dementia in other diseases classified elsewhere without behavioral disturbance (5) Anemia Qualifiers: Anemia type: other cause Other causes of anemia: acute posthemorrhagic Qualified Code(s): D62 - Acute posthemorrhagic anemia
[2018-05-23] MEDS ORDERED: D5% in 0.45% NACL 1,000 ML IVC SCH (17:30)
[2018-05-24] MEDS ORDERED: D5% in 0.45% NACL 1,000 ML IVC SCH (00:01)
[2018-05-24] MEDS: Insulin LISPRO 300 UNITS/3 ML VIAL SQ SCH ×3 (00:49→11:57)
[2018-05-24 05:05] LABS: Hematocrit 27.8 % (35.3-44.9); Hemoglobin 8.5 g/dL (11.5-15.4); Mean Corpuscular HGB Conc 30.6 g/dL (31.6-35.5); Mean Corpuscular Hemoglobin 26.2 pg (28.0-33.3); Mean Corpuscular Volume 85.8 fL (83.0-100.0); Mean Platelet Volume 11.1 fL (9.4-12.4); Platelet Count 196 K/mcL (140-400); Red Blood Count 3.24 M/mcL (3.82-4.97); Red Cell Distribution Width 14.8 % (11.5-14.5)
[2018-05-24 05:24] LABS: BUN/Creatinine Ratio 10 (6-26); Blood Urea Nitrogen 9 mg/dL (8-23); Calcium 8.7 mg/dL (8.6-10.3); Carbon Dioxide 26 mEq/L (23-29); Chloride 107 mEq/L (98-107); Glucose 169 mg/dL (70-105); Osmolality,Calculated 293 (280-300); Potassium 3.6 mEq/L (3.5-5.1); Sodium 140 mEq/L (136-145); eGFR For Non-African Americans > 60 (> 60)
[2018-05-24] MEDS: Pantoprazole 40 MG VIAL IVP SCH (06:17)
[2018-05-24] MEDS: Budesonide/Formoterol 80/4.5 MDI IH SCH (07:30)
[2018-05-24] MEDS: Furosemide 40 MG TABLET PO SCH (08:19)
[2018-05-24] MEDS: Sucralfate 1 GM TABLET PO SCH ×2 (08:19→10:55)
[2018-05-24] MEDS ORDERED: *HR* Propofol 200 MG/20 ML VIAL IVP ONE (12:00)
--- NOTE | 2018-05-24 12:56 | Anesthesia Progress Note ---
Date of Encounter: 05/24/18 Time of Encounter: 12:55 Anesthesia Note - Note Note: 05/24/18 12:53 Pt is here for colonoscopy today, she had an EGD under MAC yesterday and tolerated procedure well. No interval history changes. Pt is currently at baseline, spoke with and obtained consent. 05/24/18 12:55
[2018-05-24 14:20] VITALS: BP 143/57
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
[2018-05-24] MEDS ORDERED: Insulin LISPRO 300 UNITS/3 ML VIAL SQ SCH ×2 (16:30→21:00)
== END 2018-05-24 16:02 | disposition home or self-care (01) | DRG 378 ==
LOC: 3ANU 17:50 → EMEROOARM 17:50 → 3ANU 23:41 → SUATTDRO 05-20 01:51
PROVIDERS: ADMIT Internal Medicine; ATTEND Internal Medicine
PROC: ENDOCBX (2018-05-24 13:50)

== ENCOUNTER 2018-06-02 14:20 | Inpatient (IN) ==
[2018-06-02] MEDS ORDERED: 0.9 % Sodium Chloride 1,000 ML IVC ONE (14:38)
--- NOTE | 2018-06-02 14:59 | Emergency Department Note ---
Disposition Clinical Impression: Shortness of breath Disposition: Admitted As Inpatient Condition: Good Referrals: Rizwan Palma MD [Primary Care Provider] - Forms: ED Satisfaction Letter Time of Disposition: 20:14 General Adult HPI - General Chief complaint: ED Shortness of Breath/Dyspnea Stated complaint: FERCHO Time Seen by Provider: 06/02/18 14:27 Source: patient Mode of arrival: wheelchair Limitations: altered mental status (History of dementia) Nursing Notes Reviewed: Yes Vital Signs Reviewed: Yes - History of Present Illness HPI Narrative: Patient is a 82-year-old female that presents emergency department for shortness of breath and weakness. states that this morning they went to breakfast and she was fine she took a nap and woke up and was having increased shortness of breath. He states that this is very similar to episodes that occurred approximately 2-3 weeks ago when she was found to be severely anemic with a hemoglobin of 5. denies any recent bloody bowel movements or vomiting. He states that he does the laundry and has not noticed any blood on her undergarments. states that she had an upper and lower endoscopy that was performed on presentation and the source of bleeding was unable to be identified. He states that on June 19 she is supposed to have a pill cam performed to look for possible bleed within the small bowel. Patient denies any pain at this time due to states that she is having increased shortness of breath. Pain Scale: 9 - Related Data Home Medications Medication Instructions Recorded Confirmed Donepezil [Aricept] 10 mg PO HS 10/28/16 06/02/18 Lisinopril [Zestril] 20 mg PO DAILY 10/28/16 06/02/18 Memantine HCl [Namenda Xr] 28 mg PO DAILY 10/28/16 06/02/18 Simvastatin [Zocor] 20 mg PO HS 10/28/16 06/02/18 Furosemide [Lasix] 40 mg PO DAILY 04/13/17 06/02/18 Metoprolol [Lopressor] 25 mg PO BID 09/01/17 06/02/18 hydrALAZINE [HydrALAZINE] 25 mg PO TID 09/01/17 06/02/18 Fluticasone/Salmeterol [Advair 1 puff IH BID 05/12/18 06/02/18 250-50 Diskus] Insulin NPH Hum/Reg Insulin Hm 17 unit SQ QAM 05/12/18 06/02/18 [Novolin 70-30 100 Unit/ml Vial] Insulin NPH Hum/Reg Insulin Hm 11 unit SQ QPM 05/21/18 06/02/18 [Novolin 70-30 100 Unit/ml Vial] Calcium Carbonate/Vitamin D3 1 tab PO DAILY 06/02/18 06/02/18 [Calcium 500 + Vit D Caplet] Iron/Folic Acid/B12/C/Docusate 1 tab PO TID 06/02/18 06/02/18 [Ferraplus 90 Tablet] Magnesium Oxide [Magnesium] 800 mg PO DAILY 06/02/18 06/02/18 Multivitamin [One Daily Essential] 1 tab PO DAILY 06/02/18 06/02/18 Potassium Chloride 20 meq PO DAILY 06/02/18 06/02/18 Sennosides/Docusate Sodium 1 tab PO DAILY PRN 06/02/18 06/02/18 [Senna-Docusate Sodium Tablet] Previous Rx's Medication Instructions Recorded Omeprazole [PriLOSEC] 40 mg PO DAILY #30 cap 05/18/18 Sucralfate [Carafate] 1 gm PO QIDAC #120 tablet 05/18/18 Allergies Allergy/AdvReac Type Severity Reaction Status Date / Time Iodinated Contrast- Oral and Allergy See Verified 06/02/18 15:32 IV Dye Comments Penicillins Allergy See Verified 06/02/18 15:32 Comments All systems ED: reviewed and negative except as stated. Constitutional: Reports: weakness. Denies: fever Cardiovascular: Denies: chest pain Respiratory: Reports: cough, dyspnea Gastrointestinal: Denies: abdominal pain, nausea, vomiting, diarrhea, hematochezia Past Medical History - Past Medical History Medical history: Reports: CHF, COPD, dementia, diabetes, GI bleed, hypertension , pulmonary embolus, valvular heart disease Surgical history: Reports: heart valve replacement, orthopedic, other, other Psychiatric history: Reports: no psych history REFRIGERATING ENGINEER HEAD history: Reports: no REFRIGERATING ENGINEER HEAD history - Social History Smoking Status: Never smoker Smokeless Tobacco Status: No Alcohol use: Reports: none Drug use: Reports: none Physical Exam - General Limitations: no limitations General appearance: alert, in no apparent distress - Head Head exam: atraumatic, normocephalic - Eye Eye exam: Present: normal appearance, EOMI - Neck Neck exam: Present: normal inspection, full ROM, trachea midline - Respiratory Respiratory exam: Present: normal lung sounds bilaterally. Absent: respiratory distress, wheezes - Cardiovascular Cardiovascular exam: Present: normal rhythm, bradycardia, normal heart sounds, + S1, +S2 - Abdominal Exam Abdominal exam: Present: soft, Non-Tender, normal bowel sounds - Rectal Exam Tank Pumper present during exam: Yes Rectal exam: Present: normal rectal tone. Absent: black stool, bloody stool - Neurological Exam Neurological exam: Present: alert, other (Patient has a history of dementia) - Psychiatric Psychiatric exam: Present: normal affect, normal mood - Skin Skin exam: Present: warm, dry, intact, other (Patient has a pale appearance) Course Vital Signs Temperature 97.7 F 06/02/18 14:24 Pulse Rate 42 06/02/18 14:24 Respiratory Rate 28 06/02/18 14:24 Blood Pressure 128/53 06/02/18 14:24 O2 Sat by Pulse Oximetry 95 06/02/18 14:24 Temperature 97.7 F 06/02/18 14:45 Pulse Rate 50 06/02/18 19:57 Respiratory Rate 20 06/02/18 19:57 Blood Pressure 143/38 06/02/18 19:57 O2 Sat by Pulse Oximetry 98 06/02/18 19:57 Oxygen Delivery Oxygen Delivery Room Air Medical Decision Making - MDM Narrative Medical decision making narrative: Due the patient presenting to the emergency department with reports of shortness of breath and reports of previous GI bleed recent we will obtain CBC, BMP, troponin, chest x-ray, EKG, type and screen, lactic acid, PT/PTT. A stool occult was also sent to the lab. Due to the patient being bradycardic in the 40s and having increased shortness of breath the patient will likely need to be admitted to the hospital for further evaluation and management of her medical condition. Due to the patient having elevated troponin, BNP and d-dimer there is concern for possible pulmonary embolus. A VQ scan will be obtained due to the patient having a contrast allergy. Patient's troponin was 0.4 which is improved from previous. VQ scan showed low probability for pulmonary embolus. Due to the patient having increased shortness of breath feel that is necessary for the patient to be admitted to the hospital for further evaluation and management. Patient's d-dimer was greater than 1100. BNP was elevated. There is potential for this to be an undifferentiated congestive heart failure. Patient will be admitted to the hospital for further evaluation and management. I called and spoke with Dr. Noel and he is except the patient to their service. Patient be admitted to the hospital at this time. - Lab Data Lab results reviewed: Yes I reviewed the patient's lab results. Result diagrams: 06/02/18 15:58 06/02/18 15:58 Lab Results 06/02/18 06/02/18 06/02/18 Range/Units 15:58 15:58 15:58 WBC 9.9 (4.3-11.1) K/mcL RBC 3.64 L (3.82-4.97) M/mcL Hgb 9.4 L (11.5-15.4) g/dL Hct 31.2 L (35.3-44.9) % MCV 85.7 (83.0-100.0) fL MCH 25.8 L (28.0-33.3) pg MCHC 30.1 L (31.6-35.5) g/dL RDW 15.9 H (11.5-14.5) % Plt Count 348 (140-400) K/mcL MPV 11.8 (9.4-12.4) fL Immature Gran % 0.4 (0-4) % Seg Neutrophils % 78.4 % Lymphocytes % 15.1 % Monocytes % 4.8 % Eosinophils % 1.0 % Basophils % 0.3 % Neutrophils # 7.8 (1.6-8.9) K/mcL Lymphocytes # 1.5 (0.6-4.6) K/mcL Monocytes # 0.5 (0.0-1.3) K/mcL Eosinophils # 0.1 (0.0-0.6) K/mcL Basophils # 0.0 (0.0-0.2) K/mcL PT (9.4-12.1) Seconds INR D-Dimer (0-500) ng/mLFEU Sodium 142 (136-145) mEq/L Potassium 3.3 L (3.5-5.1) mEq/L Chloride 107 (98-107) mEq/L Carbon Dioxide 27 (23-29) mEq/L BUN 15 (8-23) mg/dL Creatinine 1.09 (0.60-1.20) mg/dL Est GFR ( Amer) 58 L (> 60) Est GFR (Non-Af Amer) 48 L (> 60) BUN/Creatinine Ratio 14 (6-26) Glucose 79 (70-105) mg/dL Calculated Osmolality 294 (280-300) Lactic Acid (0.5-2.2) mmol/L Calcium 9.0 (8.6-10.3) mg/dL Magnesium 1.8 (1.6-2.6) mg/dL Troponin I 0.04 H* (< 0.04) ng/mL B-Natriuretic Peptide 735 H (Less than 100) pg/mL TSH (0.340-5.600) mcIU/mL Stool Occult Blood (Negative) Blood Type 06/02/18 06/02/18 06/02/18 Range/Units 15:58 15:58 15:58 WBC (4.3-11.1) K/mcL RBC (3.82-4.97) M/mcL Hgb (11.5-15.4) g/dL Hct (35.3-44.9) % MCV (83.0-100.0) fL MCH (28.0-33.3) pg MCHC (31.6-35.5) g/dL RDW (11.5-14.5) % Plt Count (140-400) K/mcL MPV (9.4-12.4) fL Immature Gran % (0-4) % Seg Neutrophils % % Lymphocytes % % Monocytes % % Eosinophils % % Basophils % % Neutrophils # (1.6-8.9) K/mcL Lymphocytes # (0.6-4.6) K/mcL Monocytes # (0.0-1.3) K/mcL Eosinophils # (0.0-0.6) K/mcL Basophils # (0.0-0.2) K/mcL PT 11.8 (9.4-12.1) Seconds INR 1.0 D-Dimer (0-500) ng/mLFEU Sodium (136-145) mEq/L Potassium (3.5-5.1) mEq/L Chloride (98-107) mEq/L Carbon Dioxide (23-29) mEq/L BUN (8-23) mg/dL Creatinine (0.60-1.20) mg/dL Est GFR ( Amer) (> 60) Est GFR (Non-Af Amer) (> 60) BUN/Creatinine Ratio (6-26) Glucose (70-105) mg/dL Calculated Osmolality (280-300) Lactic Acid 1.0 (0.5-2.2) mmol/L Calcium (8.6-10.3) mg/dL Magnesium (1.6-2.6) mg/dL Troponin I (< 0.04) ng/mL B-Natriuretic Peptide (Less than 100) pg/mL TSH (0.340-5.600) mcIU/mL Stool Occult Blood (Negative) Blood Type A POSITIVE 06/02/18 06/02/18 06/02/18 Range/Units 16:01 16:46 Unknown WBC (4.3-11.1) K/mcL RBC (3.82-4.97) M/mcL Hgb (11.5-15.4) g/dL Hct (35.3-44.9) % MCV (83.0-100.0) fL MCH (28.0-33.3) pg MCHC (31.6-35.5) g/dL RDW (11.5-14.5) % Plt Count (140-400) K/mcL MPV (9.4-12.4) fL Immature Gran % (0-4) % Seg Neutrophils % % Lymphocytes % % Monocytes % % Eosinophils % % Basophils % % Neutrophils # (1.6-8.9) K/mcL Lymphocytes # (0.6-4.6) K/mcL Monocytes # (0.0-1.3) K/mcL Eosinophils # (0.0-0.6) K/mcL Basophils # (0.0-0.2) K/mcL PT (9.4-12.1) Seconds INR D-Dimer 1178 H (0-500) ng/mLFEU Sodium (136-145) mEq/L Potassium (3.5-5.1) mEq/L Chloride (98-107) mEq/L Carbon Dioxide (23-29) mEq/L BUN (8-23) mg/dL Creatinine (0.60-1.20) mg/dL Est GFR ( Amer) (> 60) Est GFR (Non-Af Amer) (> 60) BUN/Creatinine Ratio (6-26) Glucose (70-105) mg/dL Calculated Osmolality (280-300) Lactic Acid (0.5-2.2) mmol/L Calcium (8.6-10.3) mg/dL Magnesium (1.6-2.6) mg/dL Troponin I (< 0.04) ng/mL B-Natriuretic Peptide (Less than 100) pg/mL TSH 4.142 (0.340-5.600) mcIU/mL Stool Occult Blood Negative (Negative) Blood Type - Radiology Data Radiology results reviewed: Yes I reviewed the patient's radiology results. - EKG Data EKG #1 EKG attestation: Yes I reviewed and interpreted this EKG. EKG results narrative: EKG shows sinus bradycardia at a rate of 46 bpm, TX interval of 182, QRS duration 108, QTc of 478 with a normal axis. There is evidence of possible U waves in lead 2 and lead 3. No evidence of STEMI on EKG. This is compared to previous EKG on 05/19/18 which showed a sinus bradycardia at a rate of 56 bpm. Attestation Statement - Attestation Attestation: I, Armando Padilla, examined this patient and my medical decision-making was reviewed with the NONFARM ANIMAL CARETAKER/PA/Advanced Practice Nurse/Resident Physician. I agree with the documented findings, disposition and treatment plan as described except to the extent set forth below. 52-year-old female presents emergency Department with concerns of difficulty in breathing. Patient states her difficulty in breathing and weakness started this morning while she was at breakfast. Patient states she was at her baseline health yesterday. She has a history of recent admission to the hospital for GI bleeding with anemia. Patient was admitted to the hospital, she remained stable. Patient was discharged and had been doing well however today she developed acute onset of difficulty in breathing. Patient had generalized weakness on her exam. No focal neurologic deficits. She denied recent leg swelling. She does have a history of DVT and PE for which she previously took Eliquis. Patient is not currently taking anticoagulation. On evaluation she had pale skin, she was bradycardic in the 40s and 50s however she did dip down to about 38 at one point. It is unclear if she is symptomatic from her bradycardia or if she has another cause for her symptoms. Laboratory evaluation did not show that she was significantly more anemic than previous. She did have elevation of her troponin. She had been normal in the past. Patient had elevated d-dimer and we are currently pending a VQ scan. Patient will likely be admitted to the hospital for further evaluation.
[2018-06-02 16:18] LABS: Basophils % 0.3 %; Eosinophils # 0.1 K/mcL (0.0-0.6); Hematocrit 31.2 % (35.3-44.9); Hemoglobin 9.4 g/dL (11.5-15.4); Immature Granulocytes % 0.4 % (0-4); Lymphocytes # 1.5 K/mcL (0.6-4.6); Lymphocytes % 15.1 %; Mean Corpuscular HGB Conc 30.1 g/dL (31.6-35.5); Mean Corpuscular Hemoglobin 25.8 pg (28.0-33.3); Mean Corpuscular Volume 85.7 fL (83.0-100.0); Mean Platelet Volume 11.8 fL (9.4-12.4); Monocytes # 0.5 K/mcL (0.0-1.3); Monocytes % 4.8 %; Neutrophils # 7.8 K/mcL (1.6-8.9); Platelet Count 348 K/mcL (140-400); Red Blood Count 3.64 M/mcL (3.82-4.97); Red Cell Distribution Width 15.9 % (11.5-14.5); Segmented Neutrophils % 78.4 %
[2018-06-02 16:23] LABS: Prothrombin Time 11.8 Seconds (9.4-12.1)
[2018-06-02 16:36] LABS: Potassium 3.3 mEq/L (3.5-5.1)
[2018-06-02 16:45] LABS: Troponin I 0.04 ng/mL (< 0.04)
[2018-06-02 17:22] LABS: Magnesium 1.8 mg/dL (1.6-2.6)
[2018-06-02] MEDS ORDERED: Naloxone 0.4 MG/ML INJ IVP PRN (20:16)
[2018-06-02] MEDS ORDERED: Acetaminophen 325 MG TABLET PO PRN (20:16)
--- NOTE | 2018-06-02 20:23 | Internal Med History&Physical ---
Date of Encounter: 06/02/18 Time of Encounter: 20:22 Internal Medicine - H&P: HPI Chief complaint: Dyspnea History of present illness: Ms. Huerta is a 82 year old female with a past medical history of CHF, diabetes , dementia, GI bleed and history of PE who presents today with acute onset shortness of breath. Patient is a poor historian due to underlying dementia and most of the history was obtained from the patient's at bedside. He reports that patient was in her usual state of health earlier this morning. They went and had her usual breakfast. Patient returned home and took a nap as she was up all night the previous previous evening. Around 1 PM patient's went to go wake her up and soon after was complaining of difficulty catching her breath and panting, while clutching her chest. No reports of fever or chills. Patient has a dry cough that has been ongoing for the past 3 months and reports no change. No further reports of nausea, vomiting, chest pain, blood in her stool, dark tarry stool or diarrhea. Patient was recently discharged on the for treatment of GI bleed. Patient has a history of PE and was previously Eliquis on which has since been discontinued due to GI bleed. Initial evaluation in the ED patient found to be bradycardic in the 40s to 50s. H&H was stable relative to previous assessments. She did have an elevated BNP and d-dimer. A VQ scan was performed which showed low probability of pulmonary embolus. Patient's symptoms improved and the patient was admitted for observation. Past Med Surg Social Fam HX - Past Medical History Medical history: CHF, COPD, dementia, diabetes, GI bleed, hypertension, pulmonary embolus, valvular heart disease Psychiatric history: no psych history - Past Surgical History Surgical History: heart valve replacement, orthopedic, other, other Additional surgical history: back surgery. Aortic valve replacement - Social History Smoking Status: Never smoker Smokeless Tobacco Status: No Alcohol use: none Drug use: none - Family History Mother Hx Family Endocrine Disorder: Yes (DM) Internal Medicine - H&P: Meds Donepezil [Aricept] 10 mg PO HS 10/28/16 [History] Lisinopril [Zestril] 20 mg PO DAILY 10/28/16 [History] Memantine HCl [Namenda Xr] 28 mg PO DAILY 10/28/16 [History] Simvastatin [Zocor] 20 mg PO HS 10/28/16 [History] Furosemide [Lasix] 40 mg PO DAILY 04/13/17 [History] Metoprolol [Lopressor] 25 mg PO BID 09/01/17 [History] hydrALAZINE [HydrALAZINE] 25 mg PO TID 09/01/17 [History] Fluticasone/Salmeterol [Advair 250-50 Diskus] 1 puff IH BID 05/12/18 [History] Insulin NPH Hum/Reg Insulin Hm [Novolin 70-30 100 Unit/ml Vial] 17 unit SQ QAM 05/12/18 [History] Omeprazole [PriLOSEC] 40 mg PO DAILY #30 cap 05/18/18 [Rx] Sucralfate [Carafate] 1 gm PO QIDAC #120 tablet 05/18/18 [Rx] Insulin NPH Hum/Reg Insulin Hm [Novolin 70-30 100 Unit/ml Vial] 11 unit SQ QPM 05/21/18 [History] Calcium Carbonate/Vitamin D3 [Calcium 500 + Vit D Caplet] 1 tab PO DAILY [History] Iron/Folic Acid/B12/C/Docusate [Ferraplus 90 Tablet] 1 tab PO TID 06/02/18 [ History] Magnesium Oxide [Magnesium] 800 mg PO DAILY 06/02/18 [History] Multivitamin [One Daily Essential] 1 tab PO DAILY 06/02/18 [History] Potassium Chloride 20 meq PO DAILY 06/02/18 [History] Sennosides/Docusate Sodium [Senna-Docusate Sodium Tablet] 1 tab PO DAILY PRN 10/19 [History] 3 Allergy/AdvReac Type Severity Reaction Status Date / Time Iodinated Contrast- Oral and Allergy See Verified 06/02/18 15:32 IV Dye Comments Penicillins Allergy See Verified 06/02/18 15:32 Comments All Systems PM: A 10-system review of systems was performed and is negative for pertinent findings except as documented above in the HPI. - Constitutional Constitutional: no chills, no fever(s), no night sweats - EENT Eyes: no change in vision, no discharge, no pain, no photophobia Ears: no ear discharge, no ear pain, no tinnitus Nose, mouth and throat: no dysphagia, no nasal discharge, no neck pain, no sore throat - Cardiovascular Cardiovascular ROS IM: no chest pain, no diaphoresis, no dyspnea, no lightheadedness, no palpitations, no syncope - Respiratory Respiratory: no cough, no dyspnea, no wheezing, no excessive phlegm production - Gastrointestinal Gastrointestinal: no abdominal pain, no diarrhea, no hematemesis, no hematochezia, no melena, no nausea, no vomiting - Genitourinary Genitourinary: no change in urinary stream, no dysuria, no flank pain, no hematuria - Musculoskeletal Musculoskeletal ROS IM: no numbness, no tingling - Integumentary Integumentary IM: no rash, no unusual bruising - Neurological Neurological ROS: no confusion, no convulsions, no focal weakness, no numbness, no tingling, no tremor(s) - Hematologic/Lymphatic Hematologic/Lymphatic: no easy bruising - Constitutional Vitals: Temp Pulse Resp BP Pulse Ox 97.7 F 50 20 143/38 98 06/02/18 14:45 06/02/18 19:57 06/02/18 19:57 06/02/18 19:57 06/02/18 19:57 Exam: General: Alert and oriented; in no acute distress Skin:Normal color, no rash, no lesions. HEENT:EOM, pupils equal, round and reactive. Cardiovascular:Normal S1 & S2, no rubs, 3/6 systolic murmur; no rubs or gallops. JVD up to mid neck. Pulse regular. Lungs:Normal breath sounds, no wheezes or crackles. Abdomen:Soft, non-tender, no rigidity. Extremities:No deformity, no edema or tenderness, no joint swelling or clubbing. Neurological:Normal cognition and motor skills. Pulses:Carotid and radial pulses normal +2. Rest of the physical exam is non contributory Internal Med - H&P Results - Labs CBC & Chem 7: 06/03/18 12:54 06/03/18 03:20 Labs: Short CBC 06/02/18 Range/Units 15:58 WBC 9.9 (4.3-11.1) K/mcL Hgb 9.4 L (11.5-15.4) g/dL Hct 31.2 L (35.3-44.9) % Plt Count 348 (140-400) K/mcL Neutrophils # 7.8 (1.6-8.9) K/mcL BMP 06/02/18 15:58 Sodium 142 Potassium 3.3 L Chloride 107 Carbon Dioxide 27 BUN 15 Creatinine 1.09 Glucose 79 Calcium 9.0 Cardiac Enzymes 06/02/18 Range/Units 15:58 Troponin I 0.04 H* (< 0.04) ng/mL - Impressions ITS Impressions Chest X-Ray 06/02/18 14:38 IMPRESSION: 1. No significant change in the appearance of the chest. 2. Elevation of the left hemidiaphragm with likely left basilar atelectasis. D/ / Mendez Fitzpatrick MD / Mendez Fitzpatrick MD Interpreting Provider: Mendez Fitzpatrick MD Pulmonary Perfusion Imaging 06/02/18 17:37 IMPRESSION: Low probability for pulmonary embolus. D/ / Bryan Prater / Bryan Prater Interpreting Provider: Bryan Prater - Assessment and plan (1) Shortness of breath Current Visit: Yes Status: Acute Assessment and plan: Acute onset dyspnea of unclear etiology. Patient currently back to baseline in terms of her respiratory status. Her lung sounds are clear; chest x-ray relatively unremarkable. no evidence of volume overload despite a relatively elevated BNP. Low probability of PE per VQ scan. Repeat H&H shows a drop in hemoglobin from 9.9 to 8.0. However, patient received a 1 L bolus in the ED and this may reflect a hemodilution though it is slightly larger than one would expect. Hemoccult testing was done in the ED which was negative. Consider repeating H&H later today. At this time we will continue supportive care and observe. (2) Bradycardia Current Visit: Yes Status: Acute Assessment and plan: Heart rate in the 40s and low 50s. Patient asymptomatic. Vitals otherwise stable. Review of previous vitals show similar heart rates. Will hold beta hansel for now. Continue telemetry. Trend troponin; Consider cardiology consult in the morning. (3) Elevated troponin I measurement Current Visit: Yes Status: Acute Assessment and plan: Mildly elevated troponin. No change in EKG when compared to previous. Patient denies any chest pain. VQ scan shows low probability of PE. We will trend. (4) Anemia Current Visit: No Status: Acute Assessment and plan: Anemia in the setting of recent GI bleed with a drop in hemoglobin down to 5 on previous admission. As stated above, initial hemoglobin was 9.9. Stool occult testing was negative. Repeat hemoglobin 8.0. Patient received one fluid bolus in the ED. This may be hemodilutional. Would consider repeating hemoglobin later today. Qualifiers: Anemia type: other cause Other causes of anemia: acute posthemorrhagic Qualified Code(s): D62 - Acute posthemorrhagic anemia (5) Hypokalemia Current Visit: Yes Status: Acute Assessment and plan: Mild hypokalemia. We will replete potassium. (6) Dementia Current Visit: No Status: Chronic Assessment and plan: Patient's mental status at baseline. Continue home medications for the treatment of her dementia. Qualifiers: Dementia type: Alzheimer's disease Alzheimer's disease onset: late-onset Dementia behavioral disturbance: without behavioral disturbance Qualified Code (s): G30.1 - Alzheimer's disease with late onset; F02.80 - Dementia in other diseases classified elsewhere without behavioral disturbance (7) Diabetes mellitus Current Visit: No Status: Chronic Assessment and plan: Start patient on diabetic diet. Blood glucose checks. Sliding scale insulin. Qualifiers: Diabetes mellitus type: type 2 Diabetes mellitus salvage determiner insulin use: with care home use Diabetes mellitus complication status: without complication Qualified Code(s): E11.9 - Type 2 diabetes mellitus without complications; Z79.4 - residential (current) use of insulin (8) HTN (hypertension) Current Visit: No Status: Chronic Assessment and plan: Blood pressure mildly elevated despite bradycardia. Currently holding metoprolol succinate. We will continue patient's remaining antihypertensive medications. Qualifiers: Hypertension type: essential hypertension Qualified Code(s): I10 - Essential (primary) hypertension - Time Spent With Patient Total time spent is greater than 50% in coordination of care (as documented) at patient's floor/unit and/or counseling patient:
[2018-06-03] MEDS ORDERED: D5% in Water 1,000 ML IVC PRN ×2 (02:27→18:27)
[2018-06-03] MEDS ORDERED: *HR* Dextrose 50 % in Water (Syg) 50 ML SYRINGE IVP PRN ×2 (02:27→18:27)
[2018-06-03] MEDS ORDERED: Dextrose Gel 15 GM/37.5 ML TUBE PO PRN ×4 (02:27→18:27)
[2018-06-03] MEDS ORDERED: Sennosides/Docusate Sodium TABLET PO PRN (02:27)
[2018-06-03 03:40] LABS: Basophils % 0.4 %; Eosinophils # 0.1 K/mcL (0.0-0.6); Eosinophils % 1.5 %; Hematocrit 26.9 % (35.3-44.9); Immature Granulocytes % 0.4 % (0-4); Lymphocytes # 1.9 K/mcL (0.6-4.6); Lymphocytes % 23.6 %; Mean Corpuscular HGB Conc 29.7 g/dL (31.6-35.5); Mean Corpuscular Hemoglobin 25.2 pg (28.0-33.3); Mean Corpuscular Volume 84.9 fL (83.0-100.0); Mean Platelet Volume 11.5 fL (9.4-12.4); Monocytes # 0.6 K/mcL (0.0-1.3); Neutrophils # 5.4 K/mcL (1.6-8.9); Platelet Count 297 K/mcL (140-400); Red Blood Count 3.17 M/mcL (3.82-4.97); Red Cell Distribution Width 16.1 % (11.5-14.5); Segmented Neutrophils % 67.1 %
[2018-06-03 03:49] LABS: Bilirubin,Urine Negative (Negative); Blood,Urine Negative (Negative); Clarity,Urine Clear (Clear); Color,Urine Yellow (Yellow); Glucose,Urine (UA) Normal (Normal); Ketones,Urine 40 mg/dL (Negative); Leukocyte Esterase,Urine Trace (Negative); Nitrite,Urine Negative (Negative); PH,Urine 5.5 pH Units (5.0-8.0); Protein,Urine Trace mg/dL (Neg-Trace); Specific Gravity,Urine 1.017 (1.010-1.025); Urobilinogen,Urine Normal (Normal)
[2018-06-03 03:50] LABS: Bacteria,Urine None Seen per hpf (None-Few); Hyaline Casts,Urine None Seen per lpf (None-Few); RBC,Urine 0-3 per hpf (0-3); Squamous Epithelial Cell,Urine Many per lpf (None-Few); WBC,Urine 0-3 per hpf (0-3)
[2018-06-03 04:01] LABS: Albumin 3.2 g/dL (3.5-5.7); Albumin/Globulin Ratio 1.4 (1.1-2.2); Bilirubin,Total 0.3 mg/dL (0.3-1.0); Calcium 8.8 mg/dL (8.6-10.3); Globulin 2.3 g/dL (2.4-3.5); Potassium 3.4 mEq/L (3.5-5.1); Total Protein 5.5 g/dL (6.4-8.9)
[2018-06-03] MEDS ORDERED: Potassium Chloride Elixir 20 MEQ/15 ML UDC PO ONE (05:07)
[2018-06-03] MEDS: Insulin LISPRO 300 UNITS/3 ML VIAL SQ SCH ×3 (05:25→18:10)
[2018-06-03] MEDS: Furosemide 40 MG TABLET PO SCH (09:47)
[2018-06-03] MEDS: Lisinopril 20 MG TABLET PO SCH (09:47)
[2018-06-03] MEDS: hydrALAZINE 25 MG TABLET PO SCH ×3 (09:47→20:04)
[2018-06-03] MEDS: Multivit/Ca/Min/Fe/FA 1 TAB TABLET PO SCH (09:47)
[2018-06-03] MEDS: Magnesium Oxide 400 MG TABLET PO SCH (09:47)
[2018-06-03] MEDS: *HR* Heparin 5,000 UNIT/ML VIAL SQ SCH ×3 (09:48→20:55)
[2018-06-03] MEDS: [UNRECOGNIZED DRUG - OTHER] PO SCH ×3 (09:49→20:27)
[2018-06-03] MEDS: Budesonide/Formoterol 80/4.5 MDI IH SCH ×2 (11:12→20:26)
[2018-06-03 13:23] LABS: Hematocrit 32.2 % (35.3-44.9); Hemoglobin 9.4 g/dL (11.5-15.4)
--- NOTE | 2018-06-03 15:18 | Internal Med Progress Note ---
Hospitalist Progress Note - Encounter Date of Encounter: 06/03/18 Time of Encounter: 11:00 - Subjective Interval History: Patient seen and examined at bedside . She is sitting up in a chair, pleasantly confused denies any CP or SOB - Exam Vitals: Temp Pulse Resp BP Pulse Ox 97.7 F 63 18 147/58 97 06/03/18 11:30 06/03/18 11:30 06/03/18 11:30 06/03/18 11:30 06/03/18 11:30 Exam: General: Alert and oriented to name only ; in no acute distress Skin:Normal color, no rash, no lesions. HEENT:EOM, pupils equal, round and reactive. Cardiovascular:Normal S1 & S2, no rubs, 3/6 systolic murmur; no rubs or gallops. JVD up to mid neck. Pulse regular. Lungs:Normal breath sounds, no wheezes or crackles. Abdomen:Soft, non-tender, no rigidity. Extremities:No deformity, no edema or tenderness, no joint swelling or clubbing. Neurological:Normal cognition and motor skills. Pulses:Carotid and radial pulses normal +2. Rest of the physical exam is non contributory - Assessment and Plan (1) HTN (hypertension) Current Visit: No Status: Chronic Assessment and Plan: Blood pressure stable. Currently holding metoprolol succinate dt bradycardia. We will continue patient's remaining antihypertensive medications. (2) Diabetes mellitus Current Visit: No Status: Chronic Assessment and Plan: Start patient on diabetic diet. Blood glucose checks. Sliding scale insulin. blood sugar low this am (3) Dementia Current Visit: No Status: Chronic Assessment and Plan: Patient's mental status at baseline. Continue home medications for the treatment of her dementia. (4) Anemia Current Visit: No Status: Acute Assessment and Plan: Anemia in the setting of recent GI bleed with a drop in hemoglobin down to 5 on previous admission. initial hemoglobin was 9.9, Stool occult testing was negative. Repeat hemoglobin 8.0. Patient received one fluid bolus in the ED. This may be hemodilutional. repeating hemoglobin later today (5) Shortness of breath Current Visit: Yes Status: Acute Assessment and Plan: She is back to [facility] baseline CXR unremarkable no eveidenc of fluid overload - VQ scan low probability Hgb low suspect hemodilution will recheck Hemocult negative Echo 11/05/16 LVEF 60-65%. Normal LV chamber size and function. Mild concentric left ventricular hypertrophy. Mild left ventricular diastolic dysfunction. Normal right ventricular structure and function. Bioprosthetic aortic valve not well visualized. No aortic regurgitation. No aortic stenosis. Mean gradient 6 mmHg. No evidence of pulmonary hypertension. - will check limited echo (6) Bradycardia Current Visit: Yes Status: Acute Assessment and Plan: Heart rate in the 40s and low 50s on presentation - no 50 -60 Patient asymptomatic. Vitals otherwise stable. Review of previous vitals show similar heart rates. Will hold beta hansel for now. Continue telemetry. Trend troponin 0.04x 3 then 0.08 Consult to cardiology as needed (7) Hypokalemia Current Visit: Yes Status: Acute Assessment and Plan: Mild hypokalemia. We will replete potassium. and recheck (8) Elevated troponin I measurement Current Visit: Yes Status: Acute Assessment and Plan: Mildly elevated troponin. No change in EKG when compared to previous. Patient denies any chest pain. VQ scan shows low probability of PE. troponin trend 0.04x3 then 0.08- spoke with cardiology will check a limited echo if any abnormalities consult cardiology - Time Spent with Patient Total time spent is greater than 50% in coordination of care (as documented) at patient's floor/unit and/or counseling patient: Internal Medicine: Result - Labs CBC & Chem 7: 06/03/18 12:54 06/03/18 03:20 Labs: Short CBC 06/03/18 06/03/18 Range/Units 03:20 12:54 WBC 8.0 (4.3-11.1) K/mcL Hgb 8.0 L 9.4 L (11.5-15.4) g/dL Hct 26.9 L 32.2 L (35.3-44.9) % Plt Count 297 (140-400) K/mcL Neutrophils # 5.4 (1.6-8.9) K/mcL BMP 06/03/18 03:20 Sodium 143 Potassium 3.4 L Chloride 109 H Carbon Dioxide 27 BUN 16 Creatinine 1.10 Glucose 154 H Calcium 8.8 Cardiac Enzymes 06/02/18 06/03/18 06/03/18 Range/Units 20:36 03:20 09:01 Troponin I 0.04 H* 0.04 H* 0.08 H* (< 0.04) ng/mL Liver Function 06/03/18 Range/Units 03:20 Total Bilirubin 0.3 (0.3-1.0) mg/dL AST 12 L (13-39) Units/L ALT 8 (7-52) Units/L Alkaline Phosphatase 44 (34-104) Units/L Albumin 3.2 L (3.5-5.7) g/dL Urine 06/03/18 Range/Units 03:38 Urine Color Yellow (Yellow) Urine Clarity Clear (Clear) Urine pH 5.5 (5.0-8.0) pH Units Ur Specific [place] 1.017 (1.010-1.025) Urine Protein Trace (Neg-Trace) mg/dL Urine Glucose (UA) Normal (Normal) mg/dL - ABG Interpretation ABG results: PT/INR, D-dimer PT 11.8 Seconds (9.4-12.1) 06/02/18 15:58 D-Dimer 1178 ng/mLFEU (0-500) H 06/02/18 16:46 Consult Discharge Plan - Plan Referrals: Rizwan Palma MD [Primary Care Provider] - (1) HTN (hypertension) Qualifiers: Hypertension type: essential hypertension Qualified Code(s): I10 - Essential (primary) hypertension (2) Diabetes mellitus Qualifiers: Diabetes mellitus type: type 2 Diabetes mellitus custodial insulin use: with custodial use Diabetes mellitus complication status: without complication Qualified Code(s): E11.9 - Type 2 diabetes mellitus without complications; Z79.4 - chief lifestyle officer (current) use of insulin (3) Dementia Qualifiers: Dementia type: Alzheimer's disease Alzheimer's disease onset: late-onset Dementia behavioral disturbance: without behavioral disturbance Qualified Code( s): G30.1 - Alzheimer's disease with late onset; F02.80 - Dementia in other diseases classified elsewhere without behavioral disturbance (4) Anemia Qualifiers: Anemia type: other cause Other causes of anemia: acute posthemorrhagic Qualified Code(s): D62 - Acute posthemorrhagic anemia
[2018-06-03] MEDS ORDERED: Insulin LISPRO 300 UNITS/3 ML VIAL SQ SCH (21:00)
[2018-06-04] MEDS: *HR* Heparin 5,000 UNIT/ML VIAL SQ SCH (05:07)
[2018-06-04] MEDS: Lisinopril 20 MG TABLET PO SCH (09:21)
[2018-06-04] MEDS: Multivit/Ca/Min/Fe/FA 1 TAB TABLET PO SCH (09:21)
[2018-06-04] MEDS: hydrALAZINE 25 MG TABLET PO SCH (09:21)
[2018-06-04] MEDS: Magnesium Oxide 400 MG TABLET PO SCH (09:21)
[2018-06-04] MEDS: Insulin LISPRO 300 UNITS/3 ML VIAL SQ SCH ×2 (09:22→12:30)
[2018-06-04] MEDS: [UNRECOGNIZED DRUG - OTHER] PO SCH (09:24)
[2018-06-04] MEDS: Furosemide 40 MG TABLET PO SCH (09:29)
[2018-06-04 09:53] LABS: Basophils % 0.4 %; Eosinophils # 0.2 K/mcL (0.0-0.6); Eosinophils % 2.6 %; Hematocrit 27.7 % (35.3-44.9); Hemoglobin 8.3 g/dL (11.5-15.4); Immature Granulocytes % 0.4 % (0-4); Lymphocytes # 1.8 K/mcL (0.6-4.6); Mean Corpuscular Hemoglobin 25.5 pg (28.0-33.3); Mean Platelet Volume 11.2 fL (9.4-12.4); Monocytes # 0.5 K/mcL (0.0-1.3); Monocytes % 6.8 %; Neutrophils # 4.8 K/mcL (1.6-8.9); Platelet Count 293 K/mcL (140-400); Red Blood Count 3.26 M/mcL (3.82-4.97); Red Cell Distribution Width 16.7 % (11.5-14.5); Segmented Neutrophils % 64.8 %
[2018-06-04] MEDS: Budesonide/Formoterol 80/4.5 MDI IH SCH (09:56)
[2018-06-04 10:12] LABS: Potassium 4.2 mEq/L (3.5-5.1)
[2018-06-04 12:03] VITALS: BP 158/53
--- NOTE | 2018-06-04 12:31 | Discharge Summary ---
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 insulin 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: with ferry terminal supervisor use Diabetes mellitus complication status: without complication Qualified Code(s): E11.9 - Type 2 diabetes mellitus without complications; Z79.4 - [facility] (current) use of insulin (3) Dementia Priority: Secondary Status: Chronic Qualifiers: Dementia type: Alzheimer's disease Alzheimer's disease onset: late-onset Dementia behavioral disturbance: without behavioral disturbance Qualified Code (s): G30.1 - Alzheimer's disease with late onset; F02.80 - Dementia in other diseases classified elsewhere without behavioral disturbance (4) Anemia Priority: Secondary Status: Acute Qualifiers: Anemia type: other cause Other causes of anemia: acute posthemorrhagic Qualified Code(s): D62 - Acute posthemorrhagic anemia (5) Shortness of breath Priority: Primary Status: Acute (6) Bradycardia Priority: Primary Status: Acute (7) Hypokalemia Priority: Secondary Status: Acute (8) Elevated troponin I measurement Priority: Secondary Status: Acute Hospital course: Ms. Huerta is a 82 year old female past medical hx of CHF DM dementia GI Bleed hx of PE presented to the ED with acute onset of SOB. Patient has hx of dementia and her is her primary caregiver - patient has hx of PE and was on eliquis however this was discontinued dt GI Bleed. In the ED it was noted she was bradycardic in the 40-50 H/H was stable occult stool negative. VQ scan low probability of PE . Her BB was held overnight, troponin negative x3 EKG with no ST T wave abnormalities, limited echo obtained which was improved fro previous with EF 65-70%. A review of bedside tele did show improvment of HR overnight with rate 60-70. VS stable - Suspect sx may be rt to Bradycardia- we will decrease home dose of metoprolol, social media senior associate consulted for home health nurse - monitor BP daily- She will be discharged and will follow up with PCP since this provider knows her best and can adjust medications accordingly I reviewed with patient's who verbalizes understanding Discharge discussed with: patient, family - Time Spent with Patient Total time spent providing and/or coordinating discharge services: - Discharge Medications Prescriptions: Metoprolol [Lopressor] 12.5 mg PO BID #30 tablet Home Medications: Donepezil [Aricept] 10 mg PO HS 10/28/16 [History] Lisinopril [Zestril] 20 mg PO DAILY 10/28/16 [History] Memantine HCl [Namenda Xr] 28 mg PO DAILY 10/28/16 [History] Simvastatin [Zocor] 20 mg PO HS 10/28/16 [History] Furosemide [Lasix] 40 mg PO DAILY 04/13/17 [History] hydrALAZINE [HydrALAZINE] 25 mg PO TID 09/01/17 [History] Fluticasone/Salmeterol [Advair 250-50 Diskus] 1 puff IH BID 05/12/18 [History] Insulin NPH Hum/Reg Insulin Hm [Novolin 70-30 100 Unit/ml Vial] 17 unit SQ QAM 05/12/18 [History] Omeprazole [PriLOSEC] 40 mg PO DAILY #30 cap 05/18/18 [Rx] Sucralfate [Carafate] 1 gm PO QIDAC #120 tablet 05/18/18 [Rx] Insulin NPH Hum/Reg Insulin Hm [Novolin 70-30 100 Unit/ml Vial] 11 unit SQ QPM 05/21/18 [History] Calcium Carbonate/Vitamin D3 [Calcium 500 + Vit D Caplet] 1 tab PO DAILY [History] Iron/Folic Acid/B12/C/Docusate [Ferraplus 90 Tablet] 1 tab PO TID 06/02/18 [ History] Magnesium Oxide [Magnesium] 800 mg PO DAILY 06/02/18 [History] Multivitamin [One Daily Essential] 1 tab PO DAILY 06/02/18 [History] Potassium Chloride 20 meq PO DAILY 06/02/18 [History] Sennosides/Docusate Sodium [Senna-Docusate Sodium Tablet] 1 tab PO DAILY PRN 10/19 [History] Metoprolol [Lopressor] 12.5 mg PO BID #30 tablet 06/04/18 [Rx] Allergies/Adverse Reactions: 3 Allergy/AdvReac Type Severity Reaction Status Date / Time Iodinated Contrast- Oral and Allergy See Verified 06/02/18 15:32 IV Dye Comments Penicillins Allergy See Verified 06/02/18 15:32 Comments Date of admission: 06/03/18 17:07 Primary care physician: Rizwan Palma MD Consults: 06/04/18 10:11 Consult to Brain Picker [CONS] Routine Reason for SW Consult: discharge planning- may need home health Discharging clinician: Sabina Platt Anticipated date of discharge: 06/04/18 - Constitutional Vitals: Temp Pulse Resp BP Pulse Ox 98.4 F 57 18 158/53 98 06/04/18 12:02 06/04/18 12:02 06/04/18 12:02 06/04/18 12:02 06/04/18 12:02 General appearance: Present: A&O X 1 Exam: General: Alert and oriented; in no acute distress Skin:Normal color, no rash, no lesions. HEENT:EOM, pupils equal, round and reactive. Cardiovascular:Normal S1 & S2, no rubs, 3/6 systolic murmur; no rubs or gallops. JVD up to mid neck. Pulse regular. Lungs:Normal breath sounds, no wheezes or crackles. Abdomen:Soft, non-tender, no rigidity. Extremities:No deformity, no edema or tenderness, no joint swelling or clubbing. Neurological:Normal cognition and motor skills. Pulses:Carotid and radial pulses normal +2. Rest of the physical exam is non contributory - Head Head exam: Present: atraumatic, normocephalic - Eye Eye exam: Present: PERRL, conjuntiva pink, sclera anicteric Pupils: Present: PERRL - Neck Neck exam general surgery: Present: supple, trachea midline. Absent: lymphadenopathy - Respiratory Respiratory exam: Present: CTAB. Absent: accessory muscle use, rales, rhonchi, wheezes - Cardiovascular Cardiovascular exam: Present: RRR, +S1, +S2. Absent: diastolic murmur, gallop, rubs, systolic murmur - GI/Abdominal GI/Abdominal exam: Present: normal bowel sounds, soft, no peritoneal signs. Absent: distended, tenderness - Extremities Exam Extremities exam: Present: warm, radial pulses palpable and symmetrical. Absent : calf tenderness, cyanotic, pedal edema - Neurological Exam Neurological exam: Present: CN II-XII intact, oriented X3, no focal deficits. Absent: pronater drift, facial droop, speech deficit - Skin Skin exam: Present: dry, intact - Patient Status Disposition: Home Health Service Condition: Good Functional capacity at discharge: independent ambulation Overall status at discharge: patient is back to baseline - Discharge Instructions Instructions: Metoprolol (By mouth) Follow Up With: Rizwan Palma MD [Primary Care Provider] - (Appointment has been requested. The office will call you at home with the date and time.) - Diet and Activity Activity: increase activity as tolerated Diet: advance to your usual diet
--- NOTE | 2018-06-04 16:34 | Physician Discharge Referral ---
Home Health/Hosp Referral Info Transfer to: Home Health Attending Provider: Sabina Platt Provider in Charge Post Discharge: PCP - Diagnosis (1) HTN (hypertension) Priority: Secondary Status: Chronic (2) Diabetes mellitus Priority: Secondary Status: Chronic (3) Dementia Priority: Secondary Status: Chronic (4) Anemia Priority: Secondary Status: Acute (5) Shortness of breath Priority: Secondary Status: Acute (6) Bradycardia Priority: Primary Status: Acute (7) Hypokalemia Priority: Secondary Status: Acute (8) Elevated troponin I measurement Priority: Secondary Status: Acute - Respiratory Orders Smoking Cessation: Smoking cessation has been advised. For more information, call the [place] Tobacco Quit Line at 8-607-ATNU-NOW. - Transfer Medications Prescriptions: Metoprolol [Lopressor] 12.5 mg PO BID #30 tablet Home Medications: Donepezil [Aricept] 10 mg PO HS 10/28/16 [History] Lisinopril [Zestril] 20 mg PO DAILY 10/28/16 [History] Memantine HCl [Namenda Xr] 28 mg PO DAILY 10/28/16 [History] Simvastatin [Zocor] 20 mg PO HS 10/28/16 [History] Furosemide [Lasix] 40 mg PO DAILY 04/13/17 [History] hydrALAZINE [HydrALAZINE] 25 mg PO TID 09/01/17 [History] Fluticasone/Salmeterol [Advair 250-50 Diskus] 1 puff IH BID 05/12/18 [History] Insulin NPH Hum/Reg Insulin Hm [Novolin 70-30 100 Unit/ml Vial] 17 unit SQ QAM 05/12/18 [History] Omeprazole [PriLOSEC] 40 mg PO DAILY #30 cap 05/18/18 [Rx] Sucralfate [Carafate] 1 gm PO QIDAC #120 tablet 05/18/18 [Rx] Insulin NPH Hum/Reg Insulin Hm [Novolin 70-30 100 Unit/ml Vial] 11 unit SQ QPM 05/21/18 [History] Calcium Carbonate/Vitamin D3 [Calcium 500 + Vit D Caplet] 1 tab PO DAILY [History] Iron/Folic Acid/B12/C/Docusate [Ferraplus 90 Tablet] 1 tab PO TID 06/02/18 [ History] Magnesium Oxide [Magnesium] 800 mg PO DAILY 06/02/18 [History] Multivitamin [One Daily Essential] 1 tab PO DAILY 06/02/18 [History] Potassium Chloride 20 meq PO DAILY 06/02/18 [History] Sennosides/Docusate Sodium [Senna-Docusate Sodium Tablet] 1 tab PO DAILY PRN 10/19 [History] Metoprolol [Lopressor] 12.5 mg PO BID #30 tablet 06/04/18 [Rx] Allergies/Adverse Reactions: 3 Allergy/AdvReac Type Severity Reaction Status Date / Time Iodinated Contrast- Oral and Allergy See Verified 06/02/18 15:32 IV Dye Comments Penicillins Allergy See Verified 06/02/18 15:32 Comments Certification: Further, I certify that my clinical findings support that this patient is homebound (i.e. absences from home require considerable and taxing effort and are for medical reasons or anglican services or infrequently or short duration when for other reasons) because: Homebound Reason: Leaving home requires considerable and taxing effort due to condition Attestation: My signature below is to certify that this patient is under my care and that I, or nurse practitioner, or a physician's licensed physical therapy assistant working with me, has a face-to -face encounter with this patient.
--- NOTE | 2018-06-05 21:35 | Electrocardiograph Report ---
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
--- NOTE | 2018-06-06 22:06 | Electrocardiograph Report ---
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
== END 2018-06-04 13:08 | disposition home health service (06) | DRG 310 ==
LOC: 3BNU 14:20 → EMEROOARM 14:20 → 3BNU 20:56
PROVIDERS: ADMIT Internal Medicine; ATTEND Internal Medicine